=== PATIENT | female | born 1935 | race Caucasian/White ===

== ENCOUNTER 2023-04-05 07:58 | Inpatient (IN) ==
[2023-04-05] MEDS ORDERED: SODIUM CHLORIDE 0.9% 500 ML IV STA (08:09)
--- NOTE | 2023-04-05 08:12 | Emergency Department Note ---
History of Present Illness General Chief complaint: Abdominal Pain Time Seen by Provider: 04/05/23 07:58 Source: patient, family (Daughter who arrived and is at the bedside), RN notes reviewed and old records reviewed (I have reviewed the detention med list which arrived with the patient and looked at the meds) Mode of arrival: EMS Limitations: no limitations History of Present Illness This patient is an 87-year-old female comes in by EMS after having abdominal pain for a day or so but is in right side it was 8 out of 10 she took Tylenol notes 5 out of 10 to the right mid abdomen she does have baseline dementia. Denies fever denies shortness of breath or chest pain. No nausea vomiting or diarrhea no dysuria hematuria no fall or trauma. She is on no blood thinners. Home Medications Medication Instructions Recorded Confirmed Type alprazolam 0.5 mg tablet 0.5 mg PO HS PRN Sleep 03/01/18 04/05/23 History aspirin 81 mg tablet,delayed 81 mg PO DAILY 03/01/18 04/05/23 History release ([place] Low Dose Aspirin) cranberry fruit concentrate 450 mg 450 mg PO DAILY 03/01/18 04/05/23 History tablet (cranberry) levothyroxine 50 mcg tablet 50 mcg PO DAILYBB 03/01/18 04/05/23 History losartan 100 mg tablet 100 mg PO HS 03/01/18 04/05/23 History metoprolol succinate 25 mg 25 mg PO DAILY 03/01/18 04/05/23 History tablet,extended release 24 hr pravastatin 40 mg tablet 40 mg PO HS 03/01/18 04/05/23 History nitroglycerin 0.4 mg sublingual 0.4 mg sublingual UD #30 tabs 03/02/18 04/05/23 Rx tablet (Nitrostat) amlodipine 2.5 mg tablet 2.5 mg PO DAILY 10/05/19 04/05/23 History donepezil 5 mg tablet 5 mg PO DAILY 04/05/23 04/05/23 History dorzolamide 22.3 mg-timolol 6.8 1 drp OPB BID 04/05/23 04/05/23 History mg/mL eye drops escitalopram oxalate 10 mg tablet 10 mg PO DAILY 04/05/23 04/05/23 History famotidine 20 mg tablet 20 mg PO DAILY 04/05/23 04/05/23 History ferrous sulfate 325 mg (65 mg 325 mg PO MOWEFR@0900 04/05/23 04/05/23 History iron) tablet Allergies Allergy/AdvReac Type Severity Reaction Status Date / Time bee venom protein (honey bee) Allergy Severe Anaphylaxis Verified 04/05/23 09:43 cephalexin Allergy Unknown RASH Unverified 10/04/20 09:59 Iodinated Contrast Media Allergy Unknown HIVES Unverified 10/04/20 09:59 lisinopril Allergy Unknown Verified 04/05/23 09:43 alendronate sodium AdvReac Severe Chest Pain Verified 04/05/23 09:43 Past Med/Surg History Medical History Depression History of breast cancer History of adenomatous polyp of colon Diverticular disease of colon Pelvic fracture Osteoporosis Hypothyroidism Lymphedema of arm Dyslipidemia Hypertension Nonsustained ventricular tachycardia Hypomagnesemia Hiatal hernia GERD (gastroesophageal reflux disease) Esophageal spasm Surgical History H/O bilateral cataract extraction History of ectropion repair Status post partial mastectomy Family History Mother Heart disease Father Colon cancer Sister Lymphoma Sister Breast cancer Social History Smoking Status: Never smoker Second Hand Exposure: No; Do You Dip or Chew Tobacco: No; Tobacco Cessation Education Requested by Patient: No Hx Alcohol Use: No Hx Substance Use: No Preferred Language: Indonesian Communication Ability: Effective Materials Associate Required: No Beliefs That Will Affect Care: None Current Living Situation: Long-Term Other Information That Helps Us Care for You: No Feels Safe at Home: Yes Safety Concerns: Feels Safe At This Time Assistive Devices: Cane, Glasses and Walker Review of Systems A total of 10 systems reviewed and were otherwise negative Physical Exam Vital Signs Vital Signs - 24 hr 04/05/23 08:13 04/05/23 08:13 04/05/23 08:32 Temperature 36.5 C Temperature Source Oral Pulse Rate 86 86 83 Pulse Rate from SpO2 Sensor Pulse Rhythm Regular Respiratory Rate 16 18 Respiratory Depth Normal Blood Pressure 119/68 Blood Pressure Mean 85 Pulse Oximetry 97 97 Oxygen Delivery Method Room Air Room Air Sepsis Recent Fever Within 48 Hours No Sepsis New/Unexplained Change in Mental Status No Sepsis Action Taken by Nursing No Action Required 04/05/23 08:43 04/05/23 08:50 04/05/23 09:00 Temperature Temperature Source Pulse Rate 80 78 Pulse Rate from SpO2 Sensor 80 79 Pulse Rhythm Respiratory Rate 17 22 Respiratory Depth Blood Pressure 147/77 H 147/77 H Blood Pressure Mean 89 100 Pulse Oximetry 95 93 Oxygen Delivery Method Sepsis Recent Fever Within 48 Hours Sepsis New/Unexplained Change in Mental Status Sepsis Action Taken by Nursing 04/05/23 09:00 04/05/23 09:10 04/05/23 09:20 Temperature Temperature Source Pulse Rate 80 84 Pulse Rate from SpO2 Sensor 81 83 Pulse Rhythm Respiratory Rate 18 22 Respiratory Depth Blood Pressure 123/68 Blood Pressure Mean 92 Pulse Oximetry 92 93 Oxygen Delivery Method Sepsis Recent Fever Within 48 Hours Sepsis New/Unexplained Change in Mental Status Sepsis Action Taken by Nursing 04/05/23 09:30 04/05/23 09:30 04/05/23 09:40 Temperature Temperature Source Pulse Rate 84 77 Pulse Rate from SpO2 Sensor 85 76 Pulse Rhythm Respiratory Rate 24 24 Respiratory Depth Blood Pressure 157/65 H Blood Pressure Mean 121 Pulse Oximetry 98 95 Oxygen Delivery Method Sepsis Recent Fever Within 48 Hours Sepsis New/Unexplained Change in Mental Status Sepsis Action Taken by Nursing 04/05/23 09:50 Temperature Temperature Source Pulse Rate 74 Pulse Rate from SpO2 Sensor 75 Pulse Rhythm Respiratory Rate 14 Respiratory Depth Blood Pressure Blood Pressure Mean Pulse Oximetry 96 Oxygen Delivery Method Sepsis Recent Fever Within 48 Hours Sepsis New/Unexplained Change in Mental Status Sepsis Action Taken by Nursing General: Well developed well nourished pleasant older female who has baseline dementia, she answers most questions appropriately but vaguely. She appears in no acute distress, breathing comfortably on room air. Normal speech. HEENT: Normal cephalic atraumatic. Pupils are equal round and reactive to light. Extraocular movements are intact. Oropharynx is pink with moist mucous membranes. No swelling of the mouth lips or tongue. Neck: Supple with a midline trachea. No meningeal signs or stiffness, no JVD or bruits. No Stridor. Chest: Clear to auscultation bilaterally. No wheezes or rhonchi. No increased work of breathing. Heart: Regular rate and rhythm without murmurs or gallops. Abdomen: Soft, moderately tender to palpation in the right mid to lower abdomen. Nondistended without rebound guarding or rigidity. Extremities: No cyanosis clubbing or edema. No calf tenderness or assymetry Spine/Back. Non tender to palpation. No CVA tenderness Skin: Good turgor without rashes. Neurologic exam: Cranial nerves two through 12 are intact. Motor and sensation are intact and symmetrical throughout. Course Administered Medications Amlodipine Besylate (Amlodipine Besylate 5 Mg Tab) 2.5 mg PO DAILY KALLIE Stop: 05/05/23 11:29 Last Admin: 04/05/23 12:21 Dose: 2.5 mg Documented By: MORALES Dorzolamide/Timolol (Dorzolamide/Timolol 22.3/6.8mg/Ml 10 Ml Btl) 1 drops OPB BID KALLIE Stop: 05/05/23 11:29 Last Admin: 04/05/23 12:27 Dose: 1 drops Documented By: MORALES Escitalopram Oxalate (Escitalopram Oxalate 10 Mg Tab) 10 mg PO DAILY KALLIE Stop: 05/05/23 11:29 Last Admin: 04/05/23 12:24 Dose: 10 mg Documented By: MORALES Piperacillin Sod/Tazobactam (Sod 4.5 gm/ Dextrose) 100 mls @ 25 mls/hr IV Q8H KALLIE Stop: 04/15/23 13:59 Last Admin: 04/05/23 13:27 Dose: 25 mls/hr Documented By: MORALES Metoprolol Succinate (Metoprolol Succ 25mg Ext Rel Tab) 25 mg PO DAILY KALLIE Stop: 05/05/23 11:29 Last Admin: 04/05/23 12:24 Dose: 25 mg Documented By: MORALES Discontinued Medications Sodium Chloride (Nss) 500 mls @ 999 mls/hr IV .Q31M STA Stop: 04/05/23 08:39 Last Infusion: 04/05/23 09:17 Dose: Infused Documented By: Admin: 04/05/23 08:23 Dose: 999 mls/hr Documented By: ELVIRA Piperacillin Sod/Tazobactam Sod (Zosyn) 4.5 gm in 100 mls @ 200 mls/hr IV NOW ONE Stop: 04/05/23 09:58 Last Infusion: 04/05/23 10:44 Dose: Infused Documented By: Admin: 04/05/23 09:56 Dose: 200 mls/hr Documented By: ELVIRA Medical Decision Making Differential Diagnosis Intra-abdominal process, gallbladder disease, appendicitis, diverticulitis, cardiac disease, UTI, electrolyte or metabolic abnormality Medical Records Attestation: I reviewed the patient's medical records. Home Medications Current Medication List: was personally reviewed by me Laboratory Data Attestation: I reviewed the patient's lab results. 04/05/23 08:05 04/05/23 09:27 Lab Results 04/05/23 04/05/23 Range/Units 08:05 09:27 WBC 12.59 H (4.8-10.8) K/ul RBC 3.29 L (4.20-5.40) M/uL Hgb 7.7 L (12.0-16.0) g/dl Hct 27.3 L (37.0-47.0) % MCV 83.0 (80.0-100.0) fL MCH 23.4 L (25.0-34.0) pg MCHC 28.2 L (32.0-36.0) g/dL RDW Std Deviation 67.9 H (36.4-46.3) fL RDW Coeff of Helen 23.7 H (11.5-14.5) % Plt Count 481 H (130-400) K/uL MPV 9.3 L (9.4-12.4) fL Immature Gran % (Auto) 0.4 % Neut % (Auto) 79.2 % Lymph % (Auto) 13.9 % Noble % (Auto) 5.6 % Eos % (Auto) 0.7 % Baso % (Auto) 0.2 % Neut # (Auto) 9.96 H (1.40-6.50) K/uL Lymph # (Auto) 1.75 (1.20-3.40) K/uL Noble # (Auto) 0.71 H (0.11-0.59) K/uL Eos # (Auto) 0.09 (0.00-0.50) K/uL Baso # (Auto) 0.03 (0.00-0.20) K/uL Immature Gran # (Auto) 0.05 (0.01-0.20) K/uL Polychromasia 1+ Hypochromasia Present Anisocytosis Present Ovalocytes 1+ Sodium 140 (136-145) mmol/L Potassium TNP 4.0 Chloride 109 H (98-107) mmol/L Carbon Dioxide 23 (21-32) mmol/L Anion Gap 8 (3-11) BUN 19 (6-23) mg/dl Creatinine 1.13 (0.6-1.2) mg/dl Est Cr Clr Drug Dosing 27.9 ml/min Est GFR ( Amer) 49.9 ml/min Est GFR (Non-Af Amer) 43.1 ml/min BUN/Creatinine Ratio 16.8 (10-20) Glucose 130 H (70-99(Fasting)) mg/dl Calcium 8.8 (8.6-10.3) mg/dl Total Bilirubin 0.5 (0.2-1.0) mg/dl AST TNP 14 ALT 11 (7-52) U/L Alkaline Phosphatase 61 (34-104) U/L Troponin I High Sens 13.7 (0-14) pg/ml Total Protein 6.1 (6.0-8.3) gm/dl Albumin 2.9 L (3.4-5.0) gm/dl Globulin 3.2 (2.5-4.0) gm/dl Albumin/Globulin Ratio 0.9 (0.9-2) Lipase 10 L (11-82) U/L Imaging Data Attestation: I personally reviewed and interpreted this imaging study as follows: My Impression: CT of the abdomen and pelvisno contrastupon my interpretation there appears to be a mass in the right mid abdomen. I am concerned for colon cancer. Radiologist's Impression: Abdomen/Pelvis CT 04/05/23 08:[address] WITHOUT CONTRAST CT DOSE: 580.4 mGy.cm HISTORY: rt sided abd pain TECHNIQUE: Multiaxial CT images of the abdomen and pelvis were performed without contrast. A dose lowering technique was utilized adhering to the principles of ALARA. COMPARISON STUDY: None. FINDINGS: Mild dependent changes seen at the lung bases. No pneumoperitoneum. No pneumatosis. Old posttraumatic and postoperative changes within the pubic bones. There is a left sacroiliac bone noted. There are old, healed bilateral rib fractures. No acute fractures identified. The heart is moderately enlarged. Mild circumferential thickening of the distal esophagus. Prior cholecystectomy. This may account for the intra and extra hepatic bile duct dilatation. The common bile duct measures up to 11 mm. No hepatic or splenic masses. There is trace perisplenic fluid noted. The adrenal glands unremarkable. Small cyst at the pancreatic head.. There is a punctate stone within the left kidney. No right renal calculi. Multiple bilateral renal hypodense lesions are incompletely characterized on this noncontrast study but favor cysts. Calcified plaque within the normal caliber abdominal aorta. No pelvic lymphadenopathy. Trace pelvic free fluid. Mild bladder wall thickening with adjacent fat stranding. The uterus and adnexa are unremarkable. No dilated loops of bowel to suggest an obstruction. Multiple colonic diverticula. There is moderate irregular bowel wall thickening within the cecum and proximal ascending colon with adjacent fat stranding. There are mildly enlarged ileocolic lymph nodes measuring up to 13 mm. The appendix is not identified with certainty. Mild thickening at the terminal ileum is also noted. IMPRESSION: 1. Moderate irregular bowel wall thickening involving the cecum and proximal ascending colon with pericolonic fat stranding. This is suspicious for a colonic mass with surrounding inflammation. A nonspecific colitis or cecal diverticulitis are also considered in the differential diagnosis.. Follow-up colonoscopy recommended for further evaluation. 2. Mildly enlarged ileocolic lymph nodes which could represent tumor spread or reactive. These bear watching future examinations. 3. The appendix is not identified with certainty. 4. Left-sided nephrolithiasis. No hydronephrosis. 5. Mild bladder wall thickening which may represent a cystitis. 6. Additional findings as described above. ACT 112: Negative or not required by law. Electronically signed by: Hugo Patel M.D. 04/05/2023 9:21 AM ECG Data Attestation: I personally reviewed and interpreted this ECG as follows: Indication: + abdominal pain Rate (beats per minute): 85 Rhythm: + normal sinus ECG Intervals/blocks: + Normal QRS, + Normal QT and + Normal CT ECG [place]: + Normal ECG ST segments: + Nonspecific ST abnormalities ECG Findings: no PACs or no PVCs Comparison ECG Date: from (10/05/2019) Change: no significant change MDM Narrative This patient comes in with abdominal pain. She does have dementia so history is somewhat limited but on exam she is moderately tender. IV access was established and multiple blood testing was obtained. I did order urinalysis and EKG as well. EKG does not suggest acute coronary syndrome or arrhythmia. I did order the CAT scan without contrast given her contrast allergy as well as her underlying kidney disease. Her daughter did arrive and is at the bedside and was able to give further history. Apparently the patient has been getting iron transfusions and seem to be worse after the last iron transfusion on . Daughter confirms that she has had an appendectomy and cholecystectomy. She was found to have significant anemia at 7.7 it sounds like this has been treated as an outpatient and is not likely acute. She has no significant electrolyte or metabolic abnormalities. CAT scan shows a mass in the right upper abdomen likely consistent with a colon cancer/malignancy. Diverticulitis or infection would also be in the differential in light of this and to give her Zosyn 4.5 g IV she tolerated this well. She is receive IV fluids. I do think she needs to be admitted/observed for further treatment and evaluation. I have consulted and discussed case at length with Dr. Quintero who will admit the patient for these measures Continuous cardiac monitoring: Orders placed in EMR for continuous cardiac monitoring. Upon my interpretation patient was noted to be in normal sinus rhythm with a rate of 85 Impression & Plan Abdominal pain, Dementia, Anemia, Colonic mass Discharge Plan Visit Data Chief Complaint: Abdominal Pain ED Provider: Claude Shetty Discharge Problem: Abdominal pain, Dementia, Anemia, Colonic mass Patient Disposition: Admitted As Inpatient Discharge Instructions Interventions: ED Discharge Assessment Last Done: 04/05/23 10:42 Discharge Problem: Abdominal pain Qualifiers: Abdominal location: right lower quadrant Qualified Code(s): R10.31 - Right lower quadrant pain Dementia Qualifiers: Dementia type: unspecified type Dementia severity: moderate Dementia behavioral or psychological symptom: without behavioral, psychotic, or mood disturbance or anxiety Qualified Code(s): F03.B0 - Unspecified dementia, moderate, without behavioral disturbance, psychotic disturbance, mood disturbance, and anxiety Anemia Qualifiers: Anemia type: unspecified type Qualified Code(s): D64.9 - Anemia, unspecified
[2023-04-05 08:40] LABS: Hematocrit (blood only) 27.3 % (37.0-47.0); Hemoglobin 7.7 g/dl (12.0-16.0); Mean Corpuscular Hemoglobin 23.4 pg (25.0-34.0); Mean Corpuscular Hgb Conc 28.2 g/dL (32.0-36.0); Mean Platelet Volume 9.3 fL (9.4-12.4); Platelet Count 481 K/uL (130-400); RDW Coefficient of Variation 23.7 % (11.5-14.5); RDW Standard Deviation 67.9 fL (36.4-46.3); Red Blood Count 3.29 M/uL (4.20-5.40); White Blood Count 12.59 K/ul (4.8-10.8)
[2023-04-05 08:55] LABS: Anisocytosis Present; Basophils # (auto) 0.03 K/uL (0.00-0.20); Basophils % (auto) 0.2 %; Eosinophils # (auto) 0.09 K/uL (0.00-0.50); Eosinophils % (auto) 0.7 %; Hypochromasia Present; Immature Granulocytes # (auto) 0.05 K/uL (0.01-0.20); Immature Granulocytes % (auto) 0.4 %; Lymphocytes # (auto) 1.75 K/uL (1.20-3.40); Lymphocytes % (auto) 13.9 %; Monocytes # (auto) 0.71 K/uL (0.11-0.59); Monocytes % (auto) 5.6 %; Neutrophils # (auto) 9.96 K/uL (1.40-6.50); Neutrophils % (auto) 79.2 %; Ovalocytes 1+; Polychromasia 1+
[2023-04-05 08:56] LABS: Alanine Aminotransferase 11 U/L (7-52); Albumin Globulin Ratio 0.9 (0.9-2); Albumin Level 2.9 gm/dl (3.4-5.0); Alkaline Phosphatase 61 U/L (34-104); Anion Gap 8 (3-11); BUN Creatinine Ratio 16.8 (10-20); Bilirubin,Total 0.5 mg/dl (0.2-1.0); Blood Urea Nitrogen 19 mg/dl (6-23); Calcium 8.8 mg/dl (8.6-10.3); Carbon Dioxide 23 mmol/L (21-32); Chloride 109 mmol/L (98-107); Creatinine Clr Calc Pharmacy 27.9 ml/min; Est GFR (African American) 49.9 ml/min; Est GFR (Non-African American) 43.1 ml/min; Globulin 3.2 gm/dl (2.5-4.0); Glucose 130 mg/dl (70-99(Fasting)); Lipase 10 U/L (11-82); Sodium 140 mmol/L (136-145); Total Protein 6.1 gm/dl (6.0-8.3)
[2023-04-05 09:06] LABS: Troponin I High Sensitivity 13.7 pg/ml (0-14)
--- NOTE | 2023-04-05 09:22 | CT Scan Report ---
ABDOMEN AND PELVIS CT WITHOUT CONTRAST CT DOSE: 580.4 mGy.cm HISTORY: rt sided abd pain TECHNIQUE: Multiaxial CT images of the abdomen and pelvis were performed without contrast. A dose lo wering technique was utilized adhering to the principles of ALARA. COMPARISON STUDY: None. FINDINGS: Mild dependent changes seen at the lung bases. No pneumoperitoneum. No pneumatosis. Old pos ttraumatic and postoperative changes within the pubic bones. There is a left sacroiliac bone noted. T here are old, healed bilateral rib fractures. No acute fractures identified. The heart is moderately enlarged. Mild circumferential thickening of the distal esophagus. Prior cholecystectomy. This may ac count for the intra and extra hepatic bile duct dilatation. The common bile duct measures up to 11 mm . No hepatic or splenic masses. There is trace perisplenic fluid noted. The adrenal glands unremarkab le. Small cyst at the pancreatic head.. There is a punctate stone within the left kidney. No right re nal calculi. Multiple bilateral renal hypodense lesions are incompletely characterized on this noncon trast study but favor cysts. Calcified plaque within the normal caliber abdominal aorta. No pelvic ly mphadenopathy. Trace pelvic free fluid. Mild bladder wall thickening with adjacent fat stranding. The uterus and adnexa are unremarkable. No dilated loops of bowel to suggest an obstruction. Multiple co lonic diverticula. There is moderate irregular bowel wall thickening within the cecum and proximal as cending colon with adjacent fat stranding. There are mildly enlarged ileocolic lymph nodes measuring up to 13 mm. The appendix is not identified with certainty. Mild thickening at the terminal ileum is also noted. IMPRESSION: 1. Moderate irregular bowel wall thickening involving the cecum and proximal ascending colon with per icolonic fat stranding. This is suspicious for a colonic mass with surrounding inflammation. A nonspe cific colitis or cecal diverticulitis are also considered in the differential diagnosis.. Follow-up c olonoscopy recommended for further evaluation. 2. Mildly enlarged ileocolic lymph nodes which could represent tumor spread or reactive. These bear w atching future examinations. 3. The appendix is not identified with certainty. 4. Left-sided nephrolithiasis. No hydronephrosis. 5. Mild bladder wall thickening which may represent a cystitis. 6. Additional findings as described above. ACT 112: Negative or not required by law. Electronically signed by: Hugo Patel M.D. 04/05/2023 9:21 AM
[2023-04-05] MEDS ORDERED: PIPERACILLIN/TAZOBACTAM 4.5 GM/100 ML BAG IV ONE (09:29)
--- NOTE | 2023-04-05 09:49 | History & Physical Report ---
Date of Service April 05, 2023 Assessment & Plan (1) Syncope: Plan: Syncopal episode this morning prior to breakfast prompted staff at [facility] to summon EMS. Per EMS report she also passed out 2 to 3 weeks ago. Patient does not remember the circumstances around this and staff is unavailable to comment. We will monitor on telemetry overnight and obtain echocardiogram. Notably staff did report glucose was checked this morning around time of the event and was 123. She is currently at her baseline. We will check orthostatic vital signs. PT/OT to evaluate. (2) Abdominal pain: Plan: Likely related to #3. Tylenol/Oxycodone PRN. See plan below (3) Abnormal CT of the abdomen: Plan: Possible colon mass versus diverticulitis/colitis. We will empirically treat with antibiotics. Family declines additional work-up and interested in hospice care. Palliative care consulted. Continue supportive care with pain breanna packer. (4) Anemia: Plan: Likely chronic blood loss anemia secondary to colon mass. Patient has been on iron supplementation and iron transfusions as outpatient. We will hold these while she is inpatient given iron can cause constipation. Continue to watch CBC for any fall from current state. (5) Dementia: Plan: Chronic, stable, at baseline. Continue donepezil per home regimen. (6) Hypothyroidism: Plan: Chronic, stable. TSH in AM. Continue Synthroid per home regimen. (7) Osteoporosis: Plan: Chronic, stable. Notable allergy to alendronate. Not on calcium or vitamin D supplements. Defer to PCP. (8) History of breast cancer: Plan: Noted per records. (9) Hypertension: Plan: Chronic, stable. Continue medications per home regimen. (10) Depression: Plan: Chronic, stable. Continue medications per home regimen. DVT prophylaxis-heparin DNR/DNI as confirmed with daughter by phone Disposition-to med floor with telemetry given report of syncope by staff this morning. Overall, daughter is interested in hospice care. Palliative consult was placed. I spent a total of 75minutes coordinating, documenting, and providing care for this patient excluding time spent in the performance of separately billed services Agata Quintero DO [facility] Hospitalist History of Present Illness Chief Complaint: Abdominal pain Primary Care Provider: Arun Del Rio MD 87-year-old female with dementia and a history of right breast cancer status post partial mastectomy, radiation therapy, chemotherapy and 5 years of adjuvant tamoxifen completed in 2018 presents with abdominal pain. Work-up reveals a colonic mass suspicious for malignancy. She has a worsening anemia for which she has been getting iron transfusions after being referred to hematology. She also takes iron supplements orally Thursday. Per patient: reports dark stool, no ivana blood reports eating normal appetite, no changes in appetite, no significant weight changes right abdominal pain, poorly described, x 1-2 weeks. (Daughter states 3-4 days) notes report patient passed out 2-3 weeks ago. Pt doesn't remember circumstances. Happened at [facility] dry lips with some ulcerations, denies pain on these, just dry denies recent UTI symptoms denies lightheadedness, SOB, no abnormal fatigue out of the ordinary occ enema use for constipation. walks with a walker or a cane at baseline. Although she can tell me that "it's cold outside so it must be Nov" and then states correctly that it is 2022, she kept repeating her story. Per daughter (by phone): Pt reports abdominal pain x 3-4 days, saw PCP on Thursday-->CT was scheduled but not yet done staff at [facility] reported this morning that she was confused and elevated BP to 159/68. Said "she might have had a seizure" Upon EMS arrival she was clear. She states that Dr. Del Rio recommended a colonoscopy a few months ago, and the patient had decided against. Daughter reports that she and her sisters are on the same page and they understand mom may have colon cancer. They are not interested in further workup at this time. Per [facility] staff: Reports patient went to the bathroom and after she ambulated back to her chair she sat down and became pale, slumped over in her chair with staff holding her up so she didn't fall to the floor. She was shaky in her arms and then came to after about one minute and was able to speak to them. She appeared confused by to staff this confusion was no different from her baseline. Allergies Allergy/AdvReac Type Severity Reaction Status Date / Time bee venom protein (honey bee) Allergy Severe Anaphylaxis Verified 04/05/23 09:43 cephalexin Allergy Unknown RASH Unverified 10/04/20 09:59 Iodinated Contrast Media Allergy Unknown HIVES Unverified 10/04/20 09:59 lisinopril Allergy Unknown Verified 04/05/23 09:43 alendronate sodium AdvReac Severe Chest Pain Verified 04/05/23 09:43 Home Medications Medication Instructions Recorded Confirmed Type alprazolam 0.5 mg tablet 0.5 mg PO HS PRN Sleep 03/01/18 04/05/23 History aspirin 81 mg tablet,delayed 81 mg PO DAILY 03/01/18 04/05/23 History release (Mackenzie Low Dose Aspirin) cranberry fruit concentrate 450 mg 450 mg PO DAILY 03/01/18 04/05/23 History tablet (cranberry) levothyroxine 50 mcg tablet 50 mcg PO DAILYBB 03/01/18 04/05/23 History losartan 100 mg tablet 100 mg PO HS 03/01/18 04/05/23 History metoprolol succinate 25 mg 25 mg PO DAILY 03/01/18 04/05/23 History tablet,extended release 24 hr pravastatin 40 mg tablet 40 mg PO HS 03/01/18 04/05/23 History nitroglycerin 0.4 mg sublingual 0.4 mg sublingual UD #30 tabs 03/02/18 04/05/23 Rx tablet (Nitrostat) amlodipine 2.5 mg tablet 2.5 mg PO DAILY 10/05/19 04/05/23 History donepezil 5 mg tablet 5 mg PO DAILY 04/05/23 04/05/23 History dorzolamide 22.3 mg-timolol 6.8 1 drp OPB BID 04/05/23 04/05/23 History mg/mL eye drops escitalopram oxalate 10 mg tablet 10 mg PO DAILY 04/05/23 04/05/23 History famotidine 20 mg tablet 20 mg PO DAILY 04/05/23 04/05/23 History ferrous sulfate 325 mg (65 mg 325 mg PO MOWEFR@0900 04/05/23 04/05/23 History iron) tablet Past Med/Surg History Medical History Depression History of breast cancer History of adenomatous polyp of colon Diverticular disease of colon Pelvic fracture Osteoporosis Hypothyroidism Lymphedema of arm Dyslipidemia Hypertension Nonsustained ventricular tachycardia Hypomagnesemia Hiatal hernia GERD (gastroesophageal reflux disease) Esophageal spasm Surgical History H/O bilateral cataract extraction History of ectropion repair Status post partial mastectomy Family History Mother Heart disease Father Colon cancer Sister Lymphoma Sister Breast cancer Social History Smoking Status: Never smoker Hx Alcohol Use: Yes Alcohol type: wine Hx Substance Use: No Preferred Language: Czech Communication Ability: Effective Animal Nutrition Teacher Required: No Beliefs That Will Affect Care: None Current Living Situation: Family Feels Safe at Home: Yes Assistive Devices: Glasses Physical Exam Physical Exam: CONSTITUTIONAL: WNWD, vitals as above, generally well-appearing, NAD EYES: PERRL, normal conjunctivae, no scleral icterus ENT: external ear and nose normal, MMM NECK: trachea midline RESPIRATORY: clear to auscultation bilaterally, no crackles, rales or wheezes, normal respiratory effort CARDIOVASCULAR: regular rate and rhythm, S1 and 2 heard without murmurs, gallops or rubs, no JVD, no peripheral edema CHEST: inspection of chest was normal GASTROINTESTINAL: normal bowel sounds, soft, TTP in right abdomen, ND, no guarding MUSCULOSKELETAL: strength 5/5 throughout, head is normocephalic and atraumatic SKIN: warm and dry, no rashes NEUROLOGIC: CN 2-12 grossly intact, no sensory deficit, normal cognition, normal speech, no tremor PSYCHIATRIC: alert cooperative and oriented to person, place and time. Euthymic mood, makes good eye contact, language grossly intact, repeating her story over again as if not remembering that she just told me that. Results & Data Results & Data Vital Signs (Past 12 Hours) Vital Signs Temp Pulse Resp BP Pulse Ox O2 Del Method 04/05/23 08:32 83 04/05/23 08:13 86 18 97 Room Air 04/05/23 08:13 36.5 C 86 16 119/68 97 Room Air Laboratory Results Short CBC 04/05/23 Range/Units 08:05 WBC 12.59 H (4.8-10.8) K/ul Hgb 7.7 L (12.0-16.0) g/dl Hct 27.3 L (37.0-47.0) % Plt Count 481 H (130-400) K/uL BMP 11/19/23 08:05 Sodium 140 Potassium TNP Chloride 109 H Carbon Dioxide 23 BUN 19 Creatinine 1.13 Glucose 130 H Calcium 8.8 Liver Function 04/05/23 Range/Units 08:05 Total Bilirubin 0.5 (0.2-1.0) mg/dl AST TNP ALT 11 (7-52) U/L Alkaline Phosphatase 61 (34-104) U/L Albumin 2.9 L (3.4-5.0) gm/dl Diagnostic Findings Abdomen/Pelvis CT 04/05/23 08:[address] WITHOUT CONTRAST CT DOSE: 580.4 mGy.cm HISTORY: rt sided abd pain TECHNIQUE: Multiaxial CT images of the abdomen and pelvis were performed without contrast. A dose lowering technique was utilized adhering to the principles of ALARA. COMPARISON STUDY: None. FINDINGS: Mild dependent changes seen at the lung bases. No pneumoperitoneum. No pneumatosis. Old posttraumatic and postoperative changes within the pubic bones. There is a left sacroiliac bone noted. There are old, healed bilateral rib fractures. No acute fractures identified. The heart is moderately enlarged. Mild circumferential thickening of the distal esophagus. Prior cholecystectomy. This may account for the intra and extra hepatic bile duct dilatation. The common bile duct measures up to 11 mm. No hepatic or splenic masses. There is trace perisplenic fluid noted. The adrenal glands unremarkable. Small cyst at the pancreatic head.. There is a punctate stone within the left kidney. No right renal calculi. Multiple bilateral renal hypodense lesions are incompletely characterized on this noncontrast study but favor cysts. Calcified plaque within the normal caliber abdominal aorta. No pelvic lymphadenopathy. Trace pelvic free fluid. Mild bladder wall thickening with adjacent fat stranding. The uterus and adnexa are unremarkable. No dilated loops of bowel to suggest an obstruction. Multiple colonic diverticula. There is moderate irregular bowel wall thickening within the cecum and proximal ascending colon with adjacent fat stranding. There are mildly enlarged ileocolic lymph nodes measuring up to 13 mm. The appendix is not identified with certainty. Mild thickening at the terminal ileum is also noted. IMPRESSION: 1. Moderate irregular bowel wall thickening involving the cecum and proximal ascending colon with pericolonic fat stranding. This is suspicious for a colonic mass with surrounding inflammation. A nonspecific colitis or cecal diverticulitis are also considered in the differential diagnosis.. Follow-up colonoscopy recommended for further evaluation. 2. Mildly enlarged ileocolic lymph nodes which could represent tumor spread or reactive. These bear watching future examinations. 3. The appendix is not identified with certainty. 4. Left-sided nephrolithiasis. No hydronephrosis. 5. Mild bladder wall thickening which may represent a cystitis. 6. Additional findings as described above. ACT 112: Negative or not required by law. Electronically signed by: Hugo Patel M.D. 04/05/2023 9:21 AM (2) Abdominal pain Abdominal location: right lower quadrant Qualified Code(s): R10.31 - Right lower quadrant pain (5) Dementia Dementia behavioral or psychological symptom: without behavioral, psychotic, or mood disturbance or anxiety Dementia severity: moderate Dementia type: unspecified type Qualified Code(s): F03.B0 - Unspecified dementia, moderate, without behavioral disturbance, psychotic disturbance, mood disturbance, and anxiety
--- OUTSIDE RECORDS SUMMARY | 2023-04-05 10:06 | External Medical Summary | Summary of Care ---
Author Name Unknown Organization [facility] Address [address] [place] [address] Phone [phone] Care Team Providers Care Lead Java Developer Architect Name Role Phone Arun Del Rio MD Primary Care Provider [phone] Reason for Visit * Reason Onset Date Comments Fax 03/24/2023 Encounter Details Date Type Department Care Team (Late st Contact Info) Description 03/24/2023 Telephone [facility] [address] [place] [address] Arun Del Rio MD [address], [place] [id number] Fax Allergies Active Allergy Reactions Criticality Noted Date Comments Alendronate Tachycardia 11/02/2014 Patient felt like she was having a heart attack Bee Venom Anaphylaxis High 10/11/2014 Iodinated Contrast Media 07/22/2013 Cephalexin 08/09/2013 Hot and flushed , nausea 2012 Lisinopril 07/21/2018 documented as of this encounter (statuses as of 03/30/2023) Medications Medication Sig Dispensed Refills Start Date End Date Status Cranberry-Vitamin C 250-60 MG Oral Capsule Take by mouth daily. 0 Active Aspirin 81 MG Tablet Take 1 Tablet by mouth in the morning. 34 Tab 5 09/30/2019 Active acetaminophen (TYLENOL) 500 MG Tablet Take 2 Tablets by mouth every 6 hours as needed for Pain or Fever. 100 Tab 0 11/10/2019 Active Docusate Sodium 100 MG Oral Tablet Take 1 Tablet by mouth 2 times a day as needed. 10 Tab 0 11/10/2019 Active Polyethylene Glycol 3350 17 GM Oral Packet Take 1 Packet by mouth daily as needed. 0 Active Dorzolamide HCl-Timolol Mal 22.3-6.8 MG/ML Ophthalmic Solution (Cosopt) 1 drop in each eye 2 times daily 10 mL 3 06/17/2021 Active Nitroglycerin 0.4 MG Sublingual Tablet Sublingual (Nitrostat)Indication s:Esophageal spasm MAY REPEAT DOSE IN 10 MINUTES NECESSARY, BEING USED FOR SPASM OF ESOPHAGUS 25 Tablet 2 03/17/2022 Active traMADol HCl 50 MG Oral Tablet (Ultram)Indications:G eneralized osteoarthritis Take by mouth 1 Tablet every 8 hours as needed for Pain, Moderate. 60 Tablet 0 03/17/2022 Active Hydrocortisone 2.5 % External OintmentIndications:P rurigo nodularis,Lichenifica tion Apply to spots on face and back when itchy (x2 daily or more if needed) 60 g 0 08/14/2022 Active Levothyroxine Sodium 50 MCG Oral Tablet (Levoxyl)Indications: Hypothyroidism, unspecified type Take 1 Tablet by mouth daily first thing in the morning. (at least 30 min prior to breakfast or other meds) 90 Tablet 3 09/15/2022 Active Losartan Potassium 100 MG Oral Tablet (Cozaar)Indications:H ypothyroidism, unspecified type,Hyperlipidemia with target LDL less than 100,HTN, goal below 150/90 Take 1 Tablet by mouth in the morning. 90 Tablet 1 09/15/2022 Active Metoprolol Succinate ER 25 MG Oral Tablet Extended Release 24 Hour (toPROL XL)Indications:HTN, goal below 150/90 Take 1 Tablet by mouth in the morning. 90 Tablet 1 09/15/2022 Active amLODIPine Besylate 2.5 MG Oral Tablet (Norvasc)Indications: HTN, goal below 150/90 Take 1 Tablet by mouth in the morning. 100 Tablet 3 09/15/2022 Active Ferrous Sulfate 325 (65 Fe) MG Oral Tablet (Feosol)Indications:I wilmer deficiency anemia, unspecified iron deficiency anemia type Take 1 Tablet by mouth once a day on Thursday, Thursday, and Thursday only. 30 Tablet 4 10/15/2022 Active Famotidine 20 MG Oral Tablet (Pepcid)Indications:G astroesophageal reflux disease, unspecified whether esophagitis present TAKE 1 TABLET BY MOUTH ONCE DAILY 90 Tablet 3 12/01/2022 Active ALPRAZolam 0.5 MG Oral Tablet (xaNAX) TAKE 1 TABLET BY MOUTH AT BEDTIME NEEDED for sleep 25 Tablet 0 12/05/2022 Active Ondansetron HCl 4 MG Oral Tablet (Zofran)Indications:N ausea without vomiting TAKE 1 TABLET BY MOUTH EVERY 6 HOURS NEEDED FOR NAUSEA 20 Tablet 1 12/24/2022 Active Escitalopram Oxalate 10 MG Oral Tablet (Lexapro)Indications: Major depressive disorder, recurrent episode, mild (HCC) TAKE 1 TABLET BY MOUTH ONCE DAILY 90 Tablet 1 02/25/2023 Active Donepezil HCl 5 MG Oral Tablet (Aricept)Indications: Alzheimer's dementia of other onset, with other behavioral disturbance, unspecified dementia severity (HCC) TAKE 1 TABLET BY MOUTH EVERY MORNING. take with the largest meal of the day 90 Tablet 3 02/25/2023 Active Pravastatin Sodium 40 MG Oral Tablet (Pravachol)Indication s:Hyperlipidemia with target LDL less than 100 TAKE 1 TABLET BY MOUTH EVERY MORNING 90 Tablet 3 03/04/2023 Active documented as of this encounter (statuses as of 03/30/2023) Active Problems Problem Noted Date Diagnosed Date Alzheimer's disease 03/24/2023 Iron deficiency anemia 03/11/2023 Gastroesophageal reflux disease 10/15/2022 Stage 3 chronic kidney disease 05/22/2022 Primary open-angle glaucoma, bilateral, moderate stage 10/24/2021 SALAZAR (generalized anxiety disorder) 06/10/2021 Cyst of pancreas 06/10/2021 Hypertensive kidney disease with stage 3b chronic kidney disease 03/26/2020 Overview: Per CKD protocol History of breast cancer 06/30/2018 History of pelvic fracture 08/11/2017 HTN, goal below 150/90 02/26/2016 Generalized osteoarthritis 02/26/2016 Major depressive disorder, recurrent episode, mi ld 03/22/2015 GERD (gastroesophageal reflux disease) 5 Advanced directives, counseling/discussion 12/19 Overview: No, Advance Directive brochure offered, patient declined. Hyperlipidemia with target LDL less than 100 11/2013 Overview: ICD-10 update of inactive term Hypothyroidism 07/22/2013 Osteoporosis 07/22/2013 documented as of this encounter (statuses as of 03/30/2023) Resolved Problems Problem Noted Date Diagnosed Date Resolved Date Chronic kidney disease, stage 3b 09/25/2020 05/31/2021 Overview: Per CKD protocol Patient has combo code in use. Hypertensive kidney disease with chronic kidney disease stage III 11/22/2018 03/29/2020 Overview: Per CKD protocol Esophageal spasm 08/19/2018 10/15/2022 Nocturia 07/28/2016 02/10/2017 Kidney disease, chronic, sta ge III (GFR 30-59 ml/min) 10/02/2014 12/30/2018 Overview: Per CKD protocol #1 Ventricular tachycardia, non-sustained 11/29/2013 02/10/2017 Chronic pelvic pain in female 09/27/2013 02/10/2017 LLQ abdominal pain 09/27/2013 7 Pelvic mass in female 09/27/20132016 Breast cancer, right 07/22/2013 019 Cancer Staging:Clinical:Stage IIA(T1c, N1, M0) - Signed by Kirill Quintanilla MD on 09/02/2013 Pathologic: Unsigned Lymphedema of arm 07/22/2013 08/11/2017 HTN, goal below 140/90 07/22/201302/10 Family hx of colon cancer 07/22/2013 Overview: father Pelvic rim fracture 07/22/2013 08/12/19 18 Cystitis, chronic 07/22/2013 07/08/2016 Diverticulosis of colon 07/17 Overview: noted on colonoscopy documented as of this encounter (statuses as of 03/30/2023) Immunizations Name Administration Dates Next Due COVID-19 mRNA, LNP-s, No Pre serve, 2-Dose Series (Codigames) 12/10/2021,03/05/2021,08/07/2020,07/12 Pneumococcal Conjugate Vacc, 13 Valent (Prevnar) 10/11/2014 Pneumococcal Polysaccharide PPV23 (Pneumovax) 09/08/2013 SEASONAL INFLUENZA, PF, 6 M & Above, IM , (FLULAVAL or FLUZONE) 02/10/2017 Seasonal Influenza, Quadriva lent Hd (Fluzone Hd) 01/23/2023,02/24/2022 Seasonal Influenza, Quadriva lent, No Preserve, IM 02/15/2021,02/22/2020,01/30/2018,02/25 Seasonal Influenza, Split, I IV3, No Preserve, Inj 01/21/2013 Seasonal Influenza, Split, I IV3, With Preserve, Inj 01/24/2015,02/07/2014 Seasonal Influenza, Trivalen t, Adjuvanted, 65+ yrs 02/22/2019 TDAP (age 10 and older)(Boostrix) 02/09/2014 Varicella Zoster Vaccine (Adult) 03/18/2015 Zoster Vaccine Recombinant (Shingrix) 12/31/2017 ,10/07/2017 documented as of this encounter Social History Tobacco Use Types Packs/Day Years Used Date Smoking Tobacco: Never Smokeless Tobacco: Never Alcohol Use Standard Drinks/Week Comments Yes 0 (1 standard drink = 0.6 oz pure alcohol) occ wine, 1 drink every few months PHQ-2 Answer Date Recorded PHQ Adult Total Score 2 06/03/2022 Hunger Vital Sign Answer Date Recorded Within the past 12 months, y ou worried that your food would run out before you got the money to buy more. Never true 06/03/19 23 Within the past 12 months, t he food you bought just didn't last and you didn't have money to get more. Never true 06/03/2022 Sex and Gender Information Value Date Recorded Sex Assigned at Female 02/22/2019 2:36 PM EDT Gender Identity Female 02/22/2019 2:36 PM EDT Sexual Orientation Straight 02/22/2019 2: 36 PM EDT Job Start Date Occupation Industry Not on file Not on file Not on file documented as of this encounter Miscellaneous Notes * Telephone Encounter - Nataly Marroquin LPN - 03/30/2023 12:56 PM EST In provider's bin to be completed * Telephone Encounter - Nataly Marroquin LPN - 03/30/2023 9:52 AM EST Called and spoke with Valerie at [facility] - she will refax form * Telephone Encounter - Arun Del Rio MD - 03/27/2023 5:11 PM EST I have not seen form * Telephone Encounter - Dejah Su LPN - 03/26/2023 2:57 PM EST Called and spoke with Valerie from [facility] she states we need to have a new DME form for a medical evaluation that is dated for 02/27 to 03/30. Once done please fax to [phone] * Telephone Encounter - Luisa August, - 03/26/2023 12:58 PM EST Valerie from [facility] called & stated that she did receive the paperwork.However, the DME is showing a September date & is requesting to be changed from anywhere from 02.27 to 03.30. date. * Telephone Encounter - Arlene Burt LPN - 03/24/2023 4:23 PM EST Spoke with daughter and left message with [facility] that the paper work if ready and out front. * Telephone Encounter - Nasrin Henderson OSA - 03/24/2023 3:13 PM EST Pt daughter calling in regards to [facility] Paperwork that needs to be filled out for pt. The pt is to be moving to [facility] on Friday 03/30. This paperwork needs to be completed and sent back to [facility] as soon as possible to complete pt transition to [facility]. Please see previous encounters. Thank you. Pt daughter states that Valerie from [facility] will come out to the office if the paperwork if not sent over by tomorrow morning. Please advise. documented in this encounter Plan of Treatment Upcoming Encounters Date Type Department Care Team (Late st Contact Info) Description 04/02/2023 1:00 PM EST Nurse Only [address]ematology/[address] [address] Kaur, Chair 11 Hem Onc [facility] [address] [facility] [place] [address] 04/08/2023 1:00 PM EST Nurse Only Hematology/[address] [address] Kaur, Chair 11 Hem Onc [facility] [address] [facility] [place] [address] 04/28/2023 12:00 PM EST [facility] [address] Humberto Brothers CRNP [facility] [address] 05/04/2023 1:00 PM EST Laboratory Laboratory [facility] [address] [place] [phone] Kaur, Lab [facility] [address] [facility] [place] [address] 05/27/2023 3:40 PM EST Office Visit [facility] [address] [place] [facility] [place] [phone] Arun Del Rio MD [address] [facility] [address] 06/03/2023 10:00 AM EST Nurse Only Ancillary Department, [place] [address] [place] [address] [place], Nurse [facility] [address] [place] [address] 07/06/2023 8:30 AM EST Office Visit [facility], [facility] [place] [address] Gil Juares MD [address] [facility] [place] [address] 09/10/2023 3:40 PM EDT Office Visit Dermatology, [place] [address] [place] [address] Leigh June, PA-Alf [address] [place] [address] [place] [address] 12/11/2023 2:40 PM EDT Office Visit Nephrology, [facility] [address] [facility] [place] [address] Jabari Morales MD [address] [facility] [place] [address] 03/14/2024 12:30 PM EDT Office Visit Hematology/Oncology [facility] [place] [address] [facility] [place] [address] Brennon German MD [address] [facility] [place] [address] Health Maintenance Due Date Last Done Comments *BISPHONATE OR OTHER ACCEPTABLE MEDICATION NEEDED FOR OSTEOPOROSIS (REFER TO SMARTSET #1146) 08/26/2022 TSH 12/09/2022 12/09/2021, 12/0 01/2021, 05/04/2020, Additional history exists COVID-19 Vaccine ( season) 2023 12/10/2021, 03/05/2021, 08/07/2020, Additional history exists DXA Scan 02/12/2023 02/12/2021, 01/16, 12/31/2016, Additional history exists Albumin/Creatinine Ratio 05/14/2023 022, 04/25/2021, 05/08/2020, Additional history exists CKD PHOS USE SMARTSET 60504 05/14/202304/18, 08/14/2021, 04/25/2021, Additional history exists Depression Screening 06/03/2023 06/03/2022 DTaP,Tdap,and Td Vaccines (2 - Td or Tdap) 02/10/2024 02/09/2014 CKD HGB USE SMARTSET 45326 03/10/202403/10, 03/10/2023, 01/14/2023, Additional history exists Pneumococcal Vaccine: 65+ Years Completed 10/11/2014, 09/08/2013 Zoster Vaccines Completed 12/31/2017, 09/16, 03/18/2015 VITAMIN D LEVEL ONCE IN A LIFETIME-USE SMARTSET# 81779 Completed 05/14/2022, 08/14/2021, 05/04/2020, Additional history exists Influenza Vaccine (FLU shot) Completed 12/2022, 02/24/2022, 02/15/2021, Additional history exists GARDASIL-HPV IMMUNIZATION SERIES Aged Out No longer eligible based on patient's age to complete this topic Hepatitis B Aged Out No longer eligi ble based on patient's age to complete this topic MENINGOCOCCAL (MENACTRA/MENVEO) Aged Out No longer eligible based on patient's age to complete this topic documented as of this encounter Medical Devices Not on filedocumented as of this encounter Advance Directives Latest Code Status on File Code Status Date Activated Date Inactivated Comments Full Code 01/03/2014 1:38 PM 01/03/2014 7:28 PM This order reflects the patients wishes and were consensually agreed upon. Code Status History Code Status Date Activated Date Inactivated Comments Full Code 01/03/2014 11:18 AM 01/03/2014 1:38 PM This order reflects the patients wishes and were consensually agreed upon. Care Teams Lead Java Developer Architect Relationship Specialty Start Date End Date Arun Del Rio MD [address] [place] [address] PCP - General Family Medicine 06/30/18 documented as of this encounter
--- OUTSIDE RECORDS SUMMARY | 2023-04-05 10:06 | External Medical Summary | Summary of Care ---
Author Name Unknown Organization [facility] Address [address] [place] [address] Phone [phone] Care Team Providers Care Melting Operator Name Role Phone Arun Del Rio MD Primary Care Provider Reason for Visit * Reason Comments Infusion Venofer 3/4 Encounter Details Date Type Department Care Team (Late st Contact Info) Description 04/02/2023 1:00 PM EST Nurse Only Hematology/Oncology Treatment, [place] [address] [place] [address] Kaur, Chair 11 Hem Onc [facility] [address] [place] [address] Infusion (Venofer 3/4) Allergies Active Allergy Reactions Criticality Noted Date Comments Alendronate Tachycardia 11/02/2014 Patient felt like she was having a heart attack Bee Venom Anaphylaxis High 10/11/2014 Iodinated Contrast Media 07/22/2013 Cephalexin 08/09/2013 Hot and flushed , nausea 2012 Lisinopril 07/21/2018 documented as of this encounter (statuses as of 04/02/2023) Medications Medication Sig Dispensed Refills Start Date [...] as of this encounter (statuses as of 04/02/2023) Active Problems Problem Noted Date Diagnosed Date [...] as of this encounter (statuses as of 04/02/2023) Resolved Problems Problem Noted Date Diagnosed Date [...] as of this encounter (statuses as of 04/02/2023) Immunizations Name Administration Dates Next Due COVID-19 mRNA, LNP-s, No Pre serve, 2-Dose Series (Vinspi) 12/10/2021,03/05/2021,08/07/2020,07/12 Pneumococcal Conjugate Vacc, 13 Valent (Prevnar) [...] on file documented as of this encounter Last Filed Vital Signs Vital Sign Reading Time Taken Comments Blood Pressure 120/67 04/02/2023 3:21 PM EST Pulse 89 04/02/2023 3:21 PM EST Temperature 37.9 C (100.3 F) 04/02/2023 3:[address] Respiratory Rate 18 04/02/2023 3:21 PM EST Oxygen Saturation 94% 04/02/2023 3:21 PM EST Inhaled Oxygen Concentration - - Weight 55.5 kg (122 lb 6.4 oz) 04/02/2023 3:21 P M EST Height - - Body Mass Index 24.31 10/15/2022 8:10 AM EDT documented in this encounter Nursing Notes * Monae Briones LPN - 04/02/2023 3:22 PM EST 1310: Pt arrived for Venofer 3/4 infusion. PIV in RFA. Pt tolerated well. VSS. Pt has a low grade fever. Denies any flu like symptoms. No complaints at this time. 1450: Pt tolerated Venofer infusion well. PIV removed intact. Pt to return in one week. Discharged in stable condition. documented in this encounter Plan of Treatment Upcoming Encounters Date Type Department Care Team (Late st Contact Info) Description 04/08/2023 1:00 PM EST Nurse Only Hematology/Oncology Treatment, [place] [address] [facility] [address] Kaur, Chair 11 Hem On[address] [place] [address] 04/28/2023 12:00 PM EST Office Visit Gastroenterology, [facility] [address] [facility] [place] [address] Humberto Brothers CRNP 132 [facility] [place] [address] 05/04/2023 1:00 PM EST Laboratory Laboratory [facility] [place] [address] [facility] [place] [phone] Kaur Lab [address] [facility] [place] [address] 05/27/2023 3:40 PM EST Office [address] [phone] Arun Del Rio MD [address] [place] [address] 06/03/2023 10:00 AM EST Nurse Only Ancillary Department, [place] [address] [place] [facility] [place] [address] [place], Nurse [facility] [address] [place] [address] 07/06/2023 8:30 AM EST Office Visit Cardiology, [facility] [address] [place] [address] Gil Juares MD [facility] [place] [address] 09/10/2023 3:40 PM EDT Office Visit Dermatology, [place] [address] [place] [facility] [place] [address] Leigh June PA-C [address] [place] [address] [place] [address] 12/11/2023 2:40 PM EDT Office Visit Nephrology, [facility] 200 [facility] [place] [address] Jabari Morales MD [address] [facility] [place] [address] 03/14/2024 12:30 PM EDT Office Visit Hematology/Oncology [facility] [place] [address] [facility] [place] [address] Brennon German MD [address] [facility] [place] [address] Health Maintenance Due Date Last Done Comments *BISPHONATE OR OTHER ACCEPTABLE MEDICATION NEEDED FOR OSTEOPOROSIS (REFER TO SMARTSET #1146) 08/26/2022 TSH 12/09/2022 12/09/2021, 01/2021, 05/04/2020, Additional history exists COVID-19 Vaccine ( season) 2023 12/10/2021, 03/05/2021, 08/07/2020, Additional history exists DXA Scan 02/12/2023 02/12/2021, 01/16, 12/31/2016, Additional history exists Albumin/Creatinine Ratio 05/14/2023 022, 04/25/2021, 05/08/2020, Additional history exists CKD PHOS USE SMARTSET 76764 05/14/202304/18, 08/14/2021, 04/25/2021, Additional history exists Depression Screening 06/03/2023 06/03/2022 DTaP,Tdap,and Td Vaccines (2 - Td or Tdap) 02/10/2024 02/09/2014 CKD HGB USE SMARTSET 82958 03/10/202403/10, 03/10/2023, 01/14/2023, Additional history exists Pneumococcal Vaccine: 65+ Years Completed 10/11/2014, 09/08/2013 Zoster Vaccines Completed 12/31/2017, 09/16, 03/18/2015 VITAMIN D LEVEL ONCE IN A LIFETIME-USE SMARTSET# 49828 Completed 05/14/2022, 08/14/2021, 05/04/2020, Additional history exists [...] Not on filedocumented as of this encounter Visit Diagnoses Diagnosis Iron deficiency anemia, unspecified iron deficiency anemia type- Primary documented in this encounter Administered Medications Active Administered Medications - up to 3 most recent administrations Medication Order MAR Action Action Date Dose Rate Site diphenhydrAMINE (Benadryl) inj 50 mg 50 mg, IV Push, ONCE PRN Other, Hypersensitivity Reaction, Starting on Josie 04/02/23 at 1313, Until Thu04/03/23 at 1312, For 24 hours EPINEPHrine 1 MG/ML inj 0.3 mg 0.3 mg, Intramuscular, ONCE PRN Other, Hypersensitivity Reaction or Anaphylaxis, Starting on Josie 04/02/23 at 1313, Until Thu04/03/23 at 1312, For 24 hours hEParin 100 UNIT/ML Lock Flush inj 500 Units 500 Units (5 mL), IV Lock, PRN Other, IV Flush, Starting on Josie 04/02/23 at 1313, Until Thu04/03/23 at 1312, For 24 hours, Do not flush if lock, PICC, or central line not in place; IV infusing or unable to flush. Hydrocortisone Sod Suc (PF) (Solu-Cortef) inj 100 mg 100 mg, IV Push, ONCE PRN Other, Hypersensitivity Reaction, Starting on Thu04/02/23 at 1313, Until Thu04/03/23 at 1312, For 24 hours NSS infusion 500 mL, Intravenous, at 50 mL/hr, CONTINUOUS, Starting on Thu04/02/23 at 1415, Until Thu04/03/23 at 0014 Start Infusion 04/02/2023 1:14 PM EST 500 mL 50 mL/hr oxygen GAS Inhalation, OXYGEN, First dose on Thu04/02/23 at 1600, Until Discontinued, Device/Managed by: Low Flow Device, Goal SPO2 (%): 91-95, Starting Device: Nasal Cannula, Inital Flow Rate (LPM): 2, Lowest Support: Nasal Cannula: Flow 0-6 LPM. Titrate up/down by 1 LPM., Higher Support: Non-Rebreather (NRB) Mask: Minimum of 10 LPM. Titrate to maintain bag inflation., Titration Interval: Q2 minutes and as needed., Notify Provider: For sudden DECREASE in resting SPO2 to less than 85% and when escalating delivery device. sodium chloride 0.9 % flush central line 10 mL 10 mL, IV Push, PRN Other, IV Flush, Starting on Josie 04/02/23 at 1313, Until Thu04/03/23 at 1312, For 24 hours, Do not flush if lock, PICC, or central line not in place; IV infusing or unable to flush. Inactive Administered Medications - up to 3 most recent administrations Medication Order MAR Action Action Date Dose Rate Site Iron Sucrose (Venofer) 300 mg in NSS 250 mL ivpb 300 mg, IV Piggyback, ONCE, 1 dose, On Josie 04/02/23 at 1445, Administer over 90 Minutes Start Infusion 04/02/2023 1:14 PM EST 300 mg 166.67 mL/hr documented in this encounter Advance Directives Latest Code Status [...] and were consensually agreed upon. Care Teams Melting Operator Relationship Specialty Start Date End Date Arun Del Rio MD [address] [place] [address] PCP - General Family Medicine 06/30/18 documented as of this encounter
--- OUTSIDE RECORDS SUMMARY | 2023-04-05 10:06 | External Medical Summary | Summary of Care ---
Author Name Unknown Organization [facility] Address [address] [place] [address] Phone [phone] Care Team Providers Care Brand Executive Name Role Phone Arun Del Rio MD Primary Care Provider [phone] Reason for Visit * Reason Onset Date Comments Fax 03/24/2023 Encounter Details Date Type Department Care Team (Late st Contact Info) Description 03/24/2023 Telephone [facility] [address] [place] [address] Arun Del Rio MD [address], [place] [phone] Fax Allergies Active Allergy Reactions Criticality Noted Date Comments Alendronate Tachycardia 11/02/2014 Patient felt like she was having a heart attack Bee Venom Anaphylaxis High 10/11/2014 Iodinated Contrast Media 07/22/2013 Cephalexin 08/09/2013 Hot and flushed , nausea 2012 Lisinopril 07/21/2018 documented as of this encounter (statuses as of 03/26/2023) Medications Medication Sig Dispensed Refills Start Date [...] as of this encounter (statuses as of 03/26/2023) Active Problems Problem Noted Date Diagnosed Date [...] as of this encounter (statuses as of 03/26/2023) Resolved Problems Problem Noted Date Diagnosed Date [...] as of this encounter (statuses as of 03/26/2023) Immunizations Name Administration Dates Next Due COVID-19 mRNA, LNP-s, No Pre serve, 2-Dose Series ([employer]) 12/10/2021,03/05/2021,08/07/2020,07/12 Pneumococcal Conjugate Vacc, 13 Valent (Prevnar) [...] encounter Miscellaneous Notes * Telephone Encounter - Luisa, August, JD - 03/26/2023 12:58 PM EST Valerie from [place] called & stated that she did receive the paperwork.However, the DME is showing a May date & is requesting to be changed from anywhere from 10.13 to 11.13.23 date. * Telephone Encounter - Arlene Burt LPN - 03/24/2023 4:23 PM EST Spoke with daughter and left message with [facility] that the paper work if ready and out front. * Telephone Encounter - Nasrin Henderson OSA - 03/24/2023 3:13 PM EST Pt daughter calling in regards to [employer] Paperwork that needs to be filled out for pt. The pt is to be moving to [employer] on Friday 03/30. This paperwork needs to be completed and sent back to [employer] as soon as possible to complete pt transition to [employer]. Please see previous encounters. Thank you. Pt daughter states that Valerie from [employer] will come out to the office if the paperwork if not sent over by tomorrow morning. Please advise. documented in this encounter Plan of Treatment Upcoming Encounters Date Type Department Care Team (Late st Contact Info) Description 04/02/2023 1:00 PM EST Nurse Only Hematology/Oncology Treatment, [place] [facility] [address] Kaur Chair [address] [place] [address] 04/08/2023 1:00 PM EST Nurse Only Hematology/Oncology Treatment, [place] [address] [facility] [address] Kaur, Chair 11 Hem Onc [address] [place] [address] 04/28/2023 12:00 PM EST Office Visit Gastroenterology, [facility] 132 [facility] [place] [address] Humberto Brothers CRNP [address] [place] [address] 05/04/2023 1:00 PM EST Laboratory [facility] [employer] [employer] [address] [place] [phone] [facility] [address] [place] [address] 05/27/2023 3:40 PM EST Office Visit Family Practice, [place] [address] [place] [phone] Arun Del Rio MD [address] [place] [address] 06/03/2023 10:00 AM EST Nurse Only Ancillary Department, [place] [address] [place] [address] [place], Nurse Annual Well[facility] [address] [place] [address] 07/06/2023 8:30 AM EST Office Visit Cardiology, [facility] 132 [facility] [place] [address] Gil Juares MD [address] [facility] [place] [address] 09/10/2023 3:40 PM EDT Office Visit Dermatology, [place] [address] [place] [address] Leigh June PA-C [address] [place] [address] [place] [address] 12/11/2023 2:40 PM EDT Office Visit Nephrology, [facility] [address] [place] [address] Jabari Morales MD [address] [place] [address] [address] 03/14/2024 12:30 PM EDT Office Visit Hematology/Oncology Chintan Dietrich [place] [address] [place] [address] [address] Brennon German MD 200 [facility] [place] [address] Health Maintenance Due Date Last Done Comments *BISPHONATE OR OTHER ACCEPTABLE MEDICATION NEEDED FOR OSTEOPOROSIS (REFER TO SMARTSET #1146) 08/26/2022 TSH 12/09/2022 12/09/2021, 01/2021, 05/04/2020, Additional history exists COVID-19 Vaccine ( season) 2023 12/10/2021, 03/05/2021, 08/07/2020, Additional history exists DXA Scan 02/12/2023 02/12/2021, 01/16, 12/31/2016, Additional history exists Albumin/Creatinine Ratio 05/14/2023 022, 04/25/2021, 05/08/2020, Additional history exists CKD PHOS USE SMARTSET 23729 05/14/202304/18, 08/14/2021, 04/25/2021, Additional history exists Depression Screening 06/03/2023 06/03/2022 DTaP,Tdap,and Td Vaccines (2 - Td or Tdap) 02/10/2024 02/09/2014 CKD HGB USE SMARTSET 55880 03/10/202403/10, 03/10/2023, 01/14/2023, Additional history exists Pneumococcal Vaccine: 65+ Years Completed 10/11/2014, 09/08/2013 Zoster Vaccines Completed 12/31/2017, 09/16, 03/18/2015 VITAMIN D LEVEL ONCE IN A LIFETIME-USE SMARTSET# 16534 Completed 05/14/2022, 08/14/2021, 05/04/2020, Additional history exists [...] and were consensually agreed upon. Care Teams Brand Executive Relationship Specialty Start Date End Date Arun Del Rio MD [address] [place] [address] PCP - General Family Medicine 06/30/18 documented as of this encounter
--- OUTSIDE RECORDS SUMMARY | 2023-04-05 10:06 | External Medical Summary | Summary of Care ---
Author Name Unknown Organization [facility] Address [address] [place] [address] Phone [phone] Care Team Providers Care Faith Doctor Name Role Phone Arun Del Rio MD Primary Care Provider [phone] Reason for Visit * Reason Onset Date Comments Fax 03/24/2023 Encounter Details Date Type Department Care Team (Late st Contact Info) Description 03/24/2023 Telephone [facility] [address] [place] [address] Arun Del Rio MD [address] [place], [place] [phone] Fax Allergies Active Allergy Reactions Criticality Noted [...] mRNA, LNP-s, No Pre serve, 2-Dose Series ([employer]) 12/10/2021,03/05/2021,08/07/2020,07/12 Pneumococcal Conjugate Vacc, 13 Valent (Prevnar) [...] EST Called and spoke with Valerie at [facility] - she will refax form * Telephone Encounter - Arun Del Rio MD - 03/27/2023 5:11 PM EST I have not seen form * Telephone Encounter - Dejah Su LPN - 03/26/2023 2:57 PM EST Called and spoke with Valerie leslee [facility] she states we need to have a new DME form for a medical evaluation that is dated for 02/27 to 03/30. Once done please fax to [phone] * Telephone Encounter - Skylar Moran OSA - 03/26/2023 12:58 PM EST Valerie Nick called & stated that she did receive the paperwork.However, the DME is showing a May date & is requesting to be changed from anywhere from 02.27 to 03.30.23 date. * Telephone Encounter - Arlene Burt LPN - 03/24/2023 4:23 PM EST Spoke with daughter and left message with [place] that the paper work if ready and out front. * Telephone Encounter - Nasrin Henderson OSA - 03/24/2023 3:13 PM EST Pt daughter calling in regards to [employer] Paperwork that needs to be filled out for pt. The pt is to be moving to [place] on Friday 03/30. This paperwork needs to be completed and sent back to [facility] as soon as possible to complete pt transition to [place]. Please see previous encounters. Thank you. Pt daughter states that Valerie [facility]lee [facility] will come out to the office if the paperwork if not sent over by tomorrow morning. Please advise. documented in this encounter Plan of Treatment Upcoming Encounters Date Type Department Care Team (Late st Contact Info) Description 04/02/2023 1:00 PM EST Nurse Only Hematology/Oncology Treatment, [address] [place] [address] Kaur, Chair 11 Hem On[address] [place] [address] 04/08/2023 1:00 PM EST Nurse Only Hematology/Oncology Treatment, [place] [facility] [address] Kaur, Chair 11 Hem Onc [facility] 200 [facility] [place] [address] 04/28/2023 12:00 PM EST Office Visit Gastroenterology, [facility] [address] [place] [address] Humberto Brothers CRNP [address] [facility] [place] [address] 05/04/2023 1:00 PM EST Laboratory Laboratory [address] [place] [phone] [place], Lab [address] [place] [address] 05/27/2023 3:40 PM EST Office Visit Family [facility], [place] [address] [place] [phone] Arun Del Rio MD [address] [facility] [place] [phone] 06/03/2023 10:00 AM EST Nurse Only Ancillary Department, [place] [address] [place] [address] [place], Nurse Annual [facility] [address] [place] [address] 07/06/2023 8:30 AM EST Office Visit Cardiology, [facility] [address] [facility] [place] [address] Gil Juares MD [address] [facility] [place] [address] 09/10/2023 3:40 PM EDT Office Visit Dermatology, [place] [address] [place] [address] Leigh June PA-C [address] [place] [address] [place] [address] 12/11/2023 2:40 PM EDT Office Visit Nephrology, [facility] 200 [facility] [place] [address] Jabari Morales MD 200 [facility] [place] [address] 03/14/2024 12:30 PM EDT Office Visit Hematology/Oncology [facility] 200 [facility] [place] [address] Brennon German MD 200 [place] [address] Health Maintenance Due Date Last Done Comments *BISPHONATE OR OTHER ACCEPTABLE MEDICATION NEEDED FOR OSTEOPOROSIS (REFER TO SMARTSET #1146) 08/26/2022 TSH 12/09/2022 12/09/2021, 12/0 01/2021, 05/04/2020, Additional history exists COVID-19 Vaccine ( season) 2023 12/10/2021, 03/05/2021, 08/07/2020, Additional history exists DXA Scan 02/12/2023 02/12/2021, 01/16, 12/31/2016, Additional history exists Albumin/Creatinine Ratio 05/14/2023 022, 04/25/2021, 05/08/2020, Additional history exists CKD PHOS USE SMARTSET 58638 05/14/202304/18, 08/14/2021, 04/25/2021, Additional history exists Depression Screening 06/03/2023 06/03/2022 DTaP,Tdap,and Td Vaccines (2 - Td or Tdap) 02/10/2024 02/09/2014 CKD HGB USE SMARTSET 32921 03/10/202403/10, 03/10/2023, 01/14/2023, Additional history exists Pneumococcal Vaccine: 65+ Years Completed 10/11/2014, 09/08/2013 Zoster Vaccines Completed 12/31/2017, 09/16, 03/18/2015 VITAMIN D LEVEL ONCE IN A LIFETIME-USE SMARTSET# 99338 Completed 05/14/2022, 08/14/2021, 05/04/2020, Additional history exists [...] and were consensually agreed upon. Care Teams Faith Doctor Relationship Specialty Start Date End Date Arun Del Rio MD [address] [place] [address] PCP - General Family Medicine 06/30/18 documented as of this encounter
--- OUTSIDE RECORDS SUMMARY | 2023-04-05 10:06 | External Medical Summary | Summary of Care ---
Author Name Unknown Organization [facility] Address [address] [place] [address] Phone [phone] Care Team Providers Care Community Health Nurse Name Role Phone Arun Del Rio MD Primary Care Provider [phone] Reason for Visit * Reason Comments IV Therapy Venofer 2/4 Encounter Details Date Type Department Care Team (Late st Contact Info) Description 03/26/2023 1:00 PM EST Nurse Only Hematology/Oncology Treatment, [place] [address] [place] [address] Kaur, Chair 11 Hem Onc [address] [address] [place] [address] IV Therapy (Venofer 2) Allergies Active Allergy Reactions Criticality Noted Date [...] mRNA, LNP-s, No Pre serve, 2-Dose Series ([employer]) 12/10/2021,03/05/2021,08/07/2020,07/12 Pneumococcal Conjugate Vacc, 13 Valent (Prevnar) [...] Sign Reading Time Taken Comments Blood Pressure 146/59 03/26/2023 1:15 PM EST Pulse 68 03/26/2023 1:15 PM EST Temperature 36.9 C (98.4 F) 03/26/2023 1:15 PM ES T Respiratory Rate 16 03/26/2023 1:15 PM EST Oxygen Saturation 93% 03/26/2023 1:15 PM EST Inhaled Oxygen Concentration - - Weight - - Height - - Body Mass Index - - documented in this encounter Nursing Notes * Sakshi Shoemaker RN - 03/26/2023 4:39 PM EST 1447 - RN went to check on patient and noticed patient's L arm where IV was in place is swollen at the IV site, IV is infiltrated, total area about 2 x 6 inches. Patient states she did notice this but ""may haven just ignored it." RN educated patient that if this happens, to please let staff know, so we could then get patient a new IV to help medication go into the vein as opposed to her tissue. IV removed and wrapped, ice pack applied and arm elevated on pillow. Patient educated to ice arm when she goes home as well. This happened last week as well (in R arm) and arm appears betters today. 1500 - new IV inserted and Venofer restarted. Goals: Patient will remain free from injury. Possible barriers to meeting goals: ambulating with IV pole, use of cane, age Stability of the patient: Moderately stable - low risk of patient condition declining or worsening Summary regarding today's goals: Met: pt remained free of harm today Patient tolerated treatment well without any acute issues or problems. Patient left facility in stable condition and denied any further needs. * Sakshi Shoemaker RN - 03/26/2023 1:13 PM EST Chair 7. IV inserted, patient is feeling well without any acute issues or complaints. Patient here for Venofer, tolerated her first Venofer infusion without issues. Patient is comfortable and denies further needs at this time. Safety and Risk for Injury Patient will remain free from injury. Ensure appropriate safety devices are available. Provide and maintain safe environment. documented in this encounter Plan of Treatment Upcoming Encounters Date Type Department Care Team (Late st Contact Info) Description 04/02/2023 1:00 PM EST Nurse Only Hematology/Oncology Treatment, [place] 200 [facility] [place] [address] Kaur, Chair 11 Hem Onc [place] [address] [place], [place] [address] 04/08/2023 1:00 PM EST Nurse Only Hematology/Oncology Treatment, [place] 200 [facility] [place] [address] Kaur, Chair 11 Hem Onc [place] [address] [place], [place] [address] 04/28/2023 12:00 PM EST Office Visit Gastroenterology, [facility] [address] [facility] [place] [address] Humberto Brothers CRNP [facility] [place] [address] 05/04/2023 1:00 PM EST Laboratory Laboratory [facility] [place] [address] [place], [place] [phone] [place], Lab Sc[address]ery 200 [facility] [place] [address] 05/27/2023 3:40 PM EST Office Visit Family Practice, [place] [address] [place] [phone] Arun Del iRo MD [address] [place] [address] 06/03/2023 10:00 AM EST Nurse Only Ancillary Department, [place] [address] [place] [address] [place], Nurse [facility] Wellness [address] [place] [address] 07/06/2023 8:30 AM EST Office Visit Cardiology, [facility] [place] [address] Gil Juares MD [address] [place] [address] 09/10/2023 3:40 PM EDT Office Visit Dermatology, [place] [address] [facility], [place] [address] Leigh June PA-C [address] [place] [address] [place] [address] 12/11/2023 2:40 PM EDT Office Visit Nephrology, [facility] 200 [facility] [place] [address] Jabari Morales MD 200 [facility] [place] [address] 03/14/2024 12:30 PM EDT Office Visit Hematology/Oncology [facility] 200 [facility] [place] [address] Brennon German MD 200 [facility] [place] [address] Health Maintenance Due Date Last Done Comments *BISPHONATE OR OTHER ACCEPTABLE MEDICATION NEEDED FOR OSTEOPOROSIS (REFER TO SMARTSET #1146) 08/26/2022 TSH 12/09/2022 12/09/2021, 1201/2021, 05/04/2020, Additional history exists COVID-19 Vaccine ( season) 2023 12/10/2021, 03/05/2021, 08/07/2020, Additional history exists DXA Scan 02/12/2023 02/12/2021, 01/16, 12/31/2016, Additional history exists Albumin/Creatinine Ratio 05/14/2023 022, 04/25/2021, 05/08/2020, Additional history exists CKD PHOS USE SMARTSET 21000 05/14/202304/18, 08/14/2021, 04/25/2021, Additional history exists Depression Screening 06/03/2023 06/03/2022 DTaP,Tdap,and Td Vaccines (2 - Td or Tdap) 02/10/2024 02/09/2014 CKD HGB USE SMARTSET 42710 03/10/202403/10, 03/10/2023, 01/14/2023, Additional history exists Pneumococcal Vaccine: 65+ Years Completed 10/11/2014, 09/08/2013 Zoster Vaccines Completed 12/31/2017, 09/16, 03/18/2015 VITAMIN D LEVEL ONCE IN A LIFETIME-USE SMARTSET# 07730 Completed 05/14/2022, 08/14/2021, 05/04/2020, Additional history exists [...] PRN Other, Hypersensitivity Reaction, Starting on Josie 03/26/23 at 1345, Until Thu03/27/23 at 1344, For 24 hours EPINEPHrine 1 MG/ML inj 0.3 mg 0.3 mg, Intramuscular, ONCE PRN Other, Hypersensitivity Reaction or Anaphylaxis, Starting on Josie 03/26/23 at 1345, Until Thu03/27/23 at 1344, For 24 hours hEParin 100 UNIT/ML Lock Flush inj 500 Units 500 Units (5 mL), IV Lock, PRN Other, IV Flush, Starting on Josie 03/26/23 at 1345, Until Thu03/27/23 at 1344, For 24 hours, Do not flush if lock, PICC, or central line not in place; IV infusing or unable to flush. Hydrocortisone Sod Suc (PF) (Solu-Cortef) inj 100 mg 100 mg, IV Push, ONCE PRN Other, Hypersensitivity Reaction, Starting on Thu03/26/23 at 1345, Until Thu03/27/23 at 1344, For 24 hours NSS infusion 500 mL, Intravenous, at 50 mL/hr, CONTINUOUS, Starting on Thu03/26/23 at 1500, Until Thu03/27/23 at 0059 Start Infusion 03/26/2023 1:43 PM EST 500 mL 50 mL/hr oxygen GAS Inhalation, OXYGEN, First dose on Thu03/26/23 at 1600, Until Discontinued, Device/Managed by: Low [...] Push, PRN Other, IV Flush, Starting on Thu03/26/23 at 1345, Until Thu03/27/23 at 1344, For 24 hours, Do not flush if lock, PICC, or central line not in place; IV infusing or unable to flush. Inactive Administered Medications - up to 3 most recent administrations Medication Order MAR Action Action Date Dose Rate Site Iron Sucrose (Venofer) 300 mg in NSS 250 mL ivpb 300 mg, IV Piggyback, ONCE, 1 dose, On Thu03/26/23 at 1530, Administer over 90 Minutes Restarted 03/26/2023 3:00 PM EST 166.67 mL/hr Start Infusion 03/26/2023 1:45 PM EST 300 mg 166.67 mL /hr documented in this encounter Advance Directives Latest [...] and were consensually agreed upon. Care Teams Community Health Nurse Relationship Specialty Start Date End Date Arun Del Rio MD [address] [place] [address] PCP - General Family Medicine 06/30/18 documented as of this encounter
--- OUTSIDE RECORDS SUMMARY | 2023-04-05 10:06 | External Medical Summary | Summary of Care ---
Author Name Unknown Organization [facility] Address [address] [place] [address] Phone [phone] Care Team Providers Care Director Banking Name Role Phone Arun Del Rio MD Primary Care Provider [phone] Reason for Visit * Reason Onset Date Comments Fax 03/24/2023 Encounter Details Date Type Department Care Team (Late st Contact Info) Description 03/24/2023 Telephone [facility] [address] [place] [address] Arun Del Rio MD [address] [place], [place] [phone] Fax Allergies Active Allergy Reactions Criticality Noted [...] mRNA, LNP-s, No Pre serve, 2-Dose Series ([employer]) 12/10/2021,03/05/2021,08/07/2020,07/12 Pneumococcal Conjugate Vacc, 13 Valent (Prevnar) [...] - 03/26/2023 12:58 PM EST Valerie from [facility] called & stated that she did receive the paperwork.However, the DME is showing a May date & is requesting to be changed from anywhere from 10.13 to 11.13.23 date. * Telephone Encounter - Arlene Burt LPN - 03/24/2023 4:23 PM EST Spoke with daughter and left message with [facility] that the paper work if ready and out front. * Telephone Encounter - Nasrin Henderson OSA - 03/24/2023 3:13 PM EST Pt daughter calling in regards to [employer] Paperwork that needs to be filled out for pt. The pt is to be moving to [place] on Friday 03/30. This paperwork needs to be completed and sent back to [employer] as soon as possible to complete pt transition to [employer]. Please see previous encounters. Thank you. Pt daughter states that Valerie from [employer] will come out to the office if the paperwork if not sent over by tomorrow morning. Please advise. documented in this encounter Plan of Treatment Upcoming Encounters Date Type Department Care Team (Late st Contact Info) Description 04/02/2023 1:00 PM EST Nurse Only Hematology/Oncology Treatment, [place] [facility] [address] Kaur Chair 11 Hem Onc [address] [place] [address] 04/08/2023 1:00 PM EST Nurse Only Hematology/Oncology Treatment, [place] [facility] [address] Kaur, Chair 11 Hem Onc [address] [place] [address] 04/28/2023 12:00 PM EST Office Visit Gastroenterology, [facility] 132 [facility] [place] [address] Humberto Brothers CRNP [address] [facility] [address] 05/04/2023 1:00 PM EST Laboratory [facility] [employer] [address] [place] [phone] [facility] [address] [place] [address] 05/27/2023 3:40 PM EST Office Visit Family Practice, [place] [address] [place] [phone] Arun Del Rio MD [address] [place] [address] 06/03/2023 10:00 AM EST Nurse Only Ancillary Department, [place] [address] [place] [address] [place], Nurse Annual Wellness [address] [place] [address] 07/06/2023 8:30 AM EST Office Visit Cardiology, [facility] 132 [facility] [place] [address] Gil Juares MD 132 [facility] [place] [address] 09/10/2023 3:40 PM EDT Office Visit Dermatology, [place] [address] [place] [address] Leigh June PA-C [address] [place] [address] [place] [address] 12/11/2023 2:40 PM EDT Office Visit Nephrology, [facility] [address] [place] [address] Jabari Morales MD [address] [place] [address] [place] [address] 03/14/2024 12:30 PM EDT Office Visit Hematology/Oncology Chintan Dietrich [place] [address] [place] [address] [address] Brennon German MD 200 [facility] [place] [address] Health Maintenance Due Date Last Done Comments *BISPHONATE OR OTHER ACCEPTABLE MEDICATION NEEDED FOR OSTEOPOROSIS (REFER TO SMARTSET #1146) 08/26/2022 TSH 12/09/2022 12/09/2021, 01/2021, 05/04/2020, Additional history exists COVID-19 Vaccine ( season) 2023 12/10/2021, 03/05/2021, 08/07/2020, Additional history exists DXA Scan 02/12/2023 02/12/2021, 01/16, 12/31/2016, Additional history exists Albumin/Creatinine Ratio 05/14/2023 022, 04/25/2021, 05/08/2020, Additional history exists CKD PHOS USE SMARTSET 13444 05/14/202304/18, 08/14/2021, 04/25/2021, Additional history exists Depression Screening 06/03/2023 06/03/2022 DTaP,Tdap,and Td Vaccines (2 - Td or Tdap) 02/10/2024 02/09/2014 CKD HGB USE SMARTSET 28501 03/10/202403/10, 03/10/2023, 01/14/2023, Additional history exists Pneumococcal Vaccine: 65+ Years Completed 10/11/2014, 09/08/2013 Zoster Vaccines Completed 12/31/2017, 09/16, 03/18/2015 VITAMIN D LEVEL ONCE IN A LIFETIME-USE SMARTSET# 50833 Completed 05/14/2022, 08/14/2021, 05/04/2020, Additional history exists [...] and were consensually agreed upon. Care Teams Director Banking Relationship Specialty Start Date End Date Arun Del Rio MD [address] [place] [address] PCP - General Family Medicine 06/30/18 documented as of this encounter
--- OUTSIDE RECORDS SUMMARY | 2023-04-05 10:06 | External Medical Summary | Summary of Care ---
Author Name Unknown Organization [facility] Address [address] [place] [address] Phone [phone] Care Team Providers Care Room Service Attendant Name Role Phone Arun Del Rio MD Primary Care Provider [phone] Reason for Visit * Reason Onset Date Comments Fax 03/24/2023 Encounter Details Date Type Department Care Team (Late st Contact Info) Description 03/24/2023 Telephone [facility] [address] [place] [address] Arun Del Rio MD [address] [place], [place] [phone] Fax Allergies Active Allergy Reactions Criticality Noted [...] mRNA, LNP-s, No Pre serve, 2-Dose Series ([employer]) 12/10/2021,03/05/2021,08/07/2020,07/12 Pneumococcal Conjugate Vacc, 13 Valent (Prevnar) [...] - 03/26/2023 12:58 PM EST Valerie from [facility] called & stated that she did receive the paperwork.However, the DME is showing a May date & is requesting to be changed from anywhere from 10.13 to 11.13.23 date. * Telephone Encounter - Arlene Burt LPN - 03/24/2023 4:23 PM EST Spoke with daughter and left message with [facility] that the paper work if ready and out front. * Telephone Encounter - Nasrin Henderson OSA - 03/24/2023 3:13 PM EST Pt daughter calling in regards to [employer] Paperwork that needs to be filled out for pt. The pt is to be moving to [employer] on Friday 03/30. This paperwork needs to be completed and sent back to [employer] as soon as possible to complete pt transition to [employer]. Please see previous encounters. Thank you. Pt daughter states that Valerie from [employer] will come out to the office if the paperwork if not sent over by tomorrow morning. Please advise. documented in this encounter Plan of Treatment Upcoming Encounters Date Type Department Care Team (Late st Contact Info) Description 04/02/2023 1:00 PM EST Nurse Only [facility]ematology[facility] Treatment, [place] [facility] [address] Kaur Chair [address] [place] [address] 04/08/2023 1:00 PM EST Nurse Only Hematology/Oncology Treatment, [place] 200 [facility] [address] Kaur, Chair [address] [place] [address] 04/28/2023 12:00 PM EST Office Visit Gastroenterology, [facility] 132 [facility] [place] [address] Humberto Brothers CRNP [address] [facility] [place] [address] 05/04/2023 1:00 PM EST [facility] [employer] [address] [place] [phone] [facility] [address] [place] [address] 05/27/2023 3:40 PM EST Office Visit Family Practice, [place] [address] [place] [address] Arun Del Rio MD [address] [place] [address] 06/03/2023 10:00 AM EST Nurse Only Ancillary Department, [place] [address] [place] [address] [place], Nurse Annual Wellness [address] [place] [address] 07/06/2023 8:30 AM EST Office Visit Cardiology, [facility] 132 [facility] [place] [address] Gil Juares MD 132 [facility] [place] [address] 09/10/2023 3:40 PM EDT Office Visit Dermatology, [place] [address] [place] [address] Leigh June PA-C [address] [place] [address] [place] [address] 12/11/2023 2:40 PM EDT Office Visit Nephrology, [facility] [address] [place] [address] Jabari Morales MD [address] [place] [address] 03/14/2024 12:30 PM EDT Office Visit Hematology/Oncology Chintan Dietrich [place] [address] [place] [address] Brennon German MD 200 [facility] [place] [address] Health Maintenance Due Date Last Done Comments *BISPHONATE OR OTHER ACCEPTABLE MEDICATION NEEDED FOR OSTEOPOROSIS (REFER TO SMARTSET #1146) 08/26/2022 TSH 12/09/2022 12/09/2021, 01/2021, 05/04/2020, Additional history exists COVID-19 Vaccine ( season) 2023 12/10/2021, 03/05/2021, 08/07/2020, Additional history exists DXA Scan 02/12/2023 02/12/2021, 01/16, 12/31/2016, Additional history exists Albumin/Creatinine Ratio 05/14/2023 022, 04/25/2021, 05/08/2020, Additional history exists CKD PHOS USE SMARTSET 57676 05/14/202304/18, 08/14/2021, 04/25/2021, Additional history exists Depression Screening 06/03/2023 06/03/2022 DTaP,Tdap,and Td Vaccines (2 - Td or Tdap) 02/10/2024 02/09/2014 CKD HGB USE SMARTSET 55636 03/10/202403/10, 03/10/2023, 01/14/2023, Additional history exists Pneumococcal Vaccine: 65+ Years Completed 10/11/2014, 09/08/2013 Zoster Vaccines Completed 12/31/2017, 09/16, 03/18/2015 VITAMIN D LEVEL ONCE IN A LIFETIME-USE SMARTSET# 21975 Completed 05/14/2022, 08/14/2021, 05/04/2020, Additional history exists [...] and were consensually agreed upon. Care Teams Room Service Attendant Relationship Specialty Start Date End Date Arun Del Rio MD [address] [place] [address] PCP - General Family Medicine 06/30/18 documented as of this encounter
--- OUTSIDE RECORDS SUMMARY | 2023-04-05 10:06 | External Medical Summary | Summary of Care ---
Author Name Unknown Organization [facility] Address [address] [place] [address] Phone [phone] Care Team Providers Care Associate Juvenile Court Judge Name Role Phone Arun Del Rio MD Primary Care Provider [phone] Reason for Visit * Reason Onset Date Comments Fax 03/24/2023 Encounter Details Date Type Department Care Team (Late st Contact Info) Description 03/24/2023 Telephone [facility] [address] [place] [address] Arun Del Rio MD [address] [place], [place] [phone] Fax Allergies Active Allergy Reactions Criticality Noted Date Comments Alendronate Tachycardia 11/02/2014 Patient felt like she was having a heart attack Bee Venom Anaphylaxis High 10/11/2014 Iodinated Contrast Media 07/22/2013 Cephalexin 08/09/2013 Hot and flushed , nausea 2012 Lisinopril 07/21/2018 documented as of this encounter (statuses as of 03/24/2023) Medications Medication Sig Dispensed Refills Start Date [...] as of this encounter (statuses as of 03/24/2023) Active Problems Problem Noted Date Diagnosed Date [...] as of this encounter (statuses as of 03/24/2023) Resolved Problems Problem Noted Date Diagnosed Date [...] as of this encounter (statuses as of 03/24/2023) Immunizations Name Administration Dates Next Due COVID-19 mRNA, LNP-s, No Pre serve, 2-Dose Series ([employer]) 12/10/2021,03/05/2021,08/07/2020,07/12 Pneumococcal Conjugate Vacc, 13 Valent (Prevnar) [...] encounter Miscellaneous Notes * Telephone Encounter - Arlene Burt LPN - 03/24/2023 4:23 PM EST Spoke with daughter and left message with [facility] that the paper work if ready and out front. * Telephone Encounter - Nasrin Henderson OSA - 03/24/2023 3:13 PM EST Pt daughter calling in regards to [place] Paperwork that needs to be filled out for pt. The pt is to be moving to [place] on Friday 03/30. This paperwork needs to be completed and sent back to [facility] as soon as possible to complete pt transition to [place]. Please see previous encounters. Thank you. Pt daughter states that Valerie from [facility] will come out to the office if the paperwork if not sent over by tomorrow morning. Please advise. documented in this encounter Plan of Treatment Upcoming Encounters Date Type Department Care Team (Late st Contact Info) Description 03/26/2023 1:00 PM EST Nurse Only Hematology/Oncology Treatment, [address], [place] [address] Kaur, Chair [address], [place] [address] 04/01/2023 9:00 AM EST Office Visit Rheumatology [place] [address] [facility] [place], [place] [address] Luann Quintanilla CRNP 25[address] [facility] [place], [place] [address] 04/02/2023 1:00 PM EST Nurse Only Hematology/Oncology Treatment, [address] [place] [address] Kaur, Chair 11 Hem Onc [facility] [address] [place] [address] [place], [place] [address] 04/08/2023 1:00 PM EST Nurse Only Hematology/Oncology Treatment, [address], [place] [address] Kaur, Chair 11 Hem Onc [facility] [address] [place] [address] [place], [place] [address] 04/28/2023 12:00 PM EST Office Visit Gastroenterology, [facility] [place] [address] Humberto Brothers CRNP [address] [place] [address] 05/04/2023 1:00 PM EST Laboratory Laboratory Scenery [facility] [address] [place] [phone] [place], Lab Scenery [address] [place] [address] 05/27/2023 3:40 PM EST Office Visit Family Practice, [place] [address] [place] [phone] Arun Del Rio MD [address] [place] [address] 06/03/2023 10:00 AM EST Nurse Only Ancillary Department, [place] [address] [place] [address] [place], Nurse [facility] Wellness [address] [place] [address] 07/06/2023 8:30 AM EST Office Visit Cardiology, [facility] 132 [facility] [place] [address] Gil Juares MD 132 [facility] [place] [address] 09/10/2023 3:40 PM EDT Office Visit Dermatology, [place] [address] [place] [address] Leigh June PAJessica [address] [place] [address] [place] [address] 12/11/2023 2:40 PM EDT Office Visit Nephrology, [facility] 200 [place] [address] Jabari Morales MD 200 [facility] [place], [place] [address] 03/14/2024 12:30 PM EDT Office Visit Hematology/Oncology [facility] 200 [facility] [place] [address] Brennon German MD 200 [facility] [place], [place] [address] Health Maintenance Due Date Last Done Comments *BISPHONATE OR OTHER ACCEPTABLE MEDICATION NEEDED FOR OSTEOPOROSIS (REFER TO SMARTSET #1146) 08/26/2022 TSH 12/09/2022 12/09/2021, 01/2021, 05/04/2020, Additional history exists COVID-19 Vaccine ( season) 2023 12/10/2021, 03/05/2021, 08/07/2020, Additional history exists DXA Scan 02/12/2023 02/12/2021, 01/16, 12/31/2016, Additional history exists Albumin/Creatinine Ratio 05/14/2023 022, 04/25/2021, 05/08/2020, Additional history exists CKD PHOS USE SMARTSET 96752 05/14/202304/18, 08/14/2021, 04/25/2021, Additional history exists Depression Screening 06/03/2023 06/03/2022 DTaP,Tdap,and Td Vaccines (2 - Td or Tdap) 02/10/2024 02/09/2014 CKD HGB USE SMARTSET 27373 03/10/202403/10, 03/10/2023, 01/14/2023, Additional history exists Pneumococcal Vaccine: 65+ Years Completed 10/11/2014, 09/08/2013 Zoster Vaccines Completed 12/31/2017, 09/16, 03/18/2015 VITAMIN D LEVEL ONCE IN A LIFETIME-USE SMARTSET# 77629 Completed 05/14/2022, 08/14/2021, 05/04/2020, Additional history exists [...] and were consensually agreed upon. Care Teams Associate Juvenile Court Judge Relationship Specialty Start Date End Date Arun Del Rio MD [address] [place] [address] PCP - General Family Medicine 06/30/18 documented as of this encounter
--- OUTSIDE RECORDS SUMMARY | 2023-04-05 10:06 | External Medical Summary | Summary of Care ---
Author Name Unknown Organization [facility] Address [address] [place] [address] Phone [phone] Care Team Providers Care Metal Box Maker Name Role Phone Arun Del Rio MD Primary Care Provider [phone] Reason for Visit * Reason Onset Date Comments Fax 03/24/2023 Encounter Details Date Type Department Care Team (Late st Contact Info) Description 03/24/2023 Telephone [facility] [address] [place] [address] Arun Del Rio MD [address] [place], [place] [phone] Fax Allergies Active Allergy Reactions Criticality Noted Date Comments Alendronate Tachycardia 11/02/2014 Patient felt like she was having a heart attack Bee Venom Anaphylaxis High 10/11/2014 Iodinated Contrast Media 07/22/2013 Cephalexin 08/09/2013 Hot and flushed , nausea 2012 Lisinopril 07/21/2018 documented as of this encounter (statuses as of 03/27/2023) Medications Medication Sig Dispensed Refills Start Date [...] as of this encounter (statuses as of 03/27/2023) Active Problems Problem Noted Date Diagnosed Date [...] as of this encounter (statuses as of 03/27/2023) Resolved Problems Problem Noted Date Diagnosed Date [...] as of this encounter (statuses as of 03/27/2023) Immunizations Name Administration Dates Next Due COVID-19 mRNA, LNP-s, No Pre serve, 2-Dose Series ([employer]) 12/10/2021,03/05/2021,08/07/2020,07/12 Pneumococcal Conjugate Vacc, 13 Valent (Prevnar) [...] encounter Miscellaneous Notes * Telephone Encounter - Arun Del Rio MD - 03/27/2023 5:11 PM EST I have not seen form * Telephone Encounter - Dejah Su LPN - 03/26/2023 2:57 PM EST Called and spoke with Valerie from [facility] she states we need to have a new DME form for a medical evaluation that is dated for 02/27 to 03/30. Once done please fax to [phone] * Telephone Encounter - Skylar Moran OSA - 03/26/2023 12:58 PM EST Valerie from [facility] called & stated that she did receive [...] EST Pt daughter calling in regards to [place] Paperwork that needs to be filled out for pt. The pt is to be moving to [place] on Friday 03/30. This paperwork needs to be completed and sent back to [place] as soon as possible to complete pt transition to [place]. Please see previous encounters. Thank you. Pt daughter states that Valerie from [facility] will come out to the office if the paperwork if not sent over by tomorrow morning. Please advise. documented in this encounter Plan of Treatment Upcoming Encounters Date Type Department Care Team (Late st Contact Info) Description 04/02/2023 1:00 PM EST Nurse Only Hematology/Oncology Treatment, [place] 200 [place] [address] [place], Chair 11 Hem Onc [address] [place], [place] [address] 04/08/2023 1:00 PM EST Nurse Only Hematology/Oncology Treatment, [place] 200 [facility], [place] [address] Kaur, Chair 11 Hem Onc Sc[address] [facility] [place] [address] 04/28/2023 12:00 PM EST Office Visit Gastroenterology, [facility] 132 [facility] [place] [address] Humberto Brothers CRNP 132 [facility] [place] [address] 05/04/2023 1:00 PM EST Laboratory Laboratory [facility] [place] [address] [place] [phone] [place], Lab [facility] 200 [facility] [place], [place] [address] 05/27/2023 3:40 PM EST Office Visit Family [facility] [place] [address] [place] [facility] [place] [place] [phone] Arun Del Rio MD [address] [place] [address] 06/03/2023 10:00 AM EST Nurse Only Ancillary Department, [place] [address] [facility] [address] [place], Nurse [facility] Wellness [address] [facility] [place] [id number] 07/06/2023 8:30 AM EST Office Visit Cardiology, [facility] 132 [facility] [place] [address] Gil Juares MD [address] [place] [address] 09/10/2023 3:40 PM EDT Office Visit Dermatology, [place] [address] [address] [facility], [place] [address] Leigh June PA-C [address] [place] [address] [place] [address] 12/11/2023 2:40 PM EDT Office Visit Nephrology, [facility] 200 [facility] [place] [address] Jabari Morales MD 200 [facility] [place] [address] 03/14/2024 12:30 PM EDT Office Visit Hematology/Oncology [facility] [place] 200 [facility] [place] [address] Brennon German MD 200 [facility] [place] [address] Health Maintenance Due Date Last Done Comments *BISPHONATE OR OTHER ACCEPTABLE MEDICATION NEEDED FOR OSTEOPOROSIS (REFER TO SMARTSET #1146) 08/26/2022 TSH 12/09/2022 12/09/2021, 12/01/2021, 05/04/2020, Additional history exists COVID-19 Vaccine ( season) 2023 12/10/2021, 03/05/2021, 08/07/2020, Additional history exists DXA Scan 02/12/2023 02/12/2021, 01/16, 12/31/2016, Additional history exists Albumin/Creatinine Ratio 05/14/2023 022, 04/25/2021, 05/08/2020, Additional history exists CKD PHOS USE SMARTSET 86689 05/14/20232 12/2021, 08/14/2021, 04/25/2021, Additional history exists Depression Screening 06/03/2023 06/03/2022 DTaP,Tdap,and Td Vaccines (2 - Td or Tdap) 02/10/2024 02/09/2014 CKD HGB USE SMARTSET 07306 03/10/202403/10, 03/10/2023, 01/14/2023, Additional history exists Pneumococcal Vaccine: 65+ Years Completed 10/11/2014, 09/08/2013 Zoster Vaccines Completed 12/31/2017, 09/16, 03/18/2015 VITAMIN D LEVEL ONCE IN A LIFETIME-USE SMARTSET# [id number] Completed 05/14/2022, 08/14/2021, 05/04/2020, Additional history exists [...] and were consensually agreed upon. Care Teams Metal Box Maker Relationship Specialty Start Date End Date Arun Del Rio MD [address] [place] [address] PCP - General Family Medicine 06/30/18 documented as of this encounter
--- OUTSIDE RECORDS SUMMARY | 2023-04-05 10:06 | External Medical Summary | Summary of Care ---
Author Name Unknown Organization [facility] Address [address] [place] [address] Phone [phone] Care Team Providers Care Senior Piping Designer Name Role Phone Arun Del Rio MD Primary Care Provider [phone] Reason for Visit * Reason Onset Date Comments Fax 03/24/2023 Encounter Details Date Type Department Care Team (Late st Contact Info) Description 03/24/2023 Telephone [facility] [address] [place] [address] Arun Del Rio MD [address] [place], [place] [phone] Fax Allergies Active Allergy Reactions Criticality Noted [...] mRNA, LNP-s, No Pre serve, 2-Dose Series ([employer] 12/10/2021,03/05/2021,08/07/2020,07/12 Pneumococcal Conjugate Vacc, 13 Valent (Prevnar) [...] encounter Miscellaneous Notes * Telephone Encounter - Dejah SuKARIE - 03/26/2023 2:57 PM EST Called and spoke with [facility] from [facility] she states we need to have a new DME form for a medical evaluation that is dated for 02/27 to 03/30. Once done please fax to [phone] * Telephone Encounter - LuisaAugust, JD - 03/26/2023 12:58 PM EST Valerie from [facility] called & stated that she did receive the paperwork.However, the DME is showing a September date & is requesting to be changed from anywhere from 02.27 to 03.30. date. * Telephone Encounter - Arlene Burt LPN - 03/24/2023 4:23 PM EST Spoke with daughter and left message with [facility] that the paper work if ready and out front. * Telephone Encounter - Nasrin Henderson OSA - 03/24/2023 3:13 PM EST Pt daughter calling in regards to [facility] Paperwork that needs to be filled out for pt. The pt is to be moving to [place] on Friday 03/30. This paperwork needs to be completed and sent back to [facility] as soon as possible to complete pt transition to [facility]. Please see previous encounters. Thank you. Pt daughter states that Valerie from [facility] will come out to the office if the paperwork if not sent over by tomorrow morning. Please advise. documented in this encounter Plan of Treatment Upcoming Encounters Date Type Department Care Team (Late st Contact Info) Description 04/02/2023 1:00 PM EST Nurse Only Hematology/Oncology Treatment, [place] [address] [place] [address] K[place], Chair 11 Hem Onc Scenery [address] [place] [address] 04/08/2023 1:00 PM EST Nurse Only Hematology/Oncology Treatment, [place] [address] [place] [address] Kaur, Chair 11 Hem Onc [address] [place] [address] 04/28/2023 12:00 PM EST Office Visit Gastroenterology, [facility] 132 [facility] [place] [address] Humberto Brothers CRNP 132 [facility] [address] 05/04/2023 1:00 PM EST Laboratory Laboratory [facility] [address] [place] [phone] Kaur Lab [facility] 200 [facility] [place] [address] 05/27/2023 3:40 PM EST Office Visit Family Practice, [place] [address] [place] [address] Arun Del Rio MD [address] [place] [address] 06/03/2023 10:00 AM EST Nurse Only Ancillary Department, [place] [address] [place] [address] [place], Nurse Annual Wellness [facility] [place] [address] 07/06/2023 8:30 AM EST Office Visit Cardiology, [facility] 132 [facility] [place] [address] Gil Juares MD 132 [facility] [place] [address] 09/10/2023 3:40 PM EDT Office Visit Dermatology, [place] [address] [facility] [address] Leigh June PA-C [address] [place] [address] [place] [address] 12/11/2023 2:40 PM EDT Office Visit Nephrology, [facility] 200 [facility] [place] [address] Jabari Morales MD 200 [facility] [place] [address] 03/14/2024 12:30 PM EDT Office Visit Hematology/Oncology [facility] 200 [facility] [place] [address] Brennon German MD 200 [facility] [place] [address] Health Maintenance Due Date Last Done Comments *BISPHONATE OR OTHER ACCEPTABLE MEDICATION NEEDED FOR OSTEOPOROSIS (REFER TO SMARTSET #1146) 08/26/2022 TSH 12/09/2022 12/09/2021, 12/01/2021, 05/04/2020, Additional history exists COVID-19 Vaccine ( season) 2023 12/10/2021, 03/05/2021, 08/07/2020, Additional history exists DXA Scan 02/12/2023 02/12/2021, 01/16, 12/31/2016, Additional history exists Albumin/Creatinine Ratio 05/14/2023 022, 04/25/2021, 05/08/2020, Additional history exists CKD PHOS USE SMARTSET 69542 05/14/202304/18, 08/14/2021, 04/25/2021, Additional history exists Depression Screening 06/03/2023 06/03/2022 DTaP,Tdap,and Td Vaccines (2 - Td or Tdap) 02/10/2024 02/09/2014 CKD HGB USE SMARTSET 25715 03/10/202403/10, 03/10/2023, 01/14/2023, Additional history exists Pneumococcal Vaccine: 65+ Years Completed 10/11/2014, 09/08/2013 Zoster Vaccines Completed 12/31/2017, 09/16, 03/18/2015 VITAMIN D LEVEL ONCE IN A LIFETIME-USE SMARTSET# [id number] Completed 05/14/2022, 08/14/2021, 05/04/2020, Additional history exists [...] and were consensually agreed upon. Care Teams Senior Piping Designer Relationship Specialty Start Date End Date Arun Del Rio MD [address] [place] [address] PCP - General Family Medicine 06/30/18 documented as of this encounter
--- OUTSIDE RECORDS SUMMARY | 2023-04-05 10:07 | External Medical Summary | Summary of Care ---
Author Name Unknown Organization [facility] Address [address] [place] [address] Phone [phone] Care Team Providers Care Tank Car Repairer Name Role Phone Arun Del Rio MD Primary Care Provider [phone] Reason for Visit * Reason Comments Infusion Venofer 05/21 Encounter Details Date Type Department Care Team (Late st Contact Info) Description 03/19/2023 2:30 PM EDT Nurse Only Hematology/Oncology Treatment, [place] [address] [place] [address] Kaur, Chair 3 Hem Onc Scen[place] [address] [place] [address] Infusion (Venofer 05/21) Allergies Active Allergy Reactions Criticality Noted Date Comments Alendronate Tachycardia 11/02/2014 Patient felt like she was having a heart attack Bee Venom Anaphylaxis High 10/11/2014 Iodinated Contrast Media 07/22/2013 Cephalexin 08/09/2013 Hot and flushed , nausea 2012 Lisinopril 07/21/2018 documented as of this encounter (statuses as of 03/19/2023) Medications Medication Sig Dispensed Refills Start Date [...] as of this encounter (statuses as of 03/19/2023) Active Problems Problem Noted Date Diagnosed Date Iron deficiency anemia 03/11/2023 Gastroesophageal reflux disease [...] as of this encounter (statuses as of 03/19/2023) Resolved Problems Problem Noted Date Diagnosed Date [...] as of this encounter (statuses as of 03/19/2023) Immunizations Name Administration Dates Next Due COVID-19 mRNA, LNP-s, No Pre serve, 2-Dose Series ([employer]) 12/10/2021,03/05/2021,08/07/2020,07/12 Pneumococcal Conjugate Vacc, 13 Valent (Prevnar) [...] Sign Reading Time Taken Comments Blood Pressure 125/52 03/19/2023 3:57 PM EDT Pulse 74 03/19/2023 3:57 PM EDT Temperature 36.5 C (97.7 F) 03/19/2023 3:57 PM ED T Respiratory Rate 18 03/19/2023 3:57 PM EDT Oxygen Saturation 93% 03/19/2023 3:57 PM EDT Inhaled Oxygen Concentration - - Weight - - Height - - Body Mass Index - - documented in this encounter Nursing Notes * Monae Briones LPN - 03/19/2023 4:04 PM EDT 1430: Pt arrived for Venofer / infusion. PIV in LFA. Pt tolerated well. VSS. No complaints at this time. 1610: Pt tolerated Venofer infusion well. PIV removed intact. Pt to return in one week. Discharged in stable condition. documented in this encounter Plan of Treatment Upcoming Encounters Date Type Department Care Team (Late st Contact Info) Description 03/26/2023 1:00 PM EST Nurse Only Hematology/Oncology Treatment, [address], [place] [address] Kaur, Chair [address], [place] [address] 04/01/2023 9:00 AM EST Office Visit Rheumatology [facility] [address] [facility] [place] [place] [address] Luann Quintanilla CRNP [address] [facility] [place], [place] [address] 04/02/2023 1:00 PM EST Nurse Only Hematology/Oncology Treatment, [address], [place] [address] Kaur, Chair 11 Hem Onc [address] [place] [address] 04/08/2023 1:00 PM EST Nurse Only Hematology/Oncology Treatment, [address], [place] [address] Kaur, Chair [address] Hem [address] [place] [address] 04/28/2023 12:00 PM EST Office Visit Gastroenterology, [facility] 132 [facility] [place] [address] Humberto Brothers CRNP 132 [facility] [place] [address] 05/04/2023 1:00 PM EST Laboratory Laboratory [facility] [place] [address] [place] [phone] [place], Lab [facility] [address] [facility] [place] [address] 05/27/2023 3:40 PM EST Office Visit Family Practice, [place] [address] [place] [phone] Arun Del Rio MD [address] [place] [address] 06/03/2023 10:00 AM EST Nurse Only Ancillary Department, [place] [address] [place] [address] [place], Nurse [facility] [address] [place] [address] 07/06/2023 8:30 AM EST Office Visit Cardiology, [facility] 132 [facility] [place] [address] Gil Juares MD 132 [facility] [place] [address] 09/10/2023 3:40 PM EDT Office Visit Dermatology, [place] [address] [place] [address] Leigh June, PA-C [address] [place] [address] [place] [address] 12/11/2023 2:40 PM EDT Office Visit Nephrology, [facility] [address] [place] [address] Jabari Morales MD 200 [facility] [place], [place] [address] 03/14/2024 12:30 PM EDT Office Visit Hematology/Oncology Chintan Dietrich [place] 200 [facility] [place] [address] Brennon German MD 200 [facility] [place], [place] [address] Health Maintenance Due Date Last Done Comments *BISPHONATE OR OTHER ACCEPTABLE MEDICATION NEEDED FOR OSTEOPOROSIS (REFER TO SMARTSET #1146) 08/26/2022 TSH 12/09/2022 12/09/2021, 01/2021, 05/04/2020, Additional history exists COVID-19 Vaccine ( season) 2023 12/10/2021, 03/05/2021, 08/07/2020, Additional history exists DXA Scan 02/12/2023 02/12/2021, 01/16, 12/31/2016, Additional history exists Albumin/Creatinine Ratio 05/14/2023 022, 04/25/2021, 05/08/2020, Additional history exists CKD PHOS USE SMARTSET 59470 05/14/202304/18, 08/14/2021, 04/25/2021, Additional history exists Depression Screening 06/03/2023 06/03/2022 DTaP,Tdap,and Td Vaccines (2 - Td or Tdap) 02/10/2024 02/09/2014 CKD HGB USE SMARTSET 54578 03/10/202403/10, 03/10/2023, 01/14/2023, Additional history exists Pneumococcal Vaccine: 65+ Years Completed 10/11/2014, 09/08/2013 Zoster Vaccines Completed 12/31/2017, 09/16, 03/18/2015 VITAMIN D LEVEL ONCE IN A LIFETIME-USE SMARTSET# 22460 Completed 05/14/2022, 08/14/2021, 05/04/2020, Additional history exists [...] ONCE PRN Other, Hypersensitivity Reaction, Starting on Thu03/19/23 at 1434, Until Thu03/20/23 at 1433, For 24 hours EPINEPHrine 1 MG/ML inj 0.3 mg 0.3 mg, Intramuscular, ONCE PRN Other, Hypersensitivity Reaction or Anaphylaxis, Starting on Thu03/19/23 at 1434, Until Thu03/20/23 at 1433, For 24 hours hEParin 100 UNIT/ML Lock Flush inj 500 Units 500 Units (5 mL), IV Lock, PRN Other, IV Flush, Starting on Thu03/19/23 at 1434, Until Thu03/20/23 at 1433, For 24 hours, Do not flush if lock, PICC, or central line not in place; IV infusing or unable to flush. Hydrocortisone Sod Suc (PF) (Solu-Cortef) inj 100 mg 100 mg, IV Push, ONCE PRN Other, Hypersensitivity Reaction, Starting on Thu03/19/23 at 1434, Until Thu03/20/23 at 1433, For 24 hours NSS infusion 500 mL, Intravenous, at 50 mL/hr, CONTINUOUS, Starting on Thu03/19/23 at 1545, Until Thu03/20/23 at 0144 Start Infusion 03/19/2023 2:34 PM EDT 500 mL 50 mL/hr oxygen GAS Inhalation, OXYGEN, First dose on Josie 03/19/23 at 1600, Until Discontinued, Device/Managed by: Low [...] PRN Other, IV Flush, Starting on Josie 03/19/23 at 1434, Until Thu03/20/23 at 1433, For 24 hours, Do not flush if lock, PICC, or central line not in place; IV infusing or unable to flush. Inactive Administered Medications - up to 3 most recent administrations Medication Order MAR Action Action Date Dose Rate Site Iron Sucrose (Venofer) 300 mg in NSS 250 mL ivpb 300 mg, IV Piggyback, ONCE, 1 dose, On Josie 03/19/23 at 1615, Administer over 90 Minutes Start Infusion 03/19/2023 2:34 PM EDT 300 mg 166.67 mL/hr documented in this [...] and were consensually agreed upon. Care Teams Tank Car Repairer Relationship Specialty Start Date End Date Arun Del Rio MD [address] [place] [address] PCP - General Family Medicine 06/30/18 documented as of this encounter
--- OUTSIDE RECORDS SUMMARY | 2023-04-05 10:07 | External Medical Summary | Summary of Care ---
Author Name Unknown Organization [facility] Address [address] [place] [place] [place] [address] Phone [phone] Care Team Providers Care Fixed Interest Dealer Name Role Phone Arun Del Rio MD Primary Care Provider [phone] Reason for Visit * Reason Onset Date Comments Medication Administration 03/11/2023 Encounter Details Date Type Department Care Team (Late st Contact Info) Description 03/11/2023 Telephone Hematology/Oncology [facility] [place] [address] [place] [address] Brennon German MD [address] [place] [address] Medication Administration Allergies Active Allergy Reactions Criticality Noted Date Comments Alendronate Tachycardia 11/02/2014 Patient felt like she was having a heart attack Bee Venom Anaphylaxis High 10/11/2014 Iodinated Contrast Media 07/22/2013 Cephalexin 08/09/2013 Hot and flushed , nausea 2012 Lisinopril 07/21/2018 documented as of this encounter (statuses as of 03/12/2023) Medications Medication Sig Dispensed Refills Start Date [...] as of this encounter (statuses as of 03/12/2023) Active Problems Problem Noted Date Diagnosed Date [...] as of this encounter (statuses as of 03/12/2023) Resolved Problems Problem Noted Date Diagnosed Date [...] as of this encounter (statuses as of 03/12/2023) Immunizations Name Administration Dates Next Due COVID-19 mRNA, LNP-s, No Pre serve, 2-Dose Series ([employer]) 12/10/2021,03/05/2021,08/07/2020,07/12 Pneumococcal Conjugate Vacc, 13 Valent (Prevnar) [...] encounter Miscellaneous Notes * Telephone Encounter - JD Velázquez - 03/12/2023 8:12 AM EDT PT and Jonny are calling to set up venofer treatments. Transferred to [facility] for further assistance. * Telephone Encounter - Karlene Fonseca LPN - 03/11/2023 4:22 PM EDT Order received for Venofer 300mg IV weekly x 4 doses [place] created and routed to provider for signature Prior auth is not needed, patient can be scheduled once aware. Left message for patient, spoke to daughter Ana Cristina on phone, she states her mom has been dizzy, sleepsa lot, and "not herself, not answering the phone." She would be agreeable to Venofer infusion. She is going to call Juanis and notify her. Scheduling: Please contact daughter Ana Cristina to schedule on 503 schedule, 2 hr appointment for "Venofer 1/4" ([place]). Thank you! documented in this encounter Plan of Treatment Upcoming Encounters Date Type Department Care Team (Late st Contact Info) Description 04/01/2023 9:00 AM EST Office Visit Rheumatology [address] [place] [address] Luann Quintanilla CRNP [address] [place] [address] [place] [address] 04/28/2023 12:00 PM EST Office Visit Gastroenterology, [facility] 132 [facility] [place] [address] Humberto Brothers CRNP 132 [place] [address] 05/27/2023 3:40 PM EST Office Visit [facility], [place] [address] [place] [facility] [place] [phone] Arun Del Rio MD [address] [place] [facility] [place] [address] 06/03/2023 10:00 AM EST Nurse Only Ancillary Department, [place] [address] [place] [facility] [place] [address] [place], Nurse Annual Well[facility] [address] [place] [address] 07/06/2023 8:30 AM EST Office Visit Cardiology, [facility] [address] [place] [address] Gil Juares MD [address] [place] [address] 09/10/2023 3:40 PM EDT Office Visit Dermatology, [place] [address] [place] [address] Leigh June PA-C [address] [place] [address] [place] [address] 12/11/2023 2:40 PM EDT Office Visit Nephrology, [facility] 200 [facility] [place] [address] Jabari Morales MD 200 [facility] [place] [address] 03/14/2024 12:30 PM EDT Office Visit Hematology/Oncology [facility] 200 [facility] [place] [address] Brennon German MD 200 [facility] [place] [address] Health Maintenance Due Date Last Done Comments *BISPHONATE OR OTHER ACCEPTABLE MEDICATION NEEDED FOR OSTEOPOROSIS (REFER TO SMARTSET #1146) 08/26/2022 TSH 12/09/2022 12/09/2021, 1201/2021, 05/04/2020, Additional history exists COVID-19 Vaccine ( season) 2023 12/10/2021, 03/05/2021, 08/07/2020, Additional history exists DXA Scan 02/12/2023 02/12/2021, 01/16, 12/31/2016, Additional history exists Albumin/Creatinine Ratio 05/14/2023 022, 04/25/2021, 05/08/2020, Additional history exists CKD PHOS USE SMARTSET 15462 05/14/202304/18, 08/14/2021, 04/25/2021, Additional history exists Depression Screening 06/03/2023 06/03/2022 DTaP,Tdap,and Td Vaccines (2 - Td or Tdap) 02/10/2024 02/09/2014 CKD HGB USE SMARTSET 12843 03/10/202403/10, 03/10/2023, 01/14/2023, Additional history exists Pneumococcal Vaccine: 65+ Years Completed 10/11/2014, 09/08/2013 Zoster Vaccines Completed 12/31/2017, 09/16, 03/18/2015 VITAMIN D LEVEL ONCE IN A LIFETIME-USE SMARTSET# 22436 Completed 05/14/2022, 08/14/2021, 05/04/2020, Additional history exists [...] and were consensually agreed upon. Care Teams Fixed Interest Dealer Relationship Specialty Start Date End Date rAun Del Rio MD [address] [place] [address] PCP - General Family Medicine 06/30/18 documented as of this encounter
--- OUTSIDE RECORDS SUMMARY | 2023-04-05 10:07 | External Medical Summary | Summary of Care ---
Author Name Unknown Organization [facility] Address [address] [place] [address] Phone [phone] Care Team Providers Care Automat Watcher Name Role Phone Arun Del Rio MD Primary Care Provider [phone] Reason for Visit * Reason Onset Date Comments Test Results Lab 03/03/2023 Encounter Details Date Type Department Care Team (Late st Contact Info) Description 03/03/2023 Telephone [facility] [address] [place] [address] Arun Del Rio MD [address] [place], [place] [id number] Test Results Lab Allergies Active Allergy Reactions Criticality Noted Date [...] Active Nitroglycerin 0.4 MG Sublingual Tablet Sublingual (Nitrostat)Indicati ons:Esophageal spasm MAY REPEAT DOSE IN 10 MINUTES NECESSARY, BEING USED FOR SPASM OF ESOPHAGUS 25 Tablet 2 03/17/2022 Active traMADol HCl 50 MG Oral Tablet (Ultram)Indications :Generalized osteoarthritis Take by mouth 1 Tablet every 8 hours as needed for Pain, Moderate. 60 Tablet 0 03/17/2022 Active Hydrocortisone 2.5 % External OintmentIndications :Prurigo nodularis,Lichenifi cation Apply to spots on face and back when itchy (x2 daily or more if needed) 60 g 0 08/14/2022 Active Levothyroxine Sodium 50 MCG Oral Tablet (Levoxyl)Indication s:Hypothyroidism, unspecified type Take 1 Tablet by mouth daily first thing in the morning. (at least 30 min prior to breakfast or other meds) 90 Tablet 3 09/15/2022 Active Losartan Potassium 100 MG Oral Tablet (Cozaar)Indications :Hypothyroidism, unspecified type,Hyperlipidemia with target LDL less than 100,HTN, goal below 150/90 Take 1 Tablet by mouth in the morning. 90 Tablet 1 09/15/2022 Active Metoprolol Succinate ER 25 MG Oral Tablet Extended Release 24 Hour (toPROL XL)Indications:HTN, goal below 150/90 Take 1 Tablet by mouth in the morning. 90 Tablet 1 09/15/2022 Active amLODIPine Besylate 2.5 MG Oral Tablet (Norvasc)Indication s:HTN, goal below 150/90 Take 1 Tablet by mouth in the morning. 100 Tablet 3 09/15/2022 Active Ferrous Sulfate 325 (65 Fe) MG Oral Tablet (Feosol)Indications :Iron deficiency anemia, unspecified iron deficiency anemia type Take 1 Tablet by mouth once a day on Thursday, Thursday, and Thursday only. 30 Tablet 4 10/15/2022 Active Famotidine 20 MG Oral Tablet (Pepcid)Indications :Gastroesophageal reflux disease, unspecified whether esophagitis present TAKE 1 TABLET BY MOUTH ONCE DAILY 90 Tablet 3 12/01/2022 Active ALPRAZolam 0.5 MG Oral Tablet (xaNAX) TAKE 1 TABLET BY MOUTH AT BEDTIME NEEDED for sleep 25 Tablet 0 12/05/2022 Active Ondansetron HCl 4 MG Oral Tablet (Zofran)Indications :Nausea without vomiting TAKE 1 TABLET BY MOUTH EVERY 6 HOURS NEEDED FOR NAUSEA 20 Tablet 1 12/24/2022 Active Escitalopram Oxalate 10 MG Oral Tablet (Lexapro)Indication s:Major depressive disorder, recurrent episode, mild (HCC) TAKE 1 TABLET BY MOUTH ONCE DAILY 90 Tablet 1 02/25/2023 Active Donepezil HCl 5 MG Oral Tablet (Aricept)Indication s:Alzheimer's dementia of other onset, with other behavioral disturbance, unspecified dementia severity (HCC) TAKE 1 TABLET BY MOUTH EVERY MORNING. take with the largest meal of the day 90 Tablet 3 02/25/2023 Active Pravastatin Sodium 40 MG Oral Tablet (Pravachol)Indicati ons:Hyperlipidemia with target LDL less than 100 TAKE 1 TABLET BY MOUTH ONCE DAILY 90 Tablet 0 12/08/2022 03/04/20 23 Discontinued documented as of this encounter (statuses as [...] mRNA, LNP-s, No Pre serve, 2-Dose Series ([employer]) 12/10/2021,03/05/2021,08/07/2020,07/12 Pneumococcal Conjugate Vacc, 13 Valent (Prevnar) [...] Miscellaneous Notes * Telephone Encounter - Dejah Su LPN - 03/12/2023 10:48 AM EDT Left generic message on answering machine asking patient to return our call. * Telephone Encounter - SHANIQUA Vasquez - 03/03/2023 2:31 PM EDT Tried to call pt. No answer. Left message to call back. If pt calls back please provide results. * Telephone Encounter - SHANIQUA Vasquez - 03/03/2023 2:30 PM EDT ----- Message from Arun Del Rio MD sent at 02/18/2023 7:44 AM EDT ----- The recent Zio monitor did show a heart arrhythmia (abnormal heart beat). This was for just 19 beats. I do not feel we need to get aggressive with this find. You are taking Metoprolol which would potentially be a treatment. Keep your appointment with Dr Juares (cardiology) in Jun. documented in this encounter Plan of Treatment Upcoming Encounters Date Type Department Care Team (Late st Contact Info) Description 03/19/2023 2:30 PM EDT Nurse Only Hematology/Oncology Treatment, [place] [address] [place] [address] [place], Chair 3 Hem Onc Scene 200 [place] [address] 04/01/2023 9:00 AM EST Office Visit Rheumatology [place] [address] [facility] [place] [address] Luann Quintanilla CRNP [address] [place] [address] 04/28/2023 12:00 PM EST Office Visit Gastroenterology, [facility] [address] [place] [address] Humberto Brothers CRNP 132 [place] [address] 05/27/2023 3:40 PM EST Office Visit Family Practice, [place] [address] [place] [facility] [phone] Arun Del Rio MD [address] [place] [address] 06/03/2023 10:00 AM EST Nurse Only Ancillary Department, [place] [address] [place] [facility] [address] [place], Nurse Annual Wellness [address] [place] [facility] [place] [address] 07/06/2023 8:30 AM EST Office Visit Cardiology, [facility] [address] [facility] [place] [address] Gil Juares MD [address] [facility] [place] [address] 09/10/2023 3:40 PM EDT Office Visit Dermatology, [place] [address] [place] [facility] [address] Leigh June PA-C [address] [place] [address] [place] [address] 12/11/2023 2:40 PM EDT Office Visit Nephrology, [facility] [address] [place] [address] Jabari Morales MD 200 [place] [address] 03/14/2024 12:30 PM EDT Office Visit Hematology/Oncology [facility] [place] [address] [place] [address] Brennon German MD 200 [facility] [place] [address] Health Maintenance Due Date Last Done Comments *BISPHONATE OR OTHER ACCEPTABLE MEDICATION NEEDED FOR OSTEOPOROSIS (REFER TO SMARTSET #1146) 08/26/2022 TSH 12/09/2022 12/09/2021, 1201/2021, 05/04/2020, Additional history exists COVID-19 Vaccine ( season) 2023 12/10/2021, 03/05/2021, 08/07/2020, Additional history exists DXA Scan 02/12/2023 02/12/2021, 01/16, 12/31/2016, Additional history exists Albumin/Creatinine Ratio 05/14/2023 022, 04/25/2021, 05/08/2020, Additional history exists CKD PHOS USE SMARTSET 58998 05/14/202304/18, 08/14/2021, 04/25/2021, Additional history exists Depression Screening 06/03/2023 06/03/2022 DTaP,Tdap,and Td Vaccines (2 - Td or Tdap) 02/10/2024 02/09/2014 CKD HGB USE SMARTSET 79804 03/10/202403/10, 03/10/2023, 01/14/2023, Additional history exists Pneumococcal Vaccine: 65+ Years Completed 10/11/2014, 09/08/2013 Zoster Vaccines Completed 12/31/2017, 09/16, 03/18/2015 VITAMIN D LEVEL ONCE IN A LIFETIME-USE SMARTSET# 57277 Completed 05/14/2022, 08/14/2021, 05/04/2020, Additional history exists [...] and were consensually agreed upon. Care Teams Automat Watcher Relationship Specialty Start Date End Date Arun Del Rio MD [address] [place] [facility] [place] [address] PCP - General Family Medicine 06/30/18 documented as of this encounter
--- OUTSIDE RECORDS SUMMARY | 2023-04-05 10:07 | External Medical Summary | Summary of Care ---
Author Name Unknown Organization [facility] Address [address] [facility] [address] Phone [phone] Care Team Providers Care Top Frame Maker Name Role Phone Arun Del Rio MD Primary Care Provider [phone] Encounter Details Date Type Department Care Team (Late st Contact Info) Description 03/11/2023 Orders Only Hematology/Oncology [facility] [place] [address] [place] [address] Brennon German MD [address] [place] [address] Iron deficiency anemia, unspecified iron deficiency anemia type* Allergies Active Allergy Reactions Criticality Noted Date Comments Alendronate Tachycardia 11/02/2014 Patient felt like she was having a heart attack Bee Venom Anaphylaxis High 10/11/2014 Iodinated Contrast Media 07/22/2013 Cephalexin 08/09/2013 Hot and flushed , nausea 2013 Lisinopril 07/21/2018 documented as of this encounter (statuses as of 03/11/2023) Medications Medication Sig Dispensed Refills Start Date [...] as of this encounter (statuses as of 03/11/2023) Active Problems Problem Noted Date Diagnosed Date Gastroesophageal reflux disease 10/15/2022 Stage 3 chronic [...] as of this encounter (statuses as of 03/11/2023) Resolved Problems Problem Noted Date Diagnosed Date [...] as of this encounter (statuses as of 03/11/2023) Immunizations Name Administration Dates Next Due COVID-19 mRNA, LNP-s, No Pre serve, 2-Dose Series ([employer]) 12/10/2021,03/05/2021,08/07/2020,07/12 Pneumococcal Conjugate Vacc, 13 Valent (Prevnar) [...] on file documented as of this encounter Plan of Treatment Upcoming Encounters Date Type Department Care Team (Late st Contact Info) Description 04/01/2023 9:00 AM EST Office Visit Rheumatology [facility] [address] [facility] [place] [address] Luann Quintanilla CRNP [address] [place] [address] 04/28/2023 12:00 PM EST Office Visit Gastroenterology, [facility] [address] [place] [address] Humberto Brothers CRNP [address] [place] [address] 05/27/2023 3:40 PM EST Office Visit Family Practice, [place] [address] [facility], [place] [phone] Arun Del Rio MD [address] [place] [address] 06/03/2023 10:00 AM EST Nurse Only Ancillary Department, [place] [address] [place] [facility] [place] [place] [address] [place], Nurse Annual Wellness [address] [place] [address] 07/06/2023 8:30 AM EST Office Visit Cardiology, [facility] [address] [email or web address] [place] [address] Gil Juares MD [address] [facility] [place] [address] 09/10/2023 3:40 PM EDT Office Visit Dermatology, [place] [address] [place] [address] Leigh June PA-C [address] [place] [address] [place] [address] 12/11/2023 2:40 PM EDT Office Visit Nephrology, [facility] 200 [facility] [place] [address] Jabari Morales MD [address] [place], [place] [address] 03/14/2024 12:30 PM EDT Office Visit Hematology/Oncology [facility] [place] 200 [facility] [place], [place] [address] Brennon German MD 200 [facility] [place] [address] Health Maintenance Due Date Last Done Comments *BISPHONATE OR OTHER ACCEPTABLE MEDICATION NEEDED FOR OSTEOPOROSIS (REFER TO SMARTSET #1146) 08/26/2022 TSH 12/09/2022 12/09/2021, 01/2021, 05/04/2020, Additional history exists COVID-19 Vaccine ( season) 2023 12/10/2021, 03/05/2021, 08/07/2020, Additional history exists DXA Scan 02/12/2023 02/12/2021, 01/16, 12/31/2016, Additional history exists Albumin/Creatinine Ratio 05/14/2023 022, 04/25/2021, 05/08/2020, Additional history exists CKD PHOS USE SMARTSET 03631 05/14/202304/18, 08/14/2021, 04/25/2021, Additional history exists Depression Screening 06/03/2023 06/03/2022 DTaP,Tdap,and Td Vaccines (2 - Td or Tdap) 02/10/2024 02/09/2014 CKD HGB USE SMARTSET 02845 03/10/202403/10, 03/10/2023, 01/14/2023, Additional history exists Pneumococcal Vaccine: 65+ Years Completed 10/11/2014, 09/08/2013 Zoster Vaccines Completed 12/31/2017, 09/16, 03/18/2015 VITAMIN D LEVEL ONCE IN A LIFETIME-USE SMARTSET# 05949 Completed 05/14/2022, 08/14/2021, 05/04/2020, Additional history exists [...] anemia type- Primary documented in this encounter Advance Directives Latest [...] and were consensually agreed upon. Care Teams Top Frame Maker Relationship Specialty Start Date End Date Arun Del Rio MD [address] [place] [address] PCP - General Family Medicine 06/30/18 documented as of this encounter
--- OUTSIDE RECORDS SUMMARY | 2023-04-05 10:07 | External Medical Summary | Summary of Care ---
Author Name Unknown Organization [facility] Address [address] [facility] [place] [address] Phone [phone] Care Team Providers Care Silvering Department Supervisor Name Role Phone Arun Del Rio MD Primary Care Provider [phone] Encounter Details Date Type Department Care Team (Late st Contact Info) Description 03/11/2023 Orders Only Hematology/Oncology [facility] [place] [address] [place] [address] Brennon eGrman MD [address] [place] [address] Allergies Active Allergy Reactions Criticality Noted Date [...] mRNA, LNP-s, No Pre serve, 2-Dose Series ([employer]) 12/10/2021,03/05/2021,08/07/2020,07/12 Pneumococcal Conjugate Vacc, 13 Valent (Prevnar) [...] 04/01/2023 9:00 AM EST Office Visit Rheumatology [place] [id number] [facility] [place] [address] Luann Quintanilla CRNP [address] [place] [address] 04/28/2023 12:00 PM EST Office Visit Gastroenterology, [facility] [address] [facility] [place] [address] Humberto Brothers CRNP [address] [place] [address] 05/27/2023 3:40 PM EST Office Visit Family Practice, [place] [address] [place] [address] Arun Del Rio MD [address] [place] [address] 06/03/2023 10:00 AM EST Nurse Only Ancillary Department, [place] [address] [place] [address] [place], Nurse Annual Wellness [address] [place] [address] 07/06/2023 8:30 AM EST Office Visit Cardiology, [facility] [place] [address] Gil Juares MD [facility] [place] [address] 09/10/2023 3:40 PM EDT Office Visit Dermatology, [place] [address] [place] [address] Leigh June PA-C [address] [place] [address] [place] [address] 12/11/2023 2:40 PM EDT Office Visit Nephrology, [place]intan Dietrich [address] [place] [address] [place] [address] Jabari Morales MD 200 [facility] [place] [address] 03/14/2024 12:30 PM EDT Office Visit Hematology/Oncology [place] [address] [place] [address] Brennon German MD 200 [facility] [place] [address] Health Maintenance Due Date Last Done Comments *BISPHONATE OR OTHER ACCEPTABLE MEDICATION NEEDED FOR OSTEOPOROSIS (REFER TO SMARTSET #1146) 08/26/2022 TSH 12/09/2022 12/09/2021, 01/2021, 05/04/2020, Additional history exists COVID-19 Vaccine ( season) 2023 12/10/2021, 03/05/2021, 08/07/2020, Additional history exists DXA Scan 02/12/2023 02/12/2021, 01/16, 12/31/2016, Additional history exists Albumin/Creatinine Ratio 05/14/2023 022, 04/25/2021, 05/08/2020, Additional history exists CKD PHOS USE SMARTSET 48140 05/14/202304/18, 08/14/2021, 04/25/2021, Additional history exists Depression Screening 06/03/2023 06/03/2022 DTaP,Tdap,and Td Vaccines (2 - Td or Tdap) 02/10/2024 02/09/2014 CKD HGB USE SMARTSET 49543 03/10/202403/10, 03/10/2023, 01/14/2023, Additional history exists Pneumococcal Vaccine: 65+ Years Completed 10/11/2014, 09/08/2013 Zoster Vaccines Completed 12/31/2017, 09/16, 03/18/2015 VITAMIN D LEVEL ONCE IN A LIFETIME-USE SMARTSET# 24420 Completed 05/14/2022, 08/14/2021, 05/04/2020, Additional history exists [...] and were consensually agreed upon. Care Teams Silvering Department Supervisor Relationship Specialty Start Date End Date Arun Del Rio MD [address] [place] [address] PCP - General Family Medicine 06/30/18 documented as of this encounter
--- OUTSIDE RECORDS SUMMARY | 2023-04-05 10:07 | External Medical Summary | Summary of Care ---
Author Name Unknown Organization [facility] Address [address] [facility] [place] [address] Phone [phone] Care Team Providers Care Home Builder Name Role Phone Arun Del Rio MD Primary Care Provider [phone] Reason for Visit * Reason Comments Outpatient Testing Encounter Details Date Type Department Care Team (Late st Contact Info) Description 03/10/2023 1:00 PM EDT Laboratory Laboratory [facility] [place] [address] [place] [address] [place], Lab Scenery [address] [place] [address] Stage 3b chronic kidney disease (HCC); History of breast cancer Allergies Active Allergy Reactions Criticality Noted Date Comments Alendronate Tachycardia 11/02/2014 Patient felt like she was having a heart attack Bee Venom Anaphylaxis High 10/11/2014 Iodinated Contrast Media 07/22/2013 Cephalexin 08/09/2013 Hot and flushed , nausea 2013 Lisinopril 07/21/2018 documented as of this encounter (statuses as of 03/10/2023) Medications Medication Sig Dispensed Refills Start Date [...] as of this encounter (statuses as of 03/10/2023) Active Problems Problem Noted Date Diagnosed Date [...] as of this encounter (statuses as of 03/10/2023) Resolved Problems Problem Noted Date Diagnosed Date [...] as of this encounter (statuses as of 03/10/2023) Immunizations Name Administration Dates Next Due COVID-19 mRNA, LNP-s, No Pre serve, 2-Dose Series ([employer]) 12/10/2021,03/05/2021,08/07/2020,07/12 Pneumococcal Conjugate Vacc, 13 Valent (Prevnar) [...] 04/01/2023 9:00 AM EST Office Visit Rheumatology [place] [address] [place] [address] Luann Quintanilla CRNP [address] [place] [address] 04/28/2023 12:00 PM EST Office Visit Gastroenterology, [facility] [place] [address] Humberto Brothers CRNP [facility] [place] [address] 05/27/2023 3:40 PM EST Office Visit Family Practice, [place] [address] [place] [address] Arun Del Rio MD [address] [place], [place] [address] 06/03/2023 10:00 AM EST Nurse Only Ancillary Department, [place] [address] [place] [address] [place], Nurse Annual Wellness [address] [place] [address] 07/06/2023 8:30 AM EST Office Visit Cardiology, [facility] 132 [facility] [place] [address] Gil Juares MD [address] [facility] [address] 09/10/2023 3:40 PM EDT Office Visit Dermatology, [place] [address] [place] [address] Leigh June PA-C [address] [place] [address] [place] [address] 12/11/2023 2:40 PM EDT Office Visit Nephrology, [facility] 200 [facility] [place] [address] Jabari Morales MD [address] [place], [place] [address] Health Maintenance Due Date Last Done Comments *BISPHONATE OR OTHER ACCEPTABLE MEDICATION NEEDED FOR OSTEOPOROSIS (REFER TO SMARTSET #1146) 08/26/2022 TSH 12/09/2022 12/09/2021, 01/2021, 05/04/2020, Additional history exists COVID-19 Vaccine ( season) 2023 12/10/2021, 03/05/2021, 08/07/2020, Additional history exists DXA Scan 02/12/2023 02/12/2021, 01/16, 12/31/2016, Additional history exists Albumin/Creatinine Ratio 05/14/2023 022, 04/25/2021, 05/08/2020, Additional history exists CKD PHOS USE SMARTSET 17029 05/14/202304/18, 08/14/2021, 04/25/2021, Additional history exists Depression Screening 06/03/2023 06/03/2022 CKD HGB USE SMARTSET 22378 01/15/202401/14, 10/10/2022, 10/10/2022, Additional history exists DTaP,Tdap,and Td Vaccines (2 - Td or Tdap) 02/10/2024 02/09/2014 Pneumococcal Vaccine: 65+ Years Completed 10/11/2014, 09/08/2013 Zoster Vaccines Completed 12/31/2017, 09/16, 03/18/2015 VITAMIN D LEVEL ONCE IN A LIFETIME-USE SMARTSET# 58900 Completed 05/14/2022, 08/14/2021, 05/04/2020, Additional history exists [...] as of this encounter Visit Diagnoses Diagnosis Stage 3b chronic kidney disease (HCC) History of breast cancer Personal history of malignant neoplasm of breast documented in this encounter Advance Directives Latest [...] and were consensually agreed upon. Care Teams Home Builder Relationship Specialty Start Date End Date Arun Del Rio MD [address] [place] [facility] [place] [address] PCP - General Family Medicine 06/30/18 documented as of this encounter
--- OUTSIDE RECORDS SUMMARY | 2023-04-05 10:07 | External Medical Summary | Summary of Care ---
Author Name Unknown Organization [facility] Address [address] [place] [facility] [place] [address] Phone [phone] Care Team Providers Care Engineering Systems Analyst Name Role Phone Arun Del Rio MD Primary Care Provider [phone] Reason for Visit * Reason Onset Date Comments Medication Administration 03/11/2023 Encounter Details Date Type Department Care Team (Late st Contact Info) Description 03/11/2023 Telephone Hematology/Oncology [facility] [place] [address] [place] [address] Brennon German MD [address] [place] [address] Medication Administration Allergies Active Allergy Reactions Criticality [...] mRNA, LNP-s, No Pre serve, 2-Dose Series ([employer]) 12/10/2021,03/05/2021,08/07/2020,07/12 Pneumococcal Conjugate Vacc, 13 Valent (Prevnar) [...] encounter Miscellaneous Notes * Telephone Encounter - Karlene KARIE Fonseca - 03/11/2023 4:22 PM EDT Order received for Venofer 300mg IV weekly x 4 doses [place] created and routed to provider for signature [...] 503 schedule, 2 hr appointment for "Venofer 05/21" (Monserrat). Thank you! documented in this encounter Plan of Treatment Upcoming Encounters Date Type Department Care Team (Late st Contact Info) Description 04/01/2023 9:00 AM EST Office Visit Rheumatology [address] [place] [address] Luann Quintanilla CRNP [address] [place] [address] [place] [address] 04/28/2023 12:00 PM EST Office Visit Gastroenterology, [facility] 132 [facility] [place] [address] Humberto Brothers CRNP 132 [facility] [place] [address] 05/27/2023 3:40 PM EST Office Visit Family [facility], [place] [address] [place] [facility] [place] [address] Arun Del Rio MD [address] [place] [facility] [place] [address] 06/03/2023 10:00 AM EST Nurse Only Ancillary Department, [place] [address] [facility] [address] [place], Nurse Annual Wellness [address] [facility] [address] 07/06/2023 8:30 AM EST Office Visit Cardiology, [facility] 132 [facility] [place] [address] Gil Juares MD [address] [place] [address] 09/10/2023 3:40 PM EDT Office Visit Dermatology, [place] [address] [place] [facility] [place] [address] Leigh June PA-C [address] [place] [address] [place] [address] 12/11/2023 2:40 PM EDT Office Visit Nephrology, [facility] 200 [facility] [place] [address] Jabari Morales MD 200 [facility] [place] [address] 03/14/2024 12:30 PM EDT Office Visit Hematology/Oncology [facility] 200 [facility] [place] [address] Brennon Germna MD 200 [facility] [place] [address] Health Maintenance Due Date Last Done Comments *BISPHONATE OR OTHER ACCEPTABLE MEDICATION NEEDED FOR OSTEOPOROSIS (REFER TO SMARTSET #1146) 08/26/2022 TSH 12/09/2022 12/09/2021, 1201/2021, 05/04/2020, Additional history exists COVID-19 Vaccine ( season) 2023 12/10/2021, 03/05/2021, 08/07/2020, Additional history exists DXA Scan 02/12/2023 02/12/2021, 01/16, 12/31/2016, Additional history exists Albumin/Creatinine Ratio 05/14/2023 022, 04/25/2021, 05/08/2020, Additional history exists CKD PHOS USE SMARTSET 74270 05/14/2023 122 12/2021, 08/14/2021, 04/25/2021, Additional history exists Depression Screening 06/03/2023 06/03/2022 DTaP,Tdap,and Td Vaccines (2 - Td or Tdap) 02/10/2024 02/09/2014 CKD HGB USE SMARTSET 24146 03/10/202403/10, 03/10/2023, 01/14/2023, Additional history exists Pneumococcal Vaccine: 65+ Years Completed 10/11/2014, 09/08/2013 Zoster Vaccines Completed 12/31/2017, 09/16, 03/18/2015 VITAMIN D LEVEL ONCE IN A LIFETIME-USE SMARTSET# 49550 Completed 05/14/2022, 08/14/2021, 05/04/2020, Additional history exists [...] and were consensually agreed upon. Care Teams Engineering Systems Analyst Relationship Specialty Start Date End Date Arun Del Rio MD [address] [place] [facility] [address] PCP - General Family Medicine 06/30/18 documented as of this encounter
--- OUTSIDE RECORDS SUMMARY | 2023-04-05 10:07 | External Medical Summary | Summary of Care ---
Author Name Unknown Organization [facility] Address [address] [place] [address] Phone [phone] Care Team Providers Care Cashier Parking Lot Name Role Phone Arun Del Rio MD Primary Care Provider [phone] Reason for Visit * Reason Onset Date Comments Test Results Lab 03/03/2023 Encounter Details Date Type Department Care Team (Late st Contact Info) Description 03/03/2023 Telephone [facility] [address] [place] [address] Arun Del Rio MD [address] [place], [place] [phone] Test Results Lab Allergies Active Allergy Reactions [...] mRNA, LNP-s, No Pre serve, 2-Dose Series ([employer]) 12/10/2021,03/05/2021,08/07/2020,07/12 Pneumococcal Conjugate Vacc, 13 Valent (Prevnar) [...] encounter Miscellaneous Notes * Telephone Encounter - Nicole Sanches LPN - 03/12/2023 3:52 PM EDT Letter sent * Telephone Encounter - Dejah Su LPN - 03/12/2023 10:48 AM EDT Left generic message on answering machine asking patient to return our call. * Telephone Encounter - SHANIQUA Vasquez ASSIST - 03/03/2023 2:31 PM EDT Tried to call pt. No answer. Left message to call back. If pt calls back please provide results. * Telephone Encounter - SHANIQUA Vasquez ASSIST - 03/03/2023 2:30 PM EDT ----- Message [...] 2:30 PM EDT Nurse Only Hematology/Oncology Treatment, [place] [address] [facility], [place] [address] [place], Chair 3 Hem Onc [facility] [address] [facility] [place], [place] [address] 04/01/2023 9:00 AM EST Office Visit Rheumatology [facility] [address] [facility] [place], [place] [address] Luann Quintanilla CRNP [address] [facility] [place], [place] [address] 04/28/2023 12:00 PM EST Office Visit Gastroenterology, [facility] [place] [address] Humberto Brothers CRNP [facility] [place] [address] 05/27/2023 3:40 PM EST Office Visit Family Practice, [place] [address] [place] [address] Arun Del Rio MD [address] [place] [address] 06/03/2023 10:00 AM EST Nurse Only Ancillary Department, [place] [address] [place] [address] [place], Nurse Annual Wellness [address] [place] [address] 07/06/2023 8:30 AM EST Office Visit Cardiology, [facility] 132 [facility] [place] [address] iGl Juares MD [address] [facility] [place] [address] 09/10/2023 3:40 PM EDT Office Visit Dermatology, [place] [address] [place] [address] Leigh June PA-C [address] [place] [address] [place] [address] 12/11/2023 2:40 PM EDT Office Visit Nephrology, [facility] [address] [place] [address] Jabari Morales MD 200 [facility] [place] [address] 03/14/2024 12:30 PM EDT Office Visit Hematology/Oncology [facility] [place] [address] [place] [address] Brennon German MD [address] [place] [address] Health Maintenance Due Date Last Done Comments *BISPHONATE OR OTHER ACCEPTABLE MEDICATION NEEDED FOR OSTEOPOROSIS (REFER TO SMARTSET #1146) 08/26/2022 TSH 12/09/2022 12/09/2021, 01/2021, 05/04/2020, Additional history exists COVID-19 Vaccine ( season) 2023 12/10/2021, 03/05/2021, 08/07/2020, Additional history exists DXA Scan 02/12/2023 02/12/2021, 01/16, 12/31/2016, Additional history exists Albumin/Creatinine Ratio 05/14/2023 022, 04/25/2021, 05/08/2020, Additional history exists CKD PHOS USE SMARTSET 28665 05/14/202304/18, 08/14/2021, 04/25/2021, Additional history exists Depression Screening 06/03/2023 06/03/2022 DTaP,Tdap,and Td Vaccines (2 - Td or Tdap) 02/10/2024 02/09/2014 CKD HGB USE SMARTSET 45092 03/10/202403/10, 03/10/2023, 01/14/2023, Additional history exists Pneumococcal Vaccine: 65+ Years Completed 10/11/2014, 09/08/2013 Zoster Vaccines Completed 12/31/2017, 09/16, 03/18/2015 VITAMIN D LEVEL ONCE IN A LIFETIME-USE SMARTSET# 14407 Completed 05/14/2022, 08/14/2021, 05/04/2020, Additional history exists [...] and were consensually agreed upon. Care Teams Cashier Parking Lot Relationship Specialty Start Date End Date Arun Del Roi MD [address] [place] [address] PCP - General Family Medicine 06/30/18 documented as of this encounter
--- OUTSIDE RECORDS SUMMARY | 2023-04-05 10:07 | External Medical Summary | Summary of Care ---
Author Name Unknown Organization [facility] Address [address] [facility] [place] [address] Phone [phone] Care Team Providers Care Sanitary Landfill Operator Name Role Phone Arun Del Rio MD Primary Care Provider [phone] Reason for Visit * Reason Onset Date Comments Medication Administration 03/11/2023 Encounter Details Date Type Department Care Team (Late st Contact Info) Description 03/11/2023 Telephone Hematology/Oncology [facility] [place] [address] [place] [address] Brennon German MD [address] [place] [address] Medication Administration Allergies Active Allergy Reactions Criticality [...] mRNA, LNP-s, No Pre serve, 2-Dose Series ([employer]) 12/10/2021,03/05/2021,08/07/2020,07/12 Pneumococcal Conjugate Vacc, 13 Valent (Prevnar) [...] Miscellaneous Notes * Telephone Encounter - JD Arizmendi - 03/12/2023 8:15 AM EDT Spoke to patients , scheduled venofer 03/19/24 @ 2:30 pm. * Telephone Encounter - JD Velázquez - 03/12/2023 8:12 AM EDT PT and Jonny are calling to set up venofer treatments. Transferred to [facility] for further assistance. * Telephone Encounter - Karlene Fonseca LPN - 03/11/2023 4:22 PM EDT Order received for Venofer 300mg IV weekly x 4 doses Duryea created and routed to provider for signature [...] 2:30 PM EDT Nurse Only Hematology/Oncology Treatment, [place] [address] [place], [place] [address] [place], Chair [address] [facility] [address] [facility] [place] [address] 04/01/2023 9:00 AM EST Office Visit Rheumatology [place] [address] [facility] [place] [address] Luann Quintanilla CRNP [address] [place], [place] [address] 04/28/2023 12:00 PM EST Office Visit Gastroenterology, [facility] [address] [place] [address] Humberto Brothers CRNP [address] [place] [address] 05/27/2023 3:40 PM EST Office Visit Family Practice, [place] [address] [place] [facility] [place] [address] Arun Del Rio MD [address] [place] [address] 06/03/2023 10:00 AM EST Nurse Only Ancillary Department, [place] [address] [place] [facility] [address] [place] Nurse [facility] Wellness [address] [place] [address] 07/06/2023 8:30 AM EST Office Visit Cardiology, [facility] [place] [address] Gil Juares MD [address] [place] [address] 09/10/2023 3:40 PM EDT Office Visit Dermatology, [place] [address] [place] [address] Leigh June PA-C [address] [place] [address] [place] [address] 12/11/2023 2:40 PM EDT Office Visit Nephrology, [facility] [address] [place] [address] Jabari Morales MD [address] [place] [address] 03/14/2024 12:30 PM EDT Office Visit Hematology/Oncology [facility] [place] [address] [place] [address] Brennon German MD [address] [place] [address] Health Maintenance Due Date Last Done Comments *BISPHONATE OR OTHER ACCEPTABLE MEDICATION NEEDED FOR OSTEOPOROSIS (REFER TO SMARTSET #1146) 08/26/2022 TSH 12/09/2022 12/09/2021, 1201/2021, 05/04/2020, Additional history exists COVID-19 Vaccine ( season) 2023 12/10/2021, 03/05/2021, 08/07/2020, Additional history exists DXA Scan 02/12/2023 02/12/2021, 01/16, 12/31/2016, Additional history exists Albumin/Creatinine Ratio 05/14/2023 022, 04/25/2021, 05/08/2020, Additional history exists CKD PHOS USE SMARTSET 60427 05/14/202304/18, 08/14/2021, 04/25/2021, Additional history exists Depression Screening 06/03/2023 06/03/2022 DTaP,Tdap,and Td Vaccines (2 - Td or Tdap) 02/10/2024 02/09/2014 CKD HGB USE SMARTSET 67034 03/10/202403/10, 03/10/2023, 01/14/2023, Additional history exists Pneumococcal Vaccine: 65+ Years Completed 10/11/2014, 09/08/2013 Zoster Vaccines Completed 12/31/2017, 09/16, 03/18/2015 VITAMIN D LEVEL ONCE IN A LIFETIME-USE SMARTSET# 16703 Completed 05/14/2022, 08/14/2021, 05/04/2020, Additional history exists [...] and were consensually agreed upon. Care Teams Sanitary Landfill Operator Relationship Specialty Start Date End Date Arun Del Rio MD [address] [facility] [place] [address] PCP - General Family Medicine 06/30/18 documented as of this encounter
--- OUTSIDE RECORDS SUMMARY | 2023-04-05 10:07 | External Medical Summary | Summary of Care ---
Author Name Unknown Organization [facility] Address [address] [place] [address] Phone [phone] Care Team Providers Care Electrical Appliance Preparer Name Role Phone Arun Del Rio MD Primary Care Provider [phone] Reason for Visit * Reason Onset Date Comments Forms Request 03/23/2023 Encounter Details Date Type Department Care Team (Late st Contact Info) Description 03/23/2023 Telephone [facility] [address] [place] [address] Arun Del Rio MD [address] [place], [place] [id number] Forms Request Allergies Active Allergy Reactions Criticality Noted Date Comments Alendronate Tachycardia 11/02/2014 Patient felt like she was having a heart attack Bee Venom Anaphylaxis High 10/11/2014 Iodinated Contrast Media 07/22/2013 Cephalexin 08/09/2013 Hot and flushed , nausea 2012 Lisinopril 07/21/2018 documented as of this encounter (statuses as of 03/23/2023) Medications Medication Sig Dispensed Refills Start Date [...] as of this encounter (statuses as of 03/23/2023) Active Problems Problem Noted Date Diagnosed Date [...] as of this encounter (statuses as of 03/23/2023) Resolved Problems Problem Noted Date Diagnosed Date [...] as of this encounter (statuses as of 03/23/2023) Immunizations Name Administration Dates Next Due COVID-19 mRNA, LNP-s, No Pre serve, 2-Dose Series ([facility]) 12/10/2021,03/05/2021,08/07/2020,07/12 Pneumococcal Conjugate Vacc, 13 Valent (Prevnar) [...] Telephone Encounter - Nataly Marroquin LPN - 03/23/2023 12:51 PM EST See other encounter. Already on provider's desk * Telephone Encounter - Iwona Escobedo OSA - 03/23/2023 9:45 AM EST Valerie Nick at [facility] is calling in stating that this patient is going to become a resident there next week. They have sent over a packet to be completed on 03/09/23 (not scanned into chart). They will be refaxing it today. They are asking that it be completed and fax back to them [phone]. documented in this encounter Plan of Treatment Upcoming Encounters Date Type Department Care Team (Late st Contact Info) Description 03/26/2023 1:00 PM EST Nurse Only Hematology/Oncology [address], [address] [address] [place], Chair 11 Hem Onc [facility] [address] [place] [address] [place] [address] 04/01/2023 9:00 AM EST Office Visit Rheumatology [place] [address] [employer] [place], [place] [address] Luann Quintanilla CRNP [address] [place], [place] [address] 04/02/2023 1:00 PM EST Nurse Only Hematology/Oncology Treatment, [address] [address] Kaur, Chair 11 Hem Onc [address] 200 [facility] [place] [address] 04/08/2023 1:00 PM EST Nurse Only Hematology/Oncology Treatment, [address] [address] Kaur, Chair 11 Hem Onc [address] 200 [facility] [place] [address] 04/28/2023 12:00 PM EST Office Visit Gastroenterology, [facility] 132 [facility] [place] [address] Humberto Brothers CRNP [facility] [place] [address] 05/04/2023 1:00 PM EST Laboratory Laboratory [facility] [address] [place] [phone] [facility] [facility] [address] [place] [address] 05/27/2023 3:40 PM EST Office Visit Family Practice, [place] [address] [place] [phone] Arun Del Rio MD [address] [place] [address] 06/03/2023 10:00 AM EST Nurse Only Ancillary Department, [place] [address] [place] [address] [place], Nurse Annual Wellness [address] [place] [address] 07/06/2023 8:30 AM EST Office Visit Cardiology, [facility] 132 [facility] [place] [address] Gil Juares MD 132 [facility] [place] [address] 09/10/2023 3:40 PM EDT Office Visit Dermatology, [place] [address] [place] [address] Leigh June PAJessica [address] [place] [address] [place] [address] 12/11/2023 2:40 PM EDT Office Visit Nephrology, [facility] [address] [place] [address] Jabari Morales MD [address] [place] [address] 03/14/2024 12:30 PM EDT Office Visit Hematology/Oncology [place] [address] [place] [address] Brennon German MD 200 [facility] [place] [address] Health Maintenance Due Date Last Done Comments *BISPHONATE OR OTHER ACCEPTABLE MEDICATION NEEDED FOR OSTEOPOROSIS (REFER TO SMARTSET #1146) 08/26/2022 TSH 12/09/2022 12/09/2021, 01/2021, 05/04/2020, Additional history exists COVID-19 Vaccine ( season) 2023 12/10/2021, 03/05/2021, 08/07/2020, Additional history exists DXA Scan 02/12/2023 02/12/2021, 01/16, 12/31/2016, Additional history exists Albumin/Creatinine Ratio 05/14/2023 022, 04/25/2021, 05/08/2020, Additional history exists CKD PHOS USE SMARTSET 47499 05/14/202304/18, 08/14/2021, 04/25/2021, Additional history exists Depression Screening 06/03/2023 06/03/2022 DTaP,Tdap,and Td Vaccines (2 - Td or Tdap) 02/10/2024 02/09/2014 CKD HGB USE SMARTSET 86693 03/10/202403/10, 03/10/2023, 01/14/2023, Additional history exists Pneumococcal Vaccine: 65+ Years Completed 10/11/2014, 09/08/2013 Zoster Vaccines Completed 12/31/2017, 09/16, 03/18/2015 VITAMIN D LEVEL ONCE IN A LIFETIME-USE SMARTSET# 05255 Completed 05/14/2022, 08/14/2021, 05/04/2020, Additional history exists [...] and were consensually agreed upon. Care Teams Electrical Appliance Preparer Relationship Specialty Start Date End Date Arun Del Rio MD [address] [place] [address] PCP - General Family Medicine 06/30/18 documented as of this encounter
--- OUTSIDE RECORDS SUMMARY | 2023-04-05 10:07 | External Medical Summary | Summary of Care ---
Author Name Unknown Organization [facility] Address [address] [facility] [place] [address] Phone [phone] Care Team Providers Care Die Repair Name Role Phone Arun Del Rio MD Primary Care Provider [phone] Reason for Visit * Reason Comments Follow Up Encounter Details Date Type Department Care Team (Late st Contact Info) Description 03/10/2023 12:30 PM EDT Office Visit Hematology/Oncology [place] 200 [facility] [place] [address] Brennon German MD 200 [facility] [place] [address] Stage 3b chronic kidney disease (HCC)*; History of breast cancer Allergies Active Allergy [...] mRNA, LNP-s, No Pre serve, 2-Dose Series ([employer]) 12/10/2021,03/05/2021,08/07/2020,07/12 Pneumococcal Conjugate Vacc, 13 Valent (Prevnar) [...] Sign Reading Time Taken Comments Blood Pressure 124/53 03/10/2023 12:32 PM EDT Pulse 75 03/10/2023 12:32 PM EDT Temperature - - Respiratory Rate 16 03/10/2023 12:32 PM EDT Oxygen Saturation 95% 03/10/2023 12:32 PM EDT Inhaled Oxygen Concentration - - Weight 57.2 kg (126 lb 1.6 oz) 03/10/2023 12:32 PM EDT Height - - Body Mass Index 25.04 10/15/2022 8:10 AM EDT documented in this encounter Progress Notes * Karlene Fonseca LPN - 03/10/2023 12:31 PM EDT Patient identifed by name and birthdate Do you have any concerns about pain management for today's visit? Yes. Patient instructed to discuss pain concerns with provider during the visit today Living Will or Advance Directive for Health Care as noted on the problem list. [email or web address] is a way you can talk to your provider on line through e-mail. Would you like to sign up? I can activate it for you? ALREADY ACTIVE Family member states that patient has passed out and fell last 2 weeks. She states she is dizziness. * Brennon German MD - 03/10/2023 12:19 PM EDT Outpatient Consult Note Data Source: Patient, Epic record. Data Source: Patient, Epic record. 03/10/2023 12:19 PM [place] [id number] 87 year old Patient Encounter: HEMATOLOGY/ONCOLOGY [facility] Cancer Diagnosis: History of right breast cancer, stage T1 N1 Current Treatment: Observation Previous Treatment: - Completed 5 years of adjuvant tamoxifen, completed in 2018 - Taxol and Herceptin Oncologic History : 87-year-old female with a history of for T1 N1 right breast cancer. 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 She underwent partial mastectomy. However on later re-evaluation her Her-2-pati status was negative. She received a rather non-traditional adjuvant therapy in that she was given 12 weekly infusions ofTaxol and Herceptin. She then was placed on Arimidex but she could not tolerate that and it was switched to Tamoxifen. She apparently received postoperative external beam radiation therapy to the breast. She has developed severe lymphedema Interval History: She would episode of dizziness. Otherwise clinically she is stable without any new symptoms. She also has episode of abdominal pain and was referred to GI for endoscopy and colonoscopy. She denies any headache, blurred vision, chest pain, palpitation, hematuria, hematochezia. LABS/IMAGING: Results for orders placed or performed in visit on 01/14/23 CBC Result Value Ref Range WBC 10.12 4.00 - 10.80 K/uL RBC 2.95 3.85 - 5.15 M/uL HGB 7.5 (L) 12.0 - 15.3 g/dL HCT 25.9 (L) 36.0 - 45.2 % MCV 87.8 81.5 - 97.5 fL MCH 25.4 27.0 - 34.0 pg MCHC 29.0 32.0 - 36.0 g/dL RDW 17.2 11.5 - 15.5 % PLT 360 140 - 400 K/uL MPV 10.4 6.6 - 11.1 fL nRBCs 0 <=0 /100 WBCs IRON SCREEN, INCLUDING TIBC Result Value Ref Range Iron 11 (L) 33 - 151 ug/dL Iron Binding Capacity 251 250 - 425 ug/dL Transferrin Saturation Percent 4 (L) 15 - 55 % Last blood test were done on 01/14/2023 which shows hemoglobin level of 7.5 with WBC count of 10,000 and platelet count 360. Creatinine was 1.3 on 10/10/2022. REVIEW OF SYSTEMS: General: No Fever, chills, night sweats HEENT: No change in visual acuity, blurred or double vision. No epistaxis, facial pain, nasal discharge or change in hearing. Denies dysphagia, no muscosal ulceration, or sores noted. Cardiovascular: No chest pain, VU, or palpitations Respiratory: No shortness of breath, cough, hemoptysis, or pleuritic chest pain Gastrointestinal: episodes of abdominal pain, nausea, No vomiting, diarrhea, rectal pain or bleeding Genitourinary: Denies Hematuria or dysuria Musculoskeletal: Stable joint pain Psychiatric: No vegetative signs of depression Endocrine: No symptoms of hypothyroidism or hyperglycemia Hematologic: No bleeding or lymph nodes noted As mentioned above, all of the systems were reviewed in full and are unremarkable. Past Medical History: Diagnosis Date Breast cancer (HCC) 2011 Breast cancer, right (HCC) 07/22/2013 Diverticulosis of colon 04/29 noted on colonoscopy Family hx of colon cancer 07/22/2013 father History of chemotherapy Hyperlipidemia LDL goal < 100 07/22/2013 Hypothyroidism 07/22/2013 Lymphedema of arm 07/22/2013 Osteoporosis 07/22/2013 Pelvic rim fracture 07/22/2013 Personal history of radiation therapy S/P lumpectomy, right breast 01/27 chemo and radiation Current Outpatient Medications Medication Sig Dispense Refill Cranberry-Vitamin C 250-60 MG Oral Capsule Take by mouth daily. Aspirin 81 MG Tablet Take 1 Tablet by mouth in the morning. 34 Tab 5 acetaminophen (TYLENOL) 500 MG Tablet Take 2 Tablets by mouth every 6 hours as needed for Pain or Fever. 100 Tab 0 Docusate Sodium 100 MG Oral Tablet Take 1 Tablet by mouth 2 times a day as needed. 10 Tab 0 Polyethylene Glycol 3350 17 GM Oral Packet Take 1 Packet by mouth daily as needed. Dorzolamide HCl-Timolol Mal 22.3-6.8 MG/ML Ophthalmic Solution (Cosopt) 1 drop in each eye 2 times daily 10 mL 3 Nitroglycerin 0.4 MG Sublingual Tablet Sublingual (Nitrostat) MAY REPEAT DOSE IN 10 MINUTES NECESSARY, BEING USED FOR SPASM OF ESOPHAGUS 25 Tablet 2 traMADol HCl 50 MG Oral Tablet (Ultram) Take by mouth 1 Tablet every 8 hours as needed for Pain, Moderate. 60 Tablet 0 Hydrocortisone 2.5 % External Ointment Apply to spots on face and back when itchy (x2 daily or moreif needed) 60 g 0 Levothyroxine Sodium 50 MCG Oral Tablet (Levoxyl) Take 1 Tablet by mouth daily first thing in the morning. (at least 30 min prior to breakfast or other meds) 90 Tablet 3 Losartan Potassium 100 MG Oral Tablet (Cozaar) Take 1 Tablet by mouth in the morning. 90 Tablet 1 Metoprolol Succinate ER 25 MG Oral Tablet Extended Release 24 Hour (toPROL XL) Take 1 Tablet by mouth in the morning. 90 Tablet 1 amLODIPine Besylate 2.5 MG Oral Tablet (Norvasc) Take 1 Tablet by mouth in the morning. 100 Tablet 3 Ferrous Sulfate 325 (65 Fe) MG Oral Tablet (Feosol) Take 1 Tablet by mouth once a day on Thursday, Thursday, and Thursday only. 30 Tablet 4 Famotidine 20 MG Oral Tablet (Pepcid) TAKE 1 TABLET BY MOUTH ONCE DAILY 90 Tablet 3 ALPRAZolam 0.5 MG Oral Tablet (xaNAX) TAKE 1 TABLET BY MOUTH AT BEDTIME NEEDED for sleep 25 Tablet 0 Ondansetron HCl 4 MG Oral Tablet (Zofran) TAKE 1 TABLET BY MOUTH EVERY 6 HOURS NEEDED FOR QLLKEY26 Tablet 1 Escitalopram Oxalate 10 MG Oral Tablet (Lexapro) TAKE 1 TABLET BY MOUTH ONCE DAILY 90 Tablet 1 Donepezil HCl 5 MG Oral Tablet (Aricept) TAKE 1 TABLET BY MOUTH EVERY MORNING. take with the largest meal of the day 90 Tablet 3 Pravastatin Sodium 40 MG Oral Tablet (Pravachol) TAKE 1 TABLET BY MOUTH EVERY MORNING 90 Tablet 3 No current facility-administered medications for this visit. Social History Tobacco Use Smoking status: Never Smokeless tobacco: Never Vaping Use Vaping Use: Never used Substance Use Topics Alcohol use: Yes Comment: occ wine, 1 drink every few months Drug use: No Review of patient's allergies indicates: Allergen Reactions Bee Venom Anaphylaxis Alendronate Tachycardia Patient felt like she was having a heart attack Iodinated Contrast Media Keflex [Cephalexin] Hot and flushed , nausea 2013 Lisinopril PHYSICAL EXAMINATION: General Appearance: Weak appearing patient in no acute distress There were no vitals taken for this visit. Vitals reviewed. HEENT: No oral or pharyngeal masses, ulceration or thrush noted, no sinus tenderness. Neck is supple with no thyromegaly or JVD noted. Lymph Nodes: No lymphadenopathy noted in the occipital, pre and post auricular, cervical, supra andinfraclavicular, axillary, epitrochlear, inguinal, and popliteal region. Lungs/Thorax: Clear to auscultation, no accessory muscles of respiration being used. Heart: Regular rate and rhythm, normal S1, S2 Abdomen: Soft, nontender, bowel sounds present, no appreciable hepatosplenomegaly, no palpable masses Extremeties: Good pulses bilaterally, no peripheral edema. ASSESSMENT: 87-year-old female with history of right breast cancer status post partial mastectomy and radiationtherapy. She had stage II, T1 N1 disease. She completed 5 years of adjuvant tamoxifen completed 2018. She was diagnosed of dementia. On physical examination she looks weak. She is also having a issues with episodes of abdominal painand was referred to the GI for upper endoscopy and colonoscopy. I will repeat her blood test today including CBC, CMP, ferritin, iron screen, vitamin B12, retic count and erythropoietin level. Discussed with the patient and relative about diagnosis reviewed all the available blood test result with her. PLAN: As above. She will have requested blood test done today. She will return clinic for follow-up in 1 year. She will continue follow her PCP for all other medical problems. The patient voiced understanding of all of the above. All questions and concerns were addressed in an apparently satisfactory manner. Brennon German MD (This note was completed using the dictation program Fluency Direct. As such, there may be misspellings, word substitutions, or other variations that should not change the essence of the clinical content of this encounter note. If there is need for further clarification, please direct questions to me.) documented in this encounter Plan of Treatment Upcoming Encounters Date Type Department Care Team (Late st Contact Info) Description 04/01/2023 9:00 AM EST Office Visit Rheumatology [address] [place] [address] Luann Quintanilla CRNP [address] [place] [address] [place] [address] 04/28/2023 12:00 PM EST Office Visit [facility]ology, [facility] [place] [address] Humberto Brothers CRNP [address] [place] [address] 05/27/2023 3:40 PM EST Office Visit [facility] [address] [facility] [phone] Arun Del Rio MD [address] [place] [facility] [place] [address] 06/03/2023 10:00 AM EST Nurse Only Ancillary Department, [place] [address] [facility] [address] [place] Nurse Annual Wellness [address] [place] [facility] [place] [address] 07/06/2023 8:30 AM EST Office Visit Cardiology, [facility] [address] [place] [address] Gil Juares MD [address] [place] [phone] 09/10/2023 3:40 PM EDT Office Visit Dermatology[address] [place] [address] Leigh June PA-C [address] [place] [address] [place] [address] 12/11/2023 2:40 PM EDT Office Visit Nephrology, [facility] [address] [facility] [place] [address] Jabari Morales MD [address] [place] [address] Pending Results Name Type Priority Associated Diagnoses Date /Time CBC WITH WBC DIFFERENTIAL Lab Routine Stage 3b chronic kidney disease (HCC) History of breast cancer 03/10/2023 12:55 PM EDT COMPREHENSIVE METABOLIC PANEL Lab Routine Stage 3b chronic kidney disease (HCC) History of breast cancer 03/10/2023 12:55 PM EDT FERRITIN Lab Routine Stage 3b chronic kidney disease (HCC) History of breast cancer 03/10/2023 12:55 PM EDT ERYTHROPOIETIN (EPO) Lab Routine Stage 3b chronic kidney disease (HCC) History of breast cancer 03/10/2023 12:55 PM EDT IRON SCREEN, INCLUDING TIBC Lab Routine Stage 3b chronic kidney disease (HCC) History of breast cancer 03/10/2023 12:55 PM EDT LD Lab Routine Stage 3b chronic kidney disease (HCC) History of breast cancer 03/10/2023 12:55 PM EDT RETICULOCYTE PANEL Lab Routine Stage 3b chronic kidney disease (HCC) History of breast cancer 03/10/2023 12:55 PM EDT VITAMIN B12 Lab Routine Stage 3b chronic kidney disease (HCC) History of breast cancer 03/10/2023 12:55 PM EDT FOLIC ACID Lab Routine Stage 3b chronic kidney disease (HCC) History of breast cancer 03/10/2023 12:55 PM EDT CBC Lab Routine Stage 3b chronic kidney disease (HCC) History of breast cancer 03/10/2023 12:55 PM EDT DIFFERENTIAL, AUTOMATED Lab Routine Stage 3b chronic kidney disease (HCC) History of breast cancer 03/10/2023 12:55 PM EDT Health Maintenance Due Date Last Done Comments *BISPHONATE OR OTHER ACCEPTABLE MEDICATION NEEDED FOR OSTEOPOROSIS (REFER TO SMARTSET #1146) 08/26/2022 TSH 12/09/2022 12/09/2021, 1201/2021, 05/04/2020, Additional history exists COVID-19 Vaccine ( season) 2023 12/10/2021, 03/05/2021, 08/07/2020, Additional history exists DXA Scan 02/12/2023 02/12/2021, 01/16, 12/31/2016, Additional history exists Albumin/Creatinine Ratio 05/14/2023 022, 04/25/2021, 05/08/2020, Additional history exists CKD PHOS USE SMARTSET 72524 05/14/202304/18, 08/14/2021, 04/25/2021, Additional history exists Depression Screening 06/03/2023 06/03/2022 CKD HGB USE SMARTSET 56242 01/15/202401/14, 10/10/2022, 10/10/2022, Additional history exists DTaP,Tdap,and Td Vaccines (2 - Td or Tdap) 02/10/2024 02/09/2014 Pneumococcal Vaccine: 65+ Years Completed 10/11/2014, 09/08/2013 Zoster Vaccines Completed 12/31/2017, 09/16, 03/18/2015 VITAMIN D LEVEL ONCE IN A LIFETIME-USE SMARTSET# 42245 Completed 05/14/2022, 08/14/2021, 05/04/2020, Additional history exists [...] Diagnoses Diagnosis Stage 3b chronic kidney disease (HCC)- Primary History of breast cancer Personal history of [...] and were consensually agreed upon. Care Teams Die Repair Relationship Specialty Start Date End Date Arun Del Rio MD [address] [place] [address] PCP - General Family Medicine 06/30/18 documented as of this encounter
--- OUTSIDE RECORDS SUMMARY | 2023-04-05 10:07 | External Medical Summary | Summary of Care ---
Author Name Unknown Organization [facility] Address [address] [place] [place] [address] Phone [phone] Care Team Providers Care Tile Setter Name Role Phone Arun Del Rio MD Primary Care Provider [phone] Encounter Details Date Type Department Care Team (Late st Contact Info) Description 03/11/2023 Orders Only Hematology/Oncology [facility] [place] [address] [place] [address] Brennon German MD [address] [place] [address] Allergies Active Allergy Reactions Criticality Noted Date [...] mRNA, LNP-s, No Pre serve, 2-Dose Series (momondo) 12/10/2021,03/05/2021,08/07/2020,07/12 Pneumococcal Conjugate Vacc, 13 Valent (Prevnar) [...] 04/01/2023 9:00 AM EST Office Visit Rheumatology [place] [id number] [facility] [place] [address] Luann Quintanilla CRNP [email or web address] [place] [address] 04/28/2023 12:00 PM EST Office Visit Gastroenterology, [facility] [address] [facility] [place] [address] Humberto Brothers CRNP [address] [place] [address] 05/27/2023 3:40 PM EST Office Visit Family Practice, [place] [address] [place] [address] Arun Del Rio MD [address] [place] [address] 06/03/2023 10:00 AM EST Nurse Only Ancillary Department, [place] [address] [place] [address] [place], Nurse [facility] [address] [place] [address] 07/06/2023 8:30 AM EST Office Visit Cardiology, [facility] [address] [facility] [place] [address] Gil Juares MD [address] [facility] [place] [address] 09/10/2023 3:40 PM EDT Office Visit Dermatology, [place] [address] [place] [address] Leigh June PA-C [address] [place] [address] [place] [address] 12/11/2023 2:40 PM EDT Office Visit Nephrology, Chintan Dietrich [address] [place] [address] Jabari Morales MD [address] [facility] [place] [address] 03/14/2024 12:30 PM EDT Office Visit Hematology/Oncology Chint[facility] [place] [address] [place] [address] Brennon German MD [address] [facility] [place] [address] Health Maintenance Due Date Last Done Comments *BISPHONATE OR OTHER ACCEPTABLE MEDICATION NEEDED FOR OSTEOPOROSIS (REFER TO SMARTSET #1146) 08/26/2022 TSH 12/09/2022 12/09/2021, 01/2021, 05/04/2020, Additional history exists COVID-19 Vaccine ( season) 2023 12/10/2021, 03/05/2021, 08/07/2020, Additional history exists DXA Scan 02/12/2023 02/12/2021, 01/16, 12/31/2016, Additional history exists Albumin/Creatinine Ratio 05/14/2023 022, 04/25/2021, 05/08/2020, Additional history exists CKD PHOS USE SMARTSET 89687 05/14/202304/18, 08/14/2021, 04/25/2021, Additional history exists Depression Screening 06/03/2023 06/03/2022 DTaP,Tdap,and Td Vaccines (2 - Td or Tdap) 02/10/2024 02/09/2014 CKD HGB USE SMARTSET 41419 03/10/202403/10, 03/10/2023, 01/14/2023, Additional history exists Pneumococcal Vaccine: 65+ Years Completed 10/11/2014, 09/08/2013 Zoster Vaccines Completed 12/31/2017, 09/16, 03/18/2015 VITAMIN D LEVEL ONCE IN A LIFETIME-USE SMARTSET# [id number] Completed 05/14/2022, 08/14/2021, 05/04/2020, Additional history exists [...] and were consensually agreed upon. Care Teams Tile Setter Relationship Specialty Start Date End Date Arun Del Rio MD [address] [place] [facility] [place] [address] PCP - General Family Medicine 06/30/18 documented as of this encounter
--- OUTSIDE RECORDS SUMMARY | 2023-04-05 10:08 | External Medical Summary ---
Author Name Unknown Address Unknown Organization [id number]:[place] [facility] [place] [address] [place] [address] Laboratory Report Ordering Provider Test Date Status AGUSTINA HALL 03/10/2023 12:55:22 Final Observation Date Value Abnormality Reference (Units ) Status Folic Acid 03/10/2023 12:55:22 >20.0 >4.5 (ng/ mL) Final Performing Location LABORATORY C - [address] [place] [address]
--- OUTSIDE RECORDS SUMMARY | 2023-04-05 10:08 | External Medical Summary ---
Author Name Unknown Address Unknown Organization [id number]:[place] [place] [address] [place] [address] Laboratory Report Ordering Provider Test Date Status AGUSTINA HALL 03/10/2023 12:55:22 Final Observation Date Value Abnormality Reference (Units ) Status Iron 03/10/2023 12:55:22 14 Below low normal 33-151 (ug/dL) Final Iron-binding capacity 03/10/2023 12:55:22 305 250-425 (ug/dL) Final Transferrin Sat % 03/10/2023 12:55:22 5 Below low normal 15-55 (%) Final Performing Location [facility] [place] [address] [place] [address]
--- OUTSIDE RECORDS SUMMARY | 2023-04-05 10:08 | External Medical Summary | Summary of Care ---
Author Name Unknown Organization [facility] Address [address] [place] [address] Phone [phone] Care Team Providers Care Substation Operator Helper Name Role Phone Aurn Del Rio MD Primary Care Provider [phone] Reason for Referral * Evaluate & Treat - Unlimited Visits (Within 10 days (routine)) - Authorized Specialty Diagnoses / Procedures Referred By Sanjuana mckenzie Referred To Contact Gastroenterology Diagnoses Other iron deficiency anemia Arun Del Rio MD [address] [place] [address] Referral ID Status Reason Start Date Expiration Date Visits Requested Visits Authorized [id number] Authorized Specialty Services Required 01/15/2023 999 999 Question Answer Referral Priority Within 10 days (routine) For what condition is the patient being referred? All Gastro Conditions Comments Iron deficiency Anemia. Moderate dementia. Looking for endoscopy Reason for Visit * Reason Onset Date Comments Test Results 01/15/2023 Encounter Details Date Type Department Care Team Description 01/15/2023 Telephone [facility] [address] [place] [address] Arun Del Rio MD [address] [place] [address] Test Results Allergies Active Allergy Reactions Severity Noted Date Comments Alendronate Tachycardia 11/02/2014 Patient felt like she was having a heart attack Bee Venom Anaphylaxis High 10/11/2014 Iodinated Contrast Media 07/22/2013 Cephalexin 08/09/2013 Hot and flushed , nausea 2012 Lisinopril 07/21/2018 documented as of this encounter (statuses as of 01/16/2023) Medications Medication Sig Dispensed Refills Start Date [...] if needed) 60 g 0 08/14/2022 Active Escitalopram Oxalate 10 MG Oral Tablet (Lexapro)Indications: Major depressive disorder, recurrent episode, mild (HCC) TAKE 1 TABLET BY MOUTH ONCE DAILY 90 Tablet 1 09/08/2022 Active Levothyroxine Sodium 50 MCG Oral Tablet [...] the morning. 100 Tablet 3 09/15/2022 Active Donepezil HCl 5 MG Oral Tablet (Aricept)Indications: Alzheimer's dementia of other onset, with other behavioral disturbance, unspecified dementia severity (HCC) TAKE ONE TABLET IN THE MORNING. TAKE WITH THE LARGEST MEAL OF THE DAY. 90 Tablet 0 10/15/2022 Active Ferrous Sulfate 325 (65 Fe) MG [...] for sleep 25 Tablet 0 12/05/2022 Active Pravastatin Sodium 40 MG Oral Tablet (Pravachol)Indication s:Hyperlipidemia with target LDL less than 100 TAKE 1 TABLET BY MOUTH ONCE DAILY 90 Tablet 0 12/08/2022 Active Ondansetron HCl 4 MG Oral Tablet (Zofran)Indications:N ausea without vomiting TAKE 1 TABLET BY MOUTH EVERY 6 HOURS NEEDED FOR NAUSEA 20 Tablet 1 12/24/2022 Active documented as of this encounter (statuses as of 01/16/2023) Active Problems Problem Noted Date Gastroesophageal reflux disease 10/16/19 23 Stage 3 chronic kidney disease 3 Primary open-angle glaucoma, bilateral, moderate stage 10/24/2021 SALAZAR (generalized anxiety disorder) 06/10 Cyst of pancreas 06/10/2021 Hypertensive kidney disease with stage 3 b chronic kidney disease 03/26/2020 Overview: Per CKD protocol History of breast cancer 06/30/2018 History of pelvic fracture 08/11/2017 HTN, goal below 150/90 02/26/2016 Generalized osteoarthritis 02/26/2016 Major depressive disorder, recurrent epi sode, mild 03/22/2015 GERD (gastroesophageal reflux disease) 0 10/11/2014 Advanced directives, counseling/discussi on 12/19/2013 Overview: No, Advance Directive brochure offered, patient declined. Hyperlipidemia with target LDL less than 100 07/22/2013 Overview: ICD-10 update of inactive term Hypothyroidism 07/22/2013 Osteoporosis 07/22/2013 documented as of this encounter (statuses as of 01/16/2023) Resolved Problems Problem Noted Date Resolved Date Chronic kidney disease, stage 3b 09/25/2020 05/31/2021 Overview: Per CKD protocol Patient has combo code in use. Hypertensive kidney disease with chronic kidney disease stage III 11/22/2018 03/29/2020 Overview: Per CKD protocol Esophageal spasm 08/19/2018 10/15/2022 Nocturia 07/28/2016 02/10/2017 Kidney disease, chronic, stage III (GFR 30-59 ml /min) 10/02/2014 12/30/2018 Overview: Per CKD protocol #1 Ventricular tachycardia, non-sustained 4 02/10/2017 Chronic pelvic pain in female 09/27/2013 LLQ abdominal pain 09/27/2013 02/10/2017 Pelvic mass in female 09/27/2013 02/10/2017 Breast cancer, right 07/22/2013 06/30/2018 Cancer Staging:Clinical:Stage IIA(T1c, N1, M0) - Signed by Kirill Quintanilla MD on 09/02/2013 Pathologic: Unsigned Lymphedema of arm 07/22/2013 08/11/2017 HTN, goal below 140/90 07/22/2013 7 Family hx of colon cancer 07/22/20132016 Overview: father Pelvic rim fracture 07/22/2013 08/11/2017 Cystitis, chronic 07/22/2013 07/08/2016 Diverticulosis of colon 08/12/19 18 Overview: noted on colonoscopy documented as of this encounter (statuses as of 01/16/2023) Immunizations Name Administration Dates Next Due COVID-19 mRNA, LNP-s, No Pre serve, 2-Dose Series (Pfizer) 12/10/2021,03/05/2021,08/07/2020,07/12 Pneumococcal Conjugate Vacc, 13 Valent (Prevnar) 10/11/2014 Pneumococcal Polysaccharide PPV23 (Pneumovax) 09/08/2013 Seasonal Influenza, PF, 6 mo ns & Above, IM , (Flulaval) 02/10/2017 Seasonal Influenza, Quadriva lent Hd (Fluzone Hd) 02/24/2022 Seasonal Influenza, Quadriva lent, No Preserve, IM [...] occ wine, 1 drink every few months Food Insecurity Answer Date Recorded Within the past 12 months, y ou worried that your food would run out before you got money to buy more. Never true 06/03/2022 Within the past 12 months, t he food you bought just didn't last and you didn't have money to get more. Never true 06/03/2022 Sex Assigned at Date Recorded Female 02/22/2019 2:36 PM E DT Job Start Date Occupation Industry Not on file Not on file Not on file documented as of this encounter Miscellaneous Notes * Telephone Encounter - JD Adrian - 01/16/2023 10:07 AM EDT Scheduled. 01/16/2023 * Telephone Encounter - JD Adrian - 01/15/2023 10:23 AM EDT LMOM to schedule. 01/15/2023 10:23AM * Telephone Encounter - Sydnie Maxwell LPN - 01/15/2023 9:11 AM EDT Scheduling please assist with appt Reason for Call: Test Results Contact: Telephone Call Contact Type: Test Results Outcome: called pt. Informed of message. She verbalized understanding. Total Time including non face to face (minutes): 5 * Telephone Encounter - Arun Del Rio MD - 01/15/2023 7:49 AM EDT Notify: the iron level has dropped further. The Hemoglobin has also dropped from 9 to 7.5. I suggest we have you see GI and get upper and lower endoscopy to see if there is a site of bleeding in yourGI tract. Continue oral iron. documented in this encounter Plan of Treatment Upcoming Encounters Date Type Specialty Care Team Description 03/10/2023 Office Visit Hematology Oncology [place], Brennon Fabian MD [address] [place] [address] 04/28/2023 Office Visit Gastroenterology Humberto Brothers CRNP [address] [place] [address] 05/27/2023 Office Visit Family Medicine Arun Del Rio MD [address] [place] [facility] [place] [address] 06/03/2023 Nurse Only Ancillary [place] Nurse [facility] [address] [facility] [place] [address] 07/06/2023 Office Visit Cardiology Gil Juares MD [address] [place] [address] 09/10/2023 Office Visit Dermatology Leigh June PA-C [address] [place] [address] [place] [address] 12/11/2023 Office Visit Nephrology [facility] [address] [facility] [address] Scheduled Referrals Name Type Priority Associated Diagnoses Order Schedule GASTROENTEROLOGY REFERRAL OP Referral Within 10 days (routine) Other iron deficiency anemia Ordered: 01/15/2023 Health Maintenance Due Date Last Done Comments COVID-19 Vaccine (5 - Pfizer series) 02/04/2022 12/10/2021, 03/05/2021, 08/07/2020, Additional history exists *BISPHONATE OR OTHER ACCEPTABLE MEDICATION NEEDED FOR OSTEOPOROSIS (REFER TO SMARTSET #1146) 08/26/2022 TSH 12/09/2022 12/09/2021, 12/01/2021, 05/04/2020, Additional history exists Influenza Vaccine (FLU shot) (#1) 2023 02/24/2022, 02/15/2021, 02/22/2020, Additional history exists DXA Scan 02/12/2023 02/12/2021, 01/16, 12/31/2016, Additional history exists Albumin/Creatinine Ratio 05/14/2023 022, 04/25/2021, 05/08/2020, Additional history exists CKD PHOS USE SMARTSET 38356 05/14/202304/18, 08/14/2021, 04/25/2021, Additional history exists Depression Screening, Annual for Pts 12 and Over 06/03/2023 06/03/2022 CKD HGB USE SMARTSET 07945 01/15/202401/14, 10/10/2022, 10/10/2022, Additional history exists DTaP,Tdap,and Td Vaccines (2 - Td or Tdap) 02/10/2024 02/09/2014 Pneumococcal Vaccine: 65+ Years Completed 10/11/2014, 09/08/2013 Zoster Vaccines Completed 12/31/2017, 09/16, 03/18/2015 VITAMIN D LEVEL ONCE IN A LIFETIME-USE SMARTSET# 65546 Completed 05/14/2022, 08/14/2021, 05/04/2020, Additional history exists GARDASIL-HPV IMMUNIZATION SERIES Aged [...] as of this encounter Visit Diagnoses Diagnosis Other iron deficiency anemia- Primary documented in this encounter Advance Directives [...] and were consensually agreed upon. Care Teams Substation Operator Helper Relationship Specialty Start Date End Date Arun Del Rio MD [address] [place] [address] PCP - General Family Medicine 06/30/18 documented as of this encounter
--- OUTSIDE RECORDS SUMMARY | 2023-04-05 10:08 | External Medical Summary ---
Author Name Unknown Address Unknown Organization K01:LABORATORY [facility] [place] - [address] [facility] [address] [place] [address] Laboratory Report Ordering Provider Test Date Status AGUSTINA HALL 03/10/2023 12:55:22 Final Observation Date Value Abnormality Reference (Units ) Status Ovalocytes [Presence] in Blood by Light microscopy 03/10/2023 12:55:22 Moderate Abnormal None Seen Final Schistocytes 03/10/2023 12:55:22 Few Abnormal None Seen Final Performing Location LABORATORY [facility] [place] - [address] [place] [address]
--- OUTSIDE RECORDS SUMMARY | 2023-04-05 10:08 | External Medical Summary | Summary of Care ---
Author Name Unknown Organization [facility] Address [address] [place] [address] Phone [phone] Care Team Providers Care Armored Machine Operator Name Role Phone Arun Del Rio MD Primary Care Provider [phone] Reason for Visit * Reason Comments Re-Check Encounter Details Date Type Department Care Team Description 01/14/2023 Office Visit [facility] [address] [place] [address] Arun Del Rio MD [address] [place] [address] Risk and functional assessment*; Syncope and collapse; Other iron deficiency anemia Allergies Active Allergy Reactions Severity Noted Date Comments Alendronate Tachycardia 11/02/2014 Patient felt like she was having a heart attack Bee Venom Anaphylaxis High 10/11/2014 Iodinated Contrast Media 07/22/2013 Cephalexin 08/09/2013 Hot and flushed , nausea 2012 Lisinopril 07/21/2018 documented as of this encounter (statuses as of 01/14/2023) Medications Medication Sig Dispensed Refills Start Date [...] as of this encounter (statuses as of 01/14/2023) Active Problems Problem Noted Date Gastroesophageal reflux [...] as of this encounter (statuses as of 01/14/2023) Resolved Problems Problem Noted Date Resolved Date [...] as of this encounter (statuses as of 01/14/2023) Immunizations Name Administration Dates Next Due COVID-19 mRNA, LNP-s, No Pre serve, 2-Dose Series ([employer]) 12/10/2021,03/05/2021,08/07/2020,07/12 Pneumococcal Conjugate Vacc, 13 Valent (Prevnar) [...] Sign Reading Time Taken Comments Blood Pressure 106/48 01/14/2023 2:00 PM EDT Pulse 69 01/14/2023 2:00 PM EDT Temperature 36.4 C (97.5 F) 01/14/2023 2:00 PM ED T Respiratory Rate 16 01/14/2023 2:00 PM EDT Oxygen Saturation 95% 01/14/2023 2:00 PM EDT Inhaled Oxygen Concentration - - Weight 59.8 kg (131 lb 12.8 oz) 01/14/2023 2:00 PM EDT Height - - Body Mass Index 26.17 10/15/2022 8:10 AM EDT documented in this encounter Patient Instructions * Patient Instructions* Nataly Marroquin KARIE - 01/14/2023 2:05 PM EDT Patient Instructions - Fall Prevention (This education is for all patients over 65 regardless of symptoms) Remember to take your current medications as prescribed. In order to prevent falls, you are encouraged to: Exercise Utilize assistive/adaptive devices Avoid multifocal lenses when walking Avoid hazards in home Maintain a regular toileting schedule Any questions please contact our office. Preventing Falls in the Home (This education is for all patients over 65 regardless of symptoms) As you get older, falls are more likely. Thats because your reaction time slows. Your muscles and joints may also get stiffer, making them less flexible. Illness, medications, and vision changes can also affect your balance. A fall could leave you unable to live on your own. To make your home safer, follow these tips: Floors Put nonskid pads under area rugs Remove throw rugs Replace worn floor coverings Tack carpets firmly to each step on carpeted stairs. Put nonskid strips on the edges of uncarpeted stairs Keep floors and stairs free of clutter and cords Arrange furniture so there are clear pathways Clean up any spills right away Bathrooms Install grab bars in the tub or shower Apply nonskid strips or put a nonskid rubber mat in the tub or shower Sit on a bath chair to bathe Use bathmats with nonskid backing Lighting Keep a flashlight in each room Put a nightlight along the pathway between the bedroom and the bathroom [employer] Patient Education Copyright 2008 - 2010 [employer] except where otherwise noted Preventing Falls: Exercises to Improve Balance, Flexibility, Strength, and Staying Power (This education is for all patients over 65 regardless of symptoms) Certain types of exercises may help make you less likely to fall. Try the ones below. Or do other exercises that your healthcare provider suggests. Depending on your health, you may need to start slowly. Dont let that stop you. Even small amounts of exercise can help you. Be sure to talk to yourhealthcare provider before starting any exercise program. Improve Balance Many types of exercise can help improve balance. Fred chi and yoga are good examples. Heres another one to try. You can do it anytime and almost anywhere. Stand next to a counter or solid support. Push yourself up onto your tiptoes. Hold for 5 seconds. If you start to lose your balance, hold on to the counter. Rest and repeat 5 times. Work up to holding for 20 to 30 seconds, if you can. Increase Flexibility Being more flexible makes it easier for you to move around safely. Try exercises like the seated hamstring stretch. Sit in a chair and put one foot on a stool. Straighten your leg and reach with both hands down either side of your leg. Reach as far down your leg as you can. Hold for about 20 seconds. Go back to the starting position. Then repeat 5 times. Switch legs. Build Strength Resistance exercises help build strength. You can do them without equipment. Or you can use weights, elastic bands, or special machines. One such exercise is called the biceps curl. You can hold a 1 pound weight or even a can of soup. Do this exercise at least 3 times a week. Strive for everyday. Sit up straight in a chair. Keep your elbow close to your body and your wrist straight. Bend your arm, moving your hand up to your shoulder. Then slowly lower your arm. Repeat 5 times. Switch to the other arm. Build Your Staying Power Aerobic exercises make your heart and lungs stronger so you can keep moving longer. Walking and swimming are two of the best types of exercises you can do. Using a stationary bike is great, too. Find an aerobic exercise that you enjoy. Start slowly and build up. Even 5 minutes is helpful. Aimfor a goal of 30 minutes, at least 3 times a week. You dont have to do 30 minutes in one session. Break it up and walk a little throughout the day. More Helpful Tips Start easy. Slowly work up to doing more. Talk with your healthcare provider about the best exercises for you. Call senior centers or health clubs about exercise programs. If needed, have a family member watch you walk every so often to check your stability. Exercise with a friend. Choose an activity you both enjoy. Try exercises that you can do anytime, anywhere. Here are two examples. Have someone with you when you first try these: Practice walking by placing one foot right in front of the other. Stand up and sit down 10 times. Repeat this throughout the day. [employer] Patient Education Copyright 2008 - 2010 Heriberto except where otherwise noted. Preventing Falls: Moving Safely Using a Cane or Walker (This education is for all patients over 65 regardless of symptoms) Keep the cane away from your feet so you dont trip. A walking aid, such as a cane or walker, can help you stay more independent and avoid falls. Remember to keep your walking aid within easy reach when youre in a chair or in bed. And learn how to use it safely so you dont injure yourself. Using a Cane If you have a stronger side, hold the cane on that side. Get your balance. Move the cane and your weaker leg forward. Support your weight on both the cane and your weaker side. Step with your stronger leg. Start again from step 1. If youre using a folding walker, be sure you know how to lock it open. Check that its locked open before each use. Using a Walker Roll the walker (or lift it, if youre using one without wheels) forward about 12 inches. Step forward with your weaker leg first. Use the walker to help keep your balance. Bring your other foot forward to the center of the walker. Start again from step 1. Helpful Tips Check with your healthcare provider about the right walking aid to use. Ask about a walker with a seat attached. Check the tips of your cane or walker to make sure they have nonskid covers. Move slowly from room to room. Dont castillo. Sit down to get dressed. Use a evelin pack or backpack to keep your hands free. Get help for jobs that mean climbing, even on a stepstool. [employer] Patient Education Copyright 2008 - 2010 [employer] except where otherwise noted. Urinary Incontinence Plan of Care Documentation: (This education is for all patients over 65 regardless of symptoms) Current medications reconciled. Patient encouraged to: Practice kegal exercises Provide education materials Use the restroom every 2 hours throughout the day Limit caffeine, alcohol, spicy foods and acidic foods Keep a bladder diary Limit fluid intake 3-4 hours before bed Lose weight Prevent constipation Take fluid pills at a time when you can get to the bathroom quickly Control sugar better if diabetic Limit fluid intake to 60 oz. per day Wear support stockings (TEDs)if you have edema Nataly Marroquin LPN 01/14/2023 Kegel Exercises Kegel exercises dont require special clothing or equipment. Theyre easy to learn and simple to do. And if you do them right, no one can tell youre doing them, so they can be done almost anywhere. Your doctor, nurse, or physical therapist can answer any questions you have and help you get started. A Weak Pelvic Floor The pelvic floor muscles may weaken due to aging, and vaginal childbirth, injury, surgery, chronic cough, or lack of exercise. If the pelvic floor is weak, your bladder and other pelvic organs may sag out of place. The urethra may also open too easily and allow urine to leak out. Kegel exercises can help you strengthen your pelvic floor muscles so they can better support the pelvic organs and control urine flow. How Kegel Exercises Are Done Try each of the Kegel exercises described below. When youre doing them, try not to move your leg, buttock, or stomach muscles. While youre urinating, try to stop the flow of urine. Start and stop it as often as you can. Contract as if you were stopping your urine stream, but do it when youre not urinating. Tighten your rectum as if trying not to pass gas. Contract your anus, but dont move your buttocks. Helpful Hints Do your Kegels as often as you can. The more you do them, the faster youll feel the results. Pick an activity you do often as a reminder. For instance, do your Kegels every time you sit down. Tighten your pelvic floor before you sneeze, get up from a chair, cough, laugh, or lift. This protects your pelvic floor from injury and can help prevent urine leakage. Try to hold each Kegel for a slow count to five. You probably wont be able to hold them for thatlong at first, but keep practicing. It will get easier as your pelvic floor gets stronger. Eventually, special weights that you place in your vagina may be recommended to help make your Kegels even more effective. [employer] Patient Education Copyright 2009 - 2011 [employer] except where otherwise noted. Here are some helpful tips for your urinary incontinence: (This education is for all patients over 65 regardless of symptoms) Practice Kegel exercises Use the restroom every 2 hours throughout the day Limit caffeine, alcohol, spicy foods, and acidic foods Keep a bladder diary Limit fluid intake 3-4 hours before bed Lose weight Prevent constipation Take fluid pills at a time when can get to the bathroom quickly Control sugar better if diabetic Limit fluid intake to 60 oz. per day Any questions, please feel free to contact our office. documented in this encounter Progress Notes * Arun Del Rio MD - 01/14/2023 2:46 PM EDT Subjective: Juanis Rodriguez is a 87 year old female. Chief Complaint Patient presents with Re-Check HPI: 87-year-old seen today for routine recheck. She has known history of Um hypothyroidism, hypertension, hyperlipidemia, CKD 3 which has been stable distant history breast cancer. More recently hasbeen diagnosed with dementia process most consistent with Alzheimer's. She also has been found to have anemia with hemoglobi in late September being 8.9 with evidence of iron deficiency. It was elected to put her on iron replacement as opposed to doing endoscopy. She is been taking iron 325 mg 3 times a week. She does note dark stool. She had a syncopal episode recently. This was not witnessed although she was found on the floor Um immediately after falling. Took her a little while to orient herself in the get up but Um she did not have any further Um similar episodes. She hit the back of her head but Um the skin did not open upin she did not bleed. Patient Active Problem List Diagnosis Code Hyperlipidemia with target LDL less than 100 E78.5 Hypothyroidism E03.9 Osteoporosis M81.0 Advanced directives, counseling/discussion Z71.89 GERD (gastroesophageal reflux disease) K21.9 Major depressive disorder, recurrent episode, mild (HCC) F33.0 HTN, goal below 150/90 I10 Generalized osteoarthritis M15.9 History of pelvic fracture Z87.81 History of breast cancer Z85.3 Hypertensive kidney disease with stage 3b chronic kidney disease I12.9, N18.32 SALAZAR (generalized anxiety disorder) F41.1 Cyst of pancreas K86.2 Primary open-angle glaucoma, bilateral, moderate stage H40.1132 Stage 3 chronic kidney disease (HCC) N18.30 Gastroesophageal reflux disease K21.9 Current Outpatient Medications Medication Sig Dispense Refill Cranberry-Vitamin C 250-60 MG Oral Capsule Take by mouth daily. Aspirin 81 MG Tablet Take 1 Tablet by mouth in the morning. 34 Tab 5 Docusate Sodium 100 MG Oral Tablet Take 1 Tablet by mouth 2 times a day as needed. 10 Tab 0 Polyethylene Glycol 3350 17 GM Oral Packet Take 1 Packet by mouth daily as needed. Dorzolamide HCl-Timolol Mal 22.3-6.8 MG/ML Ophthalmic Solution (Cosopt) 1 drop in each eye 2 times daily 10 mL 3 traMADol HCl 50 MG Oral Tablet (Ultram) Take by mouth 1 Tablet every 8 hours as needed for Pain, Moderate. 60 Tablet 0 Hydrocortisone 2.5 % External Ointment Apply to spots on face and back when itchy (x2 daily or moreif needed) 60 g 0 Escitalopram Oxalate 10 MG Oral Tablet (Lexapro) TAKE 1 TABLET BY MOUTH ONCE DAILY 90 Tablet 1 Levothyroxine Sodium 50 MCG Oral Tablet (Levoxyl) [...] mouth in the morning. 100 Tablet 3 Donepezil HCl 5 MG Oral Tablet (Aricept) TAKE ONE TABLET IN THE MORNING. TAKE WITH THE LARGEST MEALOF THE DAY. 90 Tablet 0 Ferrous Sulfate 325 (65 Fe) MG Oral Tablet (Feosol) Take 1 Tablet by mouth once a day on Thursday, Thursday, and Thursday only. 30 Tablet 4 Famotidine 20 MG Oral Tablet (Pepcid) TAKE 1 TABLET BY MOUTH ONCE DAILY 90 Tablet 3 ALPRAZolam 0.5 MG Oral Tablet (xaNAX) TAKE 1 TABLET BY MOUTH AT BEDTIME NEEDED for sleep 25 Tablet 0 Pravastatin Sodium 40 MG Oral Tablet (Pravachol) TAKE 1 TABLET BY MOUTH ONCE DAILY 90 Tablet 0 Ondansetron HCl 4 MG Oral Tablet (Zofran) TAKE 1 TABLET BY MOUTH EVERY 6 HOURS NEEDED FOR [id number] Tablet 1 acetaminophen (TYLENOL) 500 MG Tablet Take 2 Tablets by mouth every 6 hours as needed for Pain or Fever. 100 Tab 0 Nitroglycerin 0.4 MG Sublingual Tablet Sublingual (Nitrostat) MAY REPEAT DOSE IN 10 MINUTES NECESSARY, BEING USED FOR SPASM OF ESOPHAGUS 25 Tablet 2 No current facility-administered medications for this visit. Review of patient's allergies indicates: Allergen Reactions Bee Venom Anaphylaxis Alendronate Tachycardia Patient felt like she was having a heart attack Iodinated Contrast Media Keflex [Cephalexin] Hot and flushed , nausea 2013 Lisinopril Objective: BP 106/48 | Pulse 69 | Temp 36.4 C (97.5 F) | Resp 16 | Wt 59.8 kg (131 lb 12.8 oz) | SpO2 95% | BMI 26.17 kg/m | BSA 1.58 m Physical Exam: CONST: alert, pleasant, no acute distress HEAD: normocephalic, atraumatic NECK: supple, soft, no adenopathy Eyes - PERRLA, EOM'I OROPHARYNX: clear, no swelling or erythema, moist CV: regular rate and rhythm, no murmur CHEST: clear to auscultation bilaterally, no rales or wheezing ABD: soft, non tender, non distended, no masses or hepatosplenomegaly EXT: no edema, no joint swelling or deformities, MENTAL STATUS: no evidence of thought disorder, no delusional thought, no evidence of paranoia, thought is non-tangential. Obvious Um a difficulties with short-term memory as she did repeat herself acouple times. ASSESSMENT/PLAN: Risk and functional assessment (Primary) Syncope and collapse-exact etiology is unclear. It is not likely that this was a significant arrhythmia but I think that we should at least do a 10 day monitor i.e. Zio patch 10 days - EXTERNAL EKG 8 TO 15 DAYS Other iron deficiency anemia - CBC; Future; Expected date: 01/14/2023 - IRON SCREEN, INCLUDING TIBC; Future; Expected date: 01/14/2023 I discussed this with both patient and significant other. Ultimately it is my recommendation that we repeat her CBC and iron studies now since she is been on the iron replacement for just short of 3 months. If there is no improvement in certainly if there is a further drop in her hemoglobin then wewould proceed with upper and lower endoscopy. If there is improvement in her hemoglobin and iron, it would be my recommendation that we not do anything further but keep her on the iron in continue tomonitor with blood test every 4-6 months. Arun Del Rio MD * Nataly Marroquin LPN - 01/14/2023 2:05 PM EDT Fall Risk Plan of Care Documentation: - Current medications reconciled Patient encouraged to: - Exercise - Provide education materials for Core strengthening - Utilize assistive/adaptive devices - Provide education materials - Avoid multifocal lenses when walking - Avoid hazards in home - Provide education materials - Maintain a regular toileting schedule Nataly Marroquin LPN 01/14/2023 Urinary Incontinence Plan of Care Documentation: (This education is for all patients over 65 regardless of symptoms) Current medications reconciled. Patient encouraged to: Practice kegal exercises Provide education materials Use the restroom every 2 hours throughout the day Limit caffeine, alcohol, spicy foods and acidic foods Keep a bladder diary Limit fluid intake 3-4 hours before bed Lose weight Prevent constipation Take fluid pills at a time when you can get to the bathroom quickly Control sugar better if diabetic Limit fluid intake to 60 oz. per day Wear support stockings (TEDs)if you have edema Nataly Marroquin LPN 01/14/2023 documented in this encounter Nursing Notes * Nataly Marroquin LPN - 01/14/2023 2:00 PM EDT Pt in today for a return visit States that she fell last week & hit the back of her head - states she can kind of remember falling documented in this encounter Plan of Treatment Upcoming Encounters Date Type Specialty Care Team Description 03/10/2023 Office Visit Hematology Oncology Brennon German MD [address] [facility] [place] [address] 05/27/2023 Office Visit Family Medicine Arun Del Rio MD [address] [place] [address] 06/03/2023 Nurse Only Nurse [facility] [address] [place] [facility] [place] [address] 07/06/2023 Office Visit Cardiology Gil Juares MD [address] [place] [address] 09/10/2023 Office Visit Dermatology Leigh June PA-C [address] [place] [address] [place] [id number] 12/11/2023 Office Visit Nephrology Jabari Morales MD [address] [place] [address] Pending Results Name Type Priority Associated Diagnoses Date /Time CBC Lab Routine Other iron deficiency anemia 01/14/2023 3:01 PM EDT IRON SCREEN, INCLUDING TIBC Lab Routine Other iron deficiency anemia 01/14/2023 3:01 PM EDT Scheduled Orders Name Type Priority Associated Diagnoses Orde r Schedule EXTERNAL EKG 8 TO 15 DAYS Holter Routine Syncope and collapse Ordered: 01/14/2023 CBC Lab Routine Other iron deficiency anemia Expected: 01/14/2023 (Approximate), Expires: 01/14/2024 IRON SCREEN, INCLUDING TIBC Lab Routine Other iron deficiency anemia Expected: 01/14/2023 (Approximate), Expires: 01/14/2024 Health Maintenance Due Date Last Done Comments COVID-19 Vaccine (5 - Pfizer series) 02/04/2022 12/10/2021, 03/05/2021, 08/07/2020, Additional history exists *BISPHONATE OR OTHER ACCEPTABLE MEDICATION NEEDED FOR OSTEOPOROSIS (REFER TO SMARTSET #1146) 08/26/2022 TSH 12/09/2022 12/09/2021, 12/0 01/2021, 05/04/2020, Additional history exists Influenza Vaccine (FLU shot) (#1) 2023 02/24/2022, 02/15/2021, 02/22/2020, Additional history exists DXA Scan 02/12/2023 02/12/2021, 01/16, 12/31/2016, Additional history exists Albumin/Creatinine Ratio 05/14/2023 022, 04/25/2021, 05/08/2020, Additional history exists CKD PHOS USE SMARTSET 06854 05/14/202304/18, 08/14/2021, 04/25/2021, Additional history exists Depression Screening, Annual for Pts 12 and Over 06/03/2023 06/03/2022 CKD HGB USE SMARTSET 46761 10/11/202310/10, 10/10/2022, 05/14/2022, Additional history exists DTaP,Tdap,and Td Vaccines (2 - Td or Tdap) 02/10/2024 02/09/2014 Pneumococcal Vaccine: 65+ Years Completed 10/11/2014, 09/08/2013 Zoster Vaccines Completed 12/31/2017, 09/16, 03/18/2015 VITAMIN D LEVEL ONCE IN A LIFETIME-USE SMARTSET# [id number] Completed 05/14/2022, 08/14/2021, 05/04/2020, Additional history exists [...] as of this encounter Visit Diagnoses Diagnosis Risk and functional assessment- Primary Screening for unspecified condition Syncope and collapse Other iron deficiency anemia documented in this encounter Advance Directives Latest [...] and were consensually agreed upon. Care Teams Armored Machine Operator Relationship Specialty Start Date End Date Arun Del Rio MD [address] [place] [address] PCP - General Family Medicine 06/30/18 documented as of this encounter"
--- OUTSIDE RECORDS SUMMARY | 2023-04-05 10:08 | External Medical Summary | Summary of Care ---
Author Name Unknown Organization [facility] Address [address] [place] [address] Phone [phone] Care Team Providers Care Retail Service Representative Name Role Phone Arun Del Rio MD Primary Care Provider [phone] Reason for Visit * Reason Comments Outpatient Testing Encounter Details Date Type Department Care Team Description 01/14/2023 Laboratory Laboratory, [facility] [address] [place] [address] [facility] [address] [place] [address] Other iron deficiency anemia Allergies Active Allergy [...] mRNA, LNP-s, No Pre serve, 2-Dose Series ([employer]) 12/10/2021,03/05/2021,08/07/2020,07/12 Pneumococcal Conjugate Vacc, 13 Valent (Prevnar) [...] Visit [facility] [address] [facility] [address] 06/03/2023 Nurse Only Ancillary Nurse [facility] [address] [facility] [place] [address] 07/06/2023 Office Visit Cardiology Gil Juares MD [address] [facility] [place] [address] 09/10/2023 Office Visit Dermatology Leigh June PA-C [address] [place] [address] [place] [address] 12/11/2023 Office Visit Nephrology [facility] [place] [address] Pending Results Name Type Priority Associated Diagnoses Date /Time CBC Lab Routine Other iron deficiency anemia 01/14/2023 3:01 PM EDT IRON SCREEN, INCLUDING TIBC Lab Routine Other iron deficiency anemia 01/14/2023 3:01 PM EDT Health Maintenance Due Date Last Done Comments COVID-19 Vaccine (5 - Pfizer series) 02/04/2022 12/10/2021, 03/05/2021, 08/07/2020, Additional history exists *BISPHONATE OR OTHER ACCEPTABLE MEDICATION NEEDED FOR OSTEOPOROSIS (REFER TO SMARTSET #1146) 08/26/2022 TSH 12/09/2022 12/09/2021, 01/2021, 05/04/2020, Additional history exists Influenza Vaccine (FLU shot) (#1) 2023 02/24/2022, 02/15/2021, 02/22/2020, Additional history exists DXA Scan 02/12/2023 02/12/2021, 01/16, 12/31/2016, Additional history exists Albumin/Creatinine Ratio 05/14/2023 022, 04/25/2021, 05/08/2020, Additional history exists CKD PHOS USE SMARTSET 78052 05/14/2023 1212/2021, 08/14/2021, 04/25/2021, Additional history exists Depression Screening, Annual for Pts 12 and Over 06/03/2023 06/03/2022 CKD HGB USE SMARTSET 26728 10/11/202310/10, 10/10/2022, 05/14/2022, Additional history exists DTaP,Tdap,and Td Vaccines (2 - Td or Tdap) 02/10/2024 02/09/2014 Pneumococcal Vaccine: 65+ Years Completed 10/11/2014, 09/08/2013 Zoster Vaccines Completed 12/31/2017, 09/16, 03/18/2015 VITAMIN D LEVEL ONCE IN A LIFETIME-USE SMARTSET# [id number] Completed 05/14/2022, 08/14/2021, 05/04/2020, Additional history exists [...] encounter Visit Diagnoses Diagnosis Other iron deficiency anemia documented in this [...] and were consensually agreed upon. Care Teams Retail Service Representative Relationship Specialty Start Date End Date Arun Del Rio MD [address] [place] [address] PCP - General Family Medicine 06/30/18 documented as of this encounter
--- OUTSIDE RECORDS SUMMARY | 2023-04-05 10:08 | External Medical Summary ---
Author Name Unknown Address Unknown Organization K09:[facility] [address] [place] [address] Laboratory Report Ordering Provider Test Date Status AGUSTINA HALL 03/10/2023 12:55:22 Final Observation Date Value Abnormality Reference (Units ) Status BUN 03/10/2023 12:55:22 20 6-20 (mg/dL) Final Creatinine 03/10/2023 12:55:22 1.3 Above high normal 0.5-1.0 (mg/dL) Final Glomerular filtration rate/1.73 sq M.predicted [Volume Rate/Area] in Serum, Plasma or Blood by Creatinine-based formula (CKD-EPI) 03/10/2023 12:55:22 39 Below low normal >=60 (mL/min) Final eGFR is calculated based on the CKD-EPI 2020 equation SODIUM 03/10/2023 12:55:22 142 135-146 (m mol/L) Final Potassium 03/10/2023 12:55:22 4.6 3.5-5.1 (m mol/L) Final Cl 03/10/2023 12:55:22 107 98-107 (mm ol/L) Final CO2 03/10/2023 12:55:22 24 22-32 (mmo l/L) Final Anion gap 03/10/2023 12:55:22 11 7-15 (mmol /L) Final Glucose 03/10/2023 12:55:22 106 70-120 (mg /dL) Final Albumin 03/10/2023 12:55:22 3.4 Below low normal 3.8 -5.0 (g/dL) Final AST (Aspartate aminotransferase) 03/10/2023 12:55:22 14 10-35 (U/L) Fin al Alk Phos 03/10/2023 12:55:22 61 35-130 (U/ L) Final Bilirubin, Total 03/10/2023 12:55:22 0.2 <=1 .2 (mg/dL) Final Calcium 03/10/2023 12:55:22 9.6 8.4-10.2 ( mg/dL) Final Protein 03/10/2023 12:55:22 6.1 6.0-8.3 (g /dL) Final ALT (Alanine aminotransferase) 03/10/2023 12:55:22 6 Below low normal 10-35 (U/L) Final Performing Location [facility] [address] [place] [address]
--- OUTSIDE RECORDS SUMMARY | 2023-04-05 10:08 | External Medical Summary | Summary of Care ---
Author Name Unknown Organization [facility] Address [address] [place] [address] Phone [phone] Care Team Providers Care General Scrap Worker Name Role Phone Love Del Rio MD Primary Care Provider [phone] Reason for Visit * Reason Comments eRx-Medication Refill Encounter Details Date Type Department Care Team Description 12/23/2022 Refill [facility] [address] [place] [address] Love Del Rio MD [address] [place] [address] Nausea without vomiting Allergies Active Allergy Reactions Severity Noted Date Comments Alendronate Tachycardia 11/02/2014 Patient felt like she was having a heart attack Bee Venom Anaphylaxis High 10/11/2014 Iodinated Contrast Media 07/22/2013 Cephalexin 08/09/2013 Hot and flushed , nausea 2013 Lisinopril 07/21/2018 documented as of this encounter (statuses as of 12/24/2022) Medications Medication Sig Dispensed Refills Start Date [...] FOR NAUSEA 20 Tablet 1 12/24/2022 Active Ondansetron HCl 4 MG Oral Tablet (Zofran)Indications :Nausea without vomiting TAKE 1 TABLET BY MOUTH EVERY 6 HOURS NEEDED FOR NAUSEA 20 Tablet 1 10/09/2022 12/25/19 23 Discontinued documented as of this encounter (statuses as of 12/24/2022) Active Problems Problem Noted Date Gastroesophageal reflux [...] as of this encounter (statuses as of 12/24/2022) Resolved Problems Problem Noted Date Resolved Date [...] as of this encounter (statuses as of 12/24/2022) Immunizations Name Administration Dates Next Due COVID-19 mRNA, LNP-s, No Pre serve, 2-Dose Series (Fastr) 12/10/2021,03/05/2021,08/07/2020,07/12 Pneumococcal Conjugate Vacc, 13 Valent (Prevnar) 10/11/2014 Pneumococcal Polysaccharide PPV23 (Pneumovax) 09/08/2013 Seasonal Influenza, Quadriva lent Hd (Fluzone Hd) 02/24/2022 Seasonal Influenza, Quadriva lent, No Preserve, 6 Mons & Above, IM 02/10/2017 Seasonal Influenza, Quadriva lent, No Preserve, IM [...] encounter Miscellaneous Notes * Telephone Encounter - Rosa Up [facility] - 12/24/2022 8:58 AM EDTSigned Prescriptions: Disp Refills Ondansetron HCl 4 MG Oral Tablet (Zofran) 20 Tab*1 Sig: TAKE 1 TABLET BY MOUTH EVERY 6 HOURS NEEDED FOR NAUSEAAuthorizing Provider: LOVE DEL RIO User: ROSA UP documented in this encounter Plan of Treatment Upcoming Encounters Date Type Specialty Care Team Description 01/14/2023 Office Visit Family Medicine Love Del Rio MD [address] [place], [place] [phone] 02/26/2023 Office Visit Rheumatology Mary Crews PAShantelC 03/10/2023 Office Visit Hematology Oncology Brennon German MD [address] [facility] [place] [address] 06/03/2023 [facility] [address] [place], [place] [phone] 07/06/2023 Office Visit Cardiology Gil Juares MD [address] [place] [address] 09/10/2023 Office Visit Dermatology Leigh June PAJessica [address] [place] [address] [place] [phone] 12/11/2023 Office Visit Nephrology Jabari Morales MD [address] [place] [address] Health Maintenance Due Date Last Done Comments [...] Additional history exists CKD PHOS USE SMARTSET 31730 05/14/202304/18, 08/14/2021, 04/25/2021, Additional history exists Depression Screening, Annual for Pts 12 and Over 06/03/2023 06/03/2022 CKD HGB USE SMARTSET 42421 10/11/202310/10, 10/10/2022, 05/14/2022, Additional history exists DTaP,Tdap,and Td Vaccines (2 - Td or Tdap) 02/10/2024 02/09/2014 Pneumococcal Vaccine: 65+ Years Completed 10/11/2014, 09/08/2013 Zoster Vaccines Completed 12/31/2017, 09/16, 03/18/2015 VITAMIN D LEVEL ONCE IN A LIFETIME-USE SMARTSET# 42458 Completed 05/14/2022, 08/14/2021, 05/04/2020, Additional history exists [...] as of this encounter Visit Diagnoses Diagnosis Nausea without vomiting documented in this encounter Advance Directives Latest [...] and were consensually agreed upon. Care Teams General Scrap Worker Relationship Specialty Start Date End Date Love Del Rio MD [address] [place], [place] [phone] PCP - General Family Medicine 06/30/18 documented as of this encounter
--- OUTSIDE RECORDS SUMMARY | 2023-04-05 10:08 | External Medical Summary ---
Author Name Unknown Address Unknown Organization : Laboratory Report Ordering Provider Test Date Status AGUSTINA HALL 03/10/2023 12:55:22 Final Observation Date Value Abnormality Reference (Units ) Status ERYTHROPOIETIN (EPO) 03/10/2023 12:55:22 55.2 Above high normal 2.6-18.5 (mIU/mL) Final
Test Performed at:
[facility][1]
[address] [facility]
[place] [address]
Hugo Arias M.D., Ph.D.,Director of Laboratories Performing Location
--- OUTSIDE RECORDS SUMMARY | 2023-04-05 10:08 | External Medical Summary | Summary of Care ---
Author Name Unknown Organization [facility] Address [address] [place] [address] Phone [phone] Care Team Providers Care Spoke Maker Name Role Phone Arun Del Rio MD Primary Care Provider [phone] Reason for Visit * Reason Onset Date Comments Test Results Lab 03/03/2023 Encounter Details Date Type Department Care Team Description 03/03/2023 Telephone Merged With [facility] [address] [place] [address] Arun Del Rio MD [address] [place] [address] Test Results Lab Allergies Active Allergy Reactions Severity Noted Date Comments Alendronate Tachycardia 11/02/2014 Patient felt like she was having a heart attack Bee Venom Anaphylaxis High 10/11/2014 Iodinated Contrast Media 07/22/2013 Cephalexin 08/09/2013 Hot and flushed , nausea 2013 Lisinopril 07/21/2018 documented as of this encounter (statuses as of 03/03/2023) Medications Medication Sig Dispensed Refills Start Date [...] the day 90 Tablet 3 02/25/2023 Active documented as of this encounter (statuses as of 03/03/2023) Active Problems Problem Noted Date Gastroesophageal reflux [...] as of this encounter (statuses as of 03/03/2023) Resolved Problems Problem Noted Date Resolved Date [...] as of this encounter (statuses as of 03/03/2023) Immunizations Name Administration Dates Next Due COVID-19 mRNA, LNP-s, No Pre serve, 2-Dose Series (GlassesGroupGlobal) 12/10/2021,03/05/2021,08/07/2020,07/12 Pneumococcal Conjugate Vacc, 13 Valent (Prevnar) [...] encounter Miscellaneous Notes * Telephone Encounter - SHANIQUA Vasquez - [...] Hematology Oncology Monserrat, Brennon Fabian MD [address] [place] [address] 04/01/2023 Office Visit Rheumatology Luann Quintanilla CRNP [address] [facility] [place] [address] 04/28/2023 Office Visit Gastroenterology Humberto Brothers CRNP [address] [place] [address] 05/27/2023 Office Visit Family Medicine Arun Del Rio MD [address] [facility] [place] [address] 06/03/2023 Nurse Only [facility], Nurse Annual Wellness [address] [facility] [place] [address] 07/06/2023 Office Visit Cardiology Gil Juares MD [address] [place] [address] 09/10/2023 Office Visit Dermatology Leigh June PA-C [address] [place] [address] [place] [address] 12/11/2023 Office Visit Nephrology Jabari Morales MD [address] [place] [address] Health Maintenance Due Date Last Done Comments *BISPHONATE OR OTHER ACCEPTABLE MEDICATION NEEDED FOR OSTEOPOROSIS (REFER TO SMARTSET #1146) 08/26/2022 TSH 12/09/2022 12/09/2021, 1201/2021, 05/04/2020, Additional history exists COVID-19 Vaccine ( season) 2023 12/10/2021, 03/05/2021, 08/07/2020, Additional history exists DXA Scan 02/12/2023 02/12/2021, 01/16, 12/31/2016, Additional history exists Albumin/Creatinine Ratio 05/14/2023 022, 04/25/2021, 05/08/2020, Additional history exists CKD PHOS USE SMARTSET 20517 05/14/202304/18, 08/14/2021, 04/25/2021, Additional history exists Depression Screening 06/03/2023 06/03/2022 CKD HGB USE SMARTSET 45656 01/15/202401/14, 10/10/2022, 10/10/2022, Additional history exists DTaP,Tdap,and Td Vaccines (2 - Td or Tdap) 02/10/2024 02/09/2014 Pneumococcal Vaccine: 65+ Years Completed 10/11/2014, 09/08/2013 Zoster Vaccines Completed 12/31/2017, 09/16, 03/18/2015 VITAMIN D LEVEL ONCE IN A LIFETIME-USE SMARTSET# [id number] Completed 05/14/2022, 08/14/2021, 05/04/2020, Additional history exists [...] and were consensually agreed upon. Care Teams Spoke Maker Relationship Specialty Start Date End Date Arun Del Rio MD [address] [place] [address] PCP - General Family Medicine 06/30/18 documented as of this encounter
--- OUTSIDE RECORDS SUMMARY | 2023-04-05 10:08 | External Medical Summary | Summary of Care ---
Author Name Unknown Organization [facility] Address [address] [place] [address] Phone [phone] Care Team Providers Care Online Marketing Strategist Name Role Phone Love Del Rio MD Primary Care Provider [phone] Reason for Visit * Reason Comments eRx-Medication Refill Encounter Details Date Type Department Care Team Description 02/24/2023 Refill [facility] [address] [place] [address] Love Del Rio MD [address] [place] [address] Major depressive disorder, recurrent episode, mild (HCC); Alzheimer's dementia of other onset, with other behavioral disturbance, unspecified dementia severity (HCC) Allergies Active Allergy Reactions Severity Noted Date Comments Alendronate Tachycardia 11/02/2014 Patient felt like she was having a heart attack Bee Venom Anaphylaxis High 10/11/2014 Iodinated Contrast Media 07/22/2013 Cephalexin 08/09/2013 Hot and flushed , nausea 2012 Lisinopril 07/21/2018 documented as of this encounter (statuses as of 02/25/2023) Medications Medication Sig Dispensed Refills Start Date [...] the day 90 Tablet 3 02/25/2023 Active Escitalopram Oxalate 10 MG Oral Tablet (Lexapro)Indication s:Major depressive disorder, recurrent episode, mild (HCC) TAKE 1 TABLET BY MOUTH ONCE DAILY 90 Tablet 1 09/08/2022 02/26/20 23 Discontinued Donepezil HCl 5 MG Oral Tablet (Aricept)Indication s:Alzheimer's dementia of other onset, with other behavioral disturbance, unspecified dementia severity (HCC) TAKE ONE TABLET IN THE MORNING. TAKE WITH THE LARGEST MEAL OF THE DAY. 90 Tablet 0 10/15/2022 02/26/20 23 Discontinued documented as of this encounter (statuses as of 02/25/2023) Active Problems Problem Noted Date Gastroesophageal reflux [...] as of this encounter (statuses as of 02/25/2023) Resolved Problems Problem Noted Date Resolved Date [...] as of this encounter (statuses as of 02/25/2023) Immunizations Name Administration Dates Next Due COVID-19 [...] encounter Miscellaneous Notes * Telephone Encounter - Love Del Rio MD - 02/25/2023 1:54 PM EDTSigned Prescriptions: Disp Refills Escitalopram Oxalate 10 MG Oral Tablet (Le*90 Tab*1 Sig: TAKE 1TABLET BY MOUTH ONCE DAILYAuthorizing Provider: LOVE DEL RIO User: ARNIE PLUMMER Donepezil HCl 5 MG Oral Tablet (Aricept) 90 Tab*3 Sig: TAKE 1 TABLET BY MOUTH EVERY MORNING. take with the largest meal of the dayAuthorizing Provider: LOVE DEL RIO * Telephone Encounter - Arnie Plummer [facility] - 02/25/2023 8:20 AM EDTPending Prescriptions: Disp Refills Donepezil HCl 5 MG Oral Tablet (Aricept) 90 Tab*0 Sig: TAKE 1 TABLET BY MOUTH EVERY MORNING. take with the largest meal of the day Signed Prescriptions: Disp Refills Escitalopram Oxalate 10 MG Oral Tablet (Le*90 Tab*1 Sig: TAKE 1 TABLET BY MOUTH ONCE DAILY Authorizing Provider: LOVE DEL RIO Orderi ng User: ARNIE PLUMMER * Telephone Encounter - Arnie Plummer RP - 02/25/2023 8:20 AM EDT Refill pharmacists currently not authorized to approve refills for this class of medication per refill protocol. Please approve if appropriate. Thanks, Arnie Plummer, PharmD Clinical Pharmacist TelePharmacy 02/25/2023 8:20 AM documented in this encounter Plan of Treatment Upcoming Encounters Date Type Specialty Care Team Description 03/10/2023 Office Visit Hematology Oncology Brennon German MD [address] [place] [address] 04/01/2023 Office Visit Rheumatology Luann Quintanilla CRNP [address] [facility] [place] [address] 04/28/2023 Office Visit Gastroenterology Humberto Brothers CRNP [address] [place] [address] 05/27/2023 Office Visit Family Medicine Love Del Rio MD [address] [place] [address] 06/03/2023 Nurse Only [facility] Nurse Annual Wellness [address] [place] [address] 07/06/2023 Office Visit Cardiology Gil Juares MD [address] [place] [address] 09/10/2023 Office Visit Dermatology Leigh June PA-C [address] [place] [address] [place] [address] 12/11/2023 Office Visit Nephrology Jabari Morales MD [address] [place] [address] Health Maintenance Due Date Last Done Comments *BISPHONATE OR OTHER ACCEPTABLE MEDICATION NEEDED FOR OSTEOPOROSIS (REFER TO SMARTSET #1146) 08/26/2022 TSH 12/09/2022 12/09/2021, 1201/2021, 05/04/2020, Additional history exists COVID-19 Vaccine ( season) 2023 12/10/2021, 03/05/2021, 08/07/2020, Additional history exists DXA Scan 02/12/2023 02/12/2021, 01/16, 12/31/2016, Additional history exists Albumin/Creatinine Ratio 05/14/2023 022, 04/25/2021, 05/08/2020, Additional history exists CKD PHOS USE SMARTSET 05285 05/14/202304/18, 08/14/2021, 04/25/2021, Additional history exists Depression Screening 06/03/2023 06/03/2022 CKD HGB USE SMARTSET 37600 01/15/202401/14, 10/10/2022, 10/10/2022, Additional history exists DTaP,Tdap,and Td Vaccines (2 - Td or Tdap) 02/10/2024 02/09/2014 Pneumococcal Vaccine: 65+ Years Completed 10/11/2014, 09/08/2013 Zoster Vaccines Completed 12/31/2017, 09/16, 03/18/2015 VITAMIN D LEVEL ONCE IN A LIFETIME-USE SMARTSET# 52100 Completed 05/14/2022, 08/14/2021, 05/04/2020, Additional history exists [...] as of this encounter Visit Diagnoses Diagnosis Major depressive disorder, recurrent episode, mild (HCC) Major depressive disorder, recurrent episode, mild Alzheimer's dementia of other onset, with other behavioral disturbance, unspecified dementia severity (HCC) documented in this encounter Advance Directives Latest [...] and were consensually agreed upon. Care Teams Online Marketing Strategist Relationship Specialty Start Date End Date Love Del Rio MD [address] [place] [address] PCP - General Family Medicine 06/30/18 documented as of this encounter
--- OUTSIDE RECORDS SUMMARY | 2023-04-05 10:08 | External Medical Summary ---
Author Name Unknown Address Unknown Organization K01:LABORATORY [facility] - [address] [facility] [place] [address] Laboratory Report Ordering Provider Test Date Status AGUSTINA HALL 03/10/2023 12:55:22 Final Observation Date Value Abnormality Reference (Units ) Status SYNC LEUKOCYTES IN BLOOD BY AUTOMATED COUNT 03/10/2023 12:55:22 13.25 Above high normal 4.00-10.80 (K/uL) Final Segs 03/10/2023 12:55:22 62.9 40.0-75.0 (%) Final Lymphs % 03/10/2023 12:55:22 25.7 18.0-42.0 (%) Final Monos 03/10/2023 12:55:22 9.3 1.0-11.0 (%) Final Eosinophils 03/10/2023 12:55:22 1.3 0.0-6.0 (%) Final Basos 03/10/2023 12:55:22 0.3 0.0-2.0 (%) Final Immature Granulocyte, Percent 03/10/2023 12:55:22 0.5 0.0-2.0 (%) Final Absolute Segs 03/10/2023 12:55:22 8.34 Above high normal 1.80-7.70 (K/uL) Final Lymphs, absolute 03/10/2023 12:55:22 3.40 1.00-4.80 (K/ul) Final Monos, Abs 03/10/2023 12:55:22 1.23 Above high normal 0.00-1.10 (K/uL) Final Eos, Abs 03/10/2023 12:55:22 0.17 0.00-0.70 (K/uL) Final Basos, Abs 03/10/2023 12:55:22 0.04 0.00-0.20 (K/uL) Final Immature Granulocytes, Number 03/10/2023 12:55:22 0.07 0.00-0.20 (K/uL) Final Performing Location LABORATORY [facility] - [facility] [address] [place] [address]
--- OUTSIDE RECORDS SUMMARY | 2023-04-05 10:08 | External Medical Summary ---
Author Name Unknown Address Unknown Organization K01:LABORATORY [facility] - [address] [facility] [address] Laboratory Report Ordering Provider Test Date Status HALLAGUSTINA 03/10/2023 12:55:22 Final Observation Date Value Abnormality Reference (Units ) Status Ferritin 03/10/2023 12:55:22 43 13-150 (ng /mL) Final Postmenopausal women have hi gher ferritin levels than pre-menopausal women. The above reference interval is based on pre-menopausal women. Performing Location [facility]ATORY [facility] - [address] [facility] [address]
--- OUTSIDE RECORDS SUMMARY | 2023-04-05 10:08 | External Medical Summary ---
Author Name Unknown Address Unknown Organization K01:LABORATORY [facility] - [address] [facility] [address] Laboratory Report Ordering Provider Test Date Status PABOL ALEMAN 01/14/2023 15:01:18 Final Observation Date Value Abnormality Reference (Units ) Status WBC, Total 01/14/2023 15:01:18 10.12 4.00-10.80 (K/uL) Final RBC 01/14/2023 15:01:18 2.95 3.85-5.15 (M/uL) Final Hemoglobin 01/14/2023 15:01:18 7.5 Below low normal 12.0-15.3 (g/dL) Final HCT 01/14/2023 15:01:18 25.9 Below low normal 36.0-45.2 (%) Final MCV 01/14/2023 15:01:18 87.8 81.5-97.5 (fL) Final MCH 01/14/2023 15:01:18 25.4 27.0-34.0 (pg) Final MCHC 01/14/2023 15:01:18 29.0 32.0-36.0 (g/dL) Final RDW 01/14/2023 15:01:18 17.2 11.5-15.5 (%) Final Platelets 01/14/2023 15:01:18 360 140-400 (K/uL) Final MPV 01/14/2023 15:01:18 10.4 6.6-11.1 (fL) Final Nucleated erythrocytes/100 leukocytes [Ratio] in Blood by Automated count 01/14/2023 15:01:18 0 <=0 (/100 WBCs) Final Performing Location LABORATORY [facility] - [address] [facility] [address]
--- OUTSIDE RECORDS SUMMARY | 2023-04-05 10:08 | External Medical Summary ---
Author Name Unknown Address Unknown Organization K01:LABORATORY [facility] - [address] [address] Laboratory Report Ordering Provider Test Date Status AGUSTINA HALL 03/10/2023 12:55:22 Final Observation Date Value Abnormality Reference (Units ) Status Retic, % (auto) 03/10/2023 12:55:22 2.17 Above high normal 0.80-1.90 (%) Final Reticulocytes, Absolute 03/10/2023 12:55:22 73.3 31.3-100.1 (K/uL) Final Reticulocyte fraction, immature 03/10/2023 12:55:22 34.6 Above high normal 2.5-20.6 (%) Final Reticulocyte HGB 03/10/2023 12:55:22 21.3 Below low normal 29.7-37.4 (pg) Final Performing Location LABORATORY [facility] - [address] [address]
--- OUTSIDE RECORDS SUMMARY | 2023-04-05 10:08 | External Medical Summary ---
Author Name Unknown Address Unknown Organization K01:[facility]ATORY [facility] - [facility] [place] [address] [place] [address] Laboratory Report Ordering Provider Test Date Status AGUSTINA HALL 03/10/2023 12:55:22 Final Observation Date Value Abnormality Reference (Units ) Status WBC, Total 03/10/2023 12:55:22 13.25 Above high normal 4.00-10.80 (K/uL) Final RBC 03/10/2023 12:55:22 3.45 3.85-5.15 (M/uL) Final Hemoglobin 03/10/2023 12:55:22 8.0 Below low normal 12.0-15.3 (g/dL) Final HCT 03/10/2023 12:55:22 28.1 Below low normal 36.0-45.2 (%) Final MCV 03/10/2023 12:55:22 81.4 81.5-97.5 (fL) Final MCH 03/10/2023 12:55:22 23.2 27.0-34.0 (pg) Final MCHC 03/10/2023 12:55:22 28.5 32.0-36.0 (g/dL) Final RDW 03/10/2023 12:55:22 19.8 11.5-15.5 (%) Final Platelets 03/10/2023 12:55:22 555 Above high normal 140-400 (K/uL) Final MPV 03/10/2023 12:55:22 9.6 6.6-11.1 (fL) Final Nucleated erythrocytes/100 leukocytes [Ratio] in Blood by Automated count 03/10/2023 12:55:22 0 <=0 (/100 WBCs) Final Performing Location LABORATORY [facility] [place] - [address] [place] [address]
--- OUTSIDE RECORDS SUMMARY | 2023-04-05 10:08 | External Medical Summary | Summary of Care ---
Author Name Unknown Organization [facility] Address [address] [place] [address] Phone [phone] Care Team Providers Care Merchandise Executive Name Role Phone Arun Del Rio MD Primary Care Provider [phone] Reason for Visit * Reason Onset Date Comments Test Results Lab 03/03/2023 Encounter Details Date Type Department Care Team Description 03/03/[address] [facility] [address] [place] [address] Arun Del Rio MD [address] [place] [address] Test Results Lab Allergies Active [...] mRNA, LNP-s, No Pre serve, 2-Dose Series (GoMiles) 12/10/2021,03/05/2021,08/07/2020,07/12 Pneumococcal Conjugate Vacc, 13 Valent (Prevnar) [...] Brennon Fabian MD [address] [place] [address] 04/01/2023 Office Visit Rheumatology Luann Quintanilla CRNP [address] [facility] [place] [address] 04/28/2023 Office Visit Gastroenterology Humberto Brothers CRNP [address] [place] [address] 05/27/2023 Office Visit Family Medicine Arun Del Rio MD [address] [place] [facility] [place] [address] 06/03/2023 Nurse Only [facility], Nurse Annual Wellness [address] [place] [facility] [place] [address] 07/06/2023 Office Visit Cardiology Gil Juares MD [address] [place] [address] 09/10/2023 Office Visit Dermatology Leigh June PA-C [address] [place] [address] [place] [address] 12/11/2023 Office Visit Nephrology Jabari Morales MD [address] [place] [address] Health Maintenance Due Date Last Done Comments *BISPHONATE OR OTHER ACCEPTABLE MEDICATION NEEDED FOR OSTEOPOROSIS (REFER TO SMARTSET #1146) 08/26/2022 TSH 12/09/2022 12/09/2021, 1201/2021, 05/04/2020, Additional history exists COVID-19 Vaccine ( season) 2023 12/10/2021, 03/05/2021, 08/07/2020, Additional history exists DXA Scan 02/12/2023 02/12/2021, 01/16, 12/31/2016, Additional history exists Albumin/Creatinine Ratio 05/14/2023 022, 04/25/2021, 05/08/2020, Additional history exists CKD PHOS USE SMARTSET 99901 05/14/202304/18, 08/14/2021, 04/25/2021, Additional history exists Depression Screening 06/03/2023 06/03/2022 CKD HGB USE SMARTSET 93172 01/15/202401/14, 10/10/2022, 10/10/2022, Additional history exists DTaP,Tdap,and Td Vaccines (2 - Td or Tdap) 02/10/2024 02/09/2014 Pneumococcal Vaccine: 65+ Years Completed 10/11/2014, 09/08/2013 Zoster Vaccines Completed 12/31/2017, 09/16, 03/18/2015 VITAMIN D LEVEL ONCE IN A LIFETIME-USE SMARTSET# 95964 Completed 05/14/2022, 08/14/2021, 05/04/2020, Additional history exists [...] and were consensually agreed upon. Care Teams Merchandise Executive Relationship Specialty Start Date End Date Arun Del Rio MD [address] [place] [address] PCP - General Family Medicine 06/30/18 documented as of this encounter
--- OUTSIDE RECORDS SUMMARY | 2023-04-05 10:08 | External Medical Summary ---
Author Name Unknown Address Unknown Organization K01:LABORATORY [facility] - [address] [place] [address] Laboratory Report Ordering Provider Test Date Status AGUSTINA HALL 03/10/2023 12:55:22 Final Observation Date Value Abnormality Reference (Units ) Status LDH 03/10/2023 12:55:22 172 <=250 (U/L ) Final Performing Location LABORATORY [facility] - [address] [place] [address]
--- OUTSIDE RECORDS SUMMARY | 2023-04-05 10:08 | External Medical Summary | Summary of Care ---
Author Name Unknown Organization [facility] Address [address] [place] [address] Phone [phone] Care Team Providers Care Briar Shop Supervisor Name Role Phone Arun Del Rio MD Primary Care Provider [phone] Encounter Details Date Type Department Care Team Description 01/23/2023 Immunization Ancillary Department, [place] [address] [place] [address] [facility] [address] [place] [address] Arrived Allergies Active Allergy Reactions Severity Noted Date Comments Alendronate Tachycardia 11/02/2014 Patient felt like she was having a heart attack Bee Venom Anaphylaxis High 10/11/2014 Iodinated Contrast Media 07/22/2013 Cephalexin 08/09/2013 Hot and flushed , nausea 2013 Lisinopril 07/21/2018 documented as of this encounter (statuses as of 01/23/2023) Medications Medication Sig Dispensed Refills Start Date [...] as of this encounter (statuses as of 01/23/2023) Active Problems Problem Noted Date Gastroesophageal reflux [...] as of this encounter (statuses as of 01/23/2023) Resolved Problems Problem Noted Date Resolved Date [...] as of this encounter (statuses as of 01/23/2023) Immunizations Name Administration Dates Next Due COVID-19 mRNA, LNP-s, No Pre serve, 2-Dose Series ([employer]) 12/10/2021,03/05/2021,08/07/2020,07/12 Pneumococcal Conjugate Vacc, 13 Valent (Prevnar) [...] Visit Hematology Oncology Brennon German MD [address] [facility] [place] [address] 04/01/2023 Office Visit Rheumatology Luann Quintanilla CRNP [address] [facility] [place] [address] 04/28/2023 Office Visit Gastroenterology Humberto Brothers CRNP [address] [place] [address] 05/27/2023 Office Visit Family Medicine Arun Del Rio MD [address] [place] [facility] [facility] [place] [address] 06/03/2023 Nurse Only Ivana Nagel Nurse [facility] [address] [place] [facility] [facility] [place] [address] 07/06/2023 Office Visit Cardiology Gil Juares MD [address] [place] [address] 09/10/2023 Office Visit Dermatology Leigh June PA-C [address] [place] [address] [place] [address] 12/11/2023 Office Visit Nephrology Jabari Morales MD [address] [facility] [place] [phone] Health Maintenance Due Date Last Done Comments COVID-19 Vaccine (5 - Pfizer series) 02/04/2022 12/10/2021, 03/05/2021, 08/07/2020, Additional history exists *BISPHONATE OR OTHER ACCEPTABLE MEDICATION NEEDED FOR OSTEOPOROSIS (REFER TO SMARTSET #1146) 08/26/2022 TSH 12/09/2022 12/09/2021, 12/01/2021, 05/04/2020, Additional history exists Influenza Vaccine (FLU shot) (#1) 2023 01/23/2023, 02/24/2022, 02/15/2021, Additional history exists DXA Scan 02/12/2023 02/12/2021, 01/16, 12/31/2016, Additional history exists Albumin/Creatinine Ratio 05/14/2023 022, 04/25/2021, 05/08/2020, Additional history exists CKD PHOS USE SMARTSET 12818 05/14/2023 122 12/2021, 08/14/2021, 04/25/2021, Additional history exists Depression Screening 06/03/2023 06/03/2022 CKD HGB USE SMARTSET 63798 01/15/202401/14, 10/10/2022, 10/10/2022, Additional history exists DTaP,Tdap,and Td Vaccines (2 - Td or Tdap) 02/10/2024 02/09/2014 Pneumococcal Vaccine: 65+ Years Completed 10/11/2014, 09/08/2013 Zoster Vaccines Completed 12/31/2017, 09/16, 03/18/2015 VITAMIN D LEVEL ONCE IN A LIFETIME-USE SMARTSET# [id number] Completed 05/14/2022, 08/14/2021, 05/04/2020, Additional history exists [...] and were consensually agreed upon. Care Teams Briar Shop Supervisor Relationship Specialty Start Date End Date Arun Del Rio MD [address] [place], [place] [id number] PCP - General Family Medicine 06/30/18 documented as of this encounter
--- OUTSIDE RECORDS SUMMARY | 2023-04-05 10:08 | External Medical Summary ---
Author Name Unknown Address Unknown Organization K01:LABORATORY [facility] [place] - [address] [place] [address] Laboratory Report Ordering Provider Test Date Status PABLO ALEMAN 01/14/2023 15:01:18 Final Observation Date Value Abnormality Reference (Units ) Status Iron 01/14/2023 15:01:18 11 Below low normal 33-151 (ug/dL) Final Iron-binding capacity 01/14/2023 15:01:18 251 250-425 (ug/dL) Final Transferrin Sat % 01/14/2023 15:01:18 4 Below low normal 15-55 (%) Final Performing Location LABORATORY [facility] - [address] [place] [address]
--- OUTSIDE RECORDS SUMMARY | 2023-04-05 10:08 | External Medical Summary | Summary of Care ---
Author Name Unknown Organization [facility] Address [address] [place] [address] Phone [phone] Care Team Providers Care Associate Dean Of Students Name Role Phone Arun Del Rio MD Primary Care Provider [phone] Reason for Referral * Evaluate & Treat - Unlimited Visits (Within 10 days (routine)) - Authorized Specialty Diagnoses / Procedures Referred By Sanjuana mckenzie Referred To Contact Gastroenterology Diagnoses Other iron deficiency anemia Arun Del Rio MD [address] [place] [address] Referral ID Status Reason Start Date Expiration Date Visits Requested Visits Authorized [id number] Authorized Specialty Services Required 01/15/2023 999 999 Question Answer Referral Priority Within 10 days (routine) For what condition is the patient being referred? All Gastro Conditions Comments Iron deficiency Anemia. Moderate dementia. Looking for endoscopy Reason for Visit * Reason Onset Date Comments Test Results 01/15/2023 Encounter Details Date Type Department Care Team Description 01/15/2023 Telephone [facility] [address] [place] [address] Arun Del Rio MD [address] [place] [address] Test Results Allergies Active Allergy Reactions Severity Noted Date Comments Alendronate Tachycardia 11/02/2014 Patient felt like she was having a heart attack Bee Venom Anaphylaxis High 10/11/2014 Iodinated Contrast Media 07/22/2013 Cephalexin 08/09/2013 Hot and flushed , nausea 2012 Lisinopril 07/21/2018 documented as of this encounter (statuses as of 01/15/2023) Medications Medication Sig Dispensed Refills Start Date [...] as of this encounter (statuses as of 01/15/2023) Active Problems Problem Noted Date Gastroesophageal reflux [...] as of this encounter (statuses as of 01/15/2023) Resolved Problems Problem Noted Date Resolved Date [...] as of this encounter (statuses as of 01/15/2023) Immunizations Name Administration Dates Next Due COVID-19 [...] Hematology Oncology Monserrat, Brennon Fabian MD [address] [place] [address] 05/27/2023 Office Visit Family Medicine Arun Del Rio MD [address] [place] [address] 06/03/2023 Nurse Only Ancillary Nurse [facility] [address] [facility] [place] [phone] 07/06/2023 Office Visit Cardiology Gil Juares MD [address] [place] [address] 09/10/2023 Office Visit Dermatology Leigh June PA-C [address] [place] [address] [place] [address] 12/11/2023 Office Visit Nephrology Jabari Morales MD [address] [facility] [place] [address] Scheduled Referrals Name Type Priority Associated Diagnoses [...] 12/09/2022 12/09/2021, 1201/2021, 05/04/2020, Additional history exists Influenza Vaccine (FLU shot) (#1) 2023 02/24/2022, 02/15/2021, 02/22/2020, Additional history exists DXA Scan 02/12/2023 02/12/2021, 01/16, 12/31/2016, Additional history exists Albumin/Creatinine Ratio 05/14/2023 022, 04/25/2021, 05/08/2020, Additional history exists CKD PHOS USE SMARTSET 33957 05/14/202304/18, 08/14/2021, 04/25/2021, Additional history exists Depression Screening, Annual for Pts 12 and Over 06/03/2023 06/03/2022 CKD HGB USE SMARTSET 24790 01/15/202401/14, 10/10/2022, 10/10/2022, Additional history exists DTaP,Tdap,and Td Vaccines (2 - Td or Tdap) 02/10/2024 02/09/2014 Pneumococcal Vaccine: 65+ Years Completed 10/11/2014, 09/08/2013 Zoster Vaccines Completed 12/31/2017, 09/16, 03/18/2015 VITAMIN D LEVEL ONCE IN A LIFETIME-USE SMARTSET# [id number] Completed 05/14/2022, 08/14/2021, 05/04/2020, Additional history exists [...] were consensually agreed upon. Care Teams Associate Dean Of Students Relationship Specialty Start Date End Date Arun Del Rio MD [address] [place] [address] PCP - General Family Medicine 06/30/18 documented as of this encounter
--- OUTSIDE RECORDS SUMMARY | 2023-04-05 10:08 | External Medical Summary ---
Author Name Unknown Address Unknown Organization K01:LABORATORY [facility] [place] - [address] [place] [address] Laboratory Report Ordering Provider Test Date Status AGUSTINA HALL 03/10/2023 12:55:22 Final Observation Date Value Abnormality Reference (Units ) Status Vitamin B12 03/10/2023 12:55:22 660 270-7665 (pg/mL) Final Performing Location LABORATORY [facility] - [address] [place] [address]
--- OUTSIDE RECORDS SUMMARY | 2023-04-05 10:08 | External Medical Summary | Summary of Care ---
Author Name Unknown Organization [facility] Address [address] [place] [address] Phone [phone] Care Team Providers Care Yard Cleaner Name Role Phone Arun Del Rio MD Primary Care Provider [phone] Reason for Visit * Reason Onset Date Comments Fax 12/03/2022 [facility] Encounter Details Date Type Department Care Team Description 12/03/2022 Telephone [facility] [address] [place] [address] Arun Del Rio MD [address], [place] [address] Fax ([facility]) Allergies Active Allergy Reactions Severity Noted Date Comments Alendronate Tachycardia 11/02/2014 Patient felt like she was having a heart attack Bee Venom Anaphylaxis High 10/11/2014 Iodinated Contrast Media 07/22/2013 Cephalexin 08/09/2013 Hot and flushed , nausea 2012 Lisinopril 07/21/2018 documented as of this encounter (statuses as of 01/09/2023) Medications Medication Sig Dispensed Refills Start Date [...] ONCE DAILY 90 Tablet 3 12/01/2022 Active Pravastatin Sodium 40 MG Oral Tablet (Pravachol)Indicati ons:Hyperlipidemia with target LDL less than 100 Take 1 Tablet by mouth in the morning. 90 Tablet 0 09/15/2022 12/09/19 23 Discontinued Ondansetron HCl 4 MG Oral Tablet (Zofran)Indications :Nausea without vomiting TAKE 1 TABLET BY MOUTH EVERY 6 HOURS NEEDED FOR NAUSEA 20 Tablet 1 10/09/2022 12/25/19 23 Discontinued ALPRAZolam 0.5 MG Oral Tablet (xaNAX) TAKE 1 TABLET BY MOUTH AT BEDTIME NEEDED FOR SLEEP 25 Tablet 0 10/24/2022 12/06/19 23 Discontinued documented as of this encounter (statuses as of 01/09/2023) Active Problems Problem Noted Date Gastroesophageal reflux [...] as of this encounter (statuses as of 01/09/2023) Resolved Problems Problem Noted Date Resolved Date [...] as of this encounter (statuses as of 01/09/2023) Immunizations Name Administration Dates Next Due COVID-19 mRNA, LNP-s, No Pre serve, 2-Dose Series ([employer]) 12/10/2021,03/05/2021,08/07/2020,07/12 Pneumococcal Conjugate Vacc, 13 Valent (Prevnar) [...] encounter Miscellaneous Notes * Telephone Encounter - Adele Hartley LPN - 12/03/2022 11:10 AM EDT Reason for Call: Fax ([facility]) Contact: Telephone Call Contact Type: Other: Fax Outcome: Faxed with confirmation received Total Time including non face to face (minutes): 10 * Telephone Encounter - Angelica Eaton LPN - 12/03/2022 10:58 AM EDT Provider to address: Valerie is returning phone call and states that the pt is going to be moving innext week as a new resident. Reason for Call: Fax ([facility]) Contact: Telephone Call Contact Type: Care Coordination Total Time including non face to face (minutes): 5 * Telephone Encounter - Lissette Harry LPN - 12/03/2022 10:54 AM EDT Left message for the main number to have someone or Valerie call back, Please ask if this patient derick patient there also? If so then send to [place] lois to have the request taken care of. * Telephone Encounter - JD Joseph - 12/03/2022 9:29 AM EDT Reason for Valerie's call: requesting to speak with the clinic Please contact Valerie at: [phone] * Telephone Encounter - JD Adrian - 12/03/2022 9:21 AM EDT Spoke to Rose at [facility] to verify fax number and to make sure this was requested. Per Rose, there is no resident named Juanis Rodriguez at their facility. Info not sent. 12/03/2022 * Telephone Encounter - JD Richards - 12/03/2022 8:00 AM EDT Valerie calling from [facility] in [place] to request History & Physical, med list, demographics, recent office notes to be faxed to [phone]. documented in this encounter Plan of Treatment Upcoming Encounters Date Type Specialty Care Team Description 01/14/2023 Office Visit Family Medicine Arun Del Rio MD [address] [place] [address] 03/10/2023 Office Visit Hematology Oncology Brennon German MD [address] [place], [place] [phone] 06/03/2023 Nurse Only Ancillary [place] Nurse [facility] [address] [place] [address] 07/06/2023 Office Visit Cardiology Gil Juares MD [address] [place] [address] 09/10/2023 Office Visit Dermatology Leigh June PA-Alf [address] [place] [address] [place] [address] 12/11/2023 Office Visit Nephrology Jabari Morales MD [address] [facility], [place] [address] Health Maintenance Due Date Last Done Comments [...] Additional history exists CKD PHOS USE SMARTSET 80927 05/14/202304/18, 08/14/2021, 04/25/2021, Additional history exists Depression Screening, Annual for Pts 12 and Over 06/03/2023 06/03/2022 CKD HGB USE SMARTSET 22813 10/11/202310/10, 10/10/2022, 05/14/2022, Additional history exists DTaP,Tdap,and Td Vaccines (2 - Td or Tdap) 02/10/2024 02/09/2014 Pneumococcal Vaccine: 65+ Years Completed 10/11/2014, 09/08/2013 Zoster Vaccines Completed 12/31/2017, 09/16, 03/18/2015 VITAMIN D LEVEL ONCE IN A LIFETIME-USE SMARTSET# [id number] Completed 05/14/2022, 08/14/2021, 05/04/2020, Additional history exists [...] and were consensually agreed upon. Care Teams Yard Cleaner Relationship Specialty Start Date End Date Arun Del Rio MD [address] [place], [place] [phone] PCP - General Family Medicine 06/30/18 documented as of this encounter
--- OUTSIDE RECORDS SUMMARY | 2023-04-05 10:09 | External Medical Summary | Summary of Care ---
Author Name Unknown Organization [facility] Address [address] [place] [address] Phone [phone] Care Team Providers Care Health Director Name Role Phone Arun Del Rio MD Primary Care Provider [phone] Reason for Visit * Reason Onset Date Comments Abnormal Test Results 10/15/2022 Encounter Details Date Type Department Care Team Description 10/15/2022 Telephone [facility] [address] [place] [address] SeptemberDarrin MD [address] [place] [address] Abnormal Test Results Allergies Active Allergy Reactions Severity Noted Date Comments Alendronate Tachycardia 11/02/2014 Patient felt like she was having a heart attack Bee Venom Anaphylaxis High 10/11/2014 Iodinated Contrast Media 07/22/2013 Cephalexin 08/09/2013 Hot and flushed , nausea 2012 Lisinopril 07/21/2018 documented as of this encounter (statuses as of 10/15/2022) Medications Medication Sig Dispensed Refills Start Date [...] times daily 10 mL 3 06/17/2021 Active Famotidine 20 MG Oral Tablet (Pepcid) TAKE 1 TABLET BY MOUTH ONCE DAILY 90 Tablet 3 03/14/2022 Active Additional Information Patient not taking.Reported on 10/15/2022 Nitroglycerin 0.4 MG Sublingual Tablet Sublingual (Nitrostat)Indicatio ns:Esophageal spasm MAY REPEAT DOSE IN 10 MINUTES NECESSARY, BEING USED FOR SPASM OF ESOPHAGUS 25 Tablet 2 03/17/2022 Active traMADol HCl 50 MG Oral Tablet (Ultram)Indications: Generalized osteoarthritis Take by mouth 1 Tablet every 8 hours as needed for Pain, Moderate. 60 Tablet 0 03/17/2022 Active Hydrocortisone 2.5 % External OintmentIndications: Prurigo nodularis,Lichenific ation Apply to spots on face and back when itchy (x2 daily or more if needed) 60 g 0 08/14/2022 Active ALPRAZolam 0.5 MG Oral Tablet (xaNAX) TAKE 1 TABLET BY MOUTH AT BEDTIME NEEDED FOR SLEEP. 30 Tablet 0 09/07/2022 Active Escitalopram Oxalate 10 MG Oral Tablet (Lexapro)Indications :Major depressive disorder, recurrent episode, mild (HCC) TAKE 1 TABLET BY MOUTH ONCE DAILY 90 Tablet 1 09/08/2022 Active Levothyroxine Sodium 50 MCG Oral Tablet (Levoxyl)Indications :Hypothyroidism, unspecified type Take 1 Tablet by mouth daily first thing in the morning. (at least 30 min prior to breakfast or other meds) 90 Tablet 3 09/15/2022 Active Pravastatin Sodium 40 MG Oral Tablet (Pravachol)Indicatio ns:Hyperlipidemia with target LDL less than 100 Take 1 Tablet by mouth in the morning. 90 Tablet 0 09/15/2022 Active Losartan Potassium 100 MG Oral Tablet (Cozaar)Indications: Hypothyroidism, unspecified type,Hyperlipidemia with target LDL less than 100,HTN, goal below 150/90 Take 1 Tablet by mouth in the morning. 90 Tablet 1 09/15/2022 Active Metoprolol Succinate ER 25 MG Oral Tablet Extended Release 24 Hour (toPROL XL)Indications:HTN, goal below 150/90 Take 1 Tablet by mouth in the morning. 90 Tablet 1 09/15/2022 Active amLODIPine Besylate 2.5 MG Oral Tablet (Norvasc)Indications :HTN, goal below 150/90 Take 1 Tablet by mouth in the morning. 100 Tablet 3 09/15/2022 Active Ondansetron HCl 4 MG Oral Tablet (Zofran)Indications: Nausea without vomiting TAKE 1 TABLET BY MOUTH EVERY 6 HOURS NEEDED FOR NAUSEA 20 Tablet 1 10/09/2022 Active Donepezil HCl 5 MG Oral Tablet (Aricept)Indications :Alzheimer's dementia of other onset, with other behavioral disturbance, unspecified dementia severity (HCC) TAKE ONE TABLET IN THE MORNING. TAKE WITH THE LARGEST MEAL OF THE DAY. 90 Tablet 0 10/15/2022 Active Ferrous Sulfate 325 (65 Fe) MG Oral Tablet (Feosol)Indications: Iron deficiency anemia, unspecified iron deficiency anemia type Take 1 Tablet by mouth once a day on Thursday, Thursday, and Thursday only. 30 Tablet 4 10/15/2022 Active documented as of this encounter (statuses as of 10/15/2022) Active Problems Problem Noted Date Gastroesophageal reflux [...] as of this encounter (statuses as of 10/15/2022) Resolved Problems Problem Noted Date Resolved Date [...] as of this encounter (statuses as of 10/15/2022) Immunizations Name Administration Dates Next Due COVID-19 mRNA, LNP-s, No Pre serve, 2-Dose Series ([employer]) 12/10/2021,03/05/2021,08/07/2020,07/12 Pneumococcal Conjugate Vacc, 13 Valent (Prevnar) [...] encounter Miscellaneous Notes * Telephone Encounter - Darrin Cook MD - 10/15/2022 7:27 PM EDT Can we please notify patient and significant other that iron studies show significantly low iron. Irecommend iron 325 mg Thursday. Patient does have history of constipation and therefore I am concerned about daily dosing. Ideally this would be in her pill packs. I have prescribed the medicine to [facility] in [place]. Darrin Cook MD documented in this encounter Plan of Treatment Upcoming Encounters Date Type Specialty Care Team Description 12/09/2022 Office Visit Nephrology Mainali, Jabari, MD [address] [place] [address] 01/14/2023 Office Visit Family Medicine Arun Del Rio MD [address] [place] [address] 02/26/2023 Office Visit Rheumatology Mary Crews PA-C [address] [place] [address], [place] [address] 03/10/2023 Office Visit Hematology Oncology Brennon German MD [address] [place] [address] 06/03/2023 Nurse Only [facility], Nurse [facility] [address] [place] [address] 07/06/2023 Office Visit Cardiology Gil Juares MD [address] [place] [address] 09/10/2023 Office Visit Dermatology Leigh June PA-C [address] [place] [address] [place] [address] Health Maintenance Due Date Last Done Comments COVID-19 Vaccine (5 - Booster for Pfizer series) 02/04/2022 12/10/2021, 03/05/2021, 08/07/2020, Additional history exists *BISPHONATE OR OTHER ACCEPTABLE MEDICATION NEEDED FOR OSTEOPOROSIS (REFER TO SMARTSET #1146) 08/26/2022 TSH 12/09/2022 12/09/2021, 12/0 01/2021, 05/04/2020, Additional history exists DXA Scan 02/12/2023 02/12/2021, 01/16, 12/31/2016, Additional history exists Albumin/Creatinine Ratio 05/14/202305/14/ 022, 04/25/2021, 05/08/2020, Additional history exists CKD PHOS USE SMARTSET 35920 05/14/202304/18, 08/14/2021, 04/25/2021, Additional history exists Depression Screening, Annual for Pts 12 and Over 06/03/2023 06/03/2022 CKD HGB USE SMARTSET 23607 10/11/202310/10, 10/10/2022, 05/14/2022, Additional history exists DTaP,Tdap,and Td Vaccines (2 - Td or Tdap) 02/10/2024 02/09/2014 Pneumococcal Vaccine: 65+ Years Completed 10/11/2014, 09/08/2013 Zoster Vaccines Completed 12/31/2017, 09/16, 03/18/2015 Influenza Vaccine (FLU shot) Completed 02/2022, 02/15/2021, 02/22/2020, Additional history exists VITAMIN D LEVEL ONCE IN A LIFETIME-USE SMARTSET# [id number] Completed 05/14/2022, 08/14/2021, 05/04/2020, Additional history exists [...] and were consensually agreed upon. Care Teams Health Director Relationship Specialty Start Date End Date Arun Del Rio MD [address] [place] [address] PCP - General Family Medicine 06/30/18 documented as of this encounter
--- OUTSIDE RECORDS SUMMARY | 2023-04-05 10:09 | External Medical Summary | Summary of Care ---
Author Name Unknown Organization [facility] Address [address] [place] [address] Phone [phone] Care Team Providers Care Plc Engineer Name Role Phone Love Del Rio MD Primary Care Provider [phone] Reason for Visit * Reason Comments eRx-Medication Refill Encounter Details Date Type Department Care Team Description 12/04/2022 Refill [facility] [address] [place] [address] Love Del Rio MD [address] [place] [address] Allergies Active Allergy Reactions Severity Noted Date Comments Alendronate Tachycardia 11/02/2014 Patient felt like she was having a heart attack Bee Venom Anaphylaxis High 10/11/2014 Iodinated Contrast Media 07/22/2013 Cephalexin 08/09/2013 Hot and flushed , nausea 2013 Lisinopril 07/21/2018 documented as of this encounter (statuses as of 12/05/2022) Medications Medication Sig Dispensed Refills Start Date [...] for sleep 25 Tablet 0 12/05/2022 Active ALPRAZolam 0.5 MG Oral Tablet (xaNAX) TAKE 1 TABLET BY MOUTH AT BEDTIME NEEDED FOR SLEEP 25 Tablet 0 10/24/2022 12/06/19 23 Discontinued documented as of this encounter (statuses as of 12/05/2022) Active Problems Problem Noted Date Gastroesophageal reflux [...] as of this encounter (statuses as of 12/05/2022) Resolved Problems Problem Noted Date Resolved Date [...] as of this encounter (statuses as of 12/05/2022) Immunizations Name Administration Dates Next Due COVID-19 mRNA, LNP-s, No Pre serve, 2-Dose Series ([employer]) 12/10/2021,03/05/2021,08/07/2020,07/12 Pneumococcal Conjugate Vacc, 13 Valent (Prevnar) [...] Encounter - Love Del Rio MD - 12/05/2022 5:15 PM EDTSigned Prescriptions: Disp Refills ALPRAZolam 0.5 MG Oral Tablet (xaNAX) 25 Tab*0 Sig: TAKE 1 TABLET BY MOUTH AT BEDTIME NEEDED for sleep Authorizing Provider: LOVE DEL RIO * Telephone Encounter - Sherri Gallegos RP - 12/05/2022 2:43 PM EDTPending Prescriptions: Disp Refills ALPRAZolam 0.5 MG Oral Tablet [Pharmacy Me*25 Tab*0 Sig: TAKE 1 TABLET BY MOUTH AT BEDTIME NEEDED FOR SLEEP * Telephone Encounter - Sherri Gallegos RP - 12/05/2022 2:42 PM EDT I have reviewed the patients controlled substance dispensing history in the Prescription Drug Monitoring Program in compliance with the [facility] regulations before prescribing a controlled substance. PDMP checked on 12/05/2022. Pending Prescriptions: Disp Refills ALPRAZolam 0.5 MG Oral Tablet (xaNAX) [Ph*25 Tab*0 Sig: TAKE 1 TABLET BY MOUTH AT BEDTIME NEEDED for sleep Last Visit: 10/15/2022 (in office), Visit date not found (telemedicine) Next Visit: 01/14/2023 Date medication was last filled: 10/24/22 Date medication is due for refill: 11/17/22 Pharmacy: [id number] Is this request for a controlled substance? Yes and Urine Drug Screen Not completed Toxicology results: No results found for this or any previous visit. Please approve if appropriate. Thanks, Sherri Gallegos, PharmD Clinical Pharmacist [facility] ([facility]) (formerly Telepharmacy). [phone] 12/05/2022, 2:42 PM documented in this encounter Plan of Treatment Upcoming Encounters Date Type Specialty Care Team Description 12/09/2022 Office Visit Nephrology Jabari Morales MD [address] [place] [address] 01/14/2023 Office Visit Family Medicine Love Del Rio MD [address] [place] [address] 02/26/2023 Office Visit Rheumatology Mary Crews PAShantelC 03/10/2023 Office Visit Hematology Oncology Brennon German MD [address] [place] [address] 06/03/2023 Nurse Only [facility], Nurse [facility] [address] [place] [address] 07/06/2023 Office Visit Cardiology Gil Juares MD [address] [place] [address] 09/10/2023 Office Visit Dermatology Leigh June PA-C [address] [place] [address] [place] [address] Health Maintenance Due Date Last Done Comments [...] Additional history exists CKD PHOS USE SMARTSET 13163 05/14/202304/18, 08/14/2021, 04/25/2021, Additional history exists Depression Screening, Annual for Pts 12 and Over 06/03/2023 06/03/2022 CKD HGB USE SMARTSET 78653 10/11/202310/10, 10/10/2022, 05/14/2022, Additional history exists DTaP,Tdap,and Td Vaccines (2 - Td or Tdap) 02/10/2024 02/09/2014 Pneumococcal Vaccine: 65+ Years Completed 10/11/2014, 09/08/2013 Zoster Vaccines Completed 12/31/2017, 09/16, 03/18/2015 VITAMIN D LEVEL ONCE IN A LIFETIME-USE SMARTSET# [id number] Completed 05/14/2022, 08/14/2021, 05/04/2020, Additional history exists [...] and were consensually agreed upon. Care Teams Plc Engineer Relationship Specialty Start Date End Date Love Del Rio MD [address] [place] [address] PCP - General Family Medicine 06/30/18 documented as of this encounter
--- OUTSIDE RECORDS SUMMARY | 2023-04-05 10:09 | External Medical Summary ---
Author Name Unknown Address Unknown Organization K01:[facility] [place] [address] [facility] [address] Laboratory Report Ordering Provider Test Date Status 10/15/2022 08:55:40 Final Observation Date Value Abnormality Reference (Units ) Status Ferritin 10/15/2022 08:55:40 42 13-150 (ng /mL) Final Postmenopausal women have hi gher ferritin levels than pre-menopausal women. The above reference interval is based on pre-menopausal women. Performing Location [facility] - [address] [place] [address]
--- OUTSIDE RECORDS SUMMARY | 2023-04-05 10:09 | External Medical Summary | Summary of Care ---
Author Name Unknown Organization [facility] Address [address] [place] [address] Phone [phone] Care Team Providers Care Disintegrator Name Role Phone Arun Del Rio MD Primary Care Provider [phone] Reason for Visit * Reason Comments Outpatient Testing Encounter Details Date Type Department Care Team Description 10/15/2022 Laboratory Laboratory, [place] [address] [place] [address] [place], Laboratory [address] [place] [address] Iron deficiency anemia, unspecified iron deficiency anemia type Allergies Active Allergy Reactions Severity Noted Date [...] times daily 10 mL 3 06/17/2021 Active Donepezil HCl 5 MG Oral Tablet (Aricept)Indications :Alzheimer's dementia of other onset, with other behavioral disturbance, unspecified dementia severity (HCC) Take by mouth 1 Tablet in the morning. Take with largest meal of the day.. 90 Tablet 3 03/08/2022 Active Famotidine 20 MG Oral Tablet (Pepcid) [...] FOR NAUSEA 20 Tablet 1 10/09/2022 Active documented as of this encounter (statuses as of 10/15/2022) Active Problems Problem Noted Date Gastroesophageal reflux disease 10/16/19 23 Stage 3 chronic kidney disease Primary open-angle glaucoma, bilateral, moderate stage 10/24/2021 [...] mRNA, LNP-s, No Pre serve, 2-Dose Series ([employer]) 12/10/2021,03/05/2021,08/07/2020,07/12 Pneumococcal Conjugate Vacc, 13 Valent (Prevnar) [...] Office Visit Nephrology Jabari Morales MD [address] [place] [address] 01/14/2023 Office Visit Family Medicine Arun Del Rio MD [address] [place] [address] 02/26/2023 Office Visit Rheumatology Mary Crews PA-C [facility] [place] [address] 03/10/2023 Office Visit Hematology Oncology Brennon German MD [address] [place] [address] 06/03/2023 Nurse Only Ancillary Nurse [facility] [address] [place] [address] 07/06/2023 Office Visit Cardiology Gil Juares MD [address] [place] [address] 09/10/2023 Office Visit Dermatology Leigh June PA-C [address] [place] [address] [place] [address] Pending Results Name Type Priority Associated Diagnoses Date /Time IRON SCREEN, INCLUDING TIBC Lab Routine Iron deficiency anemia, unspecified iron deficiency anemia type 10/15/2022 8:55 AM EDT FERRITIN Lab Routine Iron deficiency anemia, unspecified iron deficiency anemia type 10/15/2022 8:55 AM EDT VITAMIN B12 Lab Routine Iron deficiency anemia, unspecified iron deficiency anemia type 10/15/2022 8:55 AM EDT FOLIC ACID Lab Routine Iron deficiency anemia, unspecified iron deficiency anemia type 10/15/2022 8:55 AM EDT Health Maintenance Due Date Last Done Comments COVID-19 Vaccine (5 - Booster for Pfizer series) 02/04/2022 12/10/2021, 03/05/2021, 08/07/2020, Additional history exists *BISPHONATE OR OTHER ACCEPTABLE MEDICATION NEEDED FOR OSTEOPOROSIS (REFER TO SMARTSET #1146) 08/26/2022 TSH 12/09/2022 12/09/2021, 12/01/2021, 05/04/2020, Additional history exists DXA Scan 02/12/2023 02/12/2021, 01/16, 12/31/2016, Additional history exists Albumin/Creatinine Ratio 05/14/2023 022, 04/25/2021, 05/08/2020, Additional history exists CKD PHOS USE SMARTSET 72008 05/14/202304/18, 08/14/2021, 04/25/2021, Additional history exists Depression Screening, Annual for Pts 12 and Over 06/03/2023 06/03/2022 CKD HGB USE SMARTSET 62930 10/11/2023 05/26 /2023, 10/10/2022, 05/14/2022, Additional history exists DTaP,Tdap,and Td Vaccines (2 - Td or Tdap) 02/10/2024 02/09/2014 Pneumococcal Vaccine: 65+ Years Completed 10/11/2014, 09/08/2013 Zoster Vaccines Completed 12/31/2017, 09/16, 03/18/2015 Influenza Vaccine (FLU shot) Completed 02/2022, 02/15/2021, 02/22/2020, Additional history exists VITAMIN D LEVEL ONCE IN A LIFETIME-USE SMARTSET# [id number] Completed 05/14/2022, 08/14/2021, 05/04/2020, Additional history exists [...] deficiency anemia, unspecified iron deficiency anemia type documented in this encounter Advance Directives Latest [...] and were consensually agreed upon. Care Teams Disintegrator Relationship Specialty Start Date End Date Arun Del Rio MD [address] [place] [address] PCP - General Family Medicine 06/30/18 documented as of this encounter
--- OUTSIDE RECORDS SUMMARY | 2023-04-05 10:09 | External Medical Summary | Summary of Care ---
Author Name Unknown Organization [facility] Address [address] [place] [address] Phone [phone] Care Team Providers Care Certified Medical Assistant Name Role Phone Arun Del Rio MD Primary Care Provider [phone] Encounter Details Date Type Department Care Team Description 12/04/2022 Telephone [facility] [address] [place] [address] Arun Del Rio MD [address] [place] [address] Allergies Active Allergy Reactions Severity Noted Date Comments Alendronate Tachycardia 11/02/2014 Patient felt like she was having a heart attack Bee Venom Anaphylaxis High 10/11/2014 Iodinated Contrast Media 07/22/2013 Cephalexin 08/09/2013 Hot and flushed , nausea 2013 Lisinopril 07/21/2018 documented as of this encounter (statuses as of 12/11/2022) Medications Medication Sig Dispensed Refills Start Date [...] ONCE DAILY 90 Tablet 3 12/01/2022 Active documented as of this encounter (statuses as of 12/11/2022) Active Problems Problem Noted Date Gastroesophageal reflux [...] as of this encounter (statuses as of 12/11/2022) Resolved Problems Problem Noted Date Resolved Date [...] as of this encounter (statuses as of 12/11/2022) Immunizations Name Administration Dates Next Due COVID-19 mRNA, LNP-s, No Pre serve, 2-Dose Series ([employer]) 12/10/2021,03/05/2021,08/07/2020,07/12 Pneumococcal Conjugate Vacc, 13 Valent (Prevnar) [...] Telephone Encounter - Nataly Marroquin LPN - 12/04/2022 2:59 PM EDT Forms on provider's desk for review & signtaure * Telephone Encounter - Maryellen Agustin - 12/04/2022 12:41 PM EDT 12/04/22 Rec paperwork from [facility] [place] for pt that needs to be completed RONEY. When paperwork is completed, please call [phone] for paperwork to be picked up. documented in this encounter Plan of Treatment Upcoming Encounters Date Type Specialty Care Team Description 01/14/2023 Office Visit Family Medicine Arun Del Rio MD [address] [place] [address] 02/26/2023 Office Visit Rheumatology [place], Mary Breann, PA-C 03/10/2023 Office Visit Hematology Oncology Brennon German MD [address] [facility] [place] [address] 06/03/2023 [facility] [address] [facility] [address] 07/06/2023 Office Visit Cardiology Gil Juares MD [address] [place] [address] 09/10/2023 Office Visit Dermatology Leigh June PA-C [address] [place] [address] [place] [address] 12/11/2023 Office Visit Nephrology Jabari Morales MD [address] [place], [place] [address] Health Maintenance Due Date Last Done Comments [...] Additional history exists CKD PHOS USE SMARTSET 22329 05/14/202304/18, 08/14/2021, 04/25/2021, Additional history exists Depression Screening, Annual for Pts 12 and Over 06/03/2023 06/03/2022 CKD HGB USE SMARTSET 33276 10/11/202310/10, 10/10/2022, 05/14/2022, Additional history exists DTaP,Tdap,and Td Vaccines (2 - Td or Tdap) 02/10/2024 02/09/2014 Pneumococcal Vaccine: 65+ Years Completed 10/11/2014, 09/08/2013 Zoster Vaccines Completed 12/31/2017, 09/16, 03/18/2015 VITAMIN D LEVEL ONCE IN A LIFETIME-USE SMARTSET# [id number] Completed 05/14/2022, 08/14/2021, 05/04/2020, Additional history exists [...] and were consensually agreed upon. Care Teams Certified Medical Assistant Relationship Specialty Start Date End Date Arun Del Rio MD [address] [place], [place] [address] PCP - General Family Medicine 06/30/18 documented as of this encounter
--- OUTSIDE RECORDS SUMMARY | 2023-04-05 10:09 | External Medical Summary | Summary of Care ---
Author Name Unknown Organization [facility] Address [address] [place] [address] Phone [phone] Care Team Providers Care Curtain Mender Name Role Phone Arun Del Rio MD Primary Care Provider [phone] Reason for Visit * Reason Onset Date Comments Fax 12/03/2022 [facility] Encounter Details Date Type Department Care Team Description 12/03/2022 Telephone [facility] [address] [place] [address] Arun Del Rio MD [address], [place] [phone] Fax ([facility]) Allergies Active Allergy Reactions Severity Noted Date Comments Alendronate Tachycardia 11/02/2014 Patient felt like she was having a heart attack Bee Venom Anaphylaxis High 10/11/2014 Iodinated Contrast Media 07/22/2013 Cephalexin 08/09/2013 Hot and flushed , nausea 2012 Lisinopril 07/21/2018 documented as of this encounter (statuses as of 12/03/2022) Medications Medication Sig Dispensed Refills Start Date [...] s:Hyperlipidemia with target LDL less than 100 Take [...] Thursday only. 30 Tablet 4 10/15/2022 Active ALPRAZolam 0.5 MG Oral Tablet (xaNAX) TAKE 1 TABLET BY MOUTH AT BEDTIME NEEDED FOR SLEEP 25 Tablet 0 10/24/2022 Active Famotidine 20 MG Oral Tablet (Pepcid)Indications:G astroesophageal reflux disease, unspecified whether esophagitis present TAKE 1 TABLET BY MOUTH ONCE DAILY 90 Tablet 3 12/01/2022 Active documented as of this encounter (statuses as of 12/03/2022) Active Problems Problem Noted Date Gastroesophageal reflux [...] as of this encounter (statuses as of 12/03/2022) Resolved Problems Problem Noted Date Resolved Date [...] as of this encounter (statuses as of 12/03/2022) Immunizations Name Administration Dates Next Due COVID-19 mRNA, LNP-s, No Pre serve, 2-Dose Series ([employer]) 12/10/2021,03/05/2021,08/07/2020,07/12 Pneumococcal Conjugate Vacc, 13 Valent (Prevnar) [...] 11:10 AM EDT Reason for Call: Fax ([facility]) Contact: Telephone Call Contact Type: Other: Fax Outcome: Faxed with confirmation received Total Time including non face to face (minutes): 10 * Telephone Encounter - Angelica Eaton LPN - 12/03/2022 10:58 AM EDT Provider to address: Valerie is returning phone call and states that the pt is going to be moving innext week as a new resident. Reason for Call: Fax ([facility]) Contact: Telephone Call Contact Type: Care Coordination Total Time including non face to face (minutes): 5 * Telephone Encounter - Lsisette Harry LPN - 12/03/2022 10:54 AM EDT Left message for the main number to have someone or Valerie call back, Please ask if this patient derick patient there also? If so then send to [place] lois to have the request taken care of. * Telephone Encounter - JD Joseph - 12/03/2022 9:29 AM EDT Reason for Valerie's call: requesting to speak with the clinic Please contact Valerie at: [phone] * Telephone Encounter - JD Adrian - 12/03/2022 9:21 AM EDT Spoke to Rose at [facility] [place] to verify fax number and to make sure this was requested. Per Rose, there is no resident named Juanis Rodriguez at their facility. Info not sent. 12/03/2022 * Telephone Encounter - JD Richards - 12/03/2022 8:00 AM EDT Valerie calling from [facility] in [place] to request History & Physical, med list, demographics, recent office notes to be faxed to [phone]. documented in this encounter Plan of Treatment Upcoming Encounters Date Type Specialty Care Team Description 12/09/2022 Office Visit Nephrology Jab[facility] Morales MD [facility] [place] [id number] 01/14/2023 Office Visit Family Medicine Arun Del Rio MD [address] [place] [address] 02/26/2023 Office Visit Rheumatology Mary Crews PAShantelC 03/10/2023 Office Visit Hematology Oncology Brennon German MD [address] [place], [place] [address] 06/03/2023 Nurse Only [facility], Nurse [facility] [address] [place] [address] 07/06/2023 Office Visit Cardiology Gil Juares MD [address] [place] [address] 09/10/2023 Office Visit Dermatology Leigh June PAJessica [address] [place] [address] [place] [address] Health Maintenance Due Date Last Done Comments [...] Additional history exists CKD PHOS USE SMARTSET 38834 05/14/202304/18, 08/14/2021, 04/25/2021, Additional history exists Depression Screening, Annual for Pts 12 and Over 06/03/2023 06/03/2022 CKD HGB USE SMARTSET 70754 10/11/202310/10, 10/10/2022, 05/14/2022, Additional history exists DTaP,Tdap,and Td Vaccines (2 - Td or Tdap) 02/10/2024 02/09/2014 Pneumococcal Vaccine: 65+ Years Completed 10/11/2014, 09/08/2013 Zoster Vaccines Completed 12/31/2017, 09/16, 03/18/2015 VITAMIN D LEVEL ONCE IN A LIFETIME-USE SMARTSET# [id number] Completed 05/14/2022, 08/14/2021, 05/04/2020, Additional history exists [...] and were consensually agreed upon. Care Teams Curtain Mender Relationship Specialty Start Date End Date Arun Del Rio MD [address] [place] [address] PCP - General Family Medicine 06/30/18 documented as of this encounter
--- OUTSIDE RECORDS SUMMARY | 2023-04-05 10:09 | External Medical Summary ---
Author Name Unknown Address Unknown Organization K01[place] [place] [address] [place] [address] Laboratory Report Ordering Provider Test Date Status 10/15/2022 08:55:40 Final Observation Date Value Abnormality Reference (Units ) Status Vitamin B12 10/15/2022 08:55:40 232 711-1046 (pg/mL) Final Performing Location [facility] - [address] [place] [address]
--- OUTSIDE RECORDS SUMMARY | 2023-04-05 10:09 | External Medical Summary | Summary of Care ---
Author Name Unknown Organization [facility] Address [address] [place] [address] Phone [phone] Care Team Providers Care Refund Specialist Name Role Phone Arun Del Rio MD Primary Care Provider [phone] Reason for Visit * Reason Comments Follow Up Review medications Encounter Details Date Type Department Care Team Description 10/15/2022 Office Visit [facility] [address] [place] [address] Darrin Cook MD [address] [place] [address] Iron deficiency anemia, unspecified iron deficiency anemia type*; Alzheimer's dementia of other onset, with other behavioral disturbance, unspecified dementia severity (HCC); HTN, goal below 150/90; Acquired hypothyroidism; Hyperlipidemia with target LDL less than 100; Stage 3b chronic kidney disease (HCC); SALAZAR (generalized anxiety disorder); Major depressive disorder, recurrent episode, mild (HCC); Gastroesophageal reflux disease without esophagitis Allergies Active Allergy Reactions Severity Noted Date [...] mRNA, LNP-s, No Pre serve, 2-Dose Series ([employer]) 12/10/2021,03/05/2021,08/07/2020,07/12 Pneumococcal Conjugate Vacc, 13 Valent (Prevnar) [...] Sign Reading Time Taken Comments Blood Pressure 100/52 10/15/2022 8:10 AM EDT Pulse 66 10/15/2022 8:10 AM EDT Temperature - - Respiratory Rate 18 10/15/2022 8:10 AM EDT Oxygen Saturation 95% 10/15/2022 8:10 AM EDT Inhaled Oxygen Concentration - - Weight 60.8 kg (134 lb) 10/15/2022 8:10 AM EDT Height 151.1 cm (4' 11.5") 10/15/2022 8:10 AM ED T Body Mass Index 26.61 10/15/2022 8:10 AM EDT documented in this encounter Progress Notes * Darrin Cook MD - 10/15/2022 8:10 AM EDT Images from the original note were not included. Assessment and Plan Patient presenting for med check. Numerous outdated p.r.n. medications discarded appropriately. Blister packs have appropriate medications. Discussed appropriate use of her p.r.n. meds. Also discussed her drop in hemoglobin from 11.6 in February 2022 to 9.4 in September 2022. Start workup with iron studies, B12, folate. Discussed potential referral to GI to discuss risks benefit of colonoscopy, however,patient and significant other would like to wait until lab work results prior to initiating this referral. I do suspect that her general feeling of unwell/confusion/brain fog is mostly related to worsening dementia which her significant other reports has been notable over the last 6 months. Anemia may be playing some role in fatigue which warrants further workup, however, I do think that potential for significant gains in the future are limited. 1. Alzheimer's dementia of other onset, with other behavioral disturbance, unspecified dementia severity (HCC) 2. Iron deficiency anemia, unspecified iron deficiency anemia type - IRON SCREEN, INCLUDING TIBC; Future - FERRITIN; Future - VITAMIN B12; Future - FOLIC ACID; Future 3. HTN, goal below 150/90 4. Acquired hypothyroidism 5. Hyperlipidemia with target LDL less than 100 6. Stage 3b chronic kidney disease (HCC) 7. SALAZAR (generalized anxiety disorder) 8. Major depressive disorder, recurrent episode, mild (HCC) 9. Gastroesophageal reflux disease without esophagitis Wrap-Up Follow up as scheduled with PCP. History of Present Illness The patient is an 87-year-old female with past medical history of Alzheimer's dementia, chronic kidney disease stage IIIB, hypertension, osteoporosis, major depressive disorder who presents for med check. Patient presenting for med check. At last visit with this provider she noted she has numerous medications at home that are is old as 10+ years. Given dementia there was concern that she was taking med she should not be or missing meds that were appropriately prescribed. She did recently see her PCPwho noted that Alzheimer's dementia is progressing and options moving forward or limited. Patient was seen by [facility] on 10/12/2022. There was confusion about medication she was taking at that time and the [facility] called [facility]. Pharmacy confirms the patient has a blister pack that contains Lexapro 10 mg, levothyroxine 50 mcg, metoprolol ER 25 mg and donepezil 5 mg in the morning. She takes amlodipine 2.5 mg, pravastatin 40 mg, and losartan 100 mg at night. Her p.r.n. medication should include Zofran, famotidine, alprazolam, eyedrops, chlorhexidine,mupirocin. These p.r.n. medications prescribed outside of her pill pack. Recent lab work was reviewed collected on 10/10/2022. Lipid panel was reassuring. Creatinine/GFR isrelatively stable. It was noted that her hemoglobin has dropped from 11.6 in February 2022 to 9.4 onmost recent check. It would be reasonable to get iron studies. Patient also may benefit from colonoscopy, however, question goals of care given advanced dementia and age. Iron level was 60 in February2022. Physical Exam Vitals: 10/15/22 0810 Pulse: 66 Resp: 18 SpO2: 95% BP: 100/52 BMI: 26.62 Physical Exam Physical Exam Vitals reviewed. Constitutional: General: She is not in acute distress. Comments: Using cane to aid in ambulation. Cardiovascular: Rate and Rhythm: Normal rate and regular rhythm. Heart sounds: No murmur heard. Pulmonary: Effort: Pulmonary effort is normal. No respiratory distress. Breath sounds: Normal breath sounds. Neurological: Mental Status: She is alert. Psychiatric: Comments: Clear memory deficits during discussion. Repetitive questioning. Needs redirection by significant other to keep up with conversation. Time: I spent a total of 40-54 minutes (exact time 42 mins) on the date of service in preparation, delivery, and documentation of the care provided to the patient excluding any time spent in the performance of separately billed services. documented in this encounter Nursing Notes * Cassie Davies LPN - 10/15/2022 8:18 AM EDT The patient has been properly identified by confirmation of name and date of . Chief Complaint Patient presents with Follow Up Review medications documented in this encounter Plan of Treatment Upcoming Encounters Date Type Specialty Care Team Description 12/09/2022 Office Visit Nephrology Jabari Morales MD [address] [place] [address] 01/14/2023 Office Visit Family Medicine Arun Del Rio MD [address] [place] [address] 02/26/2023 Office [facility] [address] [facility] [address] 03/10/2023 Office Visit Hematology Oncology Brennon German MD [address] [place] [address] 06/03/2023 Nurse Only [facility], Nurse [facility] [address] [place] [address] 07/06/2023 Office Visit Cardiology Gil Juares MD [address] [place] [address] 09/10/2023 Office Visit Dermatology Leigh June PAJessica [address] [place] [address] [place] [address] Pending Results Name Type Priority Associated Diagnoses [...] deficiency anemia type 10/15/2022 8:55 AM EDT Scheduled Orders Name Type Priority Associated Diagnoses Orde r Schedule IRON SCREEN, INCLUDING TIBC Lab Routine Iron deficiency anemia, unspecified iron deficiency anemia type Expected: 10/15/2022 (Approximate), Expires: 10/15/2023 FERRITIN Lab Routine Iron deficiency anemia, unspecified iron deficiency anemia type Expected: 10/15/2022 (Approximate), Expires: 10/15/2023 VITAMIN B12 Lab Routine Iron deficiency anemia, unspecified iron deficiency anemia type Expected: 10/15/2022 (Approximate), Expires: 10/15/2023 FOLIC ACID Lab Routine Iron deficiency anemia, unspecified iron deficiency anemia type Expected: 10/15/2022 (Approximate), Expires: 10/15/2023 Health Maintenance Due Date Last Done Comments [...] Additional history exists CKD PHOS USE SMARTSET 63154 05/14/202304/18, 08/14/2021, 04/25/2021, Additional history exists Depression Screening, Annual for Pts 12 and Over 06/03/2023 06/03/2022 CKD HGB USE SMARTSET 67164 10/11/202310/10, 10/10/2022, 05/14/2022, Additional history exists DTaP,Tdap,and Td Vaccines (2 - Td or Tdap) 02/10/2024 02/09/2014 Pneumococcal Vaccine: 65+ Years Completed 10/11/2014, 09/08/2013 Zoster Vaccines Completed 12/31/2017, 09/16, 03/18/2015 Influenza Vaccine (FLU shot) Completed 02/2022, 02/15/2021, 02/22/2020, Additional history exists VITAMIN D LEVEL ONCE IN A LIFETIME-USE SMARTSET# [id number] Completed 05/14/2022, 08/14/2021, 05/04/2020, Additional history exists [...] anemia, unspecified iron deficiency anemia type- Primary Alzheimer's dementia of other onset, with other behavioral disturbance, unspecified dementia severity (HCC) HTN, goal below 150/90 Acquired hypothyroidism Unspecified hypothyroidism Hyperlipidemia with target LDL less than 100 Other and unspecified hyperlipidemia Stage 3b chronic kidney disease (HCC) SALAZAR (generalized anxiety disorder) Generalized anxiety disorder Major depressive disorder, recurrent episode, mild (HCC) Major depressive disorder, recurrent episode, mild Gastroesophageal reflux disease without esophagitis Esophageal reflux documented in this encounter Advance Directives Latest [...] and were consensually agreed upon. Care Teams Refund Specialist Relationship Specialty Start Date End Date Arun Del Rio MD [address] [place] [address] PCP - General Family Medicine 06/30/18 documented as of this encounter
--- OUTSIDE RECORDS SUMMARY | 2023-04-05 10:09 | External Medical Summary | Summary of Care ---
Author Name Unknown Organization [facility] Address [address] [place] [address] Phone [phone] Care Team Providers Care [employer] Teacher Name Role Phone Arun Del Rio MD Primary Care Provider [phone] Reason for Visit * Reason Onset Date Comments Abnormal Test Results 10/15/2022 Encounter Details Date Type Department Care Team Description 10/15/2022 Telephone [facility] [address] [place] [address] SeptemberDarrin MD [address] [place] [address] Abnormal Test Results Allergies Active Allergy Reactions Severity Noted Date Comments Alendronate Tachycardia 11/02/2014 Patient felt like she was having a heart attack Bee Venom Anaphylaxis High 10/11/2014 Iodinated Contrast Media 07/22/2013 Cephalexin 08/09/2013 Hot and flushed , nausea 2012 Lisinopril 07/21/2018 documented as of this encounter (statuses as of 10/17/2022) Medications Medication Sig Dispensed Refills Start Date [...] as of this encounter (statuses as of 10/17/2022) Active Problems Problem Noted Date Gastroesophageal reflux [...] as of this encounter (statuses as of 10/17/2022) Resolved Problems Problem Noted Date Resolved Date [...] as of this encounter (statuses as of 10/17/2022) Immunizations Name Administration Dates Next Due COVID-19 mRNA, LNP-s, No Pre serve, 2-Dose Series ([employer]) 12/10/2021,03/05/2021,08/07/2020,07/12 Pneumococcal Conjugate Vacc, 13 Valent (Prevnar) [...] encounter Miscellaneous Notes * Telephone Encounter - Cassie Davies LPN - 10/17/2022 8:54 AM EDT Left message for patient to return call * Telephone Encounter - Darrin Cook MD - 10/15/2022 7:27 PM EDT Can we please notify patient and significant other that iron studies show significantly low iron. Irecommend iron 325 mg Thursday. Patient does have history of constipation and therefore I am concerned about daily dosing. Ideally this would be in her pill packs. I have prescribed the medicine to [facility] in [place]. Darrin Cook MD documented in this encounter Plan of Treatment Upcoming Encounters Date Type Specialty Care Team Description 12/09/2022 Office Visit Nephrology Jabari Morales MD [address] [place] [address] 01/14/2023 Office Visit Family Medicine Arun Del Rio MD [address] [place] [address] 02/26/2023 Office Visit Rheumatology Mary Crews PAS[facility]el[facility] [address] [place] [address], [place] [address] 03/10/2023 Office Visit Hematology Oncology Brennon German MD [address] [place] [address] 06/03/2023 Nurse Only [facility] [place], [facility] [address] [place] [address] 07/06/2023 Office Visit Cardiology Gil Juares MD [address] [place] [address] 09/10/2023 Office Visit Dermatology Leigh June PAShantelC [address] [place] [address] [place] [id number] Health Maintenance Due Date Last Done Comments [...] Additional history exists CKD PHOS USE SMARTSET 47176 05/14/202304/18, 08/14/2021, 04/25/2021, Additional history exists Depression Screening, Annual for Pts 12 and Over 06/03/2023 06/03/2022 CKD HGB USE SMARTSET 92092 10/11/202310/10, 10/10/2022, 05/14/2022, Additional history exists DTaP,Tdap,and Td Vaccines (2 - Td or Tdap) 02/10/2024 02/09/2014 Pneumococcal Vaccine: 65+ Years Completed 10/11/2014, 09/08/2013 Zoster Vaccines Completed 12/31/2017, 09/16, 03/18/2015 Influenza Vaccine (FLU shot) Completed 02/2022, 02/15/2021, 02/22/2020, Additional history exists VITAMIN D LEVEL ONCE IN A LIFETIME-USE SMARTSET# [id number] Completed 05/14/2022, 08/14/2021, 05/04/2020, Additional history exists [...] and were consensually agreed upon. Care Teams [employer] Teacher Relationship Specialty Start Date End Date Arun Del Rio MD [address] [place] [address] PCP - General Family Medicine 06/30/18 documented as of this encounter
--- OUTSIDE RECORDS SUMMARY | 2023-04-05 10:09 | External Medical Summary | Summary of Care ---
Author Name Unknown Organization [facility] Address [address] [facility] [address] Phone [phone] Care Team Providers Care Scheduling Administrator Name Role Phone Arun Del Rio MD Primary Care Provider Reason for Visit * Reason Comments eRx-Medication Refill Encounter Details Date Type Department Care Team Description 12/06/2022 [address] [place] [address] Kristin Juares MD [address] [place] [address] Hyperlipidemia with target LDL less than 100 Allergies Active Allergy Reactions Severity Noted Date Comments Alendronate Tachycardia 11/02/2014 Patient felt like she was having a heart attack Bee Venom Anaphylaxis High 10/11/2014 Iodinated Contrast Media 07/22/2013 Cephalexin 08/09/2013 Hot and flushed , nausea 2013 Lisinopril 07/21/2018 documented as of this encounter (statuses as of 12/08/2022) Medications Medication Sig Dispensed Refills Start Date [...] ONCE DAILY 90 Tablet 0 12/08/2022 Active Pravastatin Sodium 40 MG Oral Tablet (Pravachol)Indicati ons:Hyperlipidemia with target LDL less than 100 Take 1 Tablet by mouth in the morning. 90 Tablet 0 09/15/2022 12/09/19 23 Discontinued documented as of this encounter (statuses as of 12/08/2022) Active Problems Problem Noted Date Gastroesophageal reflux [...] as of this encounter (statuses as of 12/08/2022) Resolved Problems Problem Noted Date Resolved Date [...] as of this encounter (statuses as of 12/08/2022) Immunizations Name Administration Dates Next Due COVID-19 [...] encounter Miscellaneous Notes * Telephone Encounter - Kristin Juares MD - 12/08/2022 10:50 AM EDTSigned Prescriptions: Disp Refills Pravastatin Sodium 40 MG Oral Tablet (Prav*90 Tab*0 Sig: TAKE 1 TABLET BY MOUTH ONCE DAILY Authorizing Provider: KRISTIN JUARES * Telephone Encounter - Saad Lowe, [facility] - 12/08/2022 10:22 AM EDT Pending Prescriptions: Disp Refills Pravastatin Sodium 40 MG Oral Tablet [Phar*90 Tab*0 Sig: TAKE 1 TABLET BY MOUTH ONCE DAILY * Telephone Encounter - Saad Lowe, [facility] - 12/08/2022 10:22 AM EDT Pending Prescriptions: Disp Refills Pravastatin Sodium 40 MG Oral Tablet [Phar*90 Tab*0 Sig: TAKE 1 TABLET BY MOUTH ONCE DAILY 09/15/2022 (in office), 09/30/2019 (telemedicine) 07/06/2023 If no future appointments scheduled, and last appointment is greater than a year ago, please schedule patient for a follow-up appointment Last date the medication was ordered: 09/15/22 [facility]: [id number] [address] [facility] Is this request for a controlled substance?No Urine Drug Screen:No results found for this or any previous visit. Patient Phone Numbers Labs: Lab Results Component Value Date/Time CREAT 1.3 (H) 10/10/2022 04:09 PM CREAT 1.4 (H) 05/04/2020 09:30 AM POTASSIUM 3.7 10/10/2022 04:09 PM POTASSIUM 4.2 05/04/2020 09:30 AM TSH 2.37 12/09/2021 03:22 PM TSH 2.97 05/04/2020 09:30 AM LDLCALC 84 10/10/2022 04:09 PM LDLCALC 80 05/04/2020 09:30 AM LDLDIRECT NOT APPLICABLE 05/04/2020 09:30 AM ALT 14 01/27/2022 10:28 AM ALT 15 05/04/2020 09:30 AM * Telephone Encounter - Interface, [facility] - 12/08/2022 6:13 AM EDT Pending Prescriptions: Disp Refills Pravastatin Sodium 40 MG Oral Tablet [Phar*90 Tab*0 Sig: TAKE 1TABLET BY MOUTH ONCE DAILY documented in this encounter Plan of Treatment Upcoming Encounters Date Type Specialty Care Team Description 12/09/2022 Office Visit Nephrology Jabari Morales MD [address] [place] [address] 01/14/2023 Office Visit Family Medicine Arun Del Rio MD [address] [facility] [place] [address] 02/26/2023 Office Visit Rheumatology Mary Crews PA-C 03/10/2023 Office Visit Hematology Oncology Brennon German MD [address] [place], [place] [phone] 06/03/2023 Nurse Only Ivana Nagel, [facility] [address] [facility] [address] 07/06/2023 Office Visit Cardiology Kristin Juares MD [address] [place] [address] 09/10/2023 Office Visit Dermatology ShayleeLeigh PA-C [address] [place] [address] [place] [address] Health Maintenance Due Date Last Done Comments [...] Additional history exists CKD PHOS USE SMARTSET 28436 05/14/202304/18, 08/14/2021, 04/25/2021, Additional history exists Depression Screening, Annual for Pts 12 and Over 06/03/2023 06/03/2022 CKD HGB USE SMARTSET 39176 10/11/202310/10, 10/10/2022, 05/14/2022, Additional history exists DTaP,Tdap,and Td Vaccines (2 - Td or Tdap) 02/10/2024 02/09/2014 Pneumococcal Vaccine: 65+ Years Completed 10/11/2014, 09/08/2013 Zoster Vaccines Completed 12/31/2017, 09/16, 03/18/2015 VITAMIN D LEVEL ONCE IN A LIFETIME-USE SMARTSET# [id number] Completed 05/14/2022, 08/14/2021, 05/04/2020, Additional history exists [...] as of this encounter Visit Diagnoses Diagnosis Hyperlipidemia with target LDL less than 100 Other and unspecified hyperlipidemia documented in this encounter Advance Directives Latest [...] and were consensually agreed upon. Care Teams Scheduling Administrator Relationship Specialty Start Date End Date Arun Del Rio MD [address] [place] [address] PCP - General Family Medicine 06/30/18 documented as of this encounter
--- OUTSIDE RECORDS SUMMARY | 2023-04-05 10:09 | External Medical Summary | Summary of Care ---
Author Name Unknown Organization [facility] Address [address] [place] [address] Phone [phone] Care Team Providers Care Able Bodied Watchman Name Role Phone Arun Del Rio MD Primary Care Provider [phone] Reason for Visit * Reason Onset Date Comments FYI 10/12/2022 Encounter Details Date Type Department Care Team Description 10/12[facility] [place] [address] [place] [address] Christina Castillo PA-C [address] [place] [address] Allergies Active Allergy Reactions Severity Noted Date Comments Alendronate Tachycardia 11/02/2014 Patient felt like she was having a heart attack Bee Venom Anaphylaxis High 10/11/2014 Iodinated Contrast Media 07/22/2013 Cephalexin 08/09/2013 Hot and flushed , nausea 2013 Lisinopril 07/21/2018 documented as of this encounter (statuses as of 10/29/2022) Medications Medication Sig Dispensed Refills Start Date [...] THE DAY. 90 Tablet 0 10/15/2022 Active documented as of this encounter (statuses as of 10/29/2022) Active Problems Problem Noted Date Gastroesophageal reflux [...] as of this encounter (statuses as of 10/29/2022) Resolved Problems Problem Noted Date Resolved Date [...] as of this encounter (statuses as of 10/29/2022) Immunizations Name Administration Dates Next Due COVID-19 mRNA, LNP-s, No Pre serve, 2-Dose Series ([employer]) 12/10/2021,03/05/2021,08/07/2020,07/12 Pneumococcal Conjugate Vacc, 13 Valent (Prevnar) [...] Telephone Encounter - Darrin Cook MD - 10/14/2022 12:25 PM EDT Noted thanks. Darrin Cook MD * Telephone Encounter - Christina Castillo PA-C - 10/12/2022 1:01 PM EDT Patient comes to clinic with close friend. Explains that she was told by PCP that she is to see them for feeling shaky and confused and has an appointment Thursday, but wanted to be seen sooner so is here. She does not have her medications with her. Friend notes that patient has advanced dementia and just needs to be told that she needs to wait for her PCP. Reviewed recent note by PCP and patient is not aware of what medications she is or is not taking. She tells pcp she is not taking donepezil and she tells me "[facility] doesn't have the prescription" and "they gave me a nausea medication instead" I called the pharmacist and they explain that patient is a long time patient with them. That they are "the only person in [place] that we make a blister pack for". They explain that patient has been taking donepezil as it is in her blister pack. They note that there was a mix up earlier this year where, while a visiting pharmacist was filling in for a pharmacist while on medical leave, the patient was given her pills in bottles. Upon return of the resident pharmacist, they worked to re-order and give patient her pills in blister pack, but is it unclear what medications the patient still has at home in bottles. I asked the pharmacist to send me the patient's current blister pack prescription. They also faxed over all meds the patient has been prescribed since the beginning of the year. I have this scanned and put into [employer]. The patient is taking Escitalopram 10mg, levothyroxine 50mcg, metoprolol ER 25mg and donepezil 5mg in the morning The patient is taking amlodipine 2.5mg, pravastatin 40mg, and losartan 100mg at night. Patient also has prn ondansetron, famotidine, alprazolam, eye drops (dorzol/timol op), chlorhexidine and mupirocin prescribed to her outside of pill pack. Document scanned to [facility]. Reinforced patient bring her actual medications that she has access to toOV with Primary care. Forwarding above for additional guidance/reference for PC who will see her this week. documented in this encounter Plan of Treatment Upcoming Encounters Date Type Specialty Care Team Description 12/09/2022 Office Visit Nephrology Jabari Morales MD [address] [place] [address] 01/14/2023 Office Visit Family Medicine Arun Del Rio [place] [facility] [address] 02/26/2023 Office Visit Rheumatology Mary Crews PA-C 03/10/2023 [facility] [address] 06/03/2023 Nurse Only Nurse [facility] [address] [place] [address] 07/06/2023 Office Visit Cardiology Gil Juares MD [address] [place] [address] 09/10/2023 Office Visit Dermatology Leigh June PA-C [address] [place] [address] [place] [phone] Health Maintenance Due Date Last Done Comments COVID-19 Vaccine (5 - Pfizer series) 02/04/2022 12/10/2021, 03/05/2021, 08/07/2020, Additional history exists *BISPHONATE OR OTHER ACCEPTABLE MEDICATION NEEDED FOR OSTEOPOROSIS (REFER TO SMARTSET #1146) 08/26/2022 TSH 12/09/2022 12/09/2021, 12/01/2021, 05/04/2020, Additional history exists DXA Scan 02/12/2023 02/12/2021, 01/16, 12/31/2016, Additional history exists Albumin/Creatinine Ratio 05/14/2023 022, 04/25/2021, 05/08/2020, Additional history exists CKD PHOS USE SMARTSET 67463 05/14/202304/18, 08/14/2021, 04/25/2021, Additional history exists Depression Screening, Annual for Pts 12 and Over 06/03/2023 06/03/2022 CKD HGB USE SMARTSET 49384 10/11/202310/10, 10/10/2022, 05/14/2022, Additional history exists DTaP,Tdap,and Td Vaccines (2 - Td or Tdap) 02/10/2024 02/09/2014 Pneumococcal Vaccine: 65+ Years Completed 10/11/2014, 09/08/2013 Zoster Vaccines Completed 12/31/2017, 09/16, 03/18/2015 Influenza Vaccine (FLU shot) Completed 02/2022, 02/15/2021, 02/22/2020, Additional history exists VITAMIN D LEVEL ONCE IN A LIFETIME-USE SMARTSET# 90387 Completed 05/14/2022, 08/14/2021, 05/04/2020, Additional history exists [...] and were consensually agreed upon. Care Teams Able Bodied Watchman Relationship Specialty Start Date End Date Arun Del Rio MD [address] [place] [address] PCP - General Family Medicine 06/30/18 documented as of this encounter
--- OUTSIDE RECORDS SUMMARY | 2023-04-05 10:09 | External Medical Summary | Summary of Care ---
Author Name Unknown Organization [facility] Address [address] [place] [facility] [place] [address] Phone [phone] Care Team Providers Care Television Installer Helper Name Role Phone Love Del Rio MD Primary Care Provider [phone] Reason for Visit * Reason Comments eRx-Medication Refill Encounter Details Date Type Department Care Team Description 10/10/2022 Refill [facility] [address] [place] [address] Love Del Rio MD [address] [place] [address] Alzheimer's dementia of other onset, with other [...] mouth in the morning. 34 Tab 5 0 Active acetaminophen (TYLENOL) 500 MG Tablet Take 2 Tablets by mouth every 6 hours as needed for Pain or Fever. 100 Tab 0 0 Active Docusate Sodium 100 MG Oral Tablet Take 1 Tablet by mouth 2 times a day as needed. 10 Tab 0 0 Active Polyethylene Glycol 3350 17 GM Oral Packet Take 1 Packet by mouth daily as needed. 0 Active Dorzolamide HCl-Timolol Mal 22.3-6.8 MG/ML Ophthalmic Solution (Cosopt) 1 drop in each eye 2 times daily 10 mL 3 2 Active Famotidine 20 MG Oral Tablet (Pepcid) TAKE 1 TABLET BY MOUTH ONCE DAILY 90 Tablet 3 2 Active Additional Information Patient not taking.Reported on 10/15/2022 Nitroglycerin 0.4 MG Sublingual Tablet Sublingual (Nitrostat)Indicati ons:Esophageal spasm MAY REPEAT DOSE IN 10 MINUTES NECESSARY, BEING USED FOR SPASM OF ESOPHAGUS 25 Tablet 2 2 Active traMADol HCl 50 MG Oral Tablet (Ultram)Indications :Generalized osteoarthritis Take by mouth 1 Tablet every 8 hours as needed for Pain, Moderate. 60 Tablet 0 2 Active Hydrocortisone 2.5 % External OintmentIndications :Prurigo nodularis,Lichenifi cation Apply to spots on face and back when itchy (x2 daily or more if needed) 60 g 0 3 Active ALPRAZolam 0.5 MG Oral Tablet (xaNAX) TAKE 1 TABLET BY MOUTH AT BEDTIME NEEDED FOR SLEEP. 30 Tablet 0 3 Active Escitalopram Oxalate 10 MG Oral Tablet (Lexapro)Indication s:Major depressive disorder, recurrent episode, mild (HCC) TAKE 1 TABLET BY MOUTH ONCE DAILY 90 Tablet 1 3 Active Levothyroxine Sodium 50 MCG Oral Tablet (Levoxyl)Indication s:Hypothyroidism, unspecified type Take 1 Tablet by mouth daily first thing in the morning. (at least 30 min prior to breakfast or other meds) 90 Tablet 3 3 Active Pravastatin Sodium 40 MG Oral Tablet (Pravachol)Indicati ons:Hyperlipidemia with target LDL less than 100 Take 1 Tablet by mouth in the morning. 90 Tablet 0 3 Active Losartan Potassium 100 MG Oral Tablet (Cozaar)Indications :Hypothyroidism, unspecified type,Hyperlipidemia with target LDL less than 100,HTN, goal below 150/90 Take 1 Tablet by mouth in the morning. 90 Tablet 1 3 Active Metoprolol Succinate ER 25 MG Oral Tablet Extended Release 24 Hour (toPROL XL)Indications:HTN, goal below 150/90 Take 1 Tablet by mouth in the morning. 90 Tablet 1 3 Active amLODIPine Besylate 2.5 MG Oral Tablet (Norvasc)Indication s:HTN, goal below 150/90 Take 1 Tablet by mouth in the morning. 100 Tablet 3 3 Active Ondansetron HCl 4 MG Oral Tablet (Zofran)Indications :Nausea without vomiting TAKE 1 TABLET BY MOUTH EVERY 6 HOURS NEEDED FOR NAUSEA 20 Tablet 1 3 Active Donepezil HCl 5 MG Oral Tablet (Aricept)Indication s:Alzheimer's dementia of other onset, with other behavioral disturbance, unspecified dementia severity (HCC) TAKE ONE TABLET IN THE MORNING. TAKE WITH THE LARGEST MEAL OF THE DAY. 90 Tablet 0 3 Active Donepezil HCl 5 MG Oral Tablet (Aricept)Indication s:Alzheimer's dementia of other onset, with other behavioral disturbance, unspecified dementia severity (HCC) Take by mouth 1 Tablet in the morning. Take with largest meal of the day.. 90 Tablet 3 2 10/16/19 23 Discontinued documented as of this encounter [...] Encounter - Love Del Rio MD - 10/15/2022 1:50 PM EDTSigned Prescriptions: Disp Refills Donepezil HCl 5 MG Oral Tablet (Aricept) 90 Tab*0 Sig: TAKE ONE TABLET IN THE MORNING. TAKE WITH THE LARGEST MEAL OF THE DAY. Authorizing Provider: LOVE DEL RIO * Telephone Encounter - Nataly Marroquin LPN - 10/15/2022 8:47 AM EDTPending Prescriptions: Disp Refills Donepezil HCl 5 MG Oral Tablet [Pharmacy M*90 Tab*0 Sig: TAKE ONE TABLET IN THE MORNING. TAKE WITH THE LARGEST MEAL OF THE DAY. * Telephone Encounter - Nataly Marroquin LPN - 10/15/2022 8:47 AM EDT Did you pend patient's preferred pharmacy and medication before forwarding?yes Pharmacy: [id number] [facility] Pending Prescriptions: Disp Refills Donepezil HCl 5 MG Oral Tablet (Aricept) *90 Tab*0 Sig: TAKE ONE TABLET IN THE MORNING. TAKE WITH THE LARGEST MEAL OF THE DAY. Last Visit: 10/10/2022 (in office), Visit date not found (telemedicine) Next Visit: 01/14/2023 If no future appointments scheduled, and last appointment is greater than a year ago, please schedule patient for a follow-up appointment Last date the medication was ordered: 03/08 Is this request for a controlled substance? Urine Drug Screen:No results found for this [...] Encounter - Interface, [facility] - 10/14/2022 6:38 PM EDT Pending Prescriptions: Disp Refills Donepezil HCl 5 MG Oral Tablet [Pharmacy M*90 Tab*0 Sig: TAKE ONE TABLET IN THE MORNING. TAKE WITH THE LARGEST MEAL OF THE DAY. * Telephone Encounter - Interface, [facility] - 10/12/2022 6:37 PM EDT Pending Prescriptions: Disp Refills Donepezil HCl 5 MG Oral Tablet [Pharmacy M*90 Tab*0 Sig: TAKE ONE TABLET IN THE MORNING. TAKE WITH THE LARGEST MEAL OF THE DAY. * Telephone Encounter - N[facility] - 10/11/2022 4:42 AM EDTPending Prescriptions: Disp Refills Donepezil HCl 5 MG Oral Tablet [Pharmacy M*90 Tab*0 Sig: TAKE ONE TABLET IN THE MORNING. TAKE WITH THE LARGEST MEAL OF THE DAY. documented in this encounter Plan of Treatment Upcoming Encounters Date Type Specialty Care Team Description 12/09/2022 Office Visit Nephrology Jabari Morales MD [address] [place] [address] 01/14/2023 Office Visit Family Medicine Love Del Rio MD [address] [place] [address] 02/26/2023 Office Visit Rheumatology Mary Crews PA-C [address] [place] [address] [place] [address] 03/10/2023 Office Visit Hematology Oncology Brennon German MD [address] [place] [address] 06/03/2023 Nurse Only [facility], Nurse [facility] [address] [place] [address] 07/06/2023 Office Visit Cardiology Gil Juares MD [address] [place] [address] 09/10/2023 Office Visit Dermatology Leigh June PA-C [address] [place] [address] [place] [phone] Health Maintenance Due Date Last Done Comments [...] Additional history exists CKD PHOS USE SMARTSET 29383 05/14/202304/18, 08/14/2021, 04/25/2021, Additional history exists Depression Screening, Annual for Pts 12 and Over 06/03/2023 06/03/2022 CKD HGB USE SMARTSET 12205 10/11/202310/10, 10/10/2022, 05/14/2022, Additional history exists DTaP,Tdap,and Td Vaccines (2 - Td or Tdap) 02/10/2024 02/09/2014 Pneumococcal Vaccine: 65+ Years Completed 10/11/2014, 09/08/2013 Zoster Vaccines Completed 12/31/2017, 09/16, 03/18/2015 Influenza Vaccine (FLU shot) Completed 02/2022, 02/15/2021, 02/22/2020, Additional history exists VITAMIN D LEVEL ONCE IN A LIFETIME-USE SMARTSET# 55652 Completed 05/14/2022, 08/14/2021, 05/04/2020, Additional history exists [...] as of this encounter Visit Diagnoses Diagnosis Alzheimer's dementia of other onset, with other [...] and were consensually agreed upon. Care Teams Television Installer Helper Relationship Specialty Start Date End Date Love Del Rio MD [address] [facility] [place] [phone] PCP - General Family Medicine 06/30/18 documented as of this encounter
--- OUTSIDE RECORDS SUMMARY | 2023-04-05 10:09 | External Medical Summary | Summary of Care ---
Author Name Unknown Organization [facility] Address [address] [place] [facility] [place] [place] [address] Phone [phone] Care Team Providers Care Needle Molder Name Role Phone Love Del Rio MD Primary Care Provider [phone] Reason for Visit * Reason Comments eRx-Medication Refill Encounter Details Date Type Department Care Team Description 10/23/2022 Refill [facility] [address] [place] [address] Love Del Rio MD [address] [place] [address] Allergies Active Allergy Reactions Severity Noted Date Comments Alendronate Tachycardia 11/02/2014 Patient felt like she was having a heart attack Bee Venom Anaphylaxis High 10/11/2014 Iodinated Contrast Media 07/22/2013 Cephalexin 08/09/2013 Hot and flushed , nausea 2013 Lisinopril 07/21/2018 documented as of this encounter (statuses as of 10/24/2022) Medications Medication Sig Dispensed Refills Start Date [...] if needed) 60 g 0 3 Active Escitalopram Oxalate 10 MG [...] THE DAY. 90 Tablet 0 3 Active Ferrous Sulfate 325 (65 Fe) MG Oral Tablet (Feosol)Indications :Iron deficiency anemia, unspecified iron deficiency anemia type Take 1 Tablet by mouth once a day on Thursday, Thursday, and Thursday only. 30 Tablet 4 3 Active ALPRAZolam 0.5 MG Oral Tablet (xaNAX) TAKE 1 TABLET BY MOUTH AT BEDTIME NEEDED FOR SLEEP 25 Tablet 0 3 Active ALPRAZolam 0.5 MG Oral Tablet (xaNAX) TAKE 1 TABLET BY MOUTH AT BEDTIME NEEDED FOR SLEEP. 30 Tablet 0 3 10/25/19 23 Discontinued documented as of this encounter (statuses as of 10/24/2022) Active Problems Problem Noted Date Gastroesophageal reflux [...] as of this encounter (statuses as of 10/24/2022) Resolved Problems Problem Noted Date Resolved Date [...] as of this encounter (statuses as of 10/24/2022) Immunizations Name Administration Dates Next Due COVID-19 mRNA, LNP-s, No Pre serve, 2-Dose Series ([employer]) 12/10/2021,03/05/2021,08/07/2020,07/12 Pneumococcal Conjugate Vacc, 13 Valent [...] Encounter - Love Del Rio MD - 10/24/2022 5:06 PM EDTSigned Prescriptions: Disp Refills ALPRAZolam 0.5 MG Oral Tablet (xaNAX) 25 Tab*0 Sig: TAKE 1 TABLET BY MOUTH AT BEDTIME NEEDED FOR SLEEPAuthorizing Provider: LOVE DEL RIO * Telephone Encounter - Sherri Gallegos [facility] - 10/24/2022 12:35 PM EDTPending Prescriptions: Disp Refills ALPRAZolam 0.5 MG Oral Tablet [Pharmacy Me*30 Tab*0 Sig: TAKE 1 TABLET BY MOUTH AT BEDTIME NEEDED FOR SLEEP. * Telephone Encounter - Sherri Gallegos [facility] - 10/24/2022 12:34 PM EDT I have reviewed the patients controlled substance dispensing history in the Prescription Drug Monitoring Program in compliance with the [facility] regulations before prescribing a controlled substance. PDMP checked on 10/24/2022. Pending Prescriptions: Disp Refills ALPRAZolam 0.5 MG Oral Tablet (xaNAX) [Ph*30 Tab*0 Sig: TAKE 1 TABLET BY MOUTH AT BEDTIME NEEDED FOR SLEEP Last Visit: 10/15/2022 (in office), Visit date not found (telemedicine) Next Visit: 01/14/2023 Date medication was last filled: 09/07/22 Date medication is due for refill: 10/06/22 Pharmacy: [id number] [facility] [address] [place] Is this request for a controlled substance? Yes and Urine Drug Screen Not completed Toxicology results: No results found for this or any previous visit. Please approve if appropriate. Thanks, Sherri Gallegos PharmD Clinical Pharmacist [facility] ([facility]) (formerly Telepharmacy). [phone] 10/24/2022, 12:34 PM documented in this encounter Plan of Treatment Upcoming Encounters Date Type Specialty Care Team Description 12/09/2022 Office Visit Nephrology Jabari Morales MD [address] [place] [address] 01/14/2023 Office Visit Family Medicine Love Del Rio MD [address] [place] [address] 02/26/2023 Office Visit Rheumatology Mary Crews PA-C [address] [facility] [place] [address] 03/10/2023 Office Visit Hematology Oncology Brennon German MD [address] [place] [address] 06/03/2023 Nurse Only [facility] [address] [place] [address] 07/06/2023 Office Visit Cardiology Gil Juares MD [address] [place] [address] 09/10/2023 Office Visit Dermatology Leigh June PA-C [address] [place] [address] [place] [phone] Health Maintenance Due Date Last Done Comments [...] Additional history exists CKD PHOS USE SMARTSET 03495 05/14/202304/18, 08/14/2021, 04/25/2021, Additional history exists Depression Screening, Annual for Pts 12 and Over 06/03/2023 06/03/2022 CKD HGB USE SMARTSET 47946 10/11/202310/10, 10/10/2022, 05/14/2022, Additional history exists DTaP,Tdap,and Td Vaccines (2 - Td or Tdap) 02/10/2024 02/09/2014 Pneumococcal Vaccine: 65+ Years Completed 10/11/2014, 09/08/2013 Zoster Vaccines Completed 12/31/2017, 09/16, 03/18/2015 Influenza Vaccine (FLU shot) Completed 02/2022, 02/15/2021, 02/22/2020, Additional history exists VITAMIN D LEVEL ONCE IN A LIFETIME-USE SMARTSET# 92028 Completed 05/14/2022, 08/14/2021, 05/04/2020, Additional history exists [...] and were consensually agreed upon. Care Teams Needle Molder Relationship Specialty Start Date End Date Love Del Rio MD [address] [place] [address] PCP - General Family Medicine 2/13/19 documented as of this encounter
--- OUTSIDE RECORDS SUMMARY | 2023-04-05 10:09 | External Medical Summary | Summary of Care ---
Author Name Unknown Organization [facility] Address [address] [place] [address] Phone [phone] Care Team Providers Care Grinder And Plater Name Role Phone Arun Del Rio MD Primary Care Provider [phone] Reason for Visit * Reason Onset Date Comments Abnormal Test Results 10/15/2022 Encounter Details Date Type Department Care Team Description 10/15/2022 Telephone [facility] [address] [place] [address] SeptemberDarrin MD [address] [place] [address] Abnormal Test Results Allergies Active [...] mRNA, LNP-s, No Pre serve, 2-Dose Series ([employer]) 12/10/2021,03/05/2021,08/07/2020,07/12 Pneumococcal Conjugate Vacc, 13 Valent [...] encounter Miscellaneous Notes * Telephone Encounter - Sydnie Maxwell LPN - 10/17/2022 9:27 AM EDT Patient returned call. Informed of message. Verbalized understanding. * Telephone Encounter - Cassie Davies LPN [...] have prescribed the medicine to [facility] in [place]. Darrin Cook MD documented in this encounter Plan of Treatment Upcoming Encounters Date Type Specialty Care Team Description 12/09/2022 Office Visit Nephrology Jabari Morales MD [address] [place] [address] 01/14/2023 Office Visit Family Medicine Arun Del Rio MD [address] [place] [address] 02/26/2023 Office Visit Rheumatology Mary Crews PAShantelC [address] [place] [address], [place] [address] 03/10/2023 Office Visit Hematology Oncology Brennon German MD [address] [place] [address] 06/03/2023 Nurse Only [facility] [address] [place] [address] 07/06/2023 Office Visit Cardiology Gil Juares MD [address] [place] [address] 09/10/2023 Office Visit Dermatology Leigh June PA-C [address] [place] [address] [place] [phone] Health Maintenance Due Date Last Done Comments COVID-19 Vaccine (5 - Booster for Pfizer series) 02/04/2022 12/10/2021, 03/05/2021, 08/07/2020, Additional history exists *BISPHONATE OR OTHER ACCEPTABLE MEDICATION NEEDED FOR OSTEOPOROSIS (REFER TO SMARTSET #1146) 08/26/2022 TSH 12/09/2022 12/09/2021, 1201/2021, 05/04/2020, Additional history exists DXA Scan 02/12/2023 02/12/2021, 01/16, 12/31/2016, Additional history exists Albumin/Creatinine Ratio 05/14/2023 022, 04/25/2021, 05/08/2020, Additional history exists CKD PHOS USE SMARTSET 82703 05/14/202304/18, 08/14/2021, 04/25/2021, Additional history exists Depression Screening, Annual for Pts 12 and Over 06/03/2023 06/03/2022 CKD HGB USE SMARTSET 69107 10/11/202310/10, 10/10/2022, 05/14/2022, Additional history exists DTaP,Tdap,and Td Vaccines (2 - Td or Tdap) 02/10/2024 02/09/2014 Pneumococcal Vaccine: 65+ Years Completed 10/11/2014, 09/08/2013 Zoster Vaccines Completed 12/31/2017, 09/16, 03/18/2015 Influenza Vaccine (FLU shot) Completed 02/2022, 02/15/2021, 02/22/2020, Additional history exists VITAMIN D LEVEL ONCE IN A LIFETIME-USE SMARTSET# 54183 Completed 05/14/2022, 08/14/2021, 05/04/2020, Additional history exists [...] and were consensually agreed upon. Care Teams Grinder And Plater Relationship Specialty Start Date End Date Arun Del Rio MD [address] [place] [address] PCP - General Family Medicine 06/30/18 documented as of this encounter
--- OUTSIDE RECORDS SUMMARY | 2023-04-05 10:09 | External Medical Summary ---
Author Name Unknown Address Unknown Organization K01:[facility] [place] [address] [place] [address] Laboratory Report Ordering Provider Test Date Status 10/15/2022 08:55:40 Final Observation Date Value Abnormality Reference (Units ) Status Iron 10/15/2022 08:55:40 30 Below low normal 33-151 (ug/dL) Final Iron-binding capacity 10/15/2022 08:55:40 266 250-425 (ug/dL) Final Transferrin Sat % 10/15/2022 08:55:40 11 Below low normal 15-55 (%) Final Performing Location [facility] [place] [address] [place] [address]
--- OUTSIDE RECORDS SUMMARY | 2023-04-05 10:09 | External Medical Summary | Summary of Care ---
Author Name Unknown Organization [facility] Address [address] [facility] [address] Phone [phone] Care Team Providers Care Sub Master Name Role Phone Arun Del Rio MD Primary Care Provider [phone] Reason for Visit * Reason Comments eRx-Medication Refill Encounter Details Date Type Department Care Team Description 11/29/2022 Refill Cardiology, [facility] [address] [facility] [place] [address] Kristin Juares MD [address] [place] [address] Gastroesophageal reflux disease, unspecified whether esophagitis present* Allergies Active Allergy Reactions Severity Noted Date Comments Alendronate Tachycardia 11/02/2014 Patient felt like she was having a heart attack Bee Venom Anaphylaxis High 10/11/2014 Iodinated Contrast Media 07/22/2013 Cephalexin 08/09/2013 Hot and flushed , nausea 2013 Lisinopril 07/21/2018 documented as of this encounter (statuses as of 12/01/2022) Medications Medication Sig Dispensed Refills Start Date [...] 10/24/2022 Active Famotidine 20 MG Oral Tablet (Pepcid)Indications :Gastroesophageal reflux disease, unspecified whether esophagitis present TAKE 1 TABLET BY MOUTH ONCE DAILY 90 Tablet 3 12/01/2022 Active Famotidine 20 MG Oral Tablet (Pepcid) TAKE 1 TABLET BY MOUTH ONCE DAILY 90 Tablet 3 03/14/2022 12/02/19 23 Discontinued documented as of this encounter (statuses as of 12/01/2022) Active Problems Problem Noted Date Gastroesophageal reflux [...] as of this encounter (statuses as of 12/01/2022) Resolved Problems Problem Noted Date Resolved Date [...] as of this encounter (statuses as of 12/01/2022) Immunizations Name Administration Dates Next Due COVID-19 mRNA, LNP-s, No Pre serve, 2-Dose Series ([employer]metric) 12/10/2021,03/05/2021,08/07/2020,07/12 Pneumococcal Conjugate Vacc, 13 Valent (Prevnar) [...] Telephone Encounter - Kristin Juares MD - 12/01/2022 1:00 PM EDTSigned Prescriptions: Disp Refills Famotidine 20 MG Oral Tablet (Pepcid) 90 Tab*3 Sig: TAKE 1 TABLET BY MOUTH ONCE DAILY Authorizing Provider: KRISTIN JUARES * Telephone Encounter - CORONA Vick - 12/01/2022 12:57 PM EDTPending Prescriptions: Disp Refills Famotidine 20 MG Oral Tablet (Pepcid) 90 Tab*3 Sig: TAKE 1 TABLET BY MOUTH ONCE DAILY * Telephone Encounter - CORONA Vick - 12/01/2022 12:56 PM EDT Did you pend patient's preferred pharmacy and medication before forwarding?yes Pharmacy: [id number] [address] Pending Prescriptions: Disp Refills Famotidine 20 MG Oral Tablet (Pepcid) [Ph*90 Tab*3 Sig: TAKE 1 TABLET BY MOUTH ONCE DAILY Last Visit: 09/15/2022 (in office), 09/30/2019 (telemedicine) Next Visit: 07/06/2023 If no future appointments scheduled, and last appointment is greater than a year ago, please schedule patient for a follow-up appointment Last date the medication was ordered: 03-14-2022 Is this request for a controlled substance?No [...] Encounter - Interface, E-Rx Ss Inbound - 12/01/2022 9:56 AM EDT Pending Prescriptions: Disp Refills Famotidine 20 MG Oral Tablet [Pharmacy Med*90 Tab*0 Sig: TAKE 1TABLET BY MOUTH ONCE DAILY documented in this encounter Plan of Treatment Upcoming Encounters Date Type Specialty Care Team Description 12/09/2022 Office Visit Nephrology Jabari Morales MD [address] [place] [address] 01/14/2023 Office Visit Family Medicine Arun Del Rio MD [address] [place] [address] 02/26/2023 Office Visit Rheumatology Mary Crews PA-C 03/10/2023 Office Visit Hematology Oncology Brennon German MD [address] [place] [address] 06/03/2023 Nurse Only Nurse [facility] [address] [place] [facility] [place] [address] 07/06/2023 Office Visit Cardiology Kristin Juares MD [address] [place] [address] 09/10/2023 Office Visit Dermatology Leigh June PA-C [address] [place] [address] [place] [address] Health Maintenance Due Date [...] Additional history exists CKD PHOS USE SMARTSET 03523 05/14/202304/18, 08/14/2021, 04/25/2021, Additional history exists Depression Screening, Annual for Pts 12 and Over 06/03/2023 06/03/2022 CKD HGB USE SMARTSET 78125 10/11/202310/10, 10/10/2022, 05/14/2022, Additional history exists DTaP,Tdap,and Td Vaccines (2 - Td or Tdap) 02/10/2024 02/09/2014 Pneumococcal Vaccine: 65+ Years Completed 10/11/2014, 09/08/2013 Zoster Vaccines Completed 12/31/2017, 09/16, 03/18/2015 VITAMIN D LEVEL ONCE IN A LIFETIME-USE SMARTSET# [id number] Completed 05/14/2022, 08/14/2021, 05/04/2020, Additional history exists [...] as of this encounter Visit Diagnoses Diagnosis Gastroesophageal reflux disease, unspecified whether esophagitis present- Primary documented in this encounter Advance Directives [...] and were consensually agreed upon. Care Teams Sub Master Relationship Specialty Start Date End Date Arun Del Rio MD [address] [place] [address] PCP - General Family Medicine 06/30/18 documented as of this encounter
--- OUTSIDE RECORDS SUMMARY | 2023-04-05 10:09 | External Medical Summary | Summary of Care ---
Author Name Unknown Organization [facility] Address [address] [place] [address] Phone [phone] Care Team Providers Care Visual Display Manager Name Role Phone Arun Del Rio MD Primary Care Provider [phone] Reason for Visit * Reason Comments Chronic Kidney Disease (CKD) Encounter Details Date Type Department Care Team Description 12/09/2022 Office Visit NephrologyChintan [address] [facility] [place] [address] Jabari Morales MD [address] [facility] [place] [place] [address] Stage 3b chronic kidney disease (HCC)*; Multiple renal cysts; HTN, goal below 150/90 Allergies Active Allergy Reactions Severity Noted Date Comments Alendronate Tachycardia 11/02/2014 Patient felt like she was having a heart attack Bee Venom Anaphylaxis High 10/11/2014 Iodinated Contrast Media 07/22/2013 Cephalexin 08/09/2013 Hot and flushed , nausea 2012 Lisinopril 07/21/2018 documented as of this encounter (statuses as of 12/09/2022) Medications Medication Sig Dispensed Refills Start Date [...] ONCE DAILY 90 Tablet 0 12/08/2022 Active documented as of this encounter (statuses as of 12/09/2022) Active Problems Problem Noted Date Gastroesophageal reflux [...] as of this encounter (statuses as of 12/09/2022) Resolved Problems Problem Noted Date Resolved Date [...] as of this encounter (statuses as of 12/09/2022) Immunizations Name Administration Dates Next Due COVID-19 mRNA, LNP-s, No Pre serve, 2-Dose Series ([employer]) 12/10/2021,03/05/2021,08/07/2020,07/12 Pneumococcal Conjugate Vacc, 13 Valent (Prevnar) [...] Sign Reading Time Taken Comments Blood Pressure 128/63 12/09/2022 1:53 PM EDT Pulse 67 12/09/2022 1:53 PM EDT Temperature 37.3 C (99.2 F) 12/09/2022 1:53 PM ED T Respiratory Rate 18 12/09/2022 1:53 PM EDT Oxygen Saturation 96% 12/09/2022 1:53 PM EDT Inhaled Oxygen Concentration - - Weight 59.9 kg (132 lb) 12/09/2022 1:53 PM EDT Height - - Body Mass Index 26.21 10/15/2022 8:10 AM EDT documented in this encounter Progress Notes * Jabari Morales MD - 12/09/2022 2:00 PM EDT Chief Complaint Patient presents with Chronic Kidney Disease (CKD) HPI: 87-year-old female with history of longstanding hypertension CKD 3 history of breast cancer hyperlipidemia. No diabetes and no childhood kidney disease. Has osteoporosis and gets Prolia injection every 6 months. History of hypercalcemia when she was taking lot of calcium and Tums tablet. But normal since stopping She feels overall fine. Since last visit -----really no health issues. She still looks physically very good but it appears she is having increasing problem with forgetfulness and repeating things. No new meds. Also appears kidney function and calcium both got better after stopping Tums and hydrochlorothiazide. NSAID No Renal Stone No Herbal Medication No Urinary Complaints Yes, Urgency and frequency and sees Urology Current Outpatient Medications Medication Sig Dispense Refill [...] or more if needed) 60 g 0 Escitalopram Oxalate 10 [...] Tablet by mouth in the morning. 90 Tablet1 Metoprolol Succinate ER 25 MG Oral Tablet Extended Release 24 Hour (toPROL XL) Take 1 Tablet bymouth in the morning. 90 Tablet 1 amLODIPine Besylate 2.5 MG Oral Tablet (Norvasc) Take 1 Tablet by mouth in the morning. 100 Tablet 3 Ondansetron HCl 4 MG Oral Tablet (Zofran) TAKE 1 TABLET BY MOUTH EVERY 6 HOURS NEEDED FOR NAUSEA 20 Tablet 1 Donepezil HCl 5 MG Oral Tablet (Aricept) TAKE ONE TABLET IN THE MORNING. TAKE WITH THE LARGEST MEAL OF THE DAY. 90 Tablet 0 Ferrous Sulfate [...] BY MOUTH ONCE DAILY 90 Tablet 0 No current facility-administered medications for this visit. Past Medical History: Diagnosis Date Breast cancer (HCC) 2011 Breast cancer, right (HCC) 07/22/2013 Diverticulosis of colon 04/29 noted on colonoscopy Family hx of colon cancer 07/22/2013 father History of chemotherapy Hyperlipidemia LDL goal < 100 07/22/2013 Hypothyroidism 07/22/2013 Lymphedema of arm 07/22/2013 Osteoporosis 07/22/2013 Pelvic rim fracture 07/22/2013 Personal history of radiation therapy S/P lumpectomy, right breast 01/27 chemo and radiation Past Surgical History: Procedure Laterality Date APPENDECTOMY W/OTHER PROCEDURE BREAST LESION,OTHER,EXCISION Right 1979 benign excisional biopsy BREAST LESION,OTHER,EXCISION Left 1979 benign excisional biopsy BREAST LESION,OTHER,EXCISION Right 01/17/2012 malignant core biopsy BREAST LESION,OTHER,EXCISION Right 01/17/2012 lumpectomy DELIVERY x1 COLONOSCOPY 04/2013 2 polyps less than 1cm 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 HYSTEROSCOPY W/BIOPSY AND/OR POLYPECTOMY W/WO D&C 01/03/2014 HYSTEROSCOPY WITH BIOPSY AND/OR POLYPECTOMY performed by Queenie Loja DO at [place] [facility]; CHOLECYSTECTOMY LIGATE/CUT OVIDUCT(S), MASTECTOMY, PARTIAL Right 01/17/2012 MISCELLANEOUS ORDER ([facility] ONLY) Pelvic implant--surgery done in 2009 PELVIS/HIP JOINT SURGERY NEC AL REPAIR ECTROPION SUTURE Bilateral 10/17/2020 REMOVE CATARACT, INSERT LENS PROSTH Bilateral 1989 [place] SUTURE REPAIR OF ECTROPION Bilateral 04/25/2020 LTS OU Review of patient's allergies indicates: Allergen Reactions Bee Venom Anaphylaxis Alendronate Tachycardia Patient felt like she was having a heart attack Iodinated Contrast Media Keflex [Cephalexin] Hot and flushed , nausea 2013 Lisinopril Family History Problem Relation Age of Onset Cancer Father colon Cancer Sister stomach Breast Cancer No significant family history Family History of Renal Disease No Social History Socioeconomic History Marital status: Spouse name: Not on file Number of children: 4 Years of education: Not on file Highest education level: Not on file Occupational History 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 Social Needs Financial resource strain: Not on file Food insecurity Worry: Never true Inability: Never true Transportation needs Medical: Not on file Non-medical: Not on file Tobacco Use Smoking status: Never Smoker Smokeless tobacco: Never Used Substance and Sexual Activity Alcohol use: Yes Comment: occ wine, 1 drink every few months Drug use: No Sexual activity: Never Partners: Male control/protection: Surgical Lifestyle Physical activity Days per week: Not on file Minutes per session: Not on file Stress: Not on file Relationships Social connections Talks on phone: Not on file Gets together: Not on file Attends anglican service: Not on file Active member of club or organization: Not on file Attends meetings of clubs or organizations: Not on file Relationship status: Not on file Intimate partner violence Fear of current or ex partner: Not on file Emotionally abused: Not on file Physically abused: Not on file Forced sexual activity: Not on file Other Topics Concern Not on file Social History Narrative Not on file Vaping/E-Cigarette Use Vaping/E-Cigarette Use Never User Vaping/E-Cigarette Substances Vaping/E-Cigarette Devices Ambulation: No assisted device Review of Systems: Twelve systems reviewed and negative OBJECTIVE: PHYSICAL EXAM: Normal speech Very sharp and alert No respiratory distress BP Readings from Last 4 Encounters: 12/09/22 128/63 10/15/22 100/52 10/10/22 118/60 10/06/22 120/60 Wt Readings from Last 4 Encounters: 12/09/22 59.9 kg (132 lb) 10/15/22 60.8 kg (134 lb) 10/10/22 60.6 kg (133 lb 9.6 oz) 10/06/22 61.2 kg (135 lb) Estimated body mass index is 26.21 kg/m as calculated from the following: Height as of 10/15/22: 1.511 m (4' 11.5"). Weight as of this encounter: 59.9 kg (132 lb). NEPH-FLOW Latest Ref Rng & Units 03/16/2018 07/05/2018 01/31/2019 Bun 6 - 20 mg/dL 25 (H) 17 27 (H) Cr 0.5 - 1.0 mg/dL 1.1 (H) 1.2 (H) 1.3 (H) eGFR >60 mL/min eGFR >60 46.6 (L) 39.9 (L) 37.0 (L) K 3.5 - 5.1 mmol/L 3.7 3.8 4.1 Hb 12.0 - 15.3 g/dL 12.9 Microalb/cr ratio <30 mg/g creat 7 NEPH-FLOW Latest Ref Rng & Units 07/05/2019 02/01/2020 05/04/2020 Bun 6 - 20 mg/dL 27 (H) 30 (H) 22 (H) Cr 0.5 - 1.0 mg/dL 1.2 (H) 1.2 (H) 1.4 (H) eGFR >60 mL/min eGFR >60 39.6 (L) 40.9 (L) 34.8 (L) K 3.5 - 5.1 mmol/L 3.8 4.0 4.2 Hb 12.0 - 15.3 g/dL 12.4 12.1 Microalb/cr ratio <30 mg/g creat NEPH-FLOW Latest Ref Rng & Units 05/08/2020 Bun 6 - 20 mg/dL Cr 0.5 - 1.0 mg/dL eGFR >60 mL/min eGFR >60 K 3.5 - 5.1 mmol/L Hb 12.0 - 15.3 g/dL Microalb/cr ratio <30 mg/g creat <19 NEPH-FLOW Latest Ref Rng & Units 05/08/2020 11/06/2020 04/25/2021 Bun 6 - 20 mg/dL 28 (H) 18 Cr 0.5 - 1.0 mg/dL 1.3 (H) 1.5 (H) eGFR >=60 mL/min 35.6 (L) 32 (L) eGFR >60 K 3.5 - 5.1 mmol/L 3.7 4.4 Hb 12.0 - 15.3 g/dL 12.0 12.4 Pro/Cr ratio <150 mg/g 74 Microalb/cr ratio <30 mg/g Creat <19 8 Latest Ref Rng 03/10/2022 05/14/2022 CRF FOLLOW UP HEMOGLOBIN 12.0 - 15.3 g/dL 11.6 (L) 10.9 (L) HCT 36.0 - 45.2 % 36.9 SODIUM 135 - 146 mmol/L 142 POTASSIUM 3.5 - 5.1 mmol/L 3.9 CHLORIDE 98 - 107 mmol/L 109 (H) BUN 6 - 20 mg/dL 17 GLUCOSE 70 - 120 mg/dL 77 CREATININE 0.5 - 1.0 mg/dL 1.1 (H) ALBUMIN 3.8 - 5.0 g/dL 3.7 (L) CALCIUM 8.4 - 10.2 mg/dL 9.4 CO2-TOTAL 22 - 32 mmol/L 29 IRON-TOTAL 33 - 151 ug/dL 60 IRON BINDING CAP 250 - 425 ug/dL 323 Transferrin Saturation Percent 15 - 55 % 19 Phosphorus 2.5 - 4.8 mg/dL 3.6 ASSESSMENT: Stage 3b chronic kidney disease (HCC) (Primary) CKD stage 3 secondary to combination of hypertension old age and decreased nephron mass as she doeshave lot of renal cyst some of which are fairly big in both kidneys. However her risk of ESRD is very low as she still has GFR of around 45 at this advanced age Does not appear to have any symptoms. Physically looks pretty good however she does have increasing problem with forgetfulness and repeating again and again and not realizing. also reports increasing problem with memory. Recent labs done September 2022 was reviewed with the patient and . Creatinine 1.3 GFR 41. For thelast 1 year creatinine has ranged from 1.1 1.3 and GFR is in 40s. Multiple renal cysts She does have multiple bilateral renal cyst. However this is not classic polycystic kidney disease which is familial. She just happens to have multiple bilateral simple cyst. They are not precancerous and they are not suspicious for cancer And does not need further follow up HTN, goal below 150/90 Liberalize blood pressure goal given her advanced age dementia and risk of fall. Blood pressure is within goal with the current regimen of amlodipine metoprolol and losartan. Follow Up: Return in about 1 year (around 12/10/2023) for Clinic Visit. | For: Clinic Visit Jabari Morales MD documented in this encounter Nursing Notes * Shell Munroe RN - 12/09/2022 1:55 PM EDT Follow up visit today. No recent illness or hospital stays. documented in this encounter Plan of Treatment Upcoming Encounters Date Type Specialty Care Team Description 01/14/2023 Office Visit Family Medicine Arun Del Rio MD [address] [place] [address] 02/26/2023 Office Visit Rheumatology Mary Crews PA-C 03/10/2023 Office Visit Hematology Oncology Brennon German MD [address] [facility] [place] [address] 06/03/2023 Nurse Only [facility], Nurse [facility] [address] [place] [address] 07/06/2023 Office Visit Cardiology Gil Juares MD [address] [place] [address] 09/10/2023 Office Visit Dermatology Leigh June PAJessica [address] [place] [address] [place] [address] 12/11/2023 Office Visit Nephrology Jabari Morales MD [address] [facility] [place] [address] Health Maintenance Due Date Last Done Comments [...] Additional history exists CKD PHOS USE SMARTSET 42416 05/14/202304/18, 08/14/2021, 04/25/2021, Additional history exists Depression Screening, Annual for Pts 12 and Over 06/03/2023 06/03/2022 CKD HGB USE SMARTSET 26384 10/11/202310/10, 10/10/2022, 05/14/2022, Additional history exists DTaP,Tdap,and Td Vaccines (2 - Td or Tdap) 02/10/2024 02/09/2014 Pneumococcal Vaccine: 65+ Years Completed 10/11/2014, 09/08/2013 Zoster Vaccines Completed 12/31/2017, 09/16, 03/18/2015 VITAMIN D LEVEL ONCE IN A LIFETIME-USE SMARTSET# [id number] Completed 05/14/2022, 08/14/2021, 05/04/2020, Additional history exists [...] Stage 3b chronic kidney disease (HCC)- Primary Multiple renal cysts HTN, goal below 150/90 documented in this encounter Advance Directives Latest [...] and were consensually agreed upon. Care Teams Visual Display Manager Relationship Specialty Start Date End Date Arun Del Rio MD [address] [place] [address] PCP - General Family Medicine 06/30/18 documented as of this encounter
--- OUTSIDE RECORDS SUMMARY | 2023-04-05 10:10 | External Medical Summary ---
Author Name Unknown Address Unknown Organization [id number][place] [place] [address] [facility] [address] Laboratory Report Ordering Provider Test Date Status YASSINE FOSTER 10/10/2022 16:09:27 Final Observation Date Value Abnormality Reference (Units ) Status WBC, Total 10/10/2022 16:09:27 9.08 4.00-10.80 (K/uL) Final RBC 10/10/2022 16:09:27 3.63 3.85-5.15 (M/uL) Final Hemoglobin 10/10/2022 16:09:27 9.4 Below low normal 12.0-15.3 (g/dL) Final HCT 10/10/2022 16:09:27 32.4 Below low normal 36.0-45.2 (%) Final MCV 10/10/2022 16:09:27 89.3 81.5-97.5 (fL) Final MCH 10/10/2022 16:09:27 25.9 27.0-34.0 (pg) Final MCHC 10/10/2022 16:09:27 29.0 32.0-36.0 (g/dL) Final RDW 10/10/2022 16:09:27 16.4 11.5-15.5 (%) Final Platelets 10/10/2022 16:09:27 310 140-400 (K/uL) Final MPV 10/10/2022 16:09:27 10.6 6.6-11.1 (fL) Final Nucleated erythrocytes/100 leukocytes [Ratio] in Blood by Automated count 10/10/2022 16:09:27 0 <=0 (/100 WBCs) Final Performing Location [facility] [place] [address] [place] [address]
--- OUTSIDE RECORDS SUMMARY | 2023-04-05 10:10 | External Medical Summary ---
Author Name Unknown Address Unknown Organization [id number]:[facility] [place] [address] [facility] [place] [address] Laboratory Report Ordering Provider Test Date Status YASSINE FOSTER 10/10/2022 16:09:27 Final Observation Date Value Abnormality Reference (Units ) Status SYNC LEUKOCYTES IN BLOOD BY AUTOMATED COUNT 10/10/2022 16:09:27 9.08 4.00-10.80 (K/uL) Final Segs 10/10/2022 16:09:27 53.6 40.0-75.0 (%) Final Lymphs % 10/10/2022 16:09:27 33.5 18.0-42.0 (%) Final Monos 10/10/2022 16:09:27 9.9 1.0-11.0 (%) Final Eosinophils 10/10/2022 16:09:27 2.4 0.0-6.0 (%) Final Basos 10/10/2022 16:09:27 0.4 0.0-2.0 (%) Final Immature Granulocyte, Percent 10/10/2022 16:09:27 0.2 0.0-2.0 (%) Final Absolute Segs 10/10/2022 16:09:27 4.86 1.80-7.70 (K/uL) Final Lymphs, absolute 10/10/2022 16:09:27 3.04 1.00-4.80 (K/ul) Final Monos, Abs 10/10/2022 16:09:27 0.90 0.00-1.10 (K/uL) Final Eos, Abs 10/10/2022 16:09:27 0.22 0.00-0.70 (K/uL) Final Basos, Abs 10/10/2022 16:09:27 0.04 0.00-0.20 (K/uL) Final Immature Granulocytes, Number 10/10/2022 16:09:27 0.02 0.00-0.20 (K/uL) Final Performing Location [facility] [place] - [address] [facility] [address]
--- OUTSIDE RECORDS SUMMARY | 2023-04-05 10:10 | External Medical Summary ---
Author Name Unknown Address Unknown Organization [id number]:[facility] [place] [address] [place] [address] Laboratory Report Ordering Provider Test Date Status YASSINE FOSTER 10/10/2022 16:09:27 Final Observation Date Value Abnormality Reference (Units ) Status BUN 10/10/2022 16:09:27 18 6-20 (mg/dL) Final Creatinine 10/10/2022 16:09:27 1.3 Above high normal 0.5-1.0 (mg/dL) Final Glomerular filtration rate/1.73 sq M.predicted [Volume Rate/Area] in Serum, Plasma or Blood by Creatinine-based formula (CKD-EPI) 10/10/2022 16:09:27 41 Below low normal >=60 (mL/min) Final eGFR is calculated based on the CKD-EPI 2020 equation SODIUM 10/10/2022 16:09:27 145 135-146 (m mol/L) Final Potassium 10/10/2022 16:09:27 3.7 3.5-5.1 (m mol/L) Final Cl 10/10/2022 16:09:27 108 Above high normal 98 -107 (mmol/L) Final CO2 10/10/2022 16:09:27 27 22-32 (mmo l/L) Final Anion gap 10/10/2022 16:09:27 10 7-15 (mmol /L) Final Glucose 10/10/2022 16:09:27 99 70-120 (mg /dL) Final Calcium 10/10/2022 16:09:27 9.6 8.4-10.2 ( mg/dL) Final Performing Location [facility] [place] [address] [place] [address]
--- OUTSIDE RECORDS SUMMARY | 2023-04-05 10:10 | External Medical Summary | Summary of Care ---
Author Name Unknown Organization [facility] Address [address] [place] [address] Phone [phone] Care Team Providers Care Lay Out Machine Operator Name Role Phone Love Del Rio MD Primary Care Provider [phone] Reason for Visit * Reason Onset Date Comments Medication Refill 10/08/2022 Encounter Details Date Type Department Care Team Description 10/08/2022 Refill [facility] [address] [place] [address] Love Del Rio MD [address] [place] [address] Nausea without vomiting Allergies Active Allergy Reactions Severity Noted Date Comments Alendronate Tachycardia 11/02/2014 Patient felt like she was having a heart attack Bee Venom Anaphylaxis High 10/11/2014 Iodinated Contrast Media 07/22/2013 Cephalexin 08/09/2013 Hot and flushed , nausea 2012 Lisinopril 07/21/2018 documented as of this encounter (statuses as of 10/09/2022) Medications Medication Sig Dispensed Refills Start Date [...] ONCE DAILY 90 Tablet 3 03/14/2022 Active Nitroglycerin 0.4 MG Sublingual Tablet Sublingual (Nitrostat)Indicatio [...] FOR NAUSEA 20 Tablet 1 10/09/2022 Active Ondansetron HCl 4 MG Oral Tablet (Zofran)Indications: Nausea without vomiting TAKE 1 TABLET BY MOUTH EVERY 6 HOURS NEEDED FOR NAUSEA 20 Tablet 1 09/09/2022 3 Discontinue d(Refill) documented as of this encounter (statuses as of 10/09/2022) Active Problems Problem Noted Date Stage 3 chronic kidney disease 3 Primary open-angle glaucoma, bilateral, moderate stage 10/24/2021 SALAZAR (generalized anxiety disorder) 06/10 Cyst of pancreas 06/10/2021 Hypertensive kidney disease with stage 3 b chronic kidney disease 03/26/2020 Overview: Per CKD protocol Esophageal spasm 08/19/2018 History of breast cancer 06/30/2018 History of [...] as of this encounter (statuses as of 10/09/2022) Resolved Problems Problem Noted Date Resolved Date Chronic kidney disease, stage 3b 09/25/2020 05/31/2021 Overview: Per CKD protocol Patient has combo code in use. Hypertensive kidney disease with chronic kidney disease stage III 11/22/2018 03/29/2020 Overview: Per CKD protocol Nocturia 07/28/2016 02/10/2017 Kidney disease, chronic, stage [...] as of this encounter (statuses as of 10/09/2022) Immunizations Name Administration Dates Next Due COVID-19 mRNA, LNP-s, No Pre serve, 2-Dose Series (Bitbar) 12/10/2021,03/05/2021,08/07/2020,07/12 Pneumococcal Conjugate Vacc, 13 Valent (Prevnar) [...] encounter Miscellaneous Notes * Telephone Encounter - Shanice Donato [facility] - 10/09/2022 9:09 AM EDTSigned Prescriptions: Disp Refills Ondansetron HCl 4 MG Oral Tablet (Zofran) 20 Tab*1 Sig: TAKE 1 TABLET BY MOUTH EVERY 6 HOURS NEEDED FOR NAUSEAAuthorizing Provider: LOVE DEL RIO User:SHANICE DONATO * Telephone Encounter - Michelle Caldera CPhT - 10/08/2022 2:40 PM EDT Did you pend patient's preferred pharmacy and medication before forwarding?yes Pharmacy: [id number] [id number] Pending Prescriptions: Disp Refills Ondansetron HCl 4 MG Oral Tablet (Zofran) 20 Tab*1 Last Visit: 10/06/2022 (in office), Visit date not found (telemedicine) Next Visit: 10/15/2022 If no future appointments scheduled, and last appointment is greater than a year ago, please schedule patient for a follow-up appointment Last date the medication was ordered: 09/09/2022 Is this request for a controlled substance?No Urine Drug Screen:No results found for this or any previous visit. Patient Phone Numbers [employer] [phone] Labs: Lab Results Component Value Date/Time CREAT 1.1 (H) 05/14/2022 09:57 AM CREAT 1.4 (H) 05/04/2020 09:30 AM POTASSIUM 3.9 05/14/2022 09:57 AM POTASSIUM 4.2 05/04/2020 09:30 AM TSH 2.37 12/09/2021 03:22 PM TSH 2.97 05/04/2020 09:30 AM LDLCALC 83 04/25/2021 01:35 PM LDLCALC 80 05/04/2020 09:30 AM LDLDIRECT NOT APPLICABLE 05/04/2020 09:30 AM ALT 14 01/27/2022 10:28 AM ALT 15 05/04/2020 09:30 AM documented in this encounter Plan of Treatment Upcoming Encounters Date Type Specialty Care Team Description 10/15/2022 Office Visit Family Medicine Darrin Cook MD [address] [place] [address] 11/28/2022 Office Visit Family Medicine Love Del Rio MD [address] [place] [address] 12/09/2022 Office Visit Nephrology Jabari Morales MD [address] [place] [address] 02/26/2023 Office Visit Rheumatology Mary Crews PA-C [address] [place] [address] 03/10/2023 Office Visit Hematology Oncology Brennon German MD 200 [facility], [place] [address] 06/03/2023 [facility] [address] [place], [place] [phone] 07/06/2023 Office Visit Cardiology Gil Juares MD [address] [facility] [place] [address] 09/10/2023 Office Visit Dermatology Leigh June PA-C [address] [place] [address] [place] [address] Health Maintenance Due Date Last Done Comments COVID-19 Vaccine (5 - Booster for Pfizer series) 02/04/2022 12/10/2021, 03/05/2021, 08/07/2020, Additional history exists *BISPHONATE OR OTHER ACCEPTABLE MEDICATION NEEDED FOR OSTEOPOROSIS (REFER TO SMARTSET #1146) 08/26/2022 TSH 12/09/2022 12/09/2021, 12/0 01/2021, 05/04/2020, Additional history exists DXA Scan 02/12/2023 02/12/2021, 01/16, 12/31/2016, Additional history exists Albumin/Creatinine Ratio 05/14/202305/14/2 022, 04/25/2021, 05/08/2020, Additional history exists CKD HGB USE SMARTSET 09038 05/14/202305/14, 03/10/2022, 03/10/2022, Additional history exists CKD PHOS USE SMARTSET 90132 05/14/202304/18, 08/14/2021, 04/25/2021, Additional history exists Depression Screening, Annual for Pts 12 and Over 06/03/2023 06/03/2022 DTaP,Tdap,and Td Vaccines (2 - Td or Tdap) 02/10/2024 02/09/2014 Pneumococcal Vaccine: 65+ Years Completed 10/11/2014, 09/08/2013 Zoster Vaccines Completed 12/31/2017, 09/16, 03/18/2015 Influenza Vaccine (FLU shot) Completed 02/2022, 02/15/2021, 02/22/2020, Additional history exists VITAMIN D LEVEL ONCE IN A LIFETIME-USE SMARTSET# 68775 Completed 05/14/2022, 08/14/2021, 05/04/2020, Additional history exists [...] and were consensually agreed upon. Care Teams Lay Out Machine Operator Relationship Specialty Start Date End Date Love Del Rio MD [address], [place] [id number] PCP - General Family Medicine 06/30/18 documented as of this encounter
--- OUTSIDE RECORDS SUMMARY | 2023-04-05 10:10 | External Medical Summary ---
Author Name Unknown Address Unknown Organization K01:[facility] [place] [address] [facility] [place] [address] Laboratory Report Ordering Provider Test Date Status NO VENTURA 10/10/2022 16:09:27 Final Observation Date Value Abnormality Reference (Units ) Status Triglyceride 10/10/2022 16:09:27 98 <=174 ( mg/dL) Final Triglyceride Reference Range s (mg/dL):
<150 Acceptable
150-174 Borderline high
175-499 High
>=500 Very high Cholesterol 10/10/2022 16:09:27 156 <200 (mg /dL) Final Total Cholesterol Reference Ranges (mg/dL):
<200 Desirable
200-239 Borderline high
>=240 High HDL 10/10/2022 16:09:27 52 >49 (mg/dL ) Final HDL Cholesterol Reference Ra nges (mg/dL):
>=60 High (Desirable)
<50 Low (Undesirable) For Females
<40 Low (Undesirable) For Males NON-HDL CHOLESTEROL 10/10/2022 16:09:27 104 <=159 (mg/dL) Final Non-HDL Cholesterol Referenc e Range (mg/dL):
<100 Target level for high risk ASCVD patient
<130 Optimal for general population
130-159 Near optimal for general population
160-189 Borderline High
190-219 High
>=220 Very High LDL, (calculated) 10/10/2022 16:09:27 84 <= 129 (mg/dL) Final LDL Cholesterol Reference Ra nges (mg/dL):
<70 Target level for high risk ASCVD patient
<100 Optimal for general population
100-129 Near optimal for general population
130-159 Borderline high
160-189 High
>=190 Very high Performing Location [facility] [place] [address] [facility] [address]
--- OUTSIDE RECORDS SUMMARY | 2023-04-05 10:10 | External Medical Summary | Summary of Care ---
Author Name Unknown Organization [facility] Address [address] [place] [address] Phone [phone] Care Team Providers Care Etch Operator Semiconductor Wafers Name Role Phone Arun Del Rio MD Primary Care Provider [phone] Reason for Visit * Reason Comments Outpatient Testing Encounter Details Date Type Department Care Team Description 10/10/2022 Laboratory Laboratory, [facility] [address] [place] [address] [facility] [address] [place] [address] Hyperlipidemia with target LDL less than 100; Routine medical exam; Encounter for long-term (current) use of medications; Hypothyroidism, unspecified type; HTN, goal below 150/90 Allergies Active Allergy Reactions Severity Noted Date Comments Alendronate Tachycardia 11/02/2014 Patient felt like she was having a heart attack Bee Venom Anaphylaxis High 10/11/2014 Iodinated Contrast Media 07/22/2013 Cephalexin 08/09/2013 Hot and flushed , nausea 2012 Lisinopril 07/21/2018 documented as of this encounter (statuses as of 10/10/2022) Medications Medication Sig Dispensed Refills Start Date [...] as of this encounter (statuses as of 10/10/2022) Active Problems Problem Noted Date Stage 3 chronic kidney disease Primary open-angle [...] as of this encounter (statuses as of 10/10/2022) Resolved Problems Problem Noted Date Resolved Date [...] as of this encounter (statuses as of 10/10/2022) Immunizations Name Administration Dates Next Due COVID-19 mRNA, LNP-s, No Pre serve, 2-Dose Series (Xtalic) 12/10/2021,03/05/2021,08/07/2020,07/12 Pneumococcal Conjugate Vacc, 13 Valent (Prevnar) [...] Family Medicine Darrin Cook MD [address] [place] [address] 12/09/2022 Office Visit Nephrology Jabari Morales MD [address] [place] [address] 01/14/2023 Office Visit Family Medicine Arun Del Rio MD [address] [place] [address] 02/26/2023 Office Visit Rheumatology Mary Crews PA-C [facility] [place] [address] 03/10/2023 Office Visit Hematology Oncology Brennon German MD 200 [place] [address] 06/03/2023 Nurse Only Ancillary [facility] [address] [place] [address] 07/06/2023 Office Visit Cardiology Gil Juares MD [address] [place] [address] 09/10/2023 Office Visit Dermatology Leigh June PA-C [address] [place] [address] [place] [address] Pending Results Name Type Priority Associated Diagnoses Date /Time LIPID PANEL WITH DIRECT LDL IF TG IS HIGH Lab Routine Hyperlipidemia with target LDL less than 100 Routine medical exam Encounter for long-term (current) use of medications 10/10/2022 4:09 PM EDT CBC WITH WBC DIFFERENTIAL Lab Routine Hypothyroidism, unspecified type Hyperlipidemia with target LDL less than 100 HTN, goal below 150/90 10/10/2022 4:09 PM EDT CBC Lab Routine Hypothyroidism, unspecified type Hyperlipidemia with target LDL less than 100 HTN, goal below 150/90 10/10/2022 4:09 PM EDT DIFFERENTIAL, AUTOMATED Lab Routine Hypothyroidism, unspecified type Hyperlipidemia with target LDL less than 100 HTN, goal below 150/90 10/10/2022 4:09 PM EDT Health Maintenance Due Date Last [...] Additional history exists CKD HGB USE SMARTSET 33817 05/14/202305/14, 03/10/2022, 03/10/2022, Additional history exists CKD PHOS USE SMARTSET 74300 05/14/202304/18, 08/14/2021, 04/25/2021, Additional history exists Depression Screening, Annual for Pts 12 and Over 06/03/2023 06/03/2022 DTaP,Tdap,and Td Vaccines (2 - Td or Tdap) 02/10/2024 02/09/2014 Pneumococcal Vaccine: 65+ Years Completed 10/11/2014, 09/08/2013 Zoster Vaccines Completed 12/31/2017, 09/16, 03/18/2015 Influenza Vaccine (FLU shot) Completed 02/2022, 02/15/2021, 02/22/2020, Additional history exists VITAMIN D LEVEL ONCE IN A LIFETIME-USE SMARTSET# 51405 Completed 05/14/2022, 08/14/2021, 05/04/2020, Additional history exists [...] less than 100 Other and unspecified hyperlipidemia Routine medical exam Routine general medical examination at a health care facility Encounter for long-term (current) use of medications Encounter for long-term (current) use of other medications Hypothyroidism, unspecified type HTN, goal below 150/90 documented in this [...] and were consensually agreed upon. Care Teams Etch Operator Semiconductor Wafers Relationship Specialty Start Date End Date Arun Del Rio MD [address] [facility] [place] [id number] PCP - General Family Medicine 06/30/18 documented as of this encounter
--- OUTSIDE RECORDS SUMMARY | 2023-04-05 10:10 | External Medical Summary | Summary of Care ---
Author Name Unknown Organization [facility] Address [address] [place] [address] Phone [phone] Care Team Providers Care Newsroom Intern Name Role Phone Arun Del Rio MD Primary Care Provider [phone] Reason for Visit * Reason Onset Date Comments Med Request 10/07/2022 Encounter Details Date Type Department Care Team Description 10/07/2022 Telephone [facility] [address] [place] [address] SeptemberDarrin MD [address] [place] [address] Med Request Allergies Active Allergy Reactions Severity Noted Date Comments Alendronate Tachycardia 11/02/2014 Patient felt like she was having a heart attack Bee Venom Anaphylaxis High 10/11/2014 Iodinated Contrast Media 07/22/2013 Cephalexin 08/09/2013 Hot and flushed , nausea 2012 Lisinopril 07/21/2018 documented as of this encounter (statuses as of 10/07/2022) Medications Medication Sig Dispensed Refills Start Date [...] ONCE DAILY 90 Tablet 1 09/08/2022 Active Ondansetron HCl 4 MG Oral Tablet (Zofran)Indications:N ausea without vomiting TAKE 1 TABLET BY MOUTH EVERY 6 HOURS NEEDED FOR NAUSEA 20 Tablet 1 09/09/2022 Active Levothyroxine Sodium 50 MCG Oral Tablet [...] the morning. 100 Tablet 3 09/15/2022 Active documented as of this encounter (statuses as of 10/07/2022) Active Problems Problem Noted Date Stage 3 [...] as of this encounter (statuses as of 10/07/2022) Resolved Problems Problem Noted Date Resolved Date [...] as of this encounter (statuses as of 10/07/2022) Immunizations Name Administration Dates Next Due COVID-19 mRNA, LNP-s, No Pre serve, 2-Dose Series ([employer]) 12/10/2021,03/05/2021,08/07/2020,07/12 Pneumococcal Conjugate Vacc, 13 Valent (Prevnar) [...] encounter Miscellaneous Notes * Telephone Encounter - Hawa Arvizu LPN - 10/07/2022 2:52 PM EDT Left message on machine to return call to the office. Please see message below. * Telephone Encounter - Darrin Cook MD - 10/07/2022 12:52 PM EDT Recommend patient takes zofran as needed for nausea. She had three separate bottles of this in her purse yesterday at the visit. No indication for further medications due to concern for polypharmacy and med noncompliance. Follow up in office as scheduled for med rec on 10/15/2022. Darrin Cook MD * Telephone Encounter - JD Sam - 10/07/2022 11:58 AM EDT Patient calling in to check on the status of previous message. Patient Called within 48 hour timeframe. Reminded patient of 48 hour turn-around time. * Telephone Encounter - Hawa Arvizu LPN - 10/07/2022 10:11 AM EDT Patient calling, stating she is not feeling any better than she was yesterday- states it's actually worse. When asked to elaborate-she said she is nauseous and would like medication for that. She alsostates she did not sleep last night and just doesn't "feel herself." documented in this encounter Plan of Treatment Upcoming Encounters Date Type Specialty Care Team Description 10/15/2022 Office Visit Family Medicine Darrin Cook MD [address] [facility] [place] [address] 11/28/2022 Office Visit Family Medicine Arun Del Rio MD [address] [facility] [place] [phone] 12/09/2022 Office Visit Nephrology Jabari Morales MD [address] [place] [address] 02/26/2023 Office Visit Rheumatology Mary Crews PA-C [address] [place] [address] 03/10/2023 Office Visit Hematology Oncology Brennon German MD [address] [place] [address] 06/03/2023 Nurse Only Nurse [facility] [address] [facility] [place] [phone] 07/06/2023 Office Visit Cardiology Gil Juares MD [address] [place] [address] 09/10/2023 Office Visit Dermatology Leigh June PA-C [address] [place] [address] [place] [address] Health Maintenance Due Date Last Done Comments [...] Additional history exists CKD HGB USE SMARTSET 85269 05/14/202305/14, 03/10/2022, 03/10/2022, Additional history exists CKD PHOS USE SMARTSET 21754 05/14/202304/18, 08/14/2021, 04/25/2021, Additional history exists Depression Screening, Annual for Pts 12 and Over 06/03/2023 06/03/2022 DTaP,Tdap,and Td Vaccines (2 - Td or Tdap) 02/10/2024 02/09/2014 Pneumococcal Vaccine: 65+ Years Completed 10/11/2014, 09/08/2013 Zoster Vaccines Completed 12/31/2017, 09/16, 03/18/2015 Influenza Vaccine (FLU shot) Completed 02/2022, 02/15/2021, 02/22/2020, Additional history exists VITAMIN D LEVEL ONCE IN A LIFETIME-USE SMARTSET# 85771 Completed 05/14/2022, 08/14/2021, 05/04/2020, Additional history exists [...] and were consensually agreed upon. Care Teams Newsroom Intern Relationship Specialty Start Date End Date Arun Del Rio MD [address] [place] [address] PCP - General Family Medicine 06/30/18 documented as of this encounter
--- OUTSIDE RECORDS SUMMARY | 2023-04-05 10:10 | External Medical Summary | Summary of Care ---
Author Name Unknown Organization [facility] Address [address] [place] [address] Phone [phone] Care Team Providers Care Firefighter Name Role Phone Arun Del Rio MD Primary Care Provider [phone] Reason for Visit * Reason Onset Date Comments Med Request 10/07/2022 Encounter Details Date Type Department Care Team Description 10/07/[address] [facility] [address] [place] [address] SeptemberDarrin MD [address] [place] [address] Med Request Allergies Active Allergy [...] mRNA, LNP-s, No Pre serve, 2-Dose Series ([employer]) 12/10/2021,03/05/2021,08/07/2020,07/12 Pneumococcal Conjugate Vacc, 13 Valent (Prevnar) [...] Family Medicine Darrin Cook MD [address] [facility] [place] [address] 11/28/2022 Office Visit Family Medicine Arun Del Rio MD [address] [facility] [place] [id number] 12/09/2022 Office Visit Nephrology Jabari Morales MD [address] [place] [address] 02/26/2023 Office Visit Rheumatology Mary Crews PAShantelC [address] [place] [address] 03/10/2023 Office Visit Hematology Oncology Brennon German MD [address] [place] [address] 06/03/2023 Nurse Only Ivana Nagel, Nurse [facility] [address] [facility] [place] [address] 07/06/2023 Office Visit Cardiology Gil Juares MD [address] [place] [phone] 09/10/2023 Office Visit Dermatology Leigh June, PA-C [address] [place] [address] [place] [address] Health Maintenance Due Date Last Done Comments COVID-19 Vaccine (5 - Booster for Pfizer series) 02/04/2022 12/10/2021, 03/05/2021, 08/07/2020, Additional history exists *BISPHONATE OR OTHER ACCEPTABLE MEDICATION NEEDED FOR OSTEOPOROSIS (REFER TO SMARTSET #1146) 08/26/2022 TSH 12/09/2022 12/09/2021, 01/2021, 05/04/2020, Additional history exists DXA Scan 02/12/2023 02/12/2021, 01/16, 12/31/2016, Additional history exists Albumin/Creatinine Ratio 05/14/2023 022, 04/25/2021, 05/08/2020, Additional history exists CKD HGB USE SMARTSET 71715 05/14/202305/14, 03/10/2022, 03/10/2022, Additional history exists CKD PHOS USE SMARTSET 57320 05/14/202304/18, 08/14/2021, 04/25/2021, Additional history exists Depression Screening, Annual for Pts 12 and Over 06/03/2023 06/03/2022 DTaP,Tdap,and Td Vaccines (2 - Td or Tdap) 02/10/2024 02/09/2014 Pneumococcal Vaccine: 65+ Years Completed 10/11/2014, 09/08/2013 Zoster Vaccines Completed 12/31/2017, 09/16, 03/18/2015 Influenza Vaccine (FLU shot) Completed 02/2022, 02/15/2021, 02/22/2020, Additional history exists VITAMIN D LEVEL ONCE IN A LIFETIME-USE SMARTSET# 49105 Completed 05/14/2022, 08/14/2021, 05/04/2020, Additional history exists [...] and were consensually agreed upon. Care Teams Firefighter Relationship Specialty Start Date End Date Arun Del Rio MD [address] [place] [address] PCP - General Family Medicine 06/30/18 documented as of this encounter
--- OUTSIDE RECORDS SUMMARY | 2023-04-05 10:10 | External Medical Summary | Summary of Care ---
Author Name Unknown Organization [facility] Address [address] [place] [address] Phone [phone] Care Team Providers Care Baggage Agent Name Role Phone Arun Del Rio MD Primary Care Provider [phone] Reason for Visit * Reason Onset Date Comments Med Request 10/07/2022 Encounter Details Date Type Department Care Team Description 10/07/2022 Telephone [facility] [address] [place] [address] SeptemberDarrin MD [address] [place] [address] Med Request Allergies Active Allergy [...] mRNA, LNP-s, No Pre serve, 2-Dose Series (Subtext) 12/10/2021,03/05/2021,08/07/2020,07/12 Pneumococcal Conjugate Vacc, 13 Valent (Prevnar) [...] Miscellaneous Notes * Telephone Encounter - JD Sam - [...] Family Medicine Darrin Cook MD [address] [place], [place] [phone] 11/28/2022 Office Visit Family Medicine Arun Del Rio MD [address] [place], [place] [phone] 12/09/2022 Office Visit Nephrology Jabari Morales MD [address] [place] [address] 02/26/2023 Office Visit Rheumatology Mary Crews PA-C [address] [place] [address] [place] [address] 03/10/2023 Office Visit Hematology Oncology Brennon German MD [address] [place], [place] [phone] 06/03/2023 Nurse Only [facility], Nurse [facility] [address] [place] [address] 07/06/2023 Office Visit Cardiology Gil Juares MD [address] [place] [address] 09/10/2023 Office Visit Dermatology Leigh June PAJessica [address] [place] [address] [place] [address] Health Maintenance Due Date Last Done Comments [...] Additional history exists CKD HGB USE SMARTSET 27249 05/14/202305/14, 03/10/2022, 03/10/2022, Additional history exists CKD PHOS USE SMARTSET 43064 05/14/202304/18, 08/14/2021, 04/25/2021, Additional history exists Depression Screening, Annual for Pts 12 and Over 06/03/2023 06/03/2022 DTaP,Tdap,and Td Vaccines (2 - Td or Tdap) 02/10/2024 02/09/2014 Pneumococcal Vaccine: 65+ Years Completed 10/11/2014, 09/08/2013 Zoster Vaccines Completed 12/31/2017, 09/16, 03/18/2015 Influenza Vaccine (FLU shot) Completed 02/2022, 02/15/2021, 02/22/2020, Additional history exists VITAMIN D LEVEL ONCE IN A LIFETIME-USE SMARTSET# 40734 Completed 05/14/2022, 08/14/2021, 05/04/2020, Additional history exists [...] and were consensually agreed upon. Care Teams Baggage Agent Relationship Specialty Start Date End Date Arun Del Rio MD [address] [place] [address] PCP - General Family Medicine 06/30/18 documented as of this encounter
--- OUTSIDE RECORDS SUMMARY | 2023-04-05 10:10 | External Medical Summary | Summary of Care ---
Author Name Unknown Organization [facility] Address [address] [place] [address] Phone [phone] Care Team Providers Care Shingles Roofer Name Role Phone Arun Del Rio MD Primary Care Provider Reason for Visit * Reason Comments Acute Pt feels like things are all jumbled in her head, tearful, nauseous Encounter Details Date Type Department Care Team Description 10/10/2022 Office Visit [facility] [address] [place] [address] Arun Del Rio MD [address] [place] [address] Alzheimer's dementia of other onset, with other behavioral disturbance, unspecified dementia severity (HCC)* Allergies Active Allergy Reactions Severity Noted Date [...] mRNA, LNP-s, No Pre serve, 2-Dose Series ([employer]) 12/10/2021,03/05/2021,08/07/2020,07/12 Pneumococcal Conjugate Vacc, 13 Valent (Prevnar) [...] Sign Reading Time Taken Comments Blood Pressure 118/60 10/10/2022 2:56 PM EDT Pulse 70 10/10/2022 2:56 PM EDT Temperature - - Respiratory Rate 18 10/10/2022 2:56 PM EDT Oxygen Saturation 97% 10/10/2022 2:56 PM EDT Inhaled Oxygen Concentration - - Weight 60.6 kg (133 lb 9.6 oz) 10/10/2022 2:56 P M EDT Height - - Body Mass Index 26.53 10/06/2022 1:58 PM EDT documented in this encounter Progress Notes * Arun Del Rio MD - 10/10/2022 3:20 PM EDT Subjective: Juanis Rodriguez is a 87 year old female. Chief Complaint Patient presents with Acute Pt feels like things are all jumbled in her head, tearful, nauseous HPI: 87-year-old is seen today although she has an appointment in less than a week with Dr. Cook to review all of her home medications and to try to sort out which ones she is supposed to be on and which ones are old in outdated. But, she feels that there has been a change recently that has led to some increase disorientation and increased difficulties with short-term memory/forgetfulness. Also reported the sometimes where she sleeps excessively. She denies URI symptoms, UTI symptoms, vomiting or diarrhea or fever. She assures me she is rarely using tramadol-might not use it for several days in a row. She does use a prazosin puente at nighttime but she tells me not every day. Patient Active Problem List Diagnosis Code Hyperlipidemia with target LDL less than 100 E78.5 Hypothyroidism E03.9 Osteoporosis M81.0 Advanced directives, counseling/discussion Z71.89 GERD (gastroesophageal reflux disease) K21.9 Major depressive disorder, recurrent episode, mild (HCC) F33.0 HTN, goal below 150/90 I10 Generalized osteoarthritis M15.9 History of pelvic fracture Z87.81 History of breast cancer Z85.3 Esophageal spasm K22.4 Hypertensive kidney disease with stage 3b chronic kidney disease I12.9, N18.32 SALAZAR (generalized anxiety disorder) F41.1 Cyst of pancreas K86.2 Primary open-angle glaucoma, bilateral, moderate stage H40.1132 Stage 3 chronic kidney disease (HCC) N18.30 Current Outpatient Medications Medication Sig Dispense Refill [...] eye 2 times daily 10 mL 3 Donepezil HCl 5 MG Oral Tablet (Aricept) Take by mouth 1 Tablet in the morning. Take with largest meal of the day.. 90 Tablet 3 Famotidine 20 MG Oral Tablet (Pepcid) TAKE 1 TABLET BY MOUTH ONCE DAILY 90 Tablet 3 Nitroglycerin 0.4 MG Sublingual Tablet Sublingual [...] or more if needed) 60 g 0 ALPRAZolam 0.5 MG Oral Tablet (xaNAX) TAKE 1 TABLET BY MOUTH AT BEDTIME NEEDED FOR SLEEP. 30Tablet 0 Escitalopram Oxalate 10 MG Oral Tablet (Lexapro) TAKE 1 TABLET BY MOUTH ONCE DAILY 90 Tablet 1 Levothyroxine Sodium 50 MCG Oral Tablet (Levoxyl) Take 1 Tablet by mouth daily first thing in the morning. (at least 30 min prior to breakfast or other meds) 90 Tablet 3 Pravastatin Sodium 40 MG Oral Tablet (Pravachol) Take 1 Tablet by mouth in the morning. 90 Tablet 0 Losartan Potassium 100 MG Oral Tablet (Cozaar) [...] HOURS NEEDED FOR NAUSEA 20 Tablet 1 No current facility-administered medications for this visit. Review of patient's allergies indicates: Allergen Reactions Bee Venom Anaphylaxis Alendronate Tachycardia Patient felt like she was having a heart attack Iodinated Contrast Media Keflex [Cephalexin] Hot and flushed , nausea 2013 Lisinopril Objective: BP 118/60 | Pulse 70 | Resp 18 | Wt 60.6 kg (133 lb 9.6 oz) | SpO2 97% | BMI 26.53 kg/m | BSA 1.59 m Physical Exam: CONST: alert, pleasant, no acute distress HEAD: normocephalic, atraumatic NECK: supple, soft, no adenopathy EARS: canals normal, TMs normal Eyes - PERRLA, EOM'I OROPHARYNX: clear, no swelling or erythema, moist CV: regular rate and rhythm, no murmur CHEST: clear to auscultation bilaterally, no rales or wheezing ABD: soft, non tender, non distended, no masses or hepatosplenomegaly EXT: no edema, no joint swelling or deformities, NEURO: AAOx3, no gross focal deficits, cerebellar signs normal, affect appropriate MENTAL STATUS: no evidence of thought disorder, no delusional thought, no evidence of paranoia, thought is non-tangential. The patient was oriented to person and partially to place. She was oriented to time of the had difficulty with the month of year. Insight-poor ASSESSMENT/PLAN: Alzheimer's dementia-progressive. She tells me she is not using Aricept. Is a little unclear why. Iwrote this down in asked that she start taking it 1 daily. She is going to return within the week to see Dr. Cook with all of her pills that she might be using or might not be using an he will help tosort things out. Unfortunately I do not have a lot more to offer her. Arun Del Rio MD documented in this encounter Nursing Notes * Cassie Davies LPN - 10/10/2022 2:58 PM EDT The patient has been properly identified by confirmation of name and date of . Chief Complaint Patient presents with Acute Pt feels like things are all jumbled in her head, tearful, nauseous documented in this encounter Plan of Treatment Upcoming Encounters Date Type Specialty Care Team Description 10/15/2022 Office Visit Family Medicine Darrin Cook MD [address] [place] [address] 12/09/2022 Office Visit Nephrology Jabari Morales MD [address] [place] [address] 01/14/2023 Office Visit Family Medicine Arun Del Rio MD [address], [place] [id number] 02/26/2023 Office Visit Rheumatology Mary Crews PAShantelC [address] [place] [address] 03/10/2023 Office Visit Hematology Oncology Brennon German MD [address] [place] [address] 06/03/2023 Nurse Only Ancillary Shona Nurse [facility] [address] [facility] [address] 07/06/2023 Office Visit Cardiology Gil Juares MD [address] [place] [address] 09/10/2023 Office Visit Dermatology Leigh June PA-C [address] [place] [address] [place] [address] Health Maintenance Due Date Last Done Comments [...] Additional history exists CKD HGB USE SMARTSET 80979 05/14/202305/14, 03/10/2022, 03/10/2022, Additional history exists CKD PHOS USE SMARTSET 89446 05/14/202304/18, 08/14/2021, 04/25/2021, Additional history exists Depression Screening, Annual for Pts 12 and Over 06/03/2023 06/03/2022 DTaP,Tdap,and Td Vaccines (2 - Td or Tdap) 02/10/2024 02/09/2014 Pneumococcal Vaccine: 65+ Years Completed 10/11/2014, 09/08/2013 Zoster Vaccines Completed 12/31/2017, 09/16, 03/18/2015 Influenza Vaccine (FLU shot) Completed 02/2022, 02/15/2021, 02/22/2020, Additional history exists VITAMIN D LEVEL ONCE IN A LIFETIME-USE SMARTSET# [id number] Completed 05/14/2022, 08/14/2021, 05/04/2020, Additional history exists [...] with other behavioral disturbance, unspecified dementia severity (HCC)- Primary documented in this encounter Advance Directives [...] and were consensually agreed upon. Care Teams Shingles Roofer Relationship Specialty Start Date End Date Arun Del Rio MD [facility] [address], [place] [id number] PCP - General Family Medicine 06/30/18 documented as of this encounter"
--- OUTSIDE RECORDS SUMMARY | 2023-04-05 10:10 | External Medical Summary | Summary of Care ---
Author Name Unknown Organization [facility] Address [address] [place] [address] Phone [phone] Care Team Providers Care Engineering Tech Name Role Phone Arun Del Rio MD Primary Care Provider [phone] Reason for Visit * Reason Onset Date Comments Med Request 10/07/2022 Encounter Details Date Type Department Care Team Description 10/07/2022 Telephone [facility] [address] [place] [address] SeptemberDarrin MD [address] [place] [address] Med Request Allergies Active Allergy [...] mRNA, LNP-s, No Pre serve, 2-Dose Series ([employer]) 12/10/2021,03/05/2021,08/07/2020,07/12 Pneumococcal Conjugate Vacc, 13 Valent (Prevnar) [...] Telephone Encounter - Hawa Arvizu LPN - 10/10/2022 9:36 AM EDT Patient has appointment today. * Telephone Encounter - Hawa Arvizu LPN [...] Follow up in office as scheduled for [facility] on 10/15/2022. Darrin Cook MD * Telephone [...] Encounters Date Type Specialty Care Team Description 10/10/2022 Office Visit Family Medicine Arun Del Rio MD [address] [place] [address] 10/15/2022 Office Visit Family Medicine Darrin Cook MD [address] [place] [address] 11/28/2022 Office Visit Family Medicine Arun Del Rio MD [address] [place] [address] 12/09/2022 Office Visit Nephrology Jabari Morales MD [address] [facility] [place] [address] 02/26/2023 Office Visit Rheumatology Mary Crews PA-C [address] [place] [address] 03/10/2023 Office Visit Hematology Oncology Brennon German MD [address] [facility] [place] [address] 06/03/2023 Nurse Only Ancillary Nurse Shona [facility] [address] [facility] [address] 07/06/2023 Office Visit Cardiology Gil Juares MD [address] [place] [address] 09/10/2023 Office Visit Dermatology Leigh June PA-C [address] [place] [address] [place] [id number] Health Maintenance Due Date Last Done Comments [...] Additional history exists CKD HGB USE SMARTSET 15435 05/14/202305/14, 03/10/2022, 03/10/2022, Additional history exists CKD PHOS USE SMARTSET 35249 05/14/202304/18, 08/14/2021, 04/25/2021, Additional history exists Depression Screening, Annual for Pts 12 and Over 06/03/2023 06/03/2022 DTaP,Tdap,and Td Vaccines (2 - Td or Tdap) 02/10/2024 02/09/2014 Pneumococcal Vaccine: 65+ Years Completed 10/11/2014, 09/08/2013 Zoster Vaccines Completed 12/31/2017, 09/16, 03/18/2015 Influenza Vaccine (FLU shot) Completed 02/2022, 02/15/2021, 02/22/2020, Additional history exists VITAMIN D LEVEL ONCE IN A LIFETIME-USE SMARTSET# [id number] Completed 05/14/2022, 08/14/2021, 05/04/2020, Additional history exists [...] were consensually agreed upon. Care Teams Engineering Tech Relationship Specialty Start Date End Date Arun Del Rio MD [address] [place] [address] PCP - General Family Medicine 06/30/18 documented as of this encounter
[2023-04-05 11:40] LABS: Appearance Urine Cloudy (Clear); Bacteria Urine Automated 4+ (Negative); Bilirubin Urine Negative (Negative); Blood Urine Negative (Negative); Color Urine Yellow; Epithelial Cell Urine Auto >30 /lpf (0-5); Glucose Urine UA Negative (Negative); Ketones Urine Negative (Negative); Leukocyte Esterase Urine 2+ (Negative); Nitrite Urine Negative (Negative); Protein Urine Negative (Negative); RBC Urine Automated 0-4 /hpf (0-4); Specific Gravity Urine 1.018 (1.000-1.030); Urobilinogen Urine Negative (Negative)
[2023-04-05 12:18] LABS: Cast Urine Automated 0 /lpf (0-5); Renal Epithelial Cells Urine 0-5 /lpf (0-5)
[2023-04-05] MEDS: amLODIPine BESYLATE 5 MG TAB PO SCH (12:21)
[2023-04-05] MEDS: ESCITALOPRAM OXALATE 10 MG TAB PO SCH (12:24)
[2023-04-05] MEDS: METOPROLOL SUCC 25MG EXT REL TAB PO SCH (12:24)
[2023-04-05] MEDS: DORZOLAMIDE/TIMOLOL 22.3/6.8MG/ML 10 ML BTL OPB SCH ×2 (12:27→20:14)
[2023-04-05] MEDS: PIPERACILLIN/TAZOBACTAM 4.5 GM in DEXTROSE 5% MINI-B 100 ML IV SCH ×2 (13:27→20:15)
[2023-04-05] MEDS: ACETAMINOPHEN 325 MG TAB PO PRN ×2 (15:38→20:15)
[2023-04-05] MEDS: HEPARIN SOD 5,000 UNIT/0.5 ML VIAL SQ SCH (20:14)
[2023-04-05] MEDS: LOSARTAN POTASSIUM 50 MG TAB PO SCH (20:14)
[2023-04-05] MEDS: PRAVASTATIN SOD 40 MG TAB PO SCH (20:15)
[2023-04-06] MEDS: LEVOTHYROXINE SODIUM 50 MCG TABLET PO SCH (05:39)
[2023-04-06] MEDS: PIPERACILLIN/TAZOBACTAM 4.5 GM in DEXTROSE 5% MINI-B 100 ML IV SCH ×3 (05:39→22:49)
[2023-04-06 07:43] LABS: Hematocrit (blood only) 23.3 % (37.0-47.0); Hemoglobin 6.8 g/dl (12.0-16.0); Mean Corpuscular Hemoglobin 23.9 pg (25.0-34.0); Mean Corpuscular Hgb Conc 29.2 g/dL (32.0-36.0); Mean Platelet Volume 9.7 fL (9.4-12.4); Platelet Count 371 K/uL (130-400); RDW Coefficient of Variation 24.4 % (11.5-14.5); RDW Standard Deviation 69.5 fL (36.4-46.3); Red Blood Count 2.84 M/uL (4.20-5.40); White Blood Count 8.87 K/ul (4.8-10.8)
[2023-04-06 08:08] LABS: BUN Creatinine Ratio 16.8 (10-20); Calcium 8.3 mg/dl (8.6-10.3); Creatinine Clr Calc Pharmacy 31.1 ml/min; Est GFR (African American) 57.2 ml/min; Est GFR (Non-African American) 49.3 ml/min; Potassium 3.9 mmol/L (3.5-5.1)
[2023-04-06 08:14] LABS: Thyroid Stimulating Hormone 2.647 uIu/ml (0.300-4.500)
[2023-04-06] MEDS: ACETAMINOPHEN 325 MG TAB PO PRN (08:18)
[2023-04-06] MEDS: amLODIPine BESYLATE 5 MG TAB PO SCH (08:54)
[2023-04-06] MEDS: HEPARIN SOD 5,000 UNIT/0.5 ML VIAL SQ SCH (08:54)
[2023-04-06] MEDS: METOPROLOL SUCC 25MG EXT REL TAB PO SCH (08:54)
[2023-04-06] MEDS: ESCITALOPRAM OXALATE 10 MG TAB PO SCH (08:54)
[2023-04-06] MEDS: DORZOLAMIDE/TIMOLOL 22.3/6.8MG/ML 10 ML BTL OPB SCH ×2 (08:54→22:49)
[2023-04-06] MEDS: DONEPEZIL HCL 5 MG TAB PO SCH (08:54)
--- NOTE | 2023-04-06 09:19 | Palliative Care Consultation ---
Date of Consultation April 06, 2023 Assessment & Plan (1) Abdominal pain, acute, generalized: trial roxanol 2.5mg PO q3h prn (2) Weakness generalized: (3) Chronic confusion: (4) Discussion about advance care planning held with family member: ACP discussion with pt and family at bedside x 45min, pt is not decisional but dtr is POA and felt pt could be included in discussion as much as she was able. We discussed the goals of hospice as a patient service and the goals of care; we discussed EOL trajectories and transitions jarrett the emotional impact of realizing mortality as a concrete reality from prior abstract considerations. Pt was reassured that no matter where they are along this trajectory, they are not alone - their medical team will remain by their side through their journey. Discussed the pros/cons of accepting help when especially weakened and distressed by pain-which would also help provide relief/decrease caregiver burden/strain.I provided education about the hospice benefit: an interdisciplinary program offered by nurses, nurses aides, social workers, chapl ains and a medical billing assistant for patients with a terminal condition and a life expectancy of less than 6 months. This is covered by Medicare at 100%/no out of pocket expense to patient and all meds/supplies needed by patient for the reason they are on hospice are paid for/covered by hospice. The goal is assure quality of life of the patient in their home setting (home, long-term, inpatient hospice setting) by providing symptoms management, psychosocial and spiritual support. However, they cannot offer 24 hours care and if the family is unable to provide that care, they will have to consider personal care with out of pocket cost vs. long-term placement. We discussed the goals of hospice as a patient service and the goals of care; we discussed EOL trajectories and transitions jarrett the emotional impact of realizing mortality as a concrete reality from prior abstract considerations. Pt was reassured that no matter where they are along this trajectory, they are not alone - their medical team will remain by their side through their journey. Discussed the pros/cons of accepting help when especially weakened and distressed by pain-which would also help provide relief/decrease caregiver burden/strain. (5) Encounter for hospice care discussion: see #4 above (6) Palliative care by specialist: Met with pt and family. Provided overview of Palliative Medicine, a subspecialty that provides specialized medical care for people living with a serious illness by offering a focus on quality of life. Palliative Medicine is often conflated with hospice: I advised patient/family that Palliative and hospice can be partners but we are not the same. It is important to understand the difference so that we may be informed, and not afraid. Palliative Medicine works to improve QOL through reduction of symptom burden/more control over their illness, for both the patient and family. Palliative medicine clinicians are board certified, specially-trained and another member of the patient's medical care team. We often provide an extra layer of support because our care is based on the needs of the patient, not the prognosis; as such, it's appropriate at any age/advancing stage of a serious illness and can be provided along with curative treatment. Palliative Medicine clinicians are also trained in advanced communica tion methodologies, to facilitate complex discussions about advanced illness planning, which are needed to help assure that the treatment choices match the patient's goals, aka delivering Goal Concordant care. Finally, we discussed that hospice is a visiting nurse service that focuses on care delivered at the very end of life for patients with terminal illness, with life expectancy less than 6 month. Plan * Dtr is clear they do not want any aggressive care; they spoke as a family and are interested in hospice at [facility]. She would like more details about this from CM. She tells me they are self pay at [facility] and medicare is not paying for any portion of pt care, therefore it should cover hospice. Care mgt can verify this for family. * Roxanol low dose trial for sx mgt * ACP discussion as noted above * Primary team and nursing updated Thank you for allowing us to participate in the ongoing care of this patient. Please don't hesitate to call or page with any additional concerns. Dr. Juanis Elliott DNP Director, Palliative Care History of Present Illness Reason for Consultation: poss colon mass, daughters interested in hospice Attending Physician: Zana Pulido MD History of Present Illness Juanis Rodriguez is an 87yo female who resides in [facility] Dementia Care unit. She came to ED with acute abd pain. Adb mass noted - ? mass vs colitis/diverticulitis Per admission note: "Overall, daughter is interested in hospice care. Palliative consult was placed." PMH: right breast cancer status post partial mastectomy, radiation therapy, chemotherapy and 5 years of adjuvant tamoxifen completed in 2018. Currently presents with abdominal pain, and eval to date Work-up reveals a colonic mass suspicious for malignancy. She has a worsening anemia for which she has been getting iron transfusions after being referred to hematology. She also takes iron supplements orally Thursday. Allergies Allergy/AdvReac Type Severity Reaction Status Date / Time bee venom protein (honey bee) Allergy Severe Anaphylaxis Verified 04/05/23 09:43 cephalexin Allergy Unknown RASH Unverified 10/04/20 09:59 Iodinated Contrast Media Allergy Unknown HIVES Unverified 10/04/20 09:59 lisinopril Allergy Unknown Verified 04/05/23 09:43 alendronate sodium AdvReac Severe Chest Pain Verified 04/05/23 09:43 Home Medications Medication Instructions Recorded Confirmed Type alprazolam 0.5 mg tablet 0.5 mg PO HS PRN Sleep 03/01/18 04/05/23 History aspirin 81 mg tablet,delayed 81 mg PO DAILY 03/01/18 04/05/23 History release (Mackenzie Low Dose Aspirin) cranberry fruit concentrate 450 mg 450 mg PO DAILY 03/01/18 04/05/23 History tablet (cranberry) levothyroxine 50 mcg tablet 50 mcg PO DAILYBB 03/01/18 04/05/23 History losartan 100 mg tablet 100 mg PO HS 03/01/18 04/05/23 History metoprolol succinate 25 mg 25 mg PO DAILY 03/01/18 04/05/23 History tablet,extended release 24 hr pravastatin 40 mg tablet 40 mg PO HS 03/01/18 04/05/23 History nitroglycerin 0.4 mg sublingual 0.4 mg sublingual UD #30 tabs 03/02/18 04/05/23 Rx tablet (Nitrostat) amlodipine 2.5 mg tablet 2.5 mg PO DAILY 10/05/19 04/05/23 History donepezil 5 mg tablet 5 mg PO DAILY 04/05/23 04/05/23 History dorzolamide 22.3 mg-timolol 6.8 1 drp OPB BID 04/05/23 04/05/23 History mg/mL eye drops escitalopram oxalate 10 mg tablet 10 mg PO DAILY 04/05/23 04/05/23 History famotidine 20 mg tablet 20 mg PO DAILY 04/05/23 04/05/23 History ferrous sulfate 325 mg (65 mg 325 mg PO MOWEFR@0900 04/05/23 04/05/23 History iron) tablet Patient History Medical History (Updated 04/06/23 @ 09:47 by Zana Pulido MD) Syncope Depression History of breast cancer History of adenomatous polyp of colon Diverticular disease of colon Pelvic fracture Osteoporosis Hypothyroidism Lymphedema of arm Dyslipidemia Hypertension Nonsustained ventricular tachycardia Hypomagnesemia Hiatal hernia GERD (gastroesophageal reflux disease) Esophageal spasm Surgical History H/O bilateral cataract extraction History of ectropion repair Status post partial mastectomy Family History Mother Heart disease Father Colon cancer Sister Lymphoma Sister Breast cancer Social History Smoking Status: Never smoker Second Hand Exposure: No; Do You Dip or Chew Tobacco: No; Tobacco Cessation Education Requested by Patient: No Hx Alcohol Use: No Hx Substance Use: No Preferred Language: Tongan Communication Ability: Effective Tissue Inserter Required: No Beliefs That Will Affect Care: None Current Living Situation: Detention Other Information That Helps Us Care for You: No Feels Safe at Home: Yes Safety Concerns: Feels Safe At This Time Assistive Devices: Cane, Glasses and Walker Review of Systems Review of Systems: Unobtainable due to cognitive status Physical Exam Constitutional: + ill appearing, + thin, + frail appeari ng and cooperative Eyes: PERRL, conjunctivae normal, anicteric sclerae ENMT: Mouth: + dry oral mucous membranes bitemp wasting Neck: trachea midline, no thyromegaly Respiratory: normal respiratory effort and able to speak in complete sentences Auscultation: + diminished lung sounds normal effort but mild conversational dyspnea Cardiovascular: s1s2. no gross JVD Gastrointestinal (Abdomen): mild distension, tender RUQ, BS diminished Musculoskeletal: LINCOLN, mild general weakness Skin: pale, dry, cool Neurologic: alert to self. confused but pleasantly so. easily off topic and tangential. some anxiety noted Results & Data Vital Signs (Past 12 Hours) Vital Signs Temp Pulse Pulse Resp BP Pulse Ox O2 Del Method 04/06/23 07:57 36.8 C 67 16 147/74 H 97 Room Air 11/20/23 07:19 78 04/06/23 03:18 36.9 C 94 H 18 117/66 96 Room Air 04/05/23 23:35 65 04/05/23 23:34 36.9 C 69 16 129/63 97 Room Air Laboratory Results data reviewed/see HPI Diagnostic Findings data reviewed/see HPI PG Care Time/CCT Total # of Minutes Spent Total Time Spent: 115 Total Time Spent with Patient: Total time spent is greater than 50% in coordination of care (as documented) at patient's floor/unit and/or counseling patient: I spent 115 minutes overall addressing this case: 20 min in medical data review/discussion with referring provider(s) and/or preparation for the visit 20 min in direct interaction with the patient/exam 45 min in Advance Care Planning/Goals of Care discussions as detailed above in note (must be >16min) 15 min in subsequent review and synthesis of assessment and plan 15 min communicating with other providers regarding the patient's case: Advanced Care Planning 41498 Advanced Care Planning 30 Min 93982 Advanced Care Planning Additional 30 [place] [address] IN/OBS CONSULT LVL 5,80M Patient Type New History Comprehensive Exam Comprehensive Medical Decision Making High Complexity Diagnoses Abdominal pain, acute, generalized R10.84 Weakness generalized R53.1 Chronic confusion R41.0 Discussion about advance care planning held with family member Z71.0 Encounter for hospice care discussion Z71.89 Palliative care by specialist Z51.5 Additional Codes Advanced Care Planning - 25756 Advanced Care Planning 30 Min: 26383 Advanced Care Planning 30 Min ([id number]) Advanced Care Planning - 91651 Advanced Care Planning Additional 30 Min: 88024 Advanced Care Planning Additional 30 Min ([id number])
[2023-04-06] MEDS ORDERED: SODIUM CHLORIDE 0.9% 250 ML IV PRN (09:29)
--- NOTE | 2023-04-06 09:51 | Hospitalist Progress Note ---
Date of Service April 06, 2023 Assessment & Plan (1) Colonic mass: Plan: (1) Syncope: Had syncopal episode yesterday morning at [place]. Currently back to baseline. Echo ok. Continue to monitor orthostatics. (2) Abdominal pain: mostly from possible colon mass. (3) Abnormal CT of the abdomen: Possible colon mass versus diverticulitis/colitis. On Zosyn. Daughter wanted to check ct scan with IV contrast. Ordered with prep for iv dye. Seems family doesn't ant colonoscopy or further additional studies. . Palliative care consulted. (4) Anemia: Likely chronic blood loss anemia secondary to colon mass. on iron supplementation and iron transfusions as outpatient. Hb 6.8 today. Blood consent obtained. ordered one unit prbc. No obvious bleeding. (5) Dementia: ON donepezil. Monitor for delirium. (6) Hypothyroidism: Chronic, stable. TSH is ok.. Continue Synthroid . (7) Osteoporosis: Chronic, stable.Seems allergic to to alendronate. Not on calcium or vitamin D supplements. Followup with PCP. (8) History of breast cancer: (9) Hypertension: on metoprolol for losartan. Will monitor . (10) Depression: On Lexapro. DVT prophylaxis-scds for now. DNR/DNI (2) Syncope: Admission and Anticipated Discharge Date Admission Date: April 05, 2023 Subjective Resting in the bed comfortably denies any pain afebrile moved bowels-dark daughter in room has some abdominal pain in right lower quadrant Review of Systems Review of Systems: All systems reviewed & are unremarkable except as noted in HPI & below Physical Exam Physical Exam: General- Not in distress Head- atraumatic Eyes- EOMI Neck- supple, no JVD. Lungs- clear to auscultation no wheezing or crackles. Heart- regular rhythm; no murmur, no gallop. Abdomen- normal bowel sounds, soft, tenderness in RLQ no masses . Extremities- no pretibial edema, moves extremities. Neuro- alert, oriented ; EOMI; no facial palsy; no dysarthria; moves extremiti es. Skin- warm & dry Results & Data Results & Data Vital Signs (Past 12 Hours) Vital Signs Temp Pulse Pulse Resp BP Pulse Ox O2 Del Method 04/06/23 07:57 36.8 C 67 16 147/74 H 97 Room Air 04/06/23 07:19 78 11/20/23 03:18 36.9 C 94 H 18 117/66 96 Room Air 04/05/23 23:35 65 04/05/23 23:34 36.9 C 69 16 129/63 97 Room Air Diagnostic Findings Laboratory Results WBC 8.87 K/ul (4.8-10.8) 04/06/23 06:46 RBC 2.84 M/uL (4.20-5.40) L 04/06/23 06:46 Hgb 6.8 g/dl (12.0-16.0) L* 04/06/23 06:46 Hct 23.3 % (37.0-47.0) L 04/06/23 06:46 MCV 82.0 fL (80.0-100.0) 04/06/23 06:46 MCH 23.9 pg (25.0-34.0) L 04/06/23 06:46 MCHC 29.2 g/dL (32.0-36.0) L 04/06/23 06:46 RDW Std Deviation 69.5 fL (36.4-46.3) H 04/06/23 06:46 RDW Coeff of [place] 24.4 % (11.5-14.5) H 04/06/23 06:46 Plt Count 371 K/uL (130-400) 04/06/23 06:46 MPV 9.7 fL (9.4-12.4) 04/06/23 06:46 Immature Gran % (Auto) 0.4 % 04/05/23 08:05 Neut % (Auto) 79.2 % 04/05/23 08:05 Lymph % (Auto) 13.9 % 04/05/23 08:05 [place] % (Auto) 5.6 % 04/05/23 08:05 Eos % (Auto) 0.7 % 04/05/23 08:05 Baso % (Auto) 0.2 % 04/05/23 08:05 Neut # (Auto) 9.96 K/uL (1.40-6.50) H 04/05/23 08:05 Lymph # (Auto) 1.75 K/uL (1.20-3.40) 04/05/23 08:05 [place] # (Auto) 0.71 K/uL (0.11-0.59) H 04/05/23 08:05 Eos # (Auto) 0.09 K/uL (0.00-0.50) 04/05/23 08:05 Baso # (Auto) 0.03 K/uL (0.00-0.20) 04/05/23 08:05 Immature Gran # (Auto) 0.05 K/uL (0.01-0.20) 04/05/23 08:05 Polychromasia 1+ 04/05/23 08:05 Hypochromasia Present 04/05/23 08:05 Anisocytosis Present 04/05/23 08:05 Ovalocytes 1+ 04/05/23 08:05 Sodium 140 mmol/L (136-145) 04/06/23 06:46 Potassium 3.9 mmol/L (3.5-5.1) 04/06/23 06:46 Chloride 110 mmol/L (98-107) H 04/06/23 06:46 Carbon Dioxide 22 mmol/L (21-32) 04/06/23 06:46 Anion Gap 8 (3-11) 04/06/23 06:46 BUN 17 mg/dl (6-23) 04/06/23 06:46 Creatinine 1.01 mg/dl (0.6-1.2) 04/06/23 06:46 Est Cr Clr Drug Dosing 31.1 ml/min 04/06/23 06:46 Est GFR ( Amer) 57.2 ml/min 04/06/23 06:46 Est GFR (Non-Af Amer) 49.3 ml/min 04/06/23 06:46 BUN/Creatinine Ratio 16.8 (10-20) 04/06/23 06:46 Glucose 90 mg/dl (70-99(Fasting)) 04/06/23 06:46 Calcium 8.3 mg/dl (8.6-10.3) L 04/06/23 06:46 Total Bilirubin 0.5 mg/dl (0.2-1.0) 04/05/23 08:05 AST 14 U/L (13-39) 04/05/23 09:27 ALT 11 U/L (7-52) 04/05/23 08:05 Alkaline Phosphatase 61 U/L (34-104) 04/05/23 08:05 Troponin I High Sens 13.7 pg/ml (0-14) 04/05/23 08:05 Total Protein 6.1 gm/dl (6.0-8.3) 04/05/23 08:05 Albumin 2.9 gm/dl (3.4-5.0) L 04/05/23 08:05 Globulin 3.2 gm/dl (2.5-4.0) 04/05/23 08:05 Albumin/Globulin Ratio 0.9 (0.9-2) 04/05/23 08:05 Lipase 10 U/L (11-82) L 04/05/23 08:05 TSH 2.647 uIu/ml (0.300-4.500) 04/06/23 06:46 Urine Color Yellow 04/05/23 10:51 Urine Appearance Cloudy (Clear) A 04/05/23 10:51 Urine pH 6.0 (4.5-7.5) 04/05/23 10:51 Ur Specific [place] 1.018 (1.000-1.030) 04/05/23 10:51 Urine Protein Negative (Negative) 04/05/23 10:51 Urine Glucose (UA) Negative (Negative) 04/05/23 10:51 Urine Ketones Negative (Negative) 04/05/23 10:51 Urine Blood Negative (Negative) 04/05/23 10:51 Urine Nitrite Negative (Negative) 04/05/23 10:51 Urine Bilirubin Negative (Negative) 04/05/23 10:51 Urine Urobilinogen Negative (Negative) 04/05/23 10:51 Ur Leukocyte Esterase 2+ (Negative) H 04/05/23 10:51 Urine WBC (Auto) 5-10 /hpf (0-5) H 04/05/23 10:51 Urine RBC (Auto) 0-4 /hpf (0-4) 04/05/23 10:51 U Hyaline Cast (Auto) 0 /lpf (0-5) 04/05/23 10:51 U Epithel Cells (Auto) >30 /lpf (0-5) H 04/05/23 10:51 Urine Bacteria (Auto) 4+ (Negative) H 04/05/23 10:51 Ur Renal Epithelial Cell 0-5 /lpf (0-5) 04/05/23 10:51 Nasal Screen MRSA (PCR) Negative (Negative) 04/05/23 16:25 Impressions Abdomen/Pelvis CT 04/05/23 08:[address] WITHOUT CONTRAST CT DOSE: 580.4 mGy.cm HISTORY: rt sided abd pain TECHNIQUE: Multiaxial CT images of the abdomen and pelvis were performed without contrast. A dose lowering technique was utilized adhering to the principles of ALARA. COMPARISON STUDY: None. FINDINGS: Mild dependent changes seen at the lung bases. No pneumoperitoneum. No pneumatosis. Old posttraumatic and postoperative changes within the pubic bones. There is a left sacroiliac bone noted. There are old, healed bilateral rib fractures. No acute fractures identified. The heart is moderately enlarged. Mild circumferential thickening of the distal esophagus. Prior cholecystectomy. This may account for the intra and extra hepatic bile duct dilatation. The common bile duct measures up to 11 mm. No hepatic or splenic masses. There is trace perisplenic fluid noted. The adrenal glands unremarkable. Small cyst at the pancreatic head.. There is a punctate stone within the left kidney. No right renal calculi. Multiple bilateral renal hypodense lesions are incompletely characterized on this noncontrast study but favor cysts. Calcified plaque within the normal caliber abdominal aorta. No pelvic lymphadenopathy. Trace pelvic free fluid. Mild bladder wall thickening with adjacent fat stranding. The uterus and adnexa are unremarkable. No dilated loops of bowel to suggest an obstruction. Multiple colonic diverticula. There is moderate irregular bowel wall thickening within the cecum and proximal ascending colon with adjacent fat stranding. There are mildly enlarged ileocolic lymph nodes measuring up to 13 mm. The appendix is not identified with certainty. Mild thickening at the terminal ileum is also noted. IMPRESSION: 1. Moderate irregular bowel wall thickening involving the cecum and proximal ascending colon with pericolonic fat stranding. This is suspicious for a colonic mass with surrounding inflammation. A nonspecific colitis or cecal diverticulitis are also considered in the differential diagnosis.. Follow-up col onoscopy recommended for further evaluation. 2. Mildly enlarged ileocolic lymph nodes which could represent tumor spread or reactive. These bear watching future examinations. 3. The appendix is not identified with certainty. 4. Left-sided nephrolithiasis. No hydronephrosis. 5. Mild bladder wall thickening which may represent a cystitis. 6. Additional findings as described above. ACT 112: Negative or not required by law. Electronically signed by: Hugo Patel M.D. 04/05/2023 9:21 AM
[2023-04-06] MEDS ORDERED: ACETAMINOPHEN 500 MG TAB PO ONE ×2 (10:00→11:51)
[2023-04-06] MEDS: FAMOTIDINE 20 MG TAB PO SCH (10:46)
[2023-04-06] MEDS: methylPREDNISolone 40 MG in SYRINGE 0 ML IV SCH ×2 (10:46→14:50)
[2023-04-06] MEDS ORDERED: MoRPHine SULFATE 10 MG/0.5 ML UDP PO PRN (13:34)
[2023-04-06] MEDS ORDERED: diphenhydrAMINE 50 MG/ML VIAL IV ONE (13:45)
[2023-04-06] MEDS ORDERED: OPTIRAY 320 500ml IV ONE (16:10)
[2023-04-06 17:56] LABS: Hematocrit (blood only) 31.5 % (37.0-47.0); Hemoglobin 9.6 g/dl (12.0-16.0)
--- NOTE | 2023-04-06 17:57 | CT Scan Report ---
CT SCAN OF THE ABDOMEN AND PELVIS WITH IV CONTRAST CLINICAL HISTORY: Colonic mass. COMPARISON STUDY: Abdominal CT dated 04/05/2023. TECHNIQUE: Following the IV administration of 89 cc of Optiray 320, CT scan of the abdomen and pelvi s is performed from the lung bases to the proximal femora. Images are reviewed in the axial, sagittal , and coronal planes. IV contrast was administered without complication. A dose lowering technique wa s utilized adhering to the principles of ALARA. CT DOSE: 690.51 mGy.cm FINDINGS: Lung bases: The heart is enlarged and without pericardial effusion. The lung bases are clear. The cor onary arteries and evidence of calcified. The distal esophagus is circumferentially thick-walled. Liver: The contrast-enhanced liver is normal in size, contour, and attenuation. There is moderate int rahepatic biliary ductal dilatation. The hepatic veins and portal veins are patent. Gallbladder: Surgically absent. Spleen: Normal in size and attenuation. Pancreas: Mild atrophic and grossly unremarkable. Adrenal glands: Unremarkable. Kidneys: The contrast enhanced kidneys demonstrate cortical atrophy and are without hydronephrosis. T he kidneys enhance symmetrically. Numerous bilateral renal cysts measuring up to 3.1 cm. No enhancing cortical mass lesion is identified. A 3 mm nonobstructing calculus is seen on the left. Abdominal vasculature: The abdominal aorta is normal in course and caliber noting advanced atheroscle rotic calcification. Bowel: There is advanced colonic diverticulosis without CT evidence of acute diverticulitis. No bowel obstruction is seen. A large mass lesion is again seen involving the cecum. This measures approximat suresh 9 cm in length and appears to involve the ileocecal junction. There is inflammation around the ri ght colon. Pathologically enlarged pericolic lymph nodes measure up to 2.2 cm seen on image #156. A 1 .4 cm right lower quadrant mesenteric node is seen on image #140. The appendix is not visualized. Peritoneum: There is no intraperitoneal free air or abdominal ascites. Lymphadenopathy: Pathologically enlarged mesenteric/pericolonic lymph nodes are seen in the right low er quadrant as above. There is no upper abdominal, retroperitoneal, iliac chain, pelvic sidewall, or inguinal lymphadenopathy. Pelvic viscera: The bladder wall is circumferentially thickened with surrounding infiltration. The ut erus and adnexa are normal as visualized. Skeletal structures: The skeletal structures are osteopenic. There is mild lumbosacral spondylosis. T here is posttraumatic deformity and postsurgical change seen in the pubic ring. A left iliac bone is in place. Degenerative sclerosis is noted in the sacroiliac joints. No lytic or blastic lesions are s een. IMPRESSION: 1. Again seen is a large cecal mass lesion as above. A colon cancer is the diagnosis of exclusion. Th is does not cause obstruction. 2. Pathologically enlarged right lower quadrant mesenteric/pericolonic lymph nodes as above. This ind icates laron involvement. 3. There is inflammation identified around the cecum. Correlate clinically for evidence of a superimp osed colitis. 4. The distal esophagus is circumferentially thick walled. Correlate clinically for evidence of esoph agitis. This could be further assessed with endoscopy if clinically warranted. 5. The bladder wall appears thickened with surrounding infiltration. Correlate with clinical findings and urinalysis. 6. There is moderate intrahepatic biliary ductal dilatation, with which may be related to prior adriano cystectomy. Correlate with clinical and laboratory findings. 7. There is no evidence of distant metastatic disease in the abdomen or pelvis. 8. Cardiomegaly with advanced coronary artery atherosclerosis. 9. Advanced colonic diverticulosis without CT evidence of acute diverticulosis. 10. Additional findings as above. ACT 112: Negative or not required by law. Electronically signed by: Kirby Ruvalcaba M.D. 04/06/2023 5:56 PM
[2023-04-06] MEDS: PRAVASTATIN SOD 40 MG TAB PO SCH (22:50)
[2023-04-06] MEDS: LOSARTAN POTASSIUM 50 MG TAB PO SCH (22:50)
[2023-04-07] MEDS: PIPERACILLIN/TAZOBACTAM 4.5 GM in DEXTROSE 5% MINI-B 100 ML IV SCH ×2 (06:18→14:08)
[2023-04-07] MEDS: LEVOTHYROXINE SODIUM 50 MCG TABLET PO SCH (06:18)
[2023-04-07 06:41] LABS: Basophils # (auto) 0.01 K/uL (0.00-0.20); Basophils % (auto) 0.1 %; Hematocrit (blood only) 31.9 % (37.0-47.0); Hemoglobin 9.6 g/dl (12.0-16.0); Immature Granulocytes # (auto) 0.04 K/uL (0.01-0.20); Immature Granulocytes % (auto) 0.5 %; Lymphocytes # (auto) 1.68 K/uL (1.20-3.40); Lymphocytes % (auto) 19.4 %; Mean Corpuscular Hemoglobin 24.6 pg (25.0-34.0); Mean Corpuscular Hgb Conc 30.1 g/dL (32.0-36.0); Mean Corpuscular Volume 81.6 fL (80.0-100.0); Mean Platelet Volume 9.1 fL (9.4-12.4); Monocytes # (auto) 0.21 K/uL (0.11-0.59); Monocytes % (auto) 2.4 %; Neutrophils # (auto) 6.74 K/uL (1.40-6.50); Neutrophils % (auto) 77.6 %; Platelet Count 474 K/uL (130-400); RDW Coefficient of Variation 22.5 % (11.5-14.5); Red Blood Count 3.91 M/uL (4.20-5.40); White Blood Count 8.68 K/ul (4.8-10.8)
[2023-04-07 07:15] LABS: Anisocytosis Present; Ovalocytes 1+; Polychromasia 2+
[2023-04-07 07:44] LABS: Calcium 8.8 mg/dl (8.6-10.3); Magnesium 2.1 mg/dl (1.7-2.4); Potassium 3.9 mmol/L (3.5-5.1)
[2023-04-07 07:50] LABS: BUN Creatinine Ratio 16.5 (10-20); Creatinine Clr Calc Pharmacy 27.9 ml/min; Est GFR (African American) 55.8 ml/min; Est GFR (Non-African American) 48.2 ml/min
[2023-04-07] MEDS: DONEPEZIL HCL 5 MG TAB PO SCH (08:55)
[2023-04-07] MEDS: ESCITALOPRAM OXALATE 10 MG TAB PO SCH (08:55)
[2023-04-07] MEDS: METOPROLOL SUCC 25MG EXT REL TAB PO SCH (08:55)
[2023-04-07] MEDS: amLODIPine BESYLATE 5 MG TAB PO SCH (08:55)
[2023-04-07] MEDS: FAMOTIDINE 20 MG TAB PO SCH (08:55)
[2023-04-07] MEDS: DORZOLAMIDE/TIMOLOL 22.3/6.8MG/ML 10 ML BTL OPB SCH (08:55)
--- NOTE | 2023-04-07 11:37 | Hospitalist Progress Note ---
Date of Service April 07, 2023 Assessment & Plan (1) Colonic mass: Plan: 1) Colonic mass: Possible colon mass versus diverticulitis/colitis. On Zosyn. Daughter wanted to check ct scan with IV contrast. Ordered with prep for iv dye.CT scan with iv contrast shows: large cecal mass lesion as above. A colon cancer is the diagnosis of exclusion. This does not cause obstruction.Possible superimposed colitis. possible oesophagitis. Family doesn't want colonoscopy or further additional studies. . Palliative care consulted and appreciate inputs.Plan for Hosp[facility] at [place]. Syncope: Had syncopal episode morning of 04/04/23 at [place]. Currently back to baseline. Echo ok. Continue to monitor orthostatics. Abdominal pain: mostly from possible colon mass. pain control currently on low dose Roxanol as needed. Anemia: Likely chronic blood loss anemia secondary to colon mass. on iron supplementation and iron transfusions as outpatient. Hb 6.8 yesterday. s/p one unit prbc yesterday 04/05 and hb stable at 9.6 today. Daughter says she is due for her last iron infusion tomorrow. Will give while she is here. Dementia: ON donepezil. Monitor for delirium. Hypothyroidism: Chronic, stable. TSH is ok.. Continue Synthroid . Osteoporosis: Chronic, stable.Seems allergic to to alendronate. Not on calcium or vitamin D supplements. Followup with PCP. History of breast cancer: Hypertension: on metoprolol for losartan. Will monitor Depression: On Lexapro. DVT prophylaxis-scds for now. DNR/DNI Admission and Anticipated Discharge Date Admission Date: April 05, 2023 Subjective Resting comfortably daughter in room slept ok ate some breakfast ambulating in room ok has mild right sided abdominal pain moved bowels denies any blood in stools. Review of Systems Review of Systems: All systems reviewed & are unremarkable except as noted in HPI & below Physical Exam Physical Exam: General- Not in distress Head- atraumatic Neck- supple, no JVD. Lungs- clear to auscultation no wheezing or crackles. Heart- regular rhythm; no murmur, no gallop. Abdomen- normal bowel sounds, soft, mild tenderness in right lower quadrant no distension Extremities- no pretibial edema, no erythema seen Neuro- alert, oriented no facial palsy; no dysarthria; obeys commands, moves extremities. Skin- warm & dry Results & Data Results & Data Vital Signs (Past 12 Hours) Vital Signs Temp Pulse Pulse Resp BP Pulse Ox Pulse Ox 04/07/23 11:00 95 04/07/23 07:29 65 04/07/23 07:24 36.4 C L 71 18 159/70 H 98 04/07/23 03:54 36.5 C 62 18 136/67 97 04/07/23 00:00 58 L O2 Del Method O2 Del Method 04/07/23 11:00 Room Air 04/07/23 07:29 04/07/23 07:24 Room Air 04/07/23 03:54 Room Air 04/07/23 00:00 Diagnostic Findings Laboratory Results WBC 8.68 K/ul (4.8-10.8) 04/07/23 06:16 RBC 3.91 M/uL (4.20-5.40) L 04/07/23 06:16 Hgb 9.6 g/dl (12.0-16.0) L 04/07/23 06:16 Hct 31.9 % (37.0-47.0) L 04/07/23 06:16 MCV 81.6 fL (80.0-100.0) 04/07/23 06:16 MCH 24.6 pg (25.0-34.0) L 04/07/23 06:16 MCHC 30.1 g/dL (32.0-36.0) L 04/07/23 06:16 RDW Std Deviation 63.0 fL (36.4-46.3) H 04/07/23 06:16 RDW Coeff of Helen 22.5 % (11.5-14.5) H 04/07/23 06:16 Plt Count 474 K/uL (130-400) H 04/07/23 06:16 MPV 9.1 fL (9.4-12.4) L 04/07/23 06:16 Immature Gran % (Auto) 0.5 % 04/07/23 06:16 Neut % (Auto) 77.6 % 04/07/23 06:16 Lymph % (Auto) 19.4 % 04/07/23 06:16 [place] % (Auto) 2.4 % 04/07/23 06:16 Eos % (Auto) 0.0 % 04/07/23 06:16 Baso % (Auto) 0.1 % 04/07/23 06:16 Neut # (Auto) 6.74 K/uL (1.40-6.50) H 04/07/23 06:16 Lymph # (Auto) 1.68 K/uL (1.20-3.40) 04/07/23 06:16 [place] # (Auto) 0.21 K/uL (0.11-0.59) 04/07/23 06:16 Eos # (Auto) 0.00 K/uL (0.00-0.50) 04/07/23 06:16 Baso # (Auto) 0.01 K/uL (0.00-0.20) 04/07/23 06:16 Immature Gran # (Auto) 0.04 K/uL (0.01-0.20) 04/07/23 06:16 Polychromasia 2+ 04/07/23 06:16 Hypochromasia Present 04/05/23 08:05 Anisocytosis Present 04/07/23 06:16 Ovalocytes 1+ 04/07/23 06:16 Sodium 138 mmol/L (136-145) 04/07/23 06:16 Potassium 3.9 mmol/L (3.5-5.1) 04/07/23 06:16 Chloride 109 mmol/L (98-107) H 04/07/23 06:16 Carbon Dioxide 23 mmol/L (21-32) 04/07/23 06:16 Anion Gap 6 (3-11) 04/07/23 06:16 BUN 17 mg/dl (6-23) 04/07/23 06:16 Creatinine 1.03 mg/dl (0.6-1.2) 04/07/23 06:16 Est Cr Clr Drug Dosing 27.9 ml/min 04/07/23 06:16 Est GFR ( Amer) 55.8 ml/min 04/07/23 06:16 Est GFR (Non-Af Amer) 48.2 ml/min 04/07/23 06:16 BUN/Creatinine Ratio 16.5 (10-20) 04/07/23 06:16 Glucose 128 mg/dl (70-99(Fasting)) H 04/07/23 06:16 Calcium 8.8 mg/dl (8.6-10.3) 04/07/23 06:16 Magnesium 2.1 mg/dl (1.7-2.4) 04/07/23 06:16 Total Bilirubin 0.5 mg/dl (0.2-1.0) 04/05/23 08:05 AST 14 U/L (13-39) 04/05/23 09:27 ALT 11 U/L (7-52) 04/05/23 08:05 Alkaline Phosphatase 61 U/L (34-104) 04/05/23 08:05 Troponin I High Sens 13.7 pg/ml (0-14) 04/05/23 08:05 Total Protein 6.1 gm/dl (6.0-8.3) 04/05/23 08:05 Albumin 2.9 gm/dl (3.4-5.0) L 04/05/23 08:05 Globulin 3.2 gm/dl (2.5-4.0) 04/05/23 08:05 Albumin/Globulin Ratio 0.9 (0.9-2) 04/05/23 08:05 Lipase 10 U/L (11-82) L 04/05/23 08:05 TSH 2.647 uIu/ml (0.300-4.500) 04/06/23 06:46 Urine Color Yellow 04/05/23 10:51 Urine Appearance Cloudy (Clear) A 04/05/23 10:51 Urine pH 6.0 (4.5-7.5) 04/05/23 10:51 Ur Specific [place] 1.018 (1.000-1.030) 04/05/23 10:51 Urine Protein Negative (Negative) 04/05/23 10:51 Urine Glucose (UA) Negative (Negative) 04/05/23 10:51 Urine Ketones Negative (Negative) 04/05/23 10:51 Urine Blood Negative (Negative) 04/05/23 10:51 Urine Nitrite Negative (Negative) 04/05/23 10:51 Urine Bilirubin Negative (Negative) 04/05/23 10:51 Urine Urobilinogen Negative (Negative) 04/05/23 10:51 Ur Leukocyte Esterase 2+ (Negative) H 04/05/23 10:51 Urine WBC (Auto) 5-10 /hpf (0-5) H 04/05/23 10:51 Urine RBC (Auto) 0-4 /hpf (0-4) 04/05/23 10:51 U Hyaline Cast (Auto) 0 /lpf (0-5) 04/05/23 10:51 U Epithel Cells (Auto) >30 /lpf (0-5) H 04/05/23 10:51 Urine Bacteria (Auto) 4+ (Negative) H 04/05/23 10:51 Ur Renal Epithelial Cell 0-5 /lpf (0-5) 04/05/23 10:51 Nasal Screen MRSA (PCR) Negative (Negative) 04/05/23 16:25 Blood Type O Positive 04/06/23 09:43 Blood Type Recheck O Positive 04/06/23 11:02 Antibody Screen NEGATIVE 04/06/23 09:43 Crossmatch See Detail 04/06/23 09:43 Impressions Abdomen/Pelvis CT 04/06/23 09:42 CT SCAN OF THE ABDOMEN AND PELVIS WITH IV CONTRAST CLINICAL HISTORY: Colonic mass. COMPARISON STUDY: Abdominal CT dated 04/05/2023. TECHNIQUE: Following the IV administration of 89 cc of Optiray 320, CT scan of the abdomen and pelvis is performed from the lung bases to the proximal femora. Images are reviewed in the axial, sagittal, and coronal planes. IV contrast was administered without complication. A dose lowering technique was utilized adhering to the principles of ALARA. CT DOSE: 690.51 mGy.cm FINDINGS: Lung bases: The heart is enlarged and without pericardial effusion. The lung bases are clear. The coronary arteries and evidence of calcified. The distal esophagus is circumferentially thick-walled. Liver: The contrast-enhanced liver is normal in size, contour, and attenuation. There is moderate intrahepatic biliary ductal dilatation. The hepatic veins and portal veins are patent. Gallbladder: Surgically absent. Spleen: Normal in size and attenuation. Pancreas: Mild atrophic and grossly unremarkable. Adrenal glands: Unremarkable. Kidneys: The contrast enhanced kidneys demonstrate cortical atrophy and are without hydronephrosis. The kidneys enhance symmetrically. Numerous bilateral renal cysts measuring up to 3.1 cm. No enhancing cortical mass lesion is identified. A 3 mm nonobstructing calculus is seen on the left. Abdominal vasculature: The abdominal aorta is normal in course and caliber noting advanced atherosclerotic calcification. Bowel: There is advanced colonic diverticulosis without CT evidence of acute diverticulitis. No bowel obstruction is seen. A large mass lesion is again seen involving the cecum. This measures approximately 9 cm in length and appears to involve the ileocecal junction. There is inflammation around the right colon. Pathologically enlarged pericolic lymph nodes measure up to 2.2 cm seen on image #156. A 1.4 cm right lower quadrant mesenteric node is seen on image #140. The appendix is not visualized. Peritoneum: There is no intraperitoneal free air or abdominal ascites. Lymphadenopathy: Pathologically enlarged mesenteric/pericolonic lymph nodes are seen in the right lower quadrant as above. There is no upper abdominal, retroperitoneal, iliac chain, pelvic sidewall, or inguinal lymphadenopathy. Pelvic viscera: The bladder wall is circumferentially thickened with surrounding infiltration. The uterus and adnexa are normal as visualized. Skeletal structures: The skeletal structures are osteopenic. There is mild lumbosacral spondylosis. There is posttraumatic deformity and postsurgical change seen in the pubic ring. A left iliac bone is in place. Degenerative sclerosis is noted in the sacroiliac joints. No lytic or blastic lesions are seen. IMPRESSION: 1. Again seen is a large cecal mass lesion as above. A colon cancer is the diagnosis of exclusion. This does not cause obstruction. 2. Pathologically enlarged right lower quadrant mesenteric/pericolonic lymph nodes as above. This indicates laron involvement. 3. There is inflammation identified around the cecum. Correlate clinically for evidence of a superimposed colitis. 4. The distal esophagus is circumferentially thick walled. Correlate clinically for evidence of esophagitis. This could be further assessed with endoscopy if clinically warranted. 5. The bladder wall appears thickened with surrounding infiltration. Correlate with clinical findings and urinalysis. 6. There is moderate intrahepatic biliary ductal dilatation, with which may be related to prior cholecystectomy. Correlate with clinical and laboratory findings. 7. There is no evidence of distant metastatic disease in the abdomen or pelvis. 8. Cardiomegaly with advanced coronary artery atherosclerosis. 9. Advanced colonic diverticulosis without CT evidence of acute diverticulosis. 10. Additional findings as above. ACT 112: Negative or not required by law. Electronically signed by: Kirby Ruvalcaba M.D. 04/06/2023 5:56 PM
--- NOTE | 2023-04-07 13:42 | Discharge Summary ---
Date of Service April 07, 2023 Admission HPI Per Admitting Provider 87-year-old female with dementia and a history of right breast cancer status post partial mastectomy, radiation therapy, chemotherapy and 5 years of adjuvant tamoxifen completed in 2018 presents with abdominal pain. Work-up reveals a colonic mass suspicious for malignancy. She has a worsening anemia for which she has been getting iron transfusions after being referred to hematology. She also takes iron supplements orally Thursday. Per patient: reports dark stool, no ivana blood reports eating normal appetite, no changes in appetite, no significant weight changes right abdominal pain, poorly described, x 1-2 weeks. (Daughter states 3-4 days) notes report patient passed out 2-3 weeks ago. Pt doesn't remember circumstances. Happened at [facility] dry lips with some ulcerations, denies pain on these, just dry denies recent UTI symptoms denies lightheadedness, SOB, no abnormal fatigue out of the ordinary occ enema use for constipation. walks with a walker or a cane at baseline. Although she can tell me that "it's cold outside so it must be Nov" and then states correctly that it is 2022, she kept repeating her story. Per daughter (by phone): Pt reports abdominal pain x 3-4 days, saw PCP on Thursday-->CT was scheduled but not yet done staff at [facility] reported this morning that she was confused and elevated BP to 159/68. Said "she might have had a seizure" Upon EMS arrival she was clear. She states that Dr. Del Rio recommended a colonoscopy a few months ago, and the patient had decided against. Daughter reports that she and her sisters are on the same page and they understa nd mom may have colon cancer. They are not interested in further workup at this time. Per [facility] staff: Reports patient went to the bathroom and after she ambulated back to her chair she sat down and became pale, slumped over in her chair with staff holding her up so she didn't fall to the floor. She was shaky in her arms and then came to after about one minute and was able to speak to them. She appeared confused by to staff this confusion was no different from her baseline. Admission Exam Per Admitting Provider CONSTITUTIONAL: [facility], vitals as above, generally well-appearing, NAD EYES: PERRL, normal conjunctivae, no scleral icterus ENT: external ear and nose normal, MMM NECK: trachea midline RESPIRATORY: clear to auscultation bilaterally, no crackles, rales or wheezes, normal respiratory effort CARDIOVASCULAR: regular rate and rhythm, S1 and 2 heard without murmurs, gallops or rubs, no JVD, no peripheral edema CHEST: inspection of chest was normal GASTROINTESTINAL: normal bowel sounds, soft, TTP in right abdomen, ND, no guarding MUSCULOSKELETAL: strength 5/5 throughout, head is normocephalic and atraumatic SKIN: warm and dry, no rashes NEUROLOGIC: CN 2-12 grossly intact, no sensory deficit, normal cognition, normal speech, no tremor PSYCHIATRIC: alert cooperative and oriented to person, place and time. Euthymic mood, makes good eye contact, language grossly intact, repeating her story over again as if not remembering that she just told me that. Principal Diagnosis colon mass- mostly colon cancer Syncope anemia Discharge Data Allergies Allergy/AdvReac Type Severity Reaction Status Date / Time bee venom protein (honey bee) Allergy Severe Anaphylaxis Verified 04/05/23 09:43 cephalexin Allergy Unknown RASH Unverified 10/04/20 09:59 Iodinated Contrast Media Allergy Unknown HIVES Unverified 10/04/20 09:59 lisinopril Allergy Unknown Verified 04/05/23 09:43 alendronate sodium AdvReac Severe Chest Pain Verified 04/05/23 09:43 Consultations 04/05/23 09:44 ED Decision to Admit Stat 04/05/23 11:10 Consult Palliative Care Routine Ordered Studies 04/05/23 08:10 CT Abd and Pelvis [CT abd pelvis wo con] Stat 04/06/23 09:42 CT Abd and Pelvis [CT abd pelvis IV con only] Routine Hospital Course (1) Colonic mass: (1) Colonic mass: Plan: 1) Colonic mass: Possible colon mass versus diverticulitis/colitis. On Zosyn. Daughter wanted to check ct scan with IV contrast. Ordered with prep for iv dye.CT scan with iv contrast shows: large cecal mass lesion as above. A colon cancer is the diagnosis of exclusion. This does not cause obstruction.Possible superimposed colitis. possible oesophagitis. Family doesn't want colonoscopy or further additional studies. . Palliative care consulted and appreciate inputs.Plan for Hospice at [facility].Will d/c on Po augmnetin to complete the course for possible colitis. Syncope: Had syncopal episode morning of 04/04/23 at [facility]. Currently back to baseline. Echo ok. Continue to monitor orthostatics. Abdominal pain: mostly from possible colon mass. pain control currently on low dose Roxanol as needed. Anemia: Likely chronic blood loss anemia secondary to colon mass. on iron supplementation and iron transfusions as outpatient. Hb 6.8 yesterday. s/p one unit prbc yesterday 04/05 and hb stable at 9.6 today. Daughter says she is due for her last iron infusion tomorrow. Stopped aspirin because of colon mass and possible colon cancer. Followup with PCP. Dementia: ON donepezil. Monitor for delirium. Hypothyroidism: Chronic, stable. TSH is ok.. Continue Synthroid . Osteoporosis: Chronic, stable.Seems allergic to to alendronate. Not on calcium or vitamin D supplements. Followup with PCP. History of breast cancer: Hypertension: on metoprolol for losartan. Will monitor Depression: On Lexapro. Discharging to [facility] with Hospice care. Total Time Total Time Spent Total Time Spent (In Minutes): 40 minutes Discharge Plan Discharge Items Patient Disposition: Personal [facility] Reason For Visit: ABDOMINAL PAIN, ?COLON MASS Discharge Diagnosis: Colon mass most likely colon cancer Activity: Resume your previous activity Non-emergency contact: Primary Care Provider Call non-emergency contact if: your symptoms worsen and your pain is not controlled Follow-up/Referrals: Arun Del Rio MD [Primary Care Provider] - Diet: Regular Diet Texture: Easy to Chew Addtl Attending Provider Instructions: Followup with PCP in 1- 2 weeks CBC in one week and follow results with PCP. To take probiotic while taking antibiotic. Stopped aspirin for anemia and colon mass. Pending Studies at Discharge: No Stand-Alone Forms: My TxCell, Smoking Cessation Skilled Items Patient informed of condition?: Yes DNR: Yes Discharge Level of Care: Other Communicable Disease: No Discharge Prognosis: Stable Lines: None Urinary Catheter: No Medications and DC Order Prescriptions: New amoxicillin-pot clavulanate [Augmentin] 500-125 mg tablet 1 tab PO BID Qty: 20 0RF Continued pravastatin 40 mg tablet 40 mg PO HS alprazolam 0.5 mg tablet 0.5 mg PO HS PRN (Reason: Sleep) levothyroxine 50 mcg tablet 50 mcg PO DAILYBB metoprolol succinate 25 mg tablet extended release 24 hr 25 mg PO DAILY losartan 100 mg tablet 100 mg PO HS cranberry 450 mg Tablet 450 mg PO DAILY nitroglycerin [Nitrostat] 0.4 mg Tablet, Sublingual 0.4 mg Sublingual UD Qty: 30 0RF amlodipine 2.5 mg tablet 2.5 mg PO DAILY donepezil 5 mg tablet 5 mg PO DAILY famotidine 20 mg tablet 20 mg PO DAILY ferrous sulfate 325 mg (65 mg iron) Tablet 325 mg PO MOWEFR@0900 escitalopram oxalate 10 mg tablet 10 mg PO DAILY dorzolamide-timolol 22.3-6.8 mg/mL drops 1 drp OPB BID Discontinued aspirin [Mackenzie Low Dose Aspirin] 81 mg Tablet,Delayed Release (Dr/Ec) 81 mg PO DAILY Discharge Orders: Discharge Order (Routine); Ordered 04/07/23 Ordered By: Zana Pulido Admission Data Admit Date/Time: 04/05/23 09:53 Attending Provider: Zana Pulido Admit Provider: Agata Quintero Primary Care Provider: Arun Del Rio Other Providers: Agata Quintero; Rose Shoemaker; Juanis Elliott
--- NOTE | 2023-04-08 06:09 | Electrocardiogram Report ---
Test Reason : Blood Pressure : / mmHG Vent. Rate : 085 BPM Atrial Rate : 085 BPM P-R Int : 164 ms QRS Dur : 076 ms QT Int : 378 ms P-R-T Axes : 035 -26 021 degrees QTc Int : 449 ms Normal sinus rhythm Minimal voltage criteria for LVH, may be normal variant ( R in aVL ) Nonspecific ST and T wave abnormality Abnormal ECG When compared with ECG of 05-OCT-2019 10:44, No significant change was found Confirmed by Shubham Herbert ([id number]) on 04/08/2023 6:09:39 AM Referred By: Yeni Moreno Confirmed By:Shubham Herbert
[2023-04-08] MEDS ORDERED: IRON SUCROSE 200 MG in 0.9 % SODIUM CHLORIDE 100 ML IV ONE (09:00)
== END 2023-04-07 16:31 | disposition hospice, inpatient (51) | DRG 394 ==
LOC: ED 07:58 → 3W 09:53 → SUATTDRO 09:53 → 3W 10:42 → 2N 16:01